=== PATIENT | male | born 1945 | race Caucasian/White ===

== ENCOUNTER 2016-03-05 09:27 | Inpatient (IN) | payer MEDICARE, OTHER ==
--- NOTE | 2016-03-05 10:09 | ED ---
General Adult HPI - General Source: patient, RN notes reviewed Mode of arrival: wheelchair Limitations: no limitations <Alex Odell - Last Filed: 03/05/16 13:02> <Ralf Huang - Last Filed: 03/05/16 13:39> - General Chief complaint: Chest Pain Stated complaint: chest pain Time Seen by Provider: 03/05/16 09:47 - History of Present Illness Initial comments: 70-year-old male presents emergency Department from cancer Center for evaluation. Patient was diaphoretic, fatigue and not feeling well. Patient states they're concerned that he may be having some heart issues. Patient denies any chest pain this time. Patient states he has no A. fib. Patient states that he is currently on Coumadin states that they are waiting until he is therapeutic for 4 weeks consistently to be converted. Patient states he has no increased shortness of breath. Patient denies any fever, chills. Patient states he did receive radiation today. Patient states she's had bouts of these episodes in the past and they resolved by himself. Patient denies any nausea vomiting. Patient denies any cold-like symptoms. Patient offers no complaints. (Alex Odell) - Related Data Home Medications Medication Instructions Recorded Confirmed Albuterol Inhaler [Ventolin Hfa 2 puff INHALATION RT-Q4H PRN 11/02/15 03/05/16 Inhaler] Aspirin [Adult Low Dose Aspirin EC] 81 mg PO DAILY 11/02/15 03/05/16 Budesonide/Formoterol Fumarate 2 puff INHALATION RT-BID 11/02/15 03/05/16 [Symbicort 80-4.5 Mcg Inhaler] Carboxymethylcellulose Sodium 1 drop BOTH EYES BID PRN 11/02/15 03/05/16 [Refresh Tears] Cholecalciferol [Vitamin D3] 1,000 unit PO DAILY 11/02/15 03/05/16 Fluticasone Nasal [place] [Flonase 1 spray EA NOSTRIL BID 11/02/15 03/05/16 Nasal [place]] Furosemide [Lasix] 40 mg PO DAILY 11/02/15 03/05/16 HYDROcodone/APAP 7.5-325MG [[place] 1 tab PO Q6HR PRN 11/02/15 03/05/16 7.5-325] Levothyroxine Sodium [Synthroid] 50 mcg PO DAILY 11/02/15 03/05/16 Losartan Potassium [Cozaar] 50 mg PO DAILY 11/02/15 03/05/16 Meloxicam [Mobic] 7.5 mg PO BID 11/02/15 03/05/16 Multivitamins, Thera [Multivitamin] 1 tab PO DAILY 11/02/15 03/05/16 Omeprazole 20 mg PO DAILY 11/02/15 03/05/16 Pravastatin Sodium [Pravachol] 80 mg PO HS 11/02/15 03/05/16 Tamsulosin HCl [Flomax] 0.4 mg PO HS 11/02/15 03/05/16 hydrALAZINE HCL [Apresoline] 25 mg PO BID 11/02/15 03/05/16 metFORMIN HCL 1,000 mg PO BID 11/02/15 03/05/16 Carvedilol [Coreg] 12.5 mg PO BID 01/28/16 03/05/16 Warfarin [Coumadin] 5 mg PO MOWETH 01/28/16 03/05/16 Warfarin [Coumadin] 7.5 mg PO SUTUFRSA 01/28/16 03/05/16 Previous Rx's Medication Instructions Recorded Albuterol Nebulized [Ventolin 2.5 mg INHALATION RT-TID #0 01/30/16 Nebulized] Ipratropium Nebulized [Atrovent 0.5 mg INHALATION RT-TID #0 01/30/16 Nebulized] Allergies Allergy/AdvReac Type Severity Reaction Status Date / Time simvastatin [From Zocor] AdvReac Myalgia Verified 03/05/16 10:31 Review of Systems ROS Other: All systems not noted in ROS Statement are negative. <Alex Odell - Last Filed: 03/05/16 13:02> ROS Other: All systems not noted in ROS Statement are negative. <Ralf Huang - Last Filed: 03/05/16 13:39> ROS Statement: Those systems with pertinent positive or pertinent negative responses have been documented in the HPI. Past Medical History Past Medical History: Coronary Artery Disease (CAD), Cancer, Heart Failure, COPD , Diabetes Mellitus, GERD/Reflux, Hyperlipidemia, Hypertension, Osteoarthritis ( OA), Sleep Apnea/CPAP/BIPAP, Thyroid Disorder Additional Past Medical History / Comment(s): prostate ca under treatment now - radiation therapy 8 weeks 5 days a week - as of 01/27 week 3. History of Any Multi-Drug Resistant Organisms: None Reported Past Surgical History: Orthopedic Surgery Additional Past Surgical History / Comment(s): carpel tunnel fatty tumor removal Past Anesthesia/Blood Transfusion Reactions: No Reported Reaction Past Psychological History: No Psychological Hx Reported Additional Psychological History / Comment(s): had some group therapy after he came back from [place] Smoking Status: Never smoker Past Alcohol Use History: None Reported Past Drug Use History: None Reported - Past Family History Father Family Medical History: Cancer, Dementia Additional Family Medical History / Comment(s): prostate ca, oral ca from smoking Mother Family Medical History: Cancer, Diabetes Mellitus, Hypertension Additional Family Medical History / Comment(s): stomach Brother(s) Family Medical History: GI Bleed Additional Family Medical History / Comment(s): knee problems. stomach resection for bleeding ulcer <Alex Odell - Last Filed: 03/05/16 13:02> General Exam Limitations: no limitations General appearance: alert, in no apparent distress Head exam: Present: atraumatic, normocephalic, normal inspection Respiratory exam: Present: normal lung sounds bilaterally. Absent: respiratory distress, wheezes, rales, rhonchi, stridor Cardiovascular Exam: Present: irregular rhythm, normal heart sounds. Absent: systolic murmur, diastolic murmur, rubs, gallop, clicks GI/Abdominal exam: Present: soft, normal bowel sounds. Absent: distended, tenderness, guarding, rebound, rigid Neurological exam: Present: alert, oriented X3, CN II-XII intact Skin exam: Present: warm, dry, intact, normal color. Absent: rash <Alex Odell - Last Filed: 03/05/16 13:02> Medical Decision Making - Lab Data Result diagrams: 03/05/16 10:14 03/05/16 10:14 <Alex Odell - Last Filed: 03/05/16 13:02> - Lab Data Result diagrams: 03/05/16 10:14 03/05/16 10:14 <Ralf Huang - Last Filed: 03/05/16 13:39> - Medical Decision Making 70-year-old male present emergency department for doesn't feel well diaphoretic shortness of breath. Patient will be admitted to hospitalist at this time. ( Alex Odell) Patient reevaluated by myself, Dr. Huang. Patient was diaphoretic earlier. Patient also now admits to being short of breath and had difficulty walking. Patient was unable to ambulate to the emergency department. Patient is resting comfortably in bed in symptoms. This time. Case was discussed in detail with Dr. Washburn, who will admit for Dr. Orr. Cardiac evaluation will be done and computed tomography scan will be rechecked. (Ralf Huang) - Lab Data Lab Results 03/05/16 03/05/16 03/05/16 Range/Units 10:14 10:14 10:14 WBC 5.4 (3.8-10.6) k/uL RBC 4.21 L (4.30-5.90) m/uL Hgb 12.8 L (13.0-17.5) gm/dL Hct 38.4 L (39.0-53.0) % MCV 91.0 (80.0-100.0) fL MCH 30.4 (25.0-35.0) pg MCHC 33.4 (31.0-37.0) g/dL RDW 14.6 (11.5-15.5) % Plt Count 202 (150-450) k/uL Neutrophils % 76 % Lymphocytes % 7 % Monocytes % 8 % Eosinophils % 4 % Basophils % 1 % Neutrophils # 4.1 (1.3-7.7) k/uL Lymphocytes # 0.4 L (1.0-4.8) k/uL Monocytes # 0.4 (0-1.0) k/uL Eosinophils # 0.2 (0-0.7) k/uL Basophils # 0.0 (0-0.2) k/uL PT (9.0-12.0) sec INR (<1.1) APTT (22.0-30.0) sec Sodium 143 (137-145) mmol/L Potassium 4.7 (3.5-5.1) mmol/L Chloride 103 (98-107) mmol/L Carbon Dioxide 28 (22-30) mmol/L Anion Gap 12 mmol/L BUN 20 (9-20) mg/dL Creatinine 0.88 (0.66-1.25) mg/dL Est GFR (MDRD) Af Amer >60 (>60 ml/min/1.73 sqM) Est GFR (MDRD) Non-Af >60 (>60 ml/min/1.73 sqM) Glucose 119 H (74-99) mg/dL Calcium 9.1 (8.4-10.2) mg/dL Magnesium 1.7 (1.6-2.3) mg/dL Total Bilirubin 1.0 (0.2-1.3) mg/dL AST 16 L (17-59) U/L ALT 29 (21-72) U/L Alkaline Phosphatase 62 (38-126) U/L Total Creatine Kinase 41 L (55-170) U/L CK-MB (CK-2) 0.8 (0.0-2.4) ng/mL CK-MB (CK-2) Rel Index 2.0 Troponin I <0.012 (0.000-0.034) ng/mL Total Protein 6.5 (6.3-8.2) g/dL Albumin 3.8 (3.5-5.0) g/dL Urine Color Urine Appearance (Clear) Urine pH (5.0-8.0) Ur Specific [place] (1.001-1.035) Urine Protein (Negative) Urine Glucose (UA) (Negative) Urine Ketones (Negative) Urine Blood (Negative) Urine Nitrate (Negative) Urine Bilirubin (Negative) Urine Urobilinogen (<2.0) mg/dL Ur Leukocyte Esterase (Negative) 03/05/16 03/05/16 Range/Units 10:14 11:21 WBC (3.8-10.6) k/uL RBC (4.30-5.90) m/uL Hgb (13.0-17.5) gm/dL Hct (39.0-53.0) % MCV (80.0-100.0) fL MCH (25.0-35.0) pg MCHC (31.0-37.0) g/dL RDW (11.5-15.5) % Plt Count (150-450) k/uL Neutrophils % % Lymphocytes % % Monocytes % % Eosinophils % % Basophils % % Neutrophils # (1.3-7.7) k/uL Lymphocytes # (1.0-4.8) k/uL Monocytes # (0-1.0) k/uL Eosinophils # (0-0.7) k/uL Basophils # (0-0.2) k/uL PT 22.7 H (9.0-12.0) sec INR 2.4 (<1.1) APTT 32.5 H (22.0-30.0) sec Sodium (137-145) mmol/L Potassium (3.5-5.1) mmol/L Chloride (98-107) mmol/L Carbon Dioxide (22-30) mmol/L Anion Gap mmol/L BUN (9-20) mg/dL Creatinine (0.66-1.25) mg/dL Est GFR (MDRD) Af Amer (>60 ml/min/1.73 sqM) Est GFR (MDRD) Non-Af (>60 ml/min/1.73 sqM) Glucose (74-99) mg/dL Calcium (8.4-10.2) mg/dL Magnesium (1.6-2.3) mg/dL Total Bilirubin (0.2-1.3) mg/dL AST (17-59) U/L ALT (21-72) U/L Alkaline Phosphatase (38-126) U/L Total Creatine Kinase (55-170) U/L CK-MB (CK-2) (0.0-2.4) ng/mL CK-MB (CK-2) Rel Index Troponin I (0.000-0.034) ng/mL Total Protein (6.3-8.2) g/dL Albumin (3.5-5.0) g/dL Urine Color Yellow Urine Appearance Clear (Clear) Urine pH 6.5 (5.0-8.0) Ur Specific [place] 1.018 (1.001-1.035) Urine Protein Negative (Negative) Urine Glucose (UA) Negative (Negative) Urine Ketones Negative (Negative) Urine Blood Negative (Negative) Urine Nitrate Negative (Negative) Urine Bilirubin Negative (Negative) Urine Urobilinogen <2.0 (<2.0) mg/dL Ur Leukocyte Esterase Negative (Negative) Disposition <Alex Odell - Last Filed: 03/05/16 13:02> <Ralf Huang - Last Filed: 03/05/16 13:39> Clinical Impression: Weakness, Pulmonary embolism, Shortness of breath Disposition: ADMITTED IP TO THIS HOSP Referrals: Alex Haley DO [Primary Care Provider] - 1-2 days Addendum entered and electronically signed by Alex Odell, PAC 03/05/16 13:07 : EKG A. fib with rate of 87, QRS duration 80, QTC is QTC 360/442
[2016-03-05 10:34] LABS: INR 2.4 (<1.1); Partial Thromboplastin Time 32.5 sec (22.0-30.0); Prothrombin Time 22.7 sec (9.0-12.0)
[2016-03-05 10:35] LABS: Anion Gap 12 mmol/L; Carbon Dioxide 28 mmol/L (22-30); Chloride 103 mmol/L (98-107); Glucose 119 mg/dL (74-99); Non-African American GFR(MDRD) >60 (>60 ml/min/1.73 sqM); Potassium 4.7 mmol/L (3.5-5.1); Sodium 143 mmol/L (137-145); Total Protein 6.5 g/dL (6.3-8.2)
[2016-03-05 10:36] LABS: ALT 29 U/L (21-72); AST 16 U/L (17-59); Alkaline Phosphatase 62 U/L (38-126); Blood Urea Nitrogen 20 mg/dL (9-20); Calcium 9.1 mg/dL (8.4-10.2); Magnesium 1.7 mg/dL (1.6-2.3)
[2016-03-05 10:42] LABS: Basophils % (A) 1 %; CH 31.2; CHCM 34.4; Eosinophils # (A) 0.2 k/uL (0-0.7); Eosinophils % (A) 4 %; HCT 38.4 % (39.0-53.0); HDW 2.81; HGB 12.8 gm/dL (13.0-17.5); Luc # (Auto) 0.18; Luc % (Auto) 3; Lymphocytes # (A) 0.4 k/uL (1.0-4.8); Lymphocytes % (A) 7 %; MCH 30.4 pg (25.0-35.0); MCHC 33.4 g/dL (31.0-37.0); Monocytes # (A) 0.4 k/uL (0-1.0); Monocytes % (A) 8 %; Neutrophils # (A) 4.1 k/uL (1.3-7.7); Neutrophils % (A) 76 %; RBC 4.21 m/uL (4.30-5.90); RDW 14.6 % (11.5-15.5); WBC 5.4 k/uL (3.8-10.6); WBC (Perox) 5.63
[2016-03-05 10:48] LABS: Creatine Kinase 41 U/L (55-170)
[2016-03-05 11:02] LABS: Creatine Kinase MB 0.8 ng/mL (0.0-2.4); Troponin I <0.012 ng/mL (0.000-0.034)
--- NOTE | 2016-03-05 11:37 | XR ---
EXAMINATION TYPE: XR chest 2V DATE OF EXAM: 03/05/2016 11:33 AM COMPARISON: 01/28/2016 HISTORY: Shortness of breath TECHNIQUE: Frontal and lateral views of the chest are obtained. FINDINGS: Scattered senescent parenchymal changes noted. Hyperinflation compatible with COPD. No evidence for infiltrate. No evidence for atelectasis. Heart size is stable. Mediastinal structures are stable and grossly unremarkable. No evidence for hilar prominence. Degenerative changes dorsal spine. IMPRESSION: 1. No evidence for acute pulmonary disease.
[2016-03-05 11:58] LABS: Appearance,Urine Clear (Clear); Bilirubin,Urine Negative (Negative); Glucose,Urine (UA) Negative (Negative); Ketones,Urine Negative (Negative); Leukocyte Esterase,Urine Negative (Negative); Nitrite,Urine Negative (Negative); PH, Urine 6.5 (5.0-8.0); Protein,Urine Negative (Negative); Specific Gravity,Urine 1.018 (1.001-1.035); UA Billing (MACRO vs. MICRO) CHEM; Urobilinogen,Urine <2.0 mg/dL (<2.0)
[2016-03-05] MEDS ORDERED: NALOXONE 0.4 MG/ML 1 ML VIAL IV PRN (13:04)
[2016-03-05] MEDS ORDERED: ACETAMINOPHEN TAB 325 MG TAB PO PRN (13:04)
[2016-03-05] MEDS ORDERED: ARTIFICIAL TEARS-HYPROMELLOSE DROPS 15 ML BTL BOTH EYES PRN (13:06)
[2016-03-05] MEDS ORDERED: HYDROcodone/APAP 7.5-325MG 1 EACH TAB PO PRN (13:06)
[2016-03-05] MEDS ORDERED: ALBUTEROL NEBULIZED 2.5 MG/3 ML INHALATION PRN (13:06)
[2016-03-05] MEDS ORDERED: RX INFO: IV CONTRAST WAS GIVEN 1 EACH MISC MISCELLANE PRN (13:39)
--- NOTE | 2016-03-05 14:35 | CT ---
EXAMINATION TYPE: CT angio chest DATE OF EXAM: 03/05/2016 2:19 PM COMPARISON: Radiograph same day HISTORY: 70-year-old male with shortness of breath and history of PE. TECHNIQUE: Contiguous axial scanning of the chest performed with IV Contrast, patient injected with 1 00 ml mL of Omnipaque 350. Coronal/sagittal MIP reconstructions performed. CT DLP: 563.9 mGycm Automated exposure control for dose reduction was used. FINDINGS: Heart is upper limits of normal in size without pericardial effusion. Coronary vessel calcifications are present and are a marker for coronary artery disease. Ascending aorta is ectatic at 3.9 cm with conventional arch vessel branching anatomy. Upper descendin g thoracic aorta is mildly aneurysmal at 3.2 cm. There is satisfactory opacification of the pulmonary arterial system but with some respiratory motion . There is a solitary segmental branch pulmonary embolus seen within the right lower lobe. There is n o flattening of the interventricular septum or reflux of contrast into the hepatic veins. Evaluation of the lungs shows mild diffuse bronchial wall thickening which could represent bronchitis or chronic asthma. - 4 mm right upper lobe pulmonary nodule axial image 31. - 5 mm subpleural pulmonary nodule right middle lobe axial image 82. - 4 mm pulmonary nodule peripheral left upper lobe axial image 67. No consolidation or pleural effusion. Visualized upper abdomen shows no gross abnormality. Bones: Endplate spondylosis mid to lower thoracic spine. No osseous destructive process. Incompletely united old fracture deformity of the right anterior sixth rib. IMPRESSION: 1. SOLITARY PULMONARY EMBOLUS WITHIN A SEGMENTAL BRANCH OF THE RIGHT LOWER LOBE. FINDINGS CALLED TO [facility]O ON - AT APPROXIMATELY 2:30 PM. 2. MILD DIFFUSE BRONCHIAL WALL THICKENING COULD REPRESENT BRONCHITIS OR CHRONIC ASTHMA. 3. A FEW PULMONARY NODULES MEASURING UP TO 5 MM. 6, 12, AND 24 MONTHS FOLLOW UP EXAMS ARE RECOMMENDED TO ENSURE STABILITY AND A BENIGN ETIOLOGY.
[2016-03-05 17:05] LABS: Glucose,Whole Blood 102 mg/dL (75-99)
[2016-03-05] MEDS ORDERED: CARVEDILOL 12.5 MG TAB PO SCH (17:30)
[2016-03-05 17:58] VITALS: BP 140/72; PULSE 91; RESP 18; TEMP 97.4
[2016-03-05] MEDS ORDERED: WARFARIN 5 MG TAB PO SCH (18:00)
[2016-03-05] MEDS ORDERED: IPRATROPIUM 0.5 MG/2.5 ML NEBU INHALATION SCH (20:00)
[2016-03-05] MEDS ORDERED: ALBUTEROL NEB (CONC) 2.5 MG/0.5 ML INHALATION SCH (20:00)
[2016-03-05] MEDS ORDERED: SYMBICORT 80-4.5 MCG INHALER INHALATION SCH (20:00)
[2016-03-05] MEDS ORDERED: TAMSULOSIN 0.4 MG CAP.ER.24H PO SCH (21:00)
[2016-03-05] MEDS ORDERED: metFORMIN 500 MG TAB PO SCH (21:00)
[2016-03-05] MEDS ORDERED: hydrALAZINE HCL 25 MG TAB PO SCH (21:00)
[2016-03-05] MEDS ORDERED: PRAVASTATIN SODIUM 80 MG TAB PO SCH (21:00)
[2016-03-06] MEDS ORDERED: LEVOTHYROXINE 50 MCG TAB PO SCH (06:30)
[2016-03-06] MEDS ORDERED: PANTOPRAZOLE 40 MG TABLET PO SCH (07:30)
--- NOTE | 2016-03-06 08:43 | HP ---
DATE OF ADMISSION: This dictation is both H&P and discharge summary. A 70-year-old who came in after he was sent from cancer center. Patient was receiving radiation therapy. Radiation physician was concerned because he was quite fatigued after radiation therapy and the patient has fatigue going on for about a few weeks. Patient was on ( ) therapy which is probably contributing to his fatigue. Patient denied any fever, chills. Patient was apparently complained of ( ), complained of shortness of breath. Apparently through the ER patient denied any history of shortness of breath. Patient denied any fever and chills. Patient had nausea and vomiting. Patient denied any orthopnea, PND. His only symptoms is significant fatigue. ( ) not anemic. His fatigue is probably related to ( ) therapy. Patient follows with oncologist in [facility]. Considering his previous history of pulmonary embolism, I am not sure why, but patient did get a CT scan of the chest, which did not show any pulmonary edema or pneumonic process. Although there is a ( ) pulmonary embolus, which was subsequently by the right lower lobe, which appears to be older pulmonary emboli and the patient is already on Coumadin therapy with therapeutic INR. Patient has diffuse ( ) thickening and some pulmonary nodules measuring up to 5 mm and will need follow up CT scan for that. Not sure whether these pulmonology nodules were present or not. I did call Dr. Mcclellan, who evaluated the patient and patient is going to switch his oncologist to a local oncologist, Dr. Mcclellan. Because of which I did discuss this case with him and also encouraged him further to follow-up with Dr. Mcclellan. I will try to reach Dr. Waldrop as well, who evaluated the patient regarding these pulmonary nodules, which may need to be followed down the line. I am not sure whether these pulmonary nodules were already present. Patient did tell me that he has nodule in the abdomen. I do not believe patient needs to stay in the hospital for fatigue evaluation as this is an outpatient evaluation. Patient was subsequently discharged. Patient was made aware about these nodules and I asked him to get with oncologist in [facility] whenever he goes and sees his oncologist. Home medications include: Albuterol, aspirin, Zosyn, ( ) pharmacy to dose, cholecalciferol, fluticasone, Lasix 40 mg orally daily, hydrocodone, acetaminophen, levothyroxine, losartan, meloxicam, multivitamin, omeprazole, pravastatin, tamsulosin, hydralazine, metformin, Coreg, Coumadin, albuterol, ipratropium. ROS : All other systems were reviewed and were negative. ALLERGIES: ALLERGIC TO SIMVASTATIN. Past medical history significant for coronary artery disease, heart failure. I am not sure what his ejection fraction is although patient is not in congestive heart failure exacerbation. Patient has prostate cancer for which patient is receiving hormone therapy and radiation therapy, COPD, diabetes mellitus, gastroesophageal reflux disease, hyperlipidemia, hypertension, osteoarthritis, sleep apnea. He uses CPAP machine at home. Hypothyroidism, carpal tunnel syndrome. SOCIAL HISTORY: Denied smoking, alcohol abuse or drug abuse. FAMILY HISTORY: Significant for dementia, cancer, there is oral cancer in father and prostate cancer in father. Mother had diabetes mellitus, stomach cancer and hypertension. Brother had GI bleed. PHYSICAL EXAMINATION: VITAL SIGNS: Temperature 97.4, pulse of 90, respiratory rate of 18, blood pressure 125/63, saturating at 96% on room air. GENERAL: Morbidly obese, alert and oriented x3. HEENT: Pupils are round and equally reacting to light. EOMI. No scleral icterus. No conjunctival pallor. Normocephalic, atraumatic. No pharyngeal erythema. No thyromegaly. CARDIOVASCULAR: S1 and S2 present. No murmurs, rubs, or gallops. PULMONARY: Chest is clear to auscultation, no wheezing or crackles. ABDOMEN: Soft, nontender, nondistended, normoactive bowel sounds. No palpable organomegaly. MUSCULOSKELETAL: No joint swelling or deformity. EXTREMITIES: No cyanosis, clubbing, or pedal edema. NEUROLOGICAL: Gross neurological examination did not reveal any focal deficits. SKIN: No rashes. LABORATORY DATA: CBC, CMP and TSH are essentially within normal limits. The patient's hemoglobin is 12.4. CT angiogram of the chest was reviewed and results as mentioned above. ASSESSMENT AND PLAN: 1. Fatigue probably related to his localized therapy. Further evaluation can be done as an outpatient. The patient will be asked to follow up with his primary care physician for that. 2. Questionable history of coronary artery disease, not in acute exacerbation at this point of time. 3. Questionable history of congestive heart failure, unknown ejection fraction, not in acute exacerbation. 4. Prostate cancer for which patient is on receiving hormonal therapy and radiation therapy which will be continued. 5. Hypothyroidism. 6. Pulmonary embolism, which appears to be chronic and patient does not have any other symptoms except for fatigue. Patient is on Coumadin which INR is therapeutic, he will continue. 7. Diabetes mellitus. 8. Severe sleep apnea for which he uses CPAP machine. 9. Morbid obesity. Counseling was provided regarding that. 10. Restrictive lung disease secondary to morbid obesity. 11. Hypertension. 12. Hypothyroidism. 13. History of coronary artery disease. 14. Type 2 diabetes mellitus. For above mentioned chronic medical problems the patient can continue his home medications. Patient will be discharged today. This dictation is both H&P and discharge summary. DISCHARGE DIET: Cardiac and ADA 1800 calorie diet. Follow up with Dr. Tony Mcclellan in one week; Dr. Alex Haley in about 3 to 7 days; Dr. Ainsley Waldrop in one week. Activity as tolerated. MTDD
[2016-03-06] MEDS ORDERED: FUROSEMIDE 40 MG TAB PO SCH (09:00)
[2016-03-06] MEDS ORDERED: ASPIRIN 81 MG CHEW PO SCH (09:00)
[2016-03-06] MEDS ORDERED: LOSARTAN 50 MG TAB PO SCH (09:00)
[2016-03-06] MEDS ORDERED: WARFARIN 7.5 MG TAB PO SCH (18:00)
== END 2016-03-05 19:36 | disposition home or self-care (01) | DRG 948 ==
LOC: EC 09:27 → OBSVTOIN 13:04 → INTOOBSV 13:04 → 6SEL 13:04
PROVIDERS: ADMIT Hospitalist; ATTEND Hospitalist
DX: R53.83 Other fatigue (principal); I27.82 Chronic pulmonary embolism; C61 Malignant neoplasm of prostate; Z68.41 Body mass index [BMI] 40.0-44.9, adult; E03.9 Hypothyroidism, unspecified; E11.9 Type 2 diabetes mellitus without complications; G47.30 Sleep apnea, unspecified; E66.01 Morbid (severe) obesity due to excess calories; J98.4 Other disorders of lung; I10 Essential (primary) hypertension; I25.10 Atherosclerotic heart disease of native coronary artery without angina pectoris; J44.9 Chronic obstructive pulmonary disease, unspecified; K21.9 Gastro-esophageal reflux disease without esophagitis; E78.5 Hyperlipidemia, unspecified; M19.90 Unspecified osteoarthritis, unspecified site; T78.8XXA Other adverse effects, not elsewhere classified, initial encounter; R91.8 Other nonspecific abnormal finding of lung field; Z99.89 Dependence on other enabling machines and devices; Z79.01 Long term (current) use of anticoagulants; Z79.82 Long term (current) use of aspirin; Z79.51 Long term (current) use of inhaled steroids; Z79.84 Long term (current) use of oral hypoglycemic drugs; Z79.899 Other long term (current) drug therapy; Z88.8 Allergy status to other drugs, medicaments and biological substances; Z82.49 Family history of ischemic heart disease and other diseases of the circulatory system
CPT/HCPCS: 36415; 71020; 71275; 80053; 81003; 82550; 82553; 83735; 84443; 84484; 85025; 85610; 85730; 93005; 99285

== ENCOUNTER → 2016-04-14 | Outpatient (CLI) | payer OTHER ==
[2016-04-14 09:28] LABS: Basophils % (A) 0 %; CH 31.2; CHCM 33.4; Eosinophils # (A) 0.3 k/uL (0-0.7); Eosinophils % (A) 4 %; HCT 38.1 % (39.0-53.0); HDW 2.89; HGB 12.6 gm/dL (13.0-17.5); Luc # (Auto) 0.12; Luc % (Auto) 2; Lymphocytes # (A) 0.4 k/uL (1.0-4.8); Lymphocytes % (A) 7 %; MCH 31.1 pg (25.0-35.0); MCHC 33.1 g/dL (31.0-37.0); Mean Platelet Volume 6.7; Monocytes # (A) 0.4 k/uL (0-1.0); Monocytes % (A) 6 %; Neutrophils % (A) 80 %; RBC 4.05 m/uL (4.30-5.90); RDW 13.6 % (11.5-15.5); WBC 6.2 k/uL (3.8-10.6); WBC (Perox) 7.05
[2016-04-14 12:23] LABS: ALT 36 U/L (21-72); AST 17 U/L (17-59); Alkaline Phosphatase 62 U/L (38-126); Anion Gap 11 mmol/L; Blood Urea Nitrogen 15 mg/dL (9-20); Calcium 9.6 mg/dL (8.4-10.2); Carbon Dioxide 27 mmol/L (22-30); Chloride 103 mmol/L (98-107); Glucose 115 mg/dL (74-99); Non-African American GFR(MDRD) >60 (>60 ml/min/1.73 sqM); Potassium 5.1 mmol/L (3.5-5.1); Sodium 141 mmol/L (137-145); Total Bilirubin 0.8 mg/dL (0.2-1.3); Total Protein 6.5 g/dL (6.3-8.2)
[2016-04-14 12:51] LABS: Prostate Specific Antigen <0.06 ng/mL (0.00-4.00)
[2016-04-14 12:55] LABS: Hemoglobin A1C 5.6 % (4.2-6.1)
== END | disposition home or self-care (01) ==
LOC: LABWHC1 08:36
PROVIDERS: ATTEND Radiology Radiation Oncology
DX: C61 Malignant neoplasm of prostate (principal); E11.65 Type 2 diabetes mellitus with hyperglycemia
CPT/HCPCS: 36415; 80053; 83036; 84153; 85025

== ENCOUNTER → 2016-06-15 | Outpatient (CLI) | payer OTHER ==
[2016-06-15 11:54] LABS: Blood Urea Nitrogen 16 mg/dL (9-20); Non-African American GFR(MDRD) >60 (>60 ml/min/1.73 sqM)
--- NOTE | 2016-06-15 14:36 | CT ---
EXAMINATION TYPE: CT abdomen pelvis w con DATE OF EXAM: 06/15/2016 1:22 PM COMPARISON: NONE INDICATION: Malignant neoplasm prostate DLP: 4462.90 mGycm, Automated exposure control for dose reduction was used. CONTRAST: 100 ml mL of Omnipaque 300. Study performed with Oral Contrast TECHNIQUE: Axial images were obtained from above the diaphragm to the pubic rami in the axial plane a t 5 mm thick sections. Reconstructed images are reviewed on the computer in the coronal plane. FINDINGS: Limited CT sections are obtained the lung bases. There is a 0.5 cm punctate densities in the periphe ry of the left midlung. Lung bases otherwise appear clear. Some subsegmental atelectasis may be withi n the lingula. Coronary artery calcification is present. CT ABDOMEN: Liver: Normal Spleen: Normal Pancreas: Some subtle infiltrate appears to surround the head of the pancreas. Clinical correlation r ecommended for mild acute pancreatitis. Body and tail of the pancreas appear normal. No sterling-Pancreat ic inflammatory changes are identified at those more distal pancreatic levels. Adrenal glands: The adrenal glands are normal. Gallbladder: Normal Kidneys: No masses are evident. No hydronephrosis is present. No cysts are present. Delayed images were obtained through the kidneys, which remain unremarkable. Aorta: Vascular calcification is within the aorta. Inferior vena cava: Normal. CT PELVIS: Loops of bowel within the abdomen and pelvis are normal. There are loops of bowel which are incom pletely distended or lack oral contrast limiting their evaluation. Appendix: Normal as visualized. Urinary bladder: Normal. Genitourinary structures: Prostate contains calcification. Osseous structures: No suspicious lytic or sclerotic lesions. IMPRESSIONS: 1. Correlate for acute pancreatitis at the head of the pancreas.
== END | disposition home or self-care (01) ==
LOC: RADCTMAIN 11:03
PROVIDERS: ATTEND Radiology Radiation Oncology
DX: C61 Malignant neoplasm of prostate (principal); K85.90 Acute pancreatitis without necrosis or infection, unspecified
CPT/HCPCS: 82565; 84520; 74177; 36415; Q9967

== ENCOUNTER → 2016-10-02 | Outpatient (CLI) | payer OTHER ==
--- NOTE | 2016-10-02 09:47 | US ---
LOWER EXTREMITY VENOUS INSUFFICIENCY SIDE PERFORMED: LEFT 1) Color flow is present and patency is documented in the following vessels. No DVT or SVT is noted . EIV, not visualized due to obesity Common Femoral Vein Deep Femoral Vein Femoral Vein Popliteal Vein Proximal Calf Veins, not visualized due to obesity Greater Saph Vein Upper Small Saph Vein 2) There is venous reflux noted at the following venous levels: Left small saphenous vein Anechoic structure left pop fossa with internal calcifications measuring 4.9 x 2.8 x 4.1cm IMPRESSION: 1. Visualized left lower extremity venous Doppler study is negative for deep venous thrombosis. There is limitation. 2. Popliteal fossa cyst, this appears complex.
== END | disposition home or self-care (01) ==
LOC: RADUSWWP 08:17
PROVIDERS: ATTEND Internal Medicine Infectious Disease
DX: M71.22 Synovial cyst of popliteal space [Baker], left knee (principal)
CPT/HCPCS: 93922; 93923

== ENCOUNTER → 2016-11-20 | Outpatient (CLI) | payer OTHER | END | disposition home or self-care (01) | LOC: LABWHC1 09:25 | PROVIDERS: ATTEND Radiology Radiation Oncology | DX: C61 Malignant neoplasm of prostate (principal) | CPT/HCPCS: 36415; 84153 ==

== ENCOUNTER 2016-11-23 12:50 | Observation (INO) | payer OTHER ==
[2016-11-23 14:04] LABS: Basophils % (A) 0 %; CH 30.3; CHCM 33.6; Eosinophils # (A) 0.4 k/uL (0-0.7); Eosinophils % (A) 5 %; HCT 36.3 % (39.0-53.0); HDW 2.66; HGB 11.8 gm/dL (13.0-17.5); Luc # (Auto) 0.07; Luc % (Auto) 1; Lymphocytes # (A) 0.6 k/uL (1.0-4.8); Lymphocytes % (A) 8 %; MCH 29.5 pg (25.0-35.0); MCHC 32.5 g/dL (31.0-37.0); MCV 90.6 fL (80.0-100.0); Mean Platelet Volume 7.8; Monocytes # (A) 0.4 k/uL (0-1.0); Monocytes % (A) 6 %; Neutrophils # (A) 5.5 k/uL (1.3-7.7); Neutrophils % (A) 80 %; RDW 14.6 % (11.5-15.5); WBC 6.9 k/uL (3.8-10.6); WBC (Perox) 7.33
--- NOTE | 2016-11-23 14:15 | ED ---
General Adult HPI - General Chief complaint: Recheck/Abnormal Lab/Rx Stated complaint: Low Pulse Time Seen by Provider: 11/23/16 13:14 Source: patient Mode of arrival: wheelchair Limitations: no limitations - History of Present Illness Initial comments: This 71-year-old white male presents with a complaint of bradycardia. He apparently was at the wound care center when they noted that he was bradycardic. His heart rate dropped down into the high 30s and low 40s. He apparently felt somewhat tired and was dozing off at times but denies any syncope or presyncope. He denies any chest pain or shortness of breath. He is essentially asymptomatic throughout the episode and currently. He states that he's been dealing with a left lower extremity wound for approximately 6 months and this is almost healed. This was dressed by the wound care clinic. He denies any fevers or chills. He states that he does have a history of an arrhythmia but he cannot remember exactly what type but it may be atrial fibrillation. The patient and states that he is currently on Coumadin for this arrhythmia. He denies any history of coronary artery disease or myocardial infarction. He has never been told that he needs a pacemaker. He gets his Cardiologic care done through the [facility]. No other complaints or modifying factors. - Related Data Home Medications Medication Instructions Recorded Confirmed Albuterol Inhaler [Ventolin Hfa 2 puff INHALATION RT-Q4H PRN 11/02/15 11/23/16 Inhaler] Carboxymethylcellulose Sodium 1 drop BOTH EYES BID PRN 11/02/15 11/23/16 [Refresh Tears] Cholecalciferol [Vitamin D3] 1,000 unit PO DAILY 11/02/15 11/23/16 Fluticasone Nasal [place] [Flonase 1 spray EA NOSTRIL BID 11/02/15 11/23/16 Nasal [place]] Furosemide [Lasix] 40 mg PO BID 11/02/15 11/23/16 HYDROcodone/APAP 7.5-325MG [[place] 1 tab PO Q6HR PRN 11/02/15 11/23/16 7.5-325] Levothyroxine Sodium [Synthroid] 50 mcg PO DAILY 11/02/15 11/23/16 Losartan Potassium [Cozaar] 50 mg PO DAILY 11/02/15 11/23/16 Meloxicam [Mobic] 7.5 mg PO BID 11/02/15 11/23/16 Multivitamins, Thera [Multivitamin 1 tab PO DAILY 11/02/15 11/23/16 (formulary)] Omeprazole 20 mg PO DAILY 11/02/15 11/23/16 Tamsulosin HCl [Flomax] 0.4 mg PO HS 11/02/15 11/23/16 hydrALAZINE HCL [Apresoline] 25 mg PO BID 11/02/15 11/23/16 metFORMIN HCL 1,000 mg PO BID 11/02/15 11/23/16 Carvedilol [Coreg] 12.5 mg PO BID 01/28/16 11/23/16 Warfarin [Coumadin] 7.5 mg PO W/SUPPER 01/28/16 11/23/16 Ascorbic Acid [Vitamin C] 500 mg PO DAILY 09/21/16 11/23/16 Dofetilide [Tikosyn] 500 mg PO BID 09/21/16 11/23/16 Ferrous Sulfate [Iron] 325 mg PO DAILY 09/21/16 11/23/16 Previous Rx's Medication Instructions Recorded Albuterol Nebulized [Ventolin 2.5 mg INHALATION RT-TID #0 01/30/16 Nebulized] Ipratropium Nebulized [Atrovent 0.5 mg INHALATION RT-TID #0 01/30/16 Nebulized] Allergies Allergy/AdvReac Type Severity Reaction Status Date / Time sulfamethoxazole Allergy Unknown Rash/Hives Verified 11/23/16 13:27 simvastatin [From Zocor] AdvReac Myalgia Verified 11/23/16 13:27 Review of Systems ROS Statement: Those systems with pertinent positive or pertinent negative responses have been documented in the HPI. ROS Other: All systems not noted in ROS Statement are negative. Past Medical History Past Medical History: Coronary Artery Disease (CAD), Cancer, Heart Failure, COPD , Diabetes Mellitus, GERD/Reflux, Hyperlipidemia, Hypertension, Osteoarthritis ( OA), Prostate Disorder, Skin Disorder, Sleep Apnea/CPAP/BIPAP, Thyroid Disorder Additional Past Medical History / Comment(s): HX OF PROSTATE CANCER WITH RADIATION [place] (LAST-APRIL 2016), C-PAP MACHINE, BACK PAIN , HX OF GOUT. STATES ANEMIC AND HAS COLONOSCOPY SCHEDULED WITH [facility] , NON-HEALING WOUND LEFT RALPH. , USES CANE AND WALKER. History of Any Multi-Drug Resistant Organisms: None Reported Past Surgical History: Orthopedic Surgery Additional Past Surgical History / Comment(s): carpel tunnel, fatty tumor removED FROM LEG AND NECK. Past Anesthesia/Blood Transfusion Reactions: No Reported Reaction Additional Past Anesthesia/Blood Transfusion Reaction / Comment(s): STATES DR TOLD HIM NO ANESTHESIA DUE TO LUNG FUNCTION. Past Psychological History: No Psychological Hx Reported Smoking Status: Former smoker Past Alcohol Use History: None Reported Past Drug Use History: None Reported - Past Family History Father Family Medical History: Cancer, Dementia Additional Family Medical History / Comment(s): prostate ca, oral ca from smoking Mother Family Medical History: Cancer, Diabetes Mellitus, Hypertension Additional Family Medical History / Comment(s): stomach Brother(s) Family Medical History: GI Bleed Additional Family Medical History / Comment(s): knee problems. stomach resection for bleeding ulcer General Exam - General Exam Comments Initial Comments: GENERAL: The patient is well nourished and well hydrated. VITAL SIGNS: Heart rate, blood pressure, respiratory rate reviewed as recorded in nurse's notes. EYES: Pupils are round and reactive. Extraocular movements are intact. No conjunctival / lid redness or swelling. ENT: No external evidence of injury, swelling, or ecchymosis. Airway is patent. Throat is clear. NECK: Nontender. No swelling or evidence of injury. No subcutaneous emphysema. Trachea is midline. No thyroid mass. HEART: Regular rate and rhythm. Good peripheral pulses. LUNGS/CHEST: Breath sounds clear and equal bilaterally. No rales, rhonchi, or wheezes. No ecchymosis, subcutaneous emphysema, or tenderness. ABDOMEN: Abdomen soft without tenderness. No palpable masses or organomegaly. No peritoneal signs. No abdominal wall swelling or ecchymosis. EXTREMITIES: No extremity tenderness. Normal muscle tone and function. No thoracolumbar tenderness. NEUROLOGIC: Sensation is grossly intact. Cranial nerve exam reveals face is symmetrical, tongue is midline, speech is clear. SKIN: He has a complex bandage over his left leg distal to the knee and this is not interrupted. No induration or masses noted. PSYCHIATRIC: Alert and oriented. Appropriate behavior and judgment. Limitations: no limitations Course Vital Signs 11/23/16 11/23/16 11/23/16 12:58 14:00 15:00 Temperature 98.2 F Pulse Rate 83 76 62 Respiratory 20 18 18 Rate Blood Pressure 163/72 147/65 135/63 O2 Sat by Pulse 94 L 93 L 90 L Oximetry Medical Decision Making - Medical Decision Making The patient was seen and examined. All diagnostics were reviewed. An EKG was done and shows a normal sinus rhythm at a rate of 84 with a first-degree AV block. There is a left bundle branch block noted with left axis deviation. The CO interval is 2:30, QRS duration is 150, and the QTc interval is 531. An IV is established she was watched on the heart monitor. His heart rate does not become bradycardic well in the emergency department. The laboratory is all essentially within normal limits with a therapeutic INR at 2.5. The patient's chest x-ray does not show any acute process. The exact cause of his bradycardia is not definitively determined. The case is discussed with internal medicine and they're agreeable to admit with cardiology to consult. - Lab Data Result diagrams: 11/23/16 13:51 11/23/16 13:51 Lab Results 11/23/16 11/23/16 11/23/16 Range/Units 13:51 13:51 13:51 WBC 6.9 (3.8-10.6) k/uL RBC 4.00 L (4.30-5.90) m/uL Hgb 11.8 L (13.0-17.5) gm/dL Hct 36.3 L (39.0-53.0) % MCV 90.6 (80.0-100.0) fL MCH 29.5 (25.0-35.0) pg MCHC 32.5 (31.0-37.0) g/dL RDW 14.6 (11.5-15.5) % Plt Count 206 (150-450) k/uL Neutrophils % 80 % Lymphocytes % 8 % Monocytes % 6 % Eosinophils % 5 % Basophils % 0 % Neutrophils # 5.5 (1.3-7.7) k/uL Lymphocytes # 0.6 L (1.0-4.8) k/uL Monocytes # 0.4 (0-1.0) k/uL Eosinophils # 0.4 (0-0.7) k/uL Basophils # 0.0 (0-0.2) k/uL PT (9.0-12.0) sec INR (<1.2) APTT (22.0-30.0) sec Sodium 138 (137-145) mmol/L Potassium 4.1 (3.5-5.1) mmol/L Chloride 102 (98-107) mmol/L Carbon Dioxide 26 (22-30) mmol/L Anion Gap 10 mmol/L BUN 25 H (9-20) mg/dL Creatinine 0.83 (0.66-1.25) mg/dL Est GFR (MDRD) Af Amer >60 (>60 ml/min/1.73 sqM) Est GFR (MDRD) Non-Af >60 (>60 ml/min/1.73 sqM) Glucose 158 H (74-99) mg/dL Calcium 8.6 (8.4-10.2) mg/dL Magnesium 1.8 (1.6-2.3) mg/dL Total Bilirubin 0.4 (0.2-1.3) mg/dL AST 25 (17-59) U/L ALT 39 (21-72) U/L Alkaline Phosphatase 76 (38-126) U/L Total Creatine Kinase 44 L (55-170) U/L CK-MB (CK-2) 1.2 (0.0-2.4) ng/mL CK-MB (CK-2) Rel Index 2.7 Troponin I <0.012 (0.000-0.034) ng/mL Total Protein 5.9 L (6.3-8.2) g/dL Albumin 3.4 L (3.5-5.0) g/dL 11/23/16 Range/Units 13:51 WBC (3.8-10.6) k/uL RBC (4.30-5.90) m/uL Hgb (13.0-17.5) gm/dL Hct (39.0-53.0) % MCV (80.0-100.0) fL MCH (25.0-35.0) pg MCHC (31.0-37.0) g/dL RDW (11.5-15.5) % Plt Count (150-450) k/uL Neutrophils % % Lymphocytes % % Monocytes % % Eosinophils % % Basophils % % Neutrophils # (1.3-7.7) k/uL Lymphocytes # (1.0-4.8) k/uL Monocytes # (0-1.0) k/uL Eosinophils # (0-0.7) k/uL Basophils # (0-0.2) k/uL PT 24.1 H (9.0-12.0) sec INR 2.5 H (<1.2) APTT 32.3 H (22.0-30.0) sec Sodium (137-145) mmol/L Potassium (3.5-5.1) mmol/L Chloride (98-107) mmol/L Carbon Dioxide (22-30) mmol/L Anion Gap mmol/L BUN (9-20) mg/dL Creatinine (0.66-1.25) mg/dL Est GFR (MDRD) Af Amer (>60 ml/min/1.73 sqM) Est GFR (MDRD) Non-Af (>60 ml/min/1.73 sqM) Glucose (74-99) mg/dL Calcium (8.4-10.2) mg/dL Magnesium (1.6-2.3) mg/dL Total Bilirubin (0.2-1.3) mg/dL AST (17-59) U/L ALT (21-72) U/L Alkaline Phosphatase (38-126) U/L Total Creatine Kinase (55-170) U/L CK-MB (CK-2) (0.0-2.4) ng/mL CK-MB (CK-2) Rel Index Troponin I (0.000-0.034) ng/mL Total Protein (6.3-8.2) g/dL Albumin (3.5-5.0) g/dL Disposition Clinical Impression: Bradycardia, Prolonged QT interval, Hypertension, Chronic wound of extremity, Anemia Disposition: ADMITTED IP TO THIS HOSP Condition: Fair Referrals: Alex Haley DO [Primary Care Provider] - 1-2 days Time of Disposition: 15:40 Decision Date: 11/23/16 Decision Time: 15:40
[2016-11-23 14:27] LABS: INR 2.5 (<1.2); Partial Thromboplastin Time 32.3 sec (22.0-30.0); Prothrombin Time 24.1 sec (9.0-12.0)
--- NOTE | 2016-11-23 14:34 | XR ---
EXAMINATION TYPE: XR chest 2V DATE OF EXAM: 11/23/2016 COMPARISON: 03/05/16 HISTORY: Shortness of breath TECHNIQUE: Frontal and lateral views of the chest are obtained. FINDINGS: Scattered senescent parenchymal changes noted. Hyperinflation compatible with COPD. No evidence for infiltrate. No evidence for atelectasis. Heart size is stable. Mediastinal structures are stable and grossly unremarkable. No evidence for hilar prominence. Degenerative changes dorsal spine. IMPRESSION: 1. No evidence for acute pulmonary disease.
[2016-11-23 14:36] LABS: Creatine Kinase 44 U/L (55-170)
[2016-11-23 14:43] LABS: ALT 39 U/L (21-72); AST 25 U/L (17-59); Alkaline Phosphatase 76 U/L (38-126); Anion Gap 10 mmol/L; Blood Urea Nitrogen 25 mg/dL (9-20); Calcium 8.6 mg/dL (8.4-10.2); Carbon Dioxide 26 mmol/L (22-30); Chloride 102 mmol/L (98-107); Glucose 158 mg/dL (74-99); Magnesium 1.8 mg/dL (1.6-2.3); Non-African American GFR(MDRD) >60 (>60 ml/min/1.73 sqM); Potassium 4.1 mmol/L (3.5-5.1); Sodium 138 mmol/L (137-145); Total Bilirubin 0.4 mg/dL (0.2-1.3); Total Protein 5.9 g/dL (6.3-8.2)
[2016-11-23 14:48] LABS: Creatine Kinase MB 1.2 ng/mL (0.0-2.4); Troponin I <0.012 ng/mL (0.000-0.034)
[2016-11-23] MEDS ORDERED: ARTIFICIAL TEARS-HYPROMELLOSE DROPS 15 ML BTL BOTH EYES PRN (15:46)
[2016-11-23] MEDS ORDERED: HYDROcodone/APAP 7.5-325MG 1 EACH TAB PO PRN (15:46)
[2016-11-23] MEDS ORDERED: ALBUTEROL NEBULIZED 2.5 MG/3 ML INHALATION PRN (15:46)
--- NOTE | 2016-11-23 19:07 | ECHOF ---
Referral Reason:bradycardia MEASUREMENTS -------- HEIGHT: 188.0 cm WEIGHT: 160.6 kg BP: 135/63 RVIDd: 3.6 cm (< 3.3) IVSd: 1.4 cm (0.6 - 1.1) LVIDd: 5.0 cm (3.9 - 5.3) LVPWd: 1.6 cm (0.6 - 1.1) IVSs: 1.8 cm LVIDs: 3.4 cm LVPWs: 1.8 cm LA Diam: 4.1 cm (2.7 - 3.8) LAESV Index (A-L): 27.83 ml/m Ao Diam: 3.2 cm (2.0 - 3.7) AV Cusp: 2.2 cm (1.5 - 2.6) MV EXCURSION: 17.310 mm (> 18.000) MV EF SLOPE: 29 mm/s (70 - 150) EPSS: 0.2 cm MV E Gerard: 0.90 m/s MV DecT: 311 ms MV A Gerard: 0.94 m/s MV E/A Ratio: 0.96 AV maxP.23 mmHg AV meanP.86 mmHg RAP: 5.00 mmHg RVSP: 32.66 mmHg FINDINGS -------- Sinus rhythm. This was a technically difficult study with suboptimal views. The left ventricular size is normal. There is moderate concentric left ventricular hypertrophy. Overall left ventricular systolic function is normal with, an EF between 60 - 65 %. The right ventricle is mildly enlarged. Normal LA size by volume 22+/-6 ml/m2. The right atrium is normal in size. 1.5mg of Definity was utilized for enhancement of images The aortic valve is trileaflet and appears structurally normal. The mitral valve is normal. Mild tricuspid regurgitation present. Right ventricular systolic pressure is normal at < 35 mmHg. There is no pulmonic regurgitation present. The aortic root size is normal. IVC Not well visulized. There is no pericardial effusion. CONCLUSIONS -------- 1. Sinus rhythm. 2. The aortic valve is trileaflet and appears structurally normal. 3. The mitral valve is normal. 4. Mild tricuspid regurgitation present. 5. Right ventricular systolic pressure is normal at < 35 mmHg. 6. There is no pulmonic regurgitation present. 7. The aortic root size is normal. 8. IVC Not well visulized. 9. There is no pericardial effusion. 10. This was a technically difficult study with suboptimal views. 11. The left ventricular size is normal. 12. There is moderate concentric left ventricular hypertrophy. 13. Overall left ventricular systolic function is normal with, an EF between 60 - 65 %. 14. The right ventricle is mildly enlarged. 15. Normal LA size by volume 22+/-6 ml/m2. 16. The right atrium is normal in size. 17. 1.5mg of Definity was utilized for enhancement of images HAND L[employer] POLISHER: Geneva King RDCS
[2016-11-23] MEDS ORDERED: IPRATROPIUM 0.5 MG/2.5 ML NEBU INHALATION SCH (20:00)
[2016-11-23] MEDS ORDERED: IPRATROPIUM-ALBUTEROL 3 ML NEB INHALATION SCH (20:00)
[2016-11-23 20:12] LABS: Creatine Kinase 42 U/L (55-170)
[2016-11-23 20:26] LABS: Creatine Kinase MB 1.1 ng/mL (0.0-2.4); Troponin I <0.012 ng/mL (0.000-0.034)
[2016-11-23] MEDS ORDERED: TAMSULOSIN 0.4 MG CAP.ER.24H PO SCH (21:00)
[2016-11-23 21:04] LABS: Glucose,Whole Blood 128 mg/dL (75-99)
[2016-11-23] MEDS: hydrALAZINE HCL 25 MG TAB PO SCH (23:48)
[2016-11-23] MEDS: metFORMIN 500 MG TAB PO SCH (23:48)
[2016-11-23] MEDS: DOFETILIDE 500 MCG CAP PO SCH (23:48)
[2016-11-23] MEDS: CARVEDILOL 12.5 MG TAB PO SCH (23:48)
[2016-11-23] MEDS: FLUTICASONE 50MCG/SPRAY NASAL 16GM EA NOSTRIL SCH (23:50)
[2016-11-23] MEDS: MELOXICAM 7.5 MG TAB PO SCH (23:50)
[2016-11-23] MEDS: FUROSEMIDE 40 MG TAB PO SCH (23:50)
[2016-11-24 00:15] LABS: Appearance,Urine Clear (Clear); Bacteria,Urine Rare /hpf; Bilirubin,Urine Negative (Negative); Glucose,Urine (UA) Negative (Negative); Ketones,Urine Negative (Negative); Leukocyte Esterase,Urine Moderate (Negative); Nitrite,Urine Negative (Negative); PH, Urine 5.5 (5.0-8.0); Particle Count 1065; Protein,Urine Negative (Negative); RBC,Urine 1 /hpf (0-5); Specific Gravity,Urine 1.008 (1.001-1.035); UA Billing (MACRO vs. MICRO) MICRO; Urobilinogen,Urine <2.0 mg/dL (<2.0); WBC,Urine 11 /hpf (0-5)
[2016-11-24 02:40] LABS: Creatine Kinase 43 U/L (55-170)
[2016-11-24 02:53] LABS: Creatine Kinase MB 0.8 ng/mL (0.0-2.4); Troponin I <0.012 ng/mL (0.000-0.034)
[2016-11-24 04:05] VITALS: RESP 18
[2016-11-24] MEDS ORDERED: LEVOTHYROXINE 50 MCG TAB PO SCH (06:30)
[2016-11-24 06:37] LABS: Glucose,Whole Blood 149 mg/dL (75-99)
[2016-11-24] MEDS ORDERED: PANTOPRAZOLE 40 MG TABLET PO SCH (07:30)
[2016-11-24] MEDS ORDERED: ASCORBIC ACID 500 MG TAB PO SCH (09:00)
[2016-11-24] MEDS ORDERED: LOSARTAN 50 MG TAB PO SCH (09:00)
[2016-11-24] MEDS ORDERED: ASPIRIN 325 MG TAB PO SCH (09:00)
[2016-11-24] MEDS ORDERED: CHOLECALCIFEROL 1,000 UNIT TAB PO SCH (09:00)
[2016-11-24] MEDS ORDERED: FERROUS SULFATE 325 MG TAB PO SCH (09:00)
--- NOTE | 2016-11-24 09:53 | P.CRDCN ---
History of Present Illness History of present illness: Patient sent from the wound clinic for bradycardia. We have not seen any bradycardia here. His first 12-lead ECG showed left bundle branch block pattern with underlying sinus mechanism and an absolute QT interval of about 480 ms Second ECG shows sinus rhythm with a narrow QRS, absolute QT interval of 480 ms No bradycardia and telemetry Patient follows up at [facility] His ALLERGIC clinic and is undergone chemical cardioversion and states he is on dofetilide. He is on dofetilide 500 g twice daily in addition he is on carvedilol 12.5 g twice daily. All his medications are reviewed. He denied any syncope shortness of breath dizziness or lightheadedness he is completely asymptomatic 2-D echo shows preserved LV systolic function Labs are reviewed did potassium is normal. BUN 25 creatinine 0.83 magnesium 1.8 Impression Patient sent to the hospital for evaluation for bradycardia. He is not bradycardic here. He's been monitored overnight. Intermittent left bundle branch block documented in one ECG He is a history of atrial fibrillation and is on dofetilide and warfarin. Maintains sinus rhythm. QT interval is normal. Potassium is normal magnesium is 1.8 renal function is normal Hypertension, on carvedilol and hydralazine and losartan TSH pending Patient may go home from a cardiac standpoint and follow up with the letter for surgical at [facility] Past Medical History Past Medical History: Atrial Fibrillation, Cancer, Heart Failure, COPD, Diabetes Mellitus, GERD/Reflux, Hyperlipidemia, Hypertension, Osteoarthritis (OA ), Prostate Disorder, Skin Disorder, Sleep Apnea/CPAP/BIPAP, Thyroid Disorder Additional Past Medical History / Comment(s): HX OF PROSTATE CANCER WITH RADIATION [place] (LAST-APRIL 2016), C-PAP MACHINE, BACK PAIN , HX OF GOUT. USES CAP AND 2 LITERS O2 AT HS. STATES ANEMIC AND HAS COLONOSCOPY SCHEDULED WITH Annmarie. GOES TO [facility] FOR WOUND LEFT RALPH. , USES CANE AND WALKER. History of Any Multi-Drug Resistant Organisms: None Reported Past Surgical History: Orthopedic Surgery, Tonsillectomy Additional Past Surgical History / Comment(s): carpel tunnel, fatty tumor removED FROM LEG AND NECK. A MONTH AGO HAD 5 TEETH PULLED Past Anesthesia/Blood Transfusion Reactions: No Reported Reaction Additional Past Anesthesia/Blood Transfusion Reaction / Comment(s): STATES TOLD HIM NO ANESTHESIA DUE TO LUNG FUNCTION. Smoking Status: Former smoker - Past Family History Father Family Medical History: Cancer, Dementia Additional Family Medical History / Comment(s): prostate ca, oral ca from smoking Mother Family Medical History: Cancer, Diabetes Mellitus, Hypertension Additional Family Medical History / Comment(s): stomach Brother(s) Family Medical History: GI Bleed Additional Family Medical History / Comment(s): knee problems. stomach resection for bleeding ulcer Medications and Allergies Home Medications Medication Instructions Recorded Confirmed Type Albuterol Inhaler [Ventolin Hfa 2 puff INHALATION RT-Q4H PRN 11/02/15 11/23/16 History Inhaler] Carboxymethylcellulose Sodium 1 drop BOTH EYES BID PRN 11/02/15 11/23/16 History [Refresh Tears] Cholecalciferol [Vitamin D3] 1,000 unit PO DAILY 11/02/15 11/23/16 History Fluticasone Nasal [place] [Flonase 1 spray EA NOSTRIL BID 11/02/15 11/23/16 History Nasal [place]] Furosemide [Lasix] 40 mg PO BID 11/02/15 11/23/16 History HYDROcodone/APAP 7.5-325MG [[place] 1 tab PO Q6HR PRN 11/02/15 11/23/16 History 7.5-325] Levothyroxine Sodium [Synthroid] 50 mcg PO DAILY 11/02/15 11/23/16 History Losartan Potassium [Cozaar] 50 mg PO DAILY 11/02/15 11/23/16 History Meloxicam [Mobic] 7.5 mg PO BID 11/02/15 11/23/16 History Multivitamins, Thera [Multivitamin 1 tab PO DAILY 11/02/15 11/23/16 History (formulary)] Omeprazole 20 mg PO DAILY 11/02/15 11/23/16 History Tamsulosin HCl [Flomax] 0.4 mg PO HS 11/02/15 11/23/16 History hydrALAZINE HCL [Apresoline] 25 mg PO BID 11/02/15 11/23/16 History metFORMIN HCL 1,000 mg PO BID 11/02/15 11/23/16 History Carvedilol [Coreg] 12.5 mg PO BID 01/28/16 11/23/16 History Warfarin [Coumadin] 7.5 mg PO W/SUPPER 01/28/16 11/23/16 History Albuterol Nebulized [Ventolin 2.5 mg INHALATION RT-TID #0 01/30/16 11/23/16 Rx Nebulized] Ipratropium Nebulized [Atrovent 0.5 mg INHALATION RT-TID #0 01/30/16 11/23/16 Rx Nebulized] Ascorbic Acid [Vitamin C] 500 mg PO DAILY 09/21/16 11/23/16 History Dofetilide [Tikosyn] 500 mg PO BID 09/21/16 11/23/16 History Ferrous Sulfate [Iron] 325 mg PO DAILY 09/21/16 11/23/16 History Allergies Allergy/AdvReac Type Severity Reaction Status Date / Time sulfamethoxazole Allergy Unknown Rash/Hives Verified 11/23/16 13:27 trimethoprim [From Bactrim] Allergy Rash/Hives Verified 11/23/16 21:53 simvastatin [From Zocor] AdvReac Myalgia Verified 11/23/16 13:27 Physical Exam Vitals: Vital Signs Temp Pulse Pulse Resp BP BP Pulse Ox 11/24/16 08:05 76 11/24/16 08:00 97.8 F 63 18 148/54 93 L 11/24/16 07:54 72 11/24/16 04:00 97.9 F 63 18 141/63 94 L 11/24/16 00:00 98.1 F 83 16 154/53 92 L 11/23/16 23:14 83 18 11/23/16 20:00 82 18 11/23/16 19:44 97.6 F 79 18 180/81 94 L 11/23/16 19:00 98 F 68 18 162/89 92 L 11/23/16 15:00 62 18 135/63 90 L 11/23/16 14:00 76 18 147/65 93 L 11/23/16 12:58 98.2 F 83 20 163/72 94 L Intake and Output 11/23/16 11/24/16 11/24/16 22:59 06:59 14:59 Other: Voiding Method Toilet Toilet Toilet # Voids 3 Results 11/23/16 13:51 11/23/16 13:51 Cardiac Enzymes 11/23/16 11/23/16 11/23/16 Range/Units 13:51 13:51 19:45 AST 25 (17-59) U/L CK-MB (CK-2) 1.2 1.1 (0.0-2.4) ng/mL Troponin I <0.012 <0.012 (0.000-0.034) ng/mL 11/24/16 Range/Units 01:58 AST (17-59) U/L CK-MB (CK-2) 0.8 (0.0-2.4) ng/mL Troponin I <0.012 (0.000-0.034) ng/mL Coagulation 11/23/16 Range/Units 13:51 PT 24.1 H (9.0-12.0) sec APTT 32.3 H (22.0-30.0) sec Lipids 11/24/16 Range/Units 08:15 Triglycerides 331 H (<150) mg/dL Cholesterol 195 (<200) mg/dL HDL Cholesterol 32 L (40-60) mg/dL CBC 11/23/16 Range/Units 13:51 WBC 6.9 (3.8-10.6) k/uL RBC 4.00 L (4.30-5.90) m/uL Hgb 11.8 L (13.0-17.5) gm/dL Hct 36.3 L (39.0-53.0) % Plt Count 206 (150-450) k/uL Comprehensive Metabolic Panel 11/23/16 Range/Units 13:51 Sodium 138 (137-145) mmol/L Potassium 4.1 (3.5-5.1) mmol/L Chloride 102 (98-107) mmol/L Carbon Dioxide 26 (22-30) mmol/L BUN 25 H (9-20) mg/dL Creatinine 0.83 (0.66-1.25) mg/dL Glucose 158 H (74-99) mg/dL Calcium 8.6 (8.4-10.2) mg/dL AST 25 (17-59) U/L ALT 39 (21-72) U/L Alkaline Phosphatase 76 (38-126) U/L Total Protein 5.9 L (6.3-8.2) g/dL Albumin 3.4 L (3.5-5.0) g/dL Current Medications Generic Name Dose Route Start Last Admin Trade Name Freq PRN Reason Stop Dose Admin Hydrocodone Bitart/Acetaminophen 1 each 11/23/16 15:46 [place] 7.5-325 PO Q6HR PRN Pain Albuterol Sulfate 2.5 mg 11/23/16 15:46 Ventolin Nebulized INHALATION RT-Q4H PRN Shortness Of Breath Albuterol/Ipratropium 3 ml 11/23/16 20:00 11/24/16 07:53 Duoneb 0.5 Mg-3 Mg/3 Ml Soln INHALATION 3 ml RT-TID [facility] Administration Artificial Tears 1 drops 11/23/16 15:46 Artificial Tear Drops BOTH EYES BID PRN Dry Eye(s) Ascorbic Acid 500 mg 11/24/16 09:00 Vitamin C PO DAILY [facility] Aspirin 325 mg 11/24/16 09:00 Aspirin PO DAILY [facility] Carvedilol 12.5 mg 11/23/16 20:00 11/23/16 23:48 Coreg PO 12.5 mg BID-W/MEALS [facility] Administration Cholecalciferol 1,000 unit 11/24/16 09:00 Vitamin D3 PO DAILY [facility] Dofetilide 500 mcg 11/23/16 21:00 11/23/16 23:48 Tikosyn PO 500 mcg BID [facility] Administration Ferrous Sulfate 325 mg 11/24/16 09:00 Feosol PO DAILY [facility] Fluticasone Propionate 1 spray 11/23/16 21:00 11/23/16 23:50 Flonase Nasal [place] EA NOSTRIL 1 spray BID [facility] Administration Furosemide 40 mg 11/23/16 21:00 11/23/16 23:50 Lasix PO Not Given BID [facility] Hydralazine HCl 25 mg 11/23/16 21:00 11/23/16 23:48 Apresoline PO 25 mg BID [facility] Administration Levothyroxine Sodium 50 mcg 11/24/16 06:30 11/24/16 06:01 Synthroid PO Not Given DAILY@0630 [facility] Losartan Potassium 50 mg 11/24/16 09:00 Cozaar PO DAILY [facility] Meloxicam 7.5 mg 11/23/16 21:00 11/23/16 23:50 Mobic PO Not Given BID [facility] Metformin HCl 1,000 mg 11/23/16 21:00 11/23/16 23:48 Glucophage PO 1,000 mg BID [facility] Administration Multivitamins 1 each 11/24/16 12:00 Theragran PO DAILY@1200 [facility] Pantoprazole Sodium 40 mg 11/24/16 07:30 Protonix PO AC-BRKFST ANSHU Tamsulosin HCl 0.4 mg 11/23/16 21:00 11/23/16 23:49 Flomax PO 0.4 mg HS ANSHU Administration Warfarin Sodium 7.5 mg 11/24/16 18:00 Coumadin PO 1800 [facility] Intake and Output 11/23/16 11/24/16 11/24/16 22:59 06:59 14:59 Other: Voiding Method Toilet Toilet Toilet # Voids 3 11/23/16 13:51 11/23/16 13:51
[2016-11-24] MEDS: hydrALAZINE HCL 25 MG TAB PO SCH (10:00)
[2016-11-24] MEDS: MELOXICAM 7.5 MG TAB PO SCH (10:00)
[2016-11-24] MEDS: FUROSEMIDE 40 MG TAB PO SCH (10:00)
[2016-11-24] MEDS: CARVEDILOL 12.5 MG TAB PO SCH (10:00)
[2016-11-24] MEDS: metFORMIN 500 MG TAB PO SCH (10:00)
[2016-11-24] MEDS: DOFETILIDE 500 MCG CAP PO SCH (10:00)
--- NOTE | 2016-11-24 10:29 | P.CRDCN ---
History of Present Illness Consult date: 11/24/16 History of present illness: This is a 71-year-old male. He was at his scheduled appt with wound care center yesterday and they suggested he come to the ED for evaluation of bradycardia. He states he felt no symptoms of dizziness, chest pain, shortness of breath, palpitations, nausea, diaphoresis or vomiting. There have been no instances of bradycardia since he has been here in the hospital. Telemetry tracings overnight reveal sinus rhythm in 70's. First EKG indicates left bundle branch pattern with underlying sinus mechanism and prolongs QT interval, repeat EKG shows sinus mechanism with narrow QRS. [facility] [place] He has history of atrial fibrillation and is maintained on coumadin and defotelide 500 mg BID and carvedilol 12.5 mg daily. 2D echo shows preserved LV function. Potassium 4.1, magnesium 1.8, troponin negative x3, Hgb 11.8, TSH 2.79. Blood pressure 148-54, heart rate 63. Review of Systems Extensive review of systems performed, negative except mentioned in HPI. Past Medical History Past Medical History: Atrial Fibrillation, Cancer, Heart Failure, COPD, Diabetes Mellitus, GERD/Reflux, Hyperlipidemia, Hypertension, Osteoarthritis (OA ), Prostate Disorder, Skin Disorder, Sleep Apnea/CPAP/BIPAP, Thyroid Disorder Additional Past Medical History / Comment(s): HX OF PROSTATE CANCER WITH RADIATION [place] (LAST-APRIL 2016), C-PAP MACHINE, BACK PAIN , HX OF GOUT. USES CAP AND 2 LITERS O2 AT HS. STATES ANEMIC AND HAS COLONOSCOPY SCHEDULED WITH [facility]. GOES TO [facility] FOR WOUND LEFT RALPH. , USES CANE AND WALKER. History of Any Multi-Drug Resistant Organisms: None Reported Past Surgical History: Orthopedic Surgery, Tonsillectomy Additional Past Surgical History / Comment(s): carpel tunnel, fatty tumor removED FROM LEG AND NECK. A MONTH AGO HAD 5 TEETH PULLED Past Anesthesia/Blood Transfusion Reactions: No Reported Reaction Additional Past Anesthesia/Blood Transfusion Reaction / Comment(s): STATES TOLD HIM NO ANESTHESIA DUE TO LUNG FUNCTION. Smoking Status: Former smoker - Past Family History Father Family Medical History: Cancer, Dementia Additional Family Medical History / Comment(s): prostate ca, oral ca from smoking Mother Family Medical History: Cancer, Diabetes Mellitus, Hypertension Additional Family Medical History / Comment(s): stomach Brother(s) Family Medical History: GI Bleed Additional Family Medical History / Comment(s): knee problems. stomach resection for bleeding ulcer Medications and Allergies Home Medications Medication Instructions Recorded Confirmed Type Albuterol Inhaler [Ventolin Hfa 2 puff INHALATION RT-Q4H PRN 11/02/15 11/23/16 History Inhaler] Carboxymethylcellulose Sodium 1 drop BOTH EYES BID PRN 11/02/15 11/23/16 History [Refresh Tears] Cholecalciferol [Vitamin D3] 1,000 unit PO DAILY 11/02/15 11/23/16 History Fluticasone Nasal [place] [Flonase 1 spray EA NOSTRIL BID 11/02/15 11/23/16 History Nasal [place]] Furosemide [Lasix] 40 mg PO BID 11/02/15 11/23/16 History HYDROcodone/APAP 7.5-325MG [[place] 1 tab PO Q6HR PRN 11/02/15 11/23/16 History 7.5-325] Levothyroxine Sodium [Synthroid] 50 mcg PO DAILY 11/02/15 11/23/16 History Losartan Potassium [Cozaar] 50 mg PO DAILY 11/02/15 11/23/16 History Meloxicam [Mobic] 7.5 mg PO BID 11/02/15 11/23/16 History Multivitamins, Thera [Multivitamin 1 tab PO DAILY 11/02/15 11/23/16 History (formulary)] Omeprazole 20 mg PO DAILY 11/02/15 11/23/16 History Tamsulosin HCl [Flomax] 0.4 mg PO HS 11/02/15 11/23/16 History hydrALAZINE HCL [Apresoline] 25 mg PO BID 11/02/15 11/23/16 History metFORMIN HCL 1,000 mg PO BID 11/02/15 11/23/16 History Carvedilol [Coreg] 12.5 mg PO BID 01/28/16 11/23/16 History Warfarin [Coumadin] 7.5 mg PO W/SUPPER 01/28/16 11/23/16 History Albuterol Nebulized [Ventolin 2.5 mg INHALATION RT-TID #0 01/30/16 11/23/16 Rx Nebulized] Ipratropium Nebulized [Atrovent 0.5 mg INHALATION RT-TID #0 01/30/16 11/23/16 Rx Nebulized] Ascorbic Acid [Vitamin C] 500 mg PO DAILY 09/21/16 11/23/16 History Dofetilide [Tikosyn] 500 mg PO BID 09/21/16 11/23/16 History Ferrous Sulfate [Iron] 325 mg PO DAILY 09/21/16 11/23/16 History Allergies Allergy/AdvReac Type Severity Reaction Status Date / Time sulfamethoxazole Allergy Unknown Rash/Hives Verified 11/23/16 13:27 trimethoprim [From Bactrim] Allergy Rash/Hives Verified 11/23/16 21:53 simvastatin [From Zocor] AdvReac Myalgia Verified 11/23/16 13:27 Physical Exam Vitals: Vital Signs Temp Pulse Pulse Resp BP BP Pulse Ox 11/24/16 08:05 76 11/24/16 08:00 97.8 F 63 18 148/54 93 L 11/24/16 07:54 72 11/24/16 04:00 97.9 F 63 18 141/63 94 L 11/24/16 00:00 98.1 F 83 16 154/53 92 L 11/23/16 23:14 83 18 11/23/16 20:00 82 18 11/23/16 19:44 97.6 F 79 18 180/81 94 L 11/23/16 19:00 98 F 68 18 162/89 92 L 11/23/16 15:00 62 18 135/63 90 L 11/23/16 14:00 76 18 147/65 93 L 11/23/16 12:58 98.2 F 83 20 163/72 94 L Intake and Output 11/23/16 11/24/16 11/24/16 22:59 06:59 14:59 Other: Voiding Method Toilet Toilet Toilet # Voids 3 GENERAL: This is a 71-year-old male in no apparent distress at the time of my examination. Morbidly obese. HEENT: Head is atraumatic, normocephalic. Pupils are equal, round. Sclerae anicteric. Conjunctivae are clear. Mucous membranes of the mouth are moist. Neck is supple. There is no jugular venous distention. No carotid bruit is heard. LUNGS: Clear to auscultation no wheezes, rales or rhonchi. No chest wall tenderness is noted on palpation or with deep breathing. Diminished air entry. HEART: Regular rate and rhythm without murmurs, rubs or gallops. S1 and S2 heard. ABDOMEN: Soft, nontender. Bowel sounds are heard. No organomegaly noted. EXTREMITIES: 2+ peripheral pulses with no evidence of peripheral edema and no calf tenderness noted. Left lower extremity wrapped. NEUROLOGIC: Patient is awake, alert and oriented x3. Results 11/23/16 13:51 11/23/16 13:51 Cardiac Enzymes 11/23/16 11/23/16 11/23/16 Range/Units 13:51 13:51 19:45 AST 25 (17-59) U/L CK-MB (CK-2) 1.2 1.1 (0.0-2.4) ng/mL Troponin I <0.012 <0.012 (0.000-0.034) ng/mL 11/24/16 Range/Units 01:58 AST (17-59) U/L CK-MB (CK-2) 0.8 (0.0-2.4) ng/mL Troponin I <0.012 (0.000-0.034) ng/mL Coagulation 11/23/16 Range/Units 13:51 PT 24.1 H (9.0-12.0) sec APTT 32.3 H (22.0-30.0) sec Lipids 11/24/16 Range/Units 08:15 Triglycerides 331 H (<150) mg/dL Cholesterol 195 (<200) mg/dL HDL Cholesterol 32 L (40-60) mg/dL CBC 11/23/16 Range/Units 13:51 WBC 6.9 (3.8-10.6) k/uL RBC 4.00 L (4.30-5.90) m/uL Hgb 11.8 L (13.0-17.5) gm/dL Hct 36.3 L (39.0-53.0) % Plt Count 206 (150-450) k/uL Comprehensive Metabolic Panel 11/23/16 Range/Units 13:51 Sodium 138 (137-145) mmol/L Potassium 4.1 (3.5-5.1) mmol/L Chloride 102 (98-107) mmol/L Carbon Dioxide 26 (22-30) mmol/L BUN 25 H (9-20) mg/dL Creatinine 0.83 (0.66-1.25) mg/dL Glucose 158 H (74-99) mg/dL Calcium 8.6 (8.4-10.2) mg/dL AST 25 (17-59) U/L ALT 39 (21-72) U/L Alkaline Phosphatase 76 (38-126) U/L Total Protein 5.9 L (6.3-8.2) g/dL Albumin 3.4 L (3.5-5.0) g/dL Current Medications Generic Name Dose Route Start Last Admin Trade Name Freq PRN Reason Stop Dose Admin Hydrocodone Bitart/Acetaminophen 1 each 11/23/16 15:46 [place] 7.5-325 PO Q6HR PRN Pain Albuterol Sulfate 2.5 mg 11/23/16 15:46 Ventolin Nebulized INHALATION RT-Q4H PRN Shortness Of Breath Albuterol/Ipratropium 3 ml 11/23/16 20:00 11/24/16 07:53 Duoneb 0.5 Mg-3 Mg/3 Ml Soln INHALATION 3 ml RT-TID ANSHU Administration Artificial Tears 1 drops 11/23/16 15:46 Artificial Tear Drops BOTH EYES BID PRN Dry Eye(s) Ascorbic Acid 500 mg 11/24/16 09:00 11/24/16 10:00 Vitamin C PO 500 mg DAILY ANSHU Administration Aspirin 325 mg 11/24/16 09:00 11/24/16 10:00 Aspirin PO 325 mg DAILY ANSHU Administration Carvedilol 12.5 mg 11/23/16 20:00 11/24/16 10:00 Coreg PO 12.5 mg BID-W/MEALS ANSHU Administration Cholecalciferol 1,000 unit 11/24/16 09:00 11/24/16 10:00 Vitamin D3 PO 1,000 unit DAILY ANSHU Administration Dofetilide 500 mcg 11/23/16 21:00 11/24/16 10:00 Tikosyn PO 500 mcg BID ANSHU Administration Ferrous Sulfate 325 mg 11/24/16 09:00 11/24/16 10:00 Feosol PO 325 mg DAILY ANSHU Administration Fluticasone Propionate 1 spray 11/23/16 21:00 11/23/16 23:50 Flonase Nasal [place] EA NOSTRIL 1 spray BID ANSHU Administration Furosemide 40 mg 11/23/16 21:00 11/24/16 10:00 Lasix PO 40 mg BID ANSHU Administration Hydralazine HCl 25 mg 11/23/16 21:00 11/24/16 10:00 Apresoline PO 25 mg BID ANSHU Administration Levothyroxine Sodium 50 mcg 11/24/16 06:30 11/24/16 06:01 Synthroid PO Not Given DAILY@0630 ANSHU Losartan Potassium 50 mg 11/24/16 09:00 11/24/16 10:01 Cozaar PO 50 mg DAILY NASHU Administration Meloxicam 7.5 mg 11/23/16 21:00 11/24/16 10:00 Mobic PO 7.5 mg BID ANSHU Administration Metformin HCl 1,000 mg 11/23/16 21:00 11/24/16 10:00 Glucophage PO 1,000 mg BID ANSHU Administration Multivitamins 1 each 11/24/16 12:00 Theragran PO DAILY@1200 ANSHU Pantoprazole Sodium 40 mg 11/24/16 07:30 11/24/16 10:00 Protonix PO 40 mg AC-[id number] ANSHU Administration Tamsulosin HCl 0.4 mg 11/23/16 21:00 11/23/16 23:49 Flomax PO 0.4 mg HS ANSHU Administration Warfarin Sodium 7.5 mg 11/24/16 18:00 Coumadin PO 1800 ANSHU Intake and Output 11/23/16 11/24/16 11/24/16 22:59 06:59 14:59 Other: Voiding Method Toilet Toilet Toilet # Voids 3 11/23/16 13:51 11/23/16 13:51 Assessment and Plan Plan: ASSESSMENT 1. History of paroxysmal atrial fibrillation on long-term anticoagulation INR 2.5 2. Essential hypertension 3. Chronic lower extremity wound 4. COPD 5. Dyslipidemia 6. Obstructive sleep apnea 7. Hypothyroidism PLAN From a cardiac perspective we recommend that this [facility] He has had no bradycardia while being monitored here in the hospital. Intermittent left bundle branch block documented on one EKG. He has a history of atrial fibrillation although he maintains a sinus mechanism at this time. Nurse Practitioner note has been reviewed, I agree with a documented findings and plan of care. Patient was seen and examined.
[2016-11-24] MEDS: FLUTICASONE 50MCG/SPRAY NASAL 16GM EA NOSTRIL SCH (10:59)
[2016-11-24] MEDS ORDERED: CEFUROXIME 250 MG TAB PO SCH (11:30)
[2016-11-24] MEDS ORDERED: MULTIVITAMINS, THERA 1 EACH TAB PO SCH (12:00)
[2016-11-24 12:11] LABS: Glucose,Whole Blood 143 mg/dL (75-99)
[2016-11-24 12:19] VITALS: BP 161/64; PULSE 60; TEMP 98
[2016-11-24 12:26] LABS: INR 2.3 (<1.2); Prothrombin Time 22.4 sec (9.0-12.0)
--- NOTE | 2016-11-24 15:49 | P.DS ---
Providers Date of admission: 11/23/16 15:41 Attending physician: Steve García Primary care physician: [facility] Hospital Course: This 71-year-old gentleman with a past medical history multiple medical possible COPD history approximately ablation being followed by [facility] cardiology and [facility] was admitted with the bradycardia which is noted during the wound care. The patient was monitored closely. There was no bradycardia while the hospital the patient had a left bundle block in the EKG. cardio saw the patient medications were evaluation. The patient improved and the patient was discharged with further plans to follow up with the heel stainer in [place] in [facility] and as well as [facility] . On exam vitals stable. Cardio S1 and S2 normal. Respiratory system clear to auscultation. Abdomen soft nontender. Final diagnosis 1. Bradycardia improved 2. Hypertension 3. COPD 4. Sleep apnea 5. hypothyroidism 6. hypertension 7. history cardioversion Patient Condition at Discharge: Fair Plan - Discharge Summary New Discharge Prescriptions: New Cefuroxime [Ceftin] 500 mg PO BID #10 tab Continue Albuterol Inhaler [Ventolin Hfa Inhaler] 2 puff INHALATION RT-Q4H PRN PRN Reason: Shortness Of Breath Cholecalciferol [Vitamin D3] 1,000 unit PO DAILY Meloxicam [Mobic] 7.5 mg PO BID HYDROcodone/APAP 7.5-325MG [[place] 7.5-325] 1 tab PO Q6HR PRN PRN Reason: Pain metFORMIN HCL 1,000 mg PO BID Tamsulosin HCl [Flomax] 0.4 mg PO HS Omeprazole 20 mg PO DAILY Furosemide [Lasix] 40 mg PO BID hydrALAZINE HCL [Apresoline] 25 mg PO BID Levothyroxine Sodium [Synthroid] 50 mcg PO DAILY Losartan Potassium [Cozaar] 50 mg PO DAILY Carboxymethylcellulose Sodium [Refresh Tears] 1 drop BOTH EYES BID PRN PRN Reason: Dry Eye(S) Fluticasone Nasal [place] [Flonase Nasal [place]] 1 spray EA NOSTRIL BID Multivitamins, Thera [Multivitamin (formulary)] 1 tab PO DAILY Warfarin [Coumadin] 7.5 mg PO W/SUPPER Carvedilol [Coreg] 12.5 mg PO BID Albuterol Nebulized [Ventolin Nebulized] 2.5 mg INHALATION RT-TID #0 Ipratropium Nebulized [Atrovent Nebulized] 0.5 mg INHALATION RT-TID #0 Ascorbic Acid [Vitamin C] 500 mg PO DAILY Ferrous Sulfate [Iron] 325 mg PO DAILY Dofetilide [Tikosyn] 500 mg PO BID Discharge Medication List Albuterol Inhaler [Ventolin Hfa Inhaler] 2 puff INHALATION RT-Q4H PRN 11/02/15 [ History] Carboxymethylcellulose Sodium [Refresh Tears] 1 drop BOTH EYES BID PRN 11/02/15 [History] Cholecalciferol [Vitamin D3] 1,000 unit PO DAILY 11/02/15 [History] Fluticasone Nasal [place] [Flonase Nasal [place]] 1 spray EA NOSTRIL BID 11/02/15 [ History] Furosemide [Lasix] 40 mg PO BID 11/02/15 [History] HYDROcodone/APAP 7.5-325MG [[place] 7.5-325] 1 tab PO Q6HR PRN 11/02/15 [History] Levothyroxine Sodium [Synthroid] 50 mcg PO DAILY 11/02/15 [History] Losartan Potassium [Cozaar] 50 mg PO DAILY 11/02/15 [History] Meloxicam [Mobic] 7.5 mg PO BID 11/02/15 [History] Multivitamins, Thera [Multivitamin (formulary)] 1 tab PO DAILY 11/02/15 [History ] Omeprazole 20 mg PO DAILY 11/02/15 [History] Tamsulosin HCl [Flomax] 0.4 mg PO HS 11/02/15 [History] hydrALAZINE HCL [Apresoline] 25 mg PO BID 11/02/15 [History] metFORMIN HCL 1,000 mg PO BID 11/02/15 [History] Carvedilol [Coreg] 12.5 mg PO BID 01/28/16 [History] Warfarin [Coumadin] 7.5 mg PO W/SUPPER 01/28/16 [History] Albuterol Nebulized [Ventolin Nebulized] 2.5 mg INHALATION RT-TID #0 01/30/16 [ Rx] Ipratropium Nebulized [Atrovent Nebulized] 0.5 mg INHALATION RT-TID #0 [Rx] Ascorbic Acid [Vitamin C] 500 mg PO DAILY 09/21/16 [History] Dofetilide [Tikosyn] 500 mg PO BID 09/21/16 [History] Ferrous Sulfate [Iron] 325 mg PO DAILY 09/21/16 [History] Cefuroxime [Ceftin] 500 mg PO BID #10 tab 11/24/16 [Rx] Follow up Appointment(s)/Referral(s): [facility]@ [place] [Other] - 1 Week Alex Haley DO [Primary Care Provider] - 3 Days Ambulatory/Diagnostic Orders: Prothrombin Time INR [LAB.AMB] Time Frame: 11/27/16, Location: Determined By Patient Discharge Disposition: HOME SELF-CARE
[2016-11-24] MEDS ORDERED: WARFARIN 7.5 MG TAB PO SCH (18:00)
--- NOTE | 2016-11-25 08:52 | HP ---
HISTORY AND PHYSICAL DATE OF SERVICE: 11/23/2016 CHIEF COMPLAINT: Low pulse. HISTORY OF PRESENT ILLNESS: This 71-year-old gentleman with a past medical history of CAD, history of CHF, COPD, hypertension, hyperlipidemia, being followed by [facility] and Dr. Haley in the outpatient setting, was apparently receiving wound care for a left foot ulcer which has been there for the last 6 months. The dressing was done in the wound care clinic. The patient was found to have bradycardia, and the patient was sent to the emergency room. He was admitted for further evaluation and treatment. His heart rate in the emergency room was found to be 83. The EKG showed left axis deviation as well as wide complex QRS complexes. There is no history of any fever, rigor or chills. No history of headache, loss of consciousness. No history of chest pain or palpitations at this time. The patient is on dofetilide. He had chemical cardioversion. PAST MEDICAL HISTORY: 1. History of CHF. 2. COPD. 3. GERD. 4. Hypertension. 5. Hyperlipidemia. 6. History of radiation treatment, prostate. 7. Pulmonary embolism. HOME MEDICATIONS: 1. Metformin 1000 mg p.o. b.i.d. 2. Apresoline 25 mg p.o. b.i.d. 3. Coumadin 7.5 mg with supper. 4. Flomax 0.4 at bedtime. 5. Omeprazole 20 mg daily. 6. Multivitamins 1 p.o. daily. 7. Mobic 7.5 daily. 8. Cozaar 50 mg daily. 9. Synthroid 50 mcg p.o. daily. 10.Atrovent 0.5 t.i.d. 11.[place] 7.5 mg q.6 p.r.n. 12.Lasix 40 mg p.o. b.i.d. 13.Fluticasone nasal spray 1 spray b.i.d. 14.Iron 320 mg daily. 15.Tikosyn 500 mg p.o. b.i.d. 16.Vitamin D3 1000 mg p.o. daily. 17.Coreg 12.5 mg p.o. b.i.d. 18.Refresh Tears. 19.Vitamin C 500 mg daily. 20.Ventolin 2.5 t.i.d. 21.Inhaler 2 puffs q.4 p.r.n. ALLERGIES: 1. SULFAMETHOXAZOLE. 2. ZOCOR. FAMILY HISTORY: History of cancer and dementia, prostate cancer. SOCIAL HISTORY: Previous history of smoking. No current smoking or alcohol intake. REVIEW OF SYSTEMS: ENT: No diminished hearing. No diminished vision. CARDIOVASCULAR SYSTEM: As mentioned earlier. RESPIRATORY SYSTEM: As mentioned earlier. GI: No nausea, vomiting. : No dysuria or retention. NERVOUS SYSTEM: No numbness, weakness. ALLERGY/IMMUNOLOGY: No asthma, hayfever. MUSCULOSKELETAL: As mentioned earlier. HEMATOLOGY/ONCOLOGY: No history of anemia. ENDOCRINE: No history of diabetes, hypothyroidism. CONSTITUTIONAL: As mentioned earlier. DERMATOLOGY: Negative. RHEUMATOLOGY: Negative. PSYCHIATRY: As mentioned earlier. PHYSICAL EXAM: Patient is alert, oriented x3. Pulse 76, blood pressure 147/65, respiration 18, temperature 98.2, pulse ox 93% room air. HEENT: Conjunctivae normal. NECK: No jugular venous distension. CARDIOVASCULAR: S1, S2 muffled. No S3. No S4. Ejection systolic murmur present. RESPIRATORY: Breath sounds diminished at the bases. A few scattered rhonchi. No crackles. ABDOMEN: Soft, obese, nontender. LEGS: Left leg ulcer. NERVOUS SYSTEM: Higher functions as mentioned earlier. Moves all 4 limbs. No focal motor or sensory deficits. LYMPHATICS: No lymph node palpable in neck, axillae or groin. SKIN: No ulcer, rash, bleeding. LABS: WBC 6.2, hemoglobin 11.8. INR is 2.5. Albumin is 3.4. ASSESSMENT: 1. Severe bradycardia for evaluation, possibly medication-induced. 2. Anemia. 3. History of atrial fibrillation. 4. History of chronic obstructive pulmonary disease. 5. History of congestive heart failure. 6. Gastroesophageal reflux disease. 7. Hypertension. 8. History of pulmonary embolism. 9. History of prostate cancer. 10.History of non-healing wound on the left egan. RECOMMENDATIONS AND DISCUSSION: In this 71-year-old gentleman who presented with multiple complex medical issues, we will monitor the patient closely, continue the current medications, continue with symptomatic treatment. Otherwise, adjust medication. Cardiology consultation. Telemetry. Continue with Coumadin. Guarded prognosis because of multiple complex medical issues. Further recommendations to follow. A copy of this dictation is being forwarded to Dr. Haley, who is the primary physician. We will check orthostatic vital signs, also. See orders for further details. We will check TSH for completion of workup. See orders for further details. MMODL / IJN: [id number] /
== END 2016-11-24 13:15 | disposition home or self-care (01) ==
LOC: EC 12:50 → 3OBS 15:41
PROVIDERS: ADMIT Hospitalist; ATTEND Hospitalist
DX: R00.1 Bradycardia, unspecified (principal); D64.9 Anemia, unspecified; J44.9 Chronic obstructive pulmonary disease, unspecified; K21.9 Gastro-esophageal reflux disease without esophagitis; I50.9 Heart failure, unspecified; E66.01 Morbid (severe) obesity due to excess calories; Z68.42 Body mass index [BMI] 45.0-49.9, adult; I45.81 Long QT syndrome; I11.0 Hypertensive heart disease with heart failure; E11.622 Type 2 diabetes mellitus with other skin ulcer; I48.0 Paroxysmal atrial fibrillation; E78.5 Hyperlipidemia, unspecified; L97.829 Non-pressure chronic ulcer of other part of left lower leg with unspecified severity; I44.7 Left bundle-branch block, unspecified; E03.9 Hypothyroidism, unspecified; M19.90 Unspecified osteoarthritis, unspecified site; G47.33 Obstructive sleep apnea (adult) (pediatric); Z99.89 Dependence on other enabling machines and devices; I25.10 Atherosclerotic heart disease of native coronary artery without angina pectoris; Z87.891 Personal history of nicotine dependence; Z79.01 Long term (current) use of anticoagulants; Z79.1 Long term (current) use of non-steroidal anti-inflammatories (NSAID); Z79.51 Long term (current) use of inhaled steroids; Z79.899 Other long term (current) drug therapy; Z85.46 Personal history of malignant neoplasm of prostate; Z86.711 Personal history of pulmonary embolism; Z92.3 Personal history of irradiation; Z79.84 Long term (current) use of oral hypoglycemic drugs; Z88.8 Allergy status to other drugs, medicaments and biological substances; Z88.2 Allergy status to sulfonamides
CPT/HCPCS: 36415; 71020; 80053; 80061; 81001; 82550; 82553; 83735; 84443; 84484; 85025; 85610; 85730; 93005; 93306; 94640; 99285

== ENCOUNTER 2017-08-30 16:35 | Inpatient (IN) | payer OTHER, MEDICARE ==
[2017-08-30] MEDS ORDERED: VANCOMYCIN IV PER PHARMACY 1 EACH MISC MISCELLANE PRN (17:12)
--- NOTE | 2017-08-30 17:24 | ED ---
General Adult HPI - General Chief complaint: Extremity Injury, Lower Stated complaint: LEFT SECOND TOE TURNING BLACK Time Seen by Provider: 08/30/17 16:56 Source: patient, family, RN notes reviewed Mode of arrival: wheelchair Limitations: no limitations - History of Present Illness Initial comments: This is a 72-year-old male with history of diabetic neuropathy who presents to the emergency department with chief complaint of changes to a chronic wound. Patient states that he is seen for chronic left lower extremity wounds by infectious disease doctor, Dr. Bean. Patient states that he has had a reoccurring wound to the second toe on his left foot for the past few years. He states that the wound reappeared approximately 6 weeks ago. He states he was evaluated by Dr. Bean last Wednesday and the wound was debrided. He states that on Wednesday the toe became extremely erythematous. He was started on Cipro 500 mg twice a day. Patient states that over the weekend, he noticed a black color to the toe. Today the home health aide redressed the wound and noticed the changes. She was in contact with the home health nurse who then contacted Dr. Bean. Dr. Bean recommended patient be evaluated at the emergency department. Patient denies any injuries or trauma to the foot. Denies fevers or chills, chest pain or shortness of breath, abdominal pain, nausea or vomiting. - Related Data Home Medications Medication Instructions Recorded Confirmed Fluticasone Nasal [place] [Flonase 1 spray EA NOSTRIL BID 11/02/15 08/30/17 Nasal [place]] Furosemide [Lasix] 40 mg PO BID 11/02/15 08/30/17 Losartan Potassium [Cozaar] 50 mg PO DAILY 11/02/15 08/30/17 Meloxicam [Mobic] 7.5 mg PO BID 11/02/15 08/30/17 hydrALAZINE HCL [Apresoline] 25 mg PO BID 11/02/15 08/30/17 metFORMIN HCL 1,000 mg PO BID 11/02/15 08/30/17 Carvedilol [Coreg] 12.5 mg PO BID 01/28/16 08/30/17 Warfarin [Coumadin] 10 mg PO TUFR 01/28/16 08/30/17 Albuterol Sulfate [Proair Hfa] 1 - 2 puff INHALATION RT-Q6H PRN 02/10/17 Loratadine 10 mg PO DAILY 02/10/17 08/30/17 [place]-3 Fatty Acids/Fish Oil [Fish 2 cap PO DAILY 02/10/17 08/30/17 Oil 1,000 mg Softgel] Tiotropium 18 Mcg/Puff [Spiriva] 1 cap INHALATION RT-DAILY 02/10/17 08/30/17 Ascorbic Acid [Vitamin C] 500 mg PO DAILY 08/30/17 08/30/17 Budesonide/Formoterol Fumarate 2 puff INHALATION RT-BID 08/30/17 08/30/17 [Symbicort 80-4.5 Mcg Inhaler] Calcium Carbonate/Vitamin D3 1 tab PO BID 08/30/17 08/30/17 [Calcium 500-Vit D3 200 Tablet] Ciprofloxacin HCl [Cipro] 500 mg PO Q12HR 08/30/17 08/30/17 Ferrous Sulfate [Feosol] 325 mg PO DAILY 08/30/17 08/30/17 Gemfibrozil [Lopid] 600 mg PO BID 08/30/17 08/30/17 Hydrophilic Cream [Kerodex 71 1 applic TOPICAL DAILY 08/30/17 08/30/17 Cream] Levothyroxine Sodium [Synthroid] 50 mcg PO DAILY 08/30/17 08/30/17 Omeprazole 20 mg PO DAILY 08/30/17 08/30/17 Oxybutynin Chloride 5 mg PO BID 08/30/17 08/30/17 Ranitidine HCl [Zantac] 300 mg PO HS 08/30/17 08/30/17 Tamsulosin HCl [Flomax] 0.4 mg PO HS 08/30/17 08/30/17 Warfarin [Coumadin] 5 mg PO SUMOWETHSA 08/30/17 08/30/17 Previous Rx's Medication Instructions Recorded Albuterol Nebulized [Ventolin 2.5 mg INHALATION RT-TID #0 01/30/16 Nebulized] Ipratropium Nebulized [Atrovent 0.5 mg INHALATION RT-TID #0 01/30/16 Nebulized] Allergies Allergy/AdvReac Type Severity Reaction Status Date / Time sulfamethoxazole Allergy Unknown Rash/Hives Verified 08/30/17 16:59 trimethoprim [From Bactrim] Allergy Rash/Hives Verified 08/30/17 16:59 simvastatin [From Zocor] AdvReac Myalgia Verified 08/30/17 16:59 Review of Systems ROS Statement: Those systems with pertinent positive or pertinent negative responses have been documented in the HPI. ROS Other: All systems not noted in ROS Statement are negative. Past Medical History Past Medical History: Atrial Fibrillation, Cancer, Heart Failure, COPD, Diabetes Mellitus, GERD/Reflux, Hyperlipidemia, Hypertension, Osteoarthritis (OA ), Prostate Disorder, Skin Disorder, Sleep Apnea/CPAP/BIPAP, Thyroid Disorder Additional Past Medical History / Comment(s): HX OF PROSTATE CANCER WITH RADIATION [place] (LAST-APRIL 2016), BACK PAIN , HX OF GOUT. USES CpAP AND 2 LITERS O2 AT HS, anemia History of Any Multi-Drug Resistant Organisms: None Reported Past Surgical History: Orthopedic Surgery, Tonsillectomy Additional Past Surgical History / Comment(s): carpel tunnel, fatty tumor removED FROM LEG AND NECK. A MONTH AGO HAD 5 TEETH PULLED Past Anesthesia/Blood Transfusion Reactions: No Reported Reaction Additional Past Anesthesia/Blood Transfusion Reaction / Comment(s): STATES DR TOLD HIM NO ANESTHESIA DUE TO LUNG FUNCTION. Past Psychological History: No Psychological Hx Reported Smoking Status: Former smoker Past Alcohol Use History: None Reported Past Drug Use History: None Reported - Past Family History Father Family Medical History: Cancer, Dementia Additional Family Medical History / Comment(s): prostate ca, oral ca from smoking Mother Family Medical History: Cancer, Diabetes Mellitus, Hypertension Additional Family Medical History / Comment(s): stomach Brother(s) Family Medical History: GI Bleed Additional Family Medical History / Comment(s): knee problems. stomach resection for bleeding ulcer General Exam - General Exam Comments Initial Comments: General: Awake and alert, well-developed; in no apparent distress. Obese male lying comfortably on ED stretcher with at bedside. HEENT: Head atraumatic, normocephalic. Pupils are equal, round and reactive to light. Extraocular movements intact. Oropharynx moist without erythema or exudate. Neck: Supple. Normal ROM. Cardiovascular: Regular rate and rhythm. No murmurs, rubs or gallops. Chest symmetrical. Pedal pulses are 2+ equal and palpable bilaterally. Respiratory: Lungs clear to auscultation bilaterally. No wheezes, rales or rhonchi. Normal respiratory effort with no use of accessory muscles. Musculoskeletal: Normal ROM bilateral upper and lower extremities. Decreased sensation to bilateral feet. Skin: [place], warm and dry with chronic venous insufficiency noted to bilateral lower extremities. Chronic left ankle wound is dressed. 2nd toe on left foot is swollen and erythematous. Surrounding the toenail is a macerated, non-intact blister with area of chronic eschar. Neurological: Alert and oriented x3. CN II-XII grossly intact. Speech is fluent and answers are appropriate. No focal neuro deficits. Psychiatric: Normal mood and affect. No overt signs of depression or anxiety noted. Limitations: no limitations Course Vital Signs 08/30/17 16:36 Temperature 97.5 F L Pulse Rate 73 Respiratory 18 Rate Blood Pressure 138/71 O2 Sat by Pulse 94 L Oximetry - Reevaluation(s) Reevaluation #1: At this time, will hold fluid boluses pending lactic acid as patient has a history of congestive heart failure. Patient's vital signs are stable and white blood cell count is within normal limits. 08/30/17 18:20 Reevaluation #2: Lactic acid is 2.4. Patient's blood pressure is stable and he is not hypotensive. Will not be started on IV fluids as he does have a history of congestive heart failure. 08/30/17 18:24 Medical Decision Making - Medical Decision Making This is a 72-year-old male with history of chronic venous insufficiency and diabetic neuropathy who presents to the emergency department with chief complaint of changes to a chronic wound. Patient is seen by Dr. Bean, infectious disease doctor for management of the chronic wounds. Patient was seen last Wednesday and had debridement of left second toe performed. Patient noted erythema and swelling to the toe on Wednesday and then blackening over the weekend. Patient was placed on Cipro 500 mg twice a day last Wednesday. Patient was sent in by Dr. Bean for further evaluation of the changes to his wound. Patient denies any fevers or chills. X-ray of the left second toe reveals soft tissue swelling of the tip of the second toe with small air bubbles that could relate to gangrene. No evidence of osteomyelitis. Patient started on broad- spectrum Zosyn and Vanco. CBC and CMP are essentially unremarkable. Hgb is stable. WBC within normal limits. INR is within therapeutic range for Coumadin. Lactic acid is 2.4. Vital signs are stable and patient is afebrile with normal blood pressure. Patient will be admitted to Dr. García with diagnosis of chronic wound infection and lactic acidosis. He will be kept on IV antibiotics and Dr. Bean will be consulted. Vital signs are stable and patient is in no acute distress. He is in agreement for admission. - Lab Data Result diagrams: 08/30/17 17:52 08/30/17 17:52 Lab Results 08/30/17 08/30/17 08/30/17 Range/Units 17:52 17:52 17:52 WBC 5.2 (3.8-10.6) k/uL RBC 4.19 L (4.30-5.90) m/uL Hgb 12.3 L (13.0-17.5) gm/dL Hct 37.9 L (39.0-53.0) % MCV 90.3 (80.0-100.0) fL MCH 29.3 (25.0-35.0) pg MCHC 32.5 (31.0-37.0) g/dL RDW 15.0 (11.5-15.5) % Plt Count 270 (150-450) k/uL Neutrophils % 70 % Lymphocytes % 15 % Monocytes % 7 % Eosinophils % 6 % Basophils % 1 % Neutrophils # 3.6 (1.3-7.7) k/uL Lymphocytes # 0.8 L (1.0-4.8) k/uL Monocytes # 0.3 (0-1.0) k/uL Eosinophils # 0.3 (0-0.7) k/uL Basophils # 0.0 (0-0.2) k/uL PT (9.0-12.0) sec INR (<1.2) APTT (22.0-30.0) sec Sodium 140 (137-145) mmol/L Potassium 3.8 (3.5-5.1) mmol/L Chloride 100 (98-107) mmol/L Carbon Dioxide 27 (22-30) mmol/L Anion Gap 13 mmol/L BUN 27 H (9-20) mg/dL Creatinine 0.90 (0.66-1.25) mg/dL Est GFR (CKD-EPI)AfAm >90 (>60 ml/min/1.73 sqM) Est GFR (CKD-EPI)NonAf 85 (>60 ml/min/1.73 sqM) Glucose 141 H (74-99) mg/dL Plasma Lactic Acid [place] 2.4 H* (0.7-2.0) mmol/L Calcium 9.6 (8.4-10.2) mg/dL Total Bilirubin 0.5 (0.2-1.3) mg/dL AST 78 H (17-59) U/L ALT 78 H (21-72) U/L Alkaline Phosphatase 78 (38-126) U/L Total Protein 6.7 (6.3-8.2) g/dL Albumin 4.0 (3.5-5.0) g/dL 08/30/17 Range/Units 17:52 WBC (3.8-10.6) k/uL RBC (4.30-5.90) m/uL Hgb (13.0-17.5) gm/dL Hct (39.0-53.0) % MCV (80.0-100.0) fL MCH (25.0-35.0) pg MCHC (31.0-37.0) g/dL RDW (11.5-15.5) % Plt Count (150-450) k/uL Neutrophils % % Lymphocytes % % Monocytes % % Eosinophils % % Basophils % % Neutrophils # (1.3-7.7) k/uL Lymphocytes # (1.0-4.8) k/uL Monocytes # (0-1.0) k/uL Eosinophils # (0-0.7) k/uL Basophils # (0-0.2) k/uL PT 21.8 H (9.0-12.0) sec INR 2.4 H (<1.2) APTT 31.4 H (22.0-30.0) sec Sodium (137-145) mmol/L Potassium (3.5-5.1) mmol/L Chloride (98-107) mmol/L Carbon Dioxide (22-30) mmol/L Anion Gap mmol/L BUN (9-20) mg/dL Creatinine (0.66-1.25) mg/dL Est GFR (CKD-EPI)AfAm (>60 ml/min/1.73 sqM) Est GFR (CKD-EPI)NonAf (>60 ml/min/1.73 sqM) Glucose (74-99) mg/dL Plasma Lactic Acid [place] (0.7-2.0) mmol/L Calcium (8.4-10.2) mg/dL Total Bilirubin (0.2-1.3) mg/dL AST (17-59) U/L ALT (21-72) U/L Alkaline Phosphatase (38-126) U/L Total Protein (6.3-8.2) g/dL Albumin (3.5-5.0) g/dL - Radiology Data Radiology results: report reviewed, image reviewed X-ray left toe impression: Soft tissue swelling and air likely related to gangrene. No evidence of osteomyelitis. Disposition Clinical Impression: Lactic acidosis, Wound infection, Chronic wound of extremity Disposition: ADMITTED IP TO THIS HOSP Condition: Stable Is patient prescribed a controlled substance at d/c from ED?: No Referrals: [facility],Clinic [Primary Care Provider] - 1-2 days Time of Disposition: 18:35
[2017-08-30] MEDS ORDERED: VANCOMYCIN 2,500 MG in SODIUM CHLORIDE 0.9% 500 ML IVPB ONE (18:00)
--- NOTE | 2017-08-30 18:04 | XR ---
EXAMINATION TYPE: XR toes LT DATE OF EXAM: 08/30/2017 COMPARISON: NONE HISTORY: Left second toe turning black TECHNIQUE: 3 views FINDINGS: There is soft tissue swelling at the tip of the second toe with small air bubbles. I see no fracture. I see no focal bone destruction. IMPRESSION: Soft tissue swelling and air that could relate to gangrene. No evidence of osteomyelitis.
[2017-08-30 18:09] LABS: Basophils % (A) 1 %; Eosinophils # (A) 0.3 k/uL (0-0.7); Eosinophils % (A) 6 %; HCT 37.9 % (39.0-53.0); HGB 12.3 gm/dL (13.0-17.5); Lymphocytes # (A) 0.8 k/uL (1.0-4.8); Lymphocytes % (A) 15 %; MCH 29.3 pg (25.0-35.0); MCHC 32.5 g/dL (31.0-37.0); MCV 90.3 fL (80.0-100.0); Mean Platelet Volume 7.7; Monocytes # (A) 0.3 k/uL (0-1.0); Monocytes % (A) 7 %; Neutrophils # (A) 3.6 k/uL (1.3-7.7); Neutrophils % (A) 70 %; Platelet Count 270 k/uL (150-450); RBC 4.19 m/uL (4.30-5.90); WBC 5.2 k/uL (3.8-10.6)
[2017-08-30] MEDS ORDERED: PIPERACILLIN-TAZOBACTAM 3.375 GM in DEXTROSE/WATER 1 50ML.BAG IVPB STA (18:16)
[2017-08-30 18:17] LABS: INR 2.4 (<1.2); Partial Thromboplastin Time 31.4 sec (22.0-30.0); Prothrombin Time 21.8 sec (9.0-12.0)
[2017-08-30 18:25] LABS: ALT 78 U/L (21-72); AST 78 U/L (17-59); Alkaline Phosphatase 78 U/L (38-126); Anion Gap 13 mmol/L; Blood Urea Nitrogen 27 mg/dL (9-20); Calcium 9.6 mg/dL (8.4-10.2); Carbon Dioxide 27 mmol/L (22-30); Chloride 100 mmol/L (98-107); Glucose 141 mg/dL (74-99); Potassium 3.8 mmol/L (3.5-5.1); Sodium 140 mmol/L (137-145); Total Bilirubin 0.5 mg/dL (0.2-1.3); Total Protein 6.7 g/dL (6.3-8.2)
[2017-08-30] MEDS ORDERED: MORPHINE SULFATE 2 MG/ML SYRINGE IV PRN (18:41)
[2017-08-30] MEDS ORDERED: IBUPROFEN 400 MG TAB PO PRN (18:41)
[2017-08-30] MEDS ORDERED: NALOXONE 0.4 MG/ML 1 ML VIAL IV PRN (18:41)
[2017-08-30 20:30] LABS: Glucose,Whole Blood 136 mg/dL (75-99)
[2017-08-30] MEDS ORDERED: WARFARIN 5 MG TAB PO SCH ×2 (22:15→22:34)
[2017-08-30] MEDS: MELOXICAM 7.5 MG TAB PO SCH (23:22)
[2017-08-30] MEDS: OXYBUTYNIN CHLORIDE 5 MG TAB PO SCH (23:22)
[2017-08-30] MEDS: GEMFIBROZIL 600 MG TAB PO SCH (23:22)
[2017-08-30] MEDS: TAMSULOSIN 0.4 MG CAP.ER.24H PO SCH (23:22)
[2017-08-30] MEDS: CALCIUM CARB-VIT D 500MG-200UN 1 EACH TAB PO SCH (23:22)
[2017-08-30] MEDS: FLUTICASONE 50MCG/SPRAY NASAL 16GM EA NOSTRIL SCH (23:24)
[2017-08-30] MEDS: hydrALAZINE HCL 25 MG TAB PO SCH (23:24)
[2017-08-30] MEDS: INSULIN ASPART 100 UNIT/ML 1 ML 10 ML VIAL SQ SCH (23:40)
[2017-08-30] MEDS ORDERED: DOFETILIDE 500 MCG CAP PO STA (23:43)
[2017-08-31] MEDS: PIPERACILLIN-TAZOBACTAM 3.375 GM in DEXTROSE/WATER 1 50ML.BAG IVPB SCH ×4 (00:43→23:16)
[2017-08-31 01:02] LABS: Hemoglobin A1C 6.7 % (4.0-6.0)
[2017-08-31] MEDS ORDERED: ALPRAZolam 0.25 MG TAB PO PRN (03:18)
[2017-08-31] MEDS ORDERED: HYDROcodone/APAP 5-325MG 1 EACH TAB PO PRN (03:18)
[2017-08-31] MEDS ORDERED: TEMAZEPAM 15 MG CAP PO PRN (03:19)
[2017-08-31] MEDS: LEVOTHYROXINE 50 MCG TAB PO SCH (05:56)
[2017-08-31 07:04] LABS: Glucose,Whole Blood 156 mg/dL (75-99)
[2017-08-31] MEDS: IPRATROPIUM-ALBUTEROL 3 ML NEB INHALATION SCH ×3 (07:18→19:20)
[2017-08-31] MEDS: SYMBICORT 80-4.5 MCG INHALER INHALATION SCH ×2 (07:18→19:20)
[2017-08-31] MEDS: INSULIN ASPART 100 UNIT/ML 1 ML 10 ML VIAL SQ SCH ×4 (07:51→21:44)
[2017-08-31] MEDS: ASCORBIC ACID 500 MG TAB PO SCH (07:51)
[2017-08-31] MEDS: CALCIUM CARB-VIT D 500MG-200UN 1 EACH TAB PO SCH ×2 (07:52→20:51)
[2017-08-31] MEDS: CARVEDILOL 12.5 MG TAB PO SCH ×2 (07:52→20:48)
[2017-08-31] MEDS: DOFETILIDE 500 MCG CAP PO SCH ×2 (07:52→20:52)
[2017-08-31] MEDS: FLUTICASONE 50MCG/SPRAY NASAL 16GM EA NOSTRIL SCH ×2 (07:53→20:52)
[2017-08-31] MEDS: GEMFIBROZIL 600 MG TAB PO SCH ×2 (07:53→20:50)
[2017-08-31] MEDS: hydrALAZINE HCL 25 MG TAB PO SCH ×2 (07:53→20:49)
[2017-08-31] MEDS: FERROUS SULFATE 325 MG TAB PO SCH (07:53)
[2017-08-31] MEDS: OXYBUTYNIN CHLORIDE 5 MG TAB PO SCH ×2 (07:54→20:49)
[2017-08-31] MEDS: LORATADINE 10 MG TAB PO SCH (07:54)
[2017-08-31] MEDS: metFORMIN 500 MG TAB PO SCH ×2 (07:54→20:41)
[2017-08-31] MEDS: LOSARTAN 50 MG TAB PO SCH (07:54)
[2017-08-31] MEDS: PANTOPRAZOLE 40 MG TABLET PO SCH (07:55)
[2017-08-31] MEDS: MELOXICAM 7.5 MG TAB PO SCH ×2 (07:55→20:41)
[2017-08-31] MEDS ORDERED: IPRATROPIUM 0.5 MG/2.5 ML NEBU INHALATION SCH (08:00)
[2017-08-31] MEDS ORDERED: ALBUTEROL NEBULIZED 2.5 MG/3 ML INHALATION SCH (08:00)
[2017-08-31] MEDS ORDERED: FUROSEMIDE 40 MG TAB PO SCH (09:00)
[2017-08-31 11:47] LABS: Glucose,Whole Blood 163 mg/dL (75-99)
[2017-08-31 11:50] VITALS: BMI 45.9
[2017-08-31] MEDS: VANCOMYCIN 2,250 MG in SODIUM CHLORIDE 0.9% 500 ML IVPB SCH ×2 (12:11→22:52)
[2017-08-31 13:12] LABS: INR 1.8 (<1.2); Prothrombin Time 16.8 sec (9.0-12.0)
[2017-08-31] MEDS ORDERED: WARFARIN 7.5 MG TAB PO SCH (13:35)
--- NOTE | 2017-08-31 14:30 | CONS ---
DATE OF CONSULTATION: 08/31/2017 This is a 72-year-old pleasant male who has been admitted to the hospital with cellulitis and redness of the left foot second toe. The patient is under care of Dr. Anselmo Bean in the wound center for a long time. He has been treated in the past with similar problem. He also had a superficial ulcer on the medial aspect of the left ankle. The patient has been on IV antibiotic and local wound care. MEDICAL HISTORY: 1. History of obesity. 2. Hypertension. 3. Diabetes. EXAMINATION: Patient was seen in his room, lying comfortably in bed. NECK: Supple. Trachea central. CHEST: Clear to auscultation. ABDOMEN: Soft. Vascular showed femorals are palpable, dorsal pedis palpable on the left foot. The patient has some brown induration of the left lower extremity. The left 2nd toe has a hammertoe and there is some redness noted. According to the , the redness is becoming less. Also, the patient has a scar of the skin of the distal phalanx. Wound on the medial aspect of the ankle has no discharge or redness noted. PLAN: Patient IV antibiotic. Culture was taken from the wound. Will continue with Aquacel silver. According the patient, patient has been seen by a supervisor scenic arts for left foot second hammertoe correction. At this point, patient needs IV antibiotic and local wound care. MMODL / IJN: [id number] / MTDD
[2017-08-31 17:20] LABS: Glucose,Whole Blood 177 mg/dL (75-99)
--- NOTE | 2017-08-31 17:51 | P.HPIM ---
History of Present Illness 72-year-old male with history of diabetic neuropathy who presents to the emergency department with chief complaint of changes to a chronic wound. Patient states that he is seen for chronic left lower extremity wounds by infectious disease doctor, Dr. Bean. Patient states that he has had a reoccurring wound to the second toe on his left foot for the past few years. He states that the wound reappeared approximately 6 weeks ago. He states he was evaluated by Dr. Bean last Wednesday and the wound was debrided. He states that on Wednesday the toe became extremely erythematous. He was started on Cipro 500 mg twice a day. Patient states that over the weekend, he noticed a black color to the toe. Today the home health aide redressed the wound and noticed the changes. She was in contact with the home health nurse who then contacted Dr. Bean. Dr. Bean recommended patient be evaluated at the emergency department. Patient denies any injuries or trauma to the foot. Denies fevers or chills, chest pain or shortness of breath, abdominal pain, nausea or vomiting. Wound cultures were obtained the patient had an x-ray which did not show any bone involvement. Patient does have increasing redness in the left any and patient second toe is gangrenous with an ulcer on the plantar aspect Review of Systems REVIEW OF SYSTEMS: CONSTITUTIONAL: No fever, no malaise, no fatigue. HEENT: No recent visual problems or hearing problems. Denied any sore throat. CARDIOVASCULAR: No chest pain, orthopnea, PND, no palpitations, no syncope. PULMONARY: No shortness of breath, no cough, no hemoptysis. GASTROINTESTINAL: No diarrhea, no nausea, no vomiting, no abdominal pain. Normoactive bowel sounds. NEUROLOGICAL: No headaches, no weakness, no numbness. HEMATOLOGICAL: Denies any bleeding or petechiae. GENITOURINARY: Denies any burning micturition, frequency, or urgency. MUSCULOSKELETAL/RHEUMATOLOGICAL: Denies any joint pain, swelling, or any muscle pain. ENDOCRINE: Denies any polyuria or polydipsia. The rest of the 14-point review of systems is negative. Past Medical History Past Medical History: Atrial Fibrillation, Cancer, Heart Failure, COPD, Diabetes Mellitus, GERD/Reflux, Hyperlipidemia, Hypertension, Osteoarthritis (OA ), Prostate Disorder, Skin Disorder, Sleep Apnea/CPAP/BIPAP, Thyroid Disorder Additional Past Medical History / Comment(s): HX OF PROSTATE CANCER WITH RADIATION [place] (LAST-APRIL 2016), BACK PAIN , HX OF GOUT. USES CpAP AND 2 LITERS O2 AT HS, anemia, wound lt ankle and 2nd toe lt foot and rt foot 4th toe wound History of Any Multi-Drug Resistant Organisms: None Reported Past Surgical History: Orthopedic Surgery, Tonsillectomy Additional Past Surgical History / Comment(s): carpel tunnel, fatty tumor removed from leg and neck. tooth extractions Past Anesthesia/Blood Transfusion Reactions: No Reported Reaction Additional Past Anesthesia/Blood Transfusion Reaction / Comment(s): STATES DR TOLD HIM NO ANESTHESIA DUE TO LUNG FUNCTION. Smoking Status: Former smoker - Past Family History Father Family Medical History: Cancer, Dementia Additional Family Medical History / Comment(s): prostate ca, oral ca from smoking Mother Family Medical History: Cancer, Diabetes Mellitus, Hypertension Additional Family Medical History / Comment(s): stomach Brother(s) Family Medical History: GI Bleed Additional Family Medical History / Comment(s): knee problems. stomach resection for bleeding ulcer Medications and Allergies Home Medications Medication Instructions Recorded Confirmed Type Fluticasone Nasal [place] [Flonase 1 spray EA NOSTRIL BID 11/02/15 08/30/17 History Nasal [place]] Furosemide [Lasix] 40 mg PO BID 11/02/15 08/30/17 History Losartan Potassium [Cozaar] 50 mg PO DAILY 11/02/15 08/30/17 History Meloxicam [Mobic] 7.5 mg PO BID 11/02/15 08/30/17 History hydrALAZINE HCL [Apresoline] 25 mg PO BID 11/02/15 08/30/17 History metFORMIN HCL 1,000 mg PO BID 11/02/15 08/30/17 History Carvedilol [Coreg] 12.5 mg PO BID 01/28/16 08/30/17 History Warfarin [Coumadin] 10 mg PO TUFR 01/28/16 08/30/17 History Albuterol Nebulized [Ventolin 2.5 mg INHALATION RT-TID #0 01/30/16 08/30/17 Rx Nebulized] Ipratropium Nebulized [Atrovent 0.5 mg INHALATION RT-TID #0 01/30/16 08/30/17 Rx Nebulized] Albuterol Sulfate [Proair Hfa] 1 - 2 puff INHALATION RT-Q6H PRN 02/10/17 History Loratadine 10 mg PO DAILY 02/10/17 08/30/17 History [place]-3 Fatty Acids/Fish Oil [Fish 2 cap PO DAILY 02/10/17 08/30/17 History Oil 1,000 mg Softgel] Tiotropium 18 Mcg/Puff [Spiriva] 1 cap INHALATION RT-DAILY 02/10/17 08/30/17 History Ascorbic Acid [Vitamin C] 500 mg PO DAILY 08/30/17 08/30/17 History Budesonide/Formoterol Fumarate 2 puff INHALATION RT-BID 08/30/17 08/30/17 History [Symbicort 80-4.5 Mcg Inhaler] Calcium Carbonate/Vitamin D3 1 tab PO BID 08/30/17 08/30/17 History [Calcium 500-Vit D3 200 Tablet] Ciprofloxacin HCl [Cipro] 500 mg PO Q12HR 08/30/17 08/30/17 History Dofetilide 500 mcg PO BID 08/30/17 08/30/17 History Ferrous Sulfate [Feosol] 325 mg PO DAILY 08/30/17 08/30/17 History Gemfibrozil [Lopid] 600 mg PO BID 08/30/17 08/30/17 History Hydrophilic Cream [Kerodex 71 1 applic TOPICAL DAILY 08/30/17 08/30/17 History Cream] Levothyroxine Sodium [Synthroid] 50 mcg PO DAILY 08/30/17 08/30/17 History Omeprazole 20 mg PO DAILY 08/30/17 08/30/17 History Oxybutynin Chloride 5 mg PO BID 08/30/17 08/30/17 History Ranitidine HCl [Zantac] 300 mg PO HS 08/30/17 08/30/17 History Tamsulosin HCl [Flomax] 0.4 mg PO HS 08/30/17 08/30/17 History Warfarin [Coumadin] 7.5 mg PO SUMOWETHSA 08/30/17 08/31/17 History Allergies Allergy/AdvReac Type Severity Reaction Status Date / Time sulfamethoxazole Allergy Unknown Rash/Hives Verified 08/30/17 16:59 trimethoprim [From Bactrim] Allergy Rash/Hives Verified 08/30/17 16:59 simvastatin [From Zocor] AdvReac Myalgia Verified 08/30/17 16:59 Physical Exam Vitals: Vital Signs Temp Pulse Pulse Resp BP BP BP 08/31/17 10:15 97.9 F 95 24 129/73 08/31/17 07:35 66 08/31/17 07:24 08/31/17 07:22 64 08/31/17 06:00 97.9 F 72 24 129/73 08/30/17 22:57 98.5 F 81 18 142/66 08/30/17 20:00 96.8 F L 68 79 18 136/67 152/78 08/30/17 18:38 72 16 132/63 Pulse Ox 08/31/17 10:15 08/31/17 07:35 08/31/17 07:24 94 L 08/31/17 07:22 08/31/17 06:00 95 08/30/17 22:57 94 L 08/30/17 20:00 94 L 08/30/17 18:38 94 L Intake and Output 08/31/17 08/31/17 08/31/17 06:59 14:59 22:59 Intake Total 600 Balance 600 Intake: Oral 600 Other: # Voids 2 6 # Bowel Movements 2 Weight 162.386 kg PHYSICAL EXAMINATION: GENERAL: The patient is alert and oriented x3, not in any acute distress. Morbidly obese HEENT: Pupils are round and equally reacting to light. EOMI. No scleral icterus. No conjunctival pallor. Normocephalic, atraumatic. No pharyngeal erythema. No thyromegaly. CARDIOVASCULAR: S1 and S2 present. No murmurs, rubs, or gallops. PULMONARY: Chest is clear to auscultation, no wheezing or crackles. ABDOMEN: Soft, nontender, nondistended, normoactive bowel sounds. No palpable organomegaly. MUSCULOSKELETAL: No joint swelling or deformity. EXTREMITIES: No cyanosis, clubbing, or pedal edema. Patient does have left leg cellulitis extending a few centimeters above the ankle, patient has a gangrene and ulcer in the second toe on the left side with mild purulent discharge NEUROLOGICAL: Gross neurological examination did not reveal any focal deficits. SKIN: No rashes. Results CBC & Chem 7: 08/30/17 17:52 08/30/17 17:52 Labs: Abnormal Lab Results - Last 24 Hours (Table) 08/30/17 08/30/17 08/30/17 Range/Units 17:52 17:52 17:52 RBC 4.19 L (4.30-5.90) m/uL Hgb 12.3 L (13.0-17.5) gm/dL Hct 37.9 L (39.0-53.0) % Lymphocytes # 0.8 L (1.0-4.8) k/uL PT (9.0-12.0) sec INR (<1.2) APTT (22.0-30.0) sec BUN 27 H (9-20) mg/dL Glucose 141 H (74-99) mg/dL POC Glucose (mg/dL) (75-99) mg/dL Hemoglobin A1c (4.0-6.0) % Plasma Lactic Acid [place] 2.4 H* (0.7-2.0) mmol/L AST 78 H (17-59) U/L ALT 78 H (21-72) U/L 08/30/17 08/30/17 08/30/17 Range/Units 17:52 17:52 20:29 RBC (4.30-5.90) m/uL Hgb (13.0-17.5) gm/dL Hct (39.0-53.0) % Lymphocytes # (1.0-4.8) k/uL PT 21.8 H (9.0-12.0) sec INR 2.4 H (<1.2) APTT 31.4 H (22.0-30.0) sec BUN (9-20) mg/dL Glucose (74-99) mg/dL POC Glucose (mg/dL) 136 H (75-99) mg/dL Hemoglobin A1c 6.7 H (4.0-6.0) % Plasma Lactic Acid [place] (0.7-2.0) mmol/L AST (17-59) U/L ALT (21-72) U/L 08/30/17 08/31/17 08/31/17 Range/Units 21:43 07:00 11:35 RBC (4.30-5.90) m/uL Hgb (13.0-17.5) gm/dL Hct (39.0-53.0) % Lymphocytes # (1.0-4.8) k/uL PT (9.0-12.0) sec INR (<1.2) APTT (22.0-30.0) sec BUN (9-20) mg/dL Glucose (74-99) mg/dL POC Glucose (mg/dL) 156 H 163 H (75-99) mg/dL Hemoglobin A1c (4.0-6.0) % Plasma Lactic Acid [place] 2.1 H* (0.7-2.0) mmol/L AST (17-59) U/L ALT (21-72) U/L 08/31/17 08/31/17 Range/Units 12:50 17:06 RBC (4.30-5.90) m/uL Hgb (13.0-17.5) gm/dL Hct (39.0-53.0) % Lymphocytes # (1.0-4.8) k/uL PT 16.8 H (9.0-12.0) sec INR 1.8 H (<1.2) APTT (22.0-30.0) sec BUN (9-20) mg/dL Glucose (74-99) mg/dL POC Glucose (mg/dL) 177 H (75-99) mg/dL Hemoglobin A1c (4.0-6.0) % Plasma Lactic Acid [place] (0.7-2.0) mmol/L AST (17-59) U/L ALT (21-72) U/L Microbiology - Last 24 Hours (Table) 08/31/17 09:50 Wound Culture - Preliminary Toe - Left Second Thrombosis Risk Factor Assmnt - Choose All That Apply Any of the Below Risk Factors Present?: Yes Each Factor Represents 1 point: Obesity (BMI >25) Other Risk Factors: Yes Each Risk Factor Represents 2 Points: Age 61-74 years Other congenital or acquired thrombophilia - If yes, enter type in comment: No Thrombosis Risk Factor Assessment Total Risk Factor Score: 3 Thrombosis Risk Factor Assessment Level: Moderate Risk Assessment and Plan Plan: -wet gangrene diabetic foot ulcer, infected without any osteomyelitis: Patient is presently on Zosyn and vancomycin wound cultures are pending. Patient was evaluated by vascular surgery as well as infectious disease. -Lactic acidosis secondary to sepsis from left lower extremity wound and infection patient doesn't have any fevers no significant leukocytosis. -Atrial fibrillation: Presently rate controlled patient is on anticoagulation with Coumadin which will be continued INR is 1. 8 repeat INR tomorrow. -Congestive heart failure chronic diastolic dysfunction without any acute exacerbation patient was resumed on home dose of Lasix area patient had normal ejection fraction the past next and have her gases originally reflux disease -Morbid obesity obstructive sleep apnea uses CPAP at home which will be continued -Hypothyroidism continue with levothyroxine - benign prostatic hypertrophic -Primary osteoarthritis -Hypertension -Hyperlipidemia
[2017-08-31] MEDS ORDERED: WARFARIN 5 MG TAB PO SCH (18:00)
[2017-08-31 20:53] LABS: Glucose,Whole Blood 167 mg/dL (75-99)
[2017-08-31] MEDS ORDERED: NON-FORMULARY DRUG (Ranitidine Hcl [Zantac] 300 MG) PO SCH (21:00)
[2017-08-31] MEDS: TAMSULOSIN 0.4 MG CAP.ER.24H PO SCH (21:43)
[2017-09-01] MEDS: LEVOTHYROXINE 50 MCG TAB PO SCH (05:42)
--- NOTE | 2017-09-01 06:10 | CONS ---
CONSULTATION DATE OF SERVICE: 08/31/2017. REASON FOR CONSULTATION: Left diabetic foot infection. HISTORY OF PRESENT ILLNESS: The patient is a 73-year-old male with a past medical history significant for diabetic foot infection. The patient states that he did have a blister on his left second toe on the dorsal aspect. This has been previously evaluated and treated by Dr[facility] The patient said that he did have debridement of the wound done and did have application of some local dressing on Wednesday. It is still becoming more erythematous. The patient has been started on oral Cipro 500 mg twice a day, however, over the weekend the toe was becoming more black in color. The home care nurse contacted Dr. Bean who advised the patient to go to the emergency room. The patient came to the ER last evening. The patient did have x-rays of the left foot, did show some soft tissue swelling and air that could be due to gangrene. No evidence of osteomyelitis. The patient was started on Zosyn along with vancomycin. Infectious Disease was consulted for further recommendation of antibiotic therapy. Since the patient has been admitted hospital no high-grade fever has been recorded. His white count has been normal, slightly elevated. The patient to have underlying neuropathy and has had significant pain to his left second toe area. REVIEW OF SYSTEMS: CONSTITUTIONAL: Positive for weakness but no high-grade fever. EYES: No complaint. ENT: No complaint. RESPIRATORY: No complaint. CARDIOVASCULAR: No complaint. GENITOURINARY: No complaint. GASTROINTESTINAL: No complaint. MUSCULOSKELETAL: As per HPI. INTEGUMENTARY: As per HPI. PSYCHOLOGICAL: No complaint. ENDOCRINE: No complaint. NEUROLOGIC: No complaint. PAST MEDICAL HISTORY: Significant for atrial fibrillation, heart failure, COPD, diabetes mellitus, hypertension, hyperlipidemia, osteoarthritis, prostate disorder, sleep apnea, and hypothyroidism. 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 SOCIAL HISTORY: Remote history of smoking. No drinking. No drug use. FAMILY HISTORY: Father with history of dementia and prostate cancer. Mother with history of diabetes, hypertension, stomach cancer. ALLERGIES: SULFAMETHOXAZOLE, SIMVASTATIN. MEDICATIONS: 1. Currently on vancomycin pharmacy dose. 2. Zosyn. 3. Coumadin. 4. Flomax. 5. Protonix. 6. Ditropan. 7. Narcan. 8. Morphine sulfate. 9. Glucophage. 10.Mobic. 11.Cozaar. 12.Claritin. 13.Synthroid. 14.NovoLog. 15.Motrin. 16.Hydralazine. 17. . 18.Iron sulfate. 19.Coreg. 20.Os-Christopher D. 21.Symbicort. 22.Xanax. 23.DuoNeb. 24.Lolita. EXAMINATION: Blood pressure 124/59 with a pulse of 56, temperature 96.8. He is 95% on room air. GENERAL DESCRIPTION: An elderly male, up in the bed in no distress. No tachypnea or accessory muscle of respiration use. HEENT: Shows no pallor or scleral icterus. Oral mucosa is dry. No pharyngeal erythema or thrush. NECK: Trachea central. No thyromegaly. LUNGS: Unlabored breathing clear to auscultation anteriorly. No wheeze or crackle. HEART: S1, S2. Irregular rate and rhythm. ABDOMEN: Soft, no tenderness. No guarding or rigidity. No organomegaly. EXTREMITIES: Some swelling. The left second toe is slightly swollen with superficial wound on the dorsal aspect from which cultures were obtained. No foul smelling drainage. NEUROLOGIC: The patient is awake, alert, oriented. LABS: Hemoglobin is 12.2, white count 5.2, BUN of 27, creatinine 0.90. Electrolytes have been normal with mildly elevated lactic acid at 2.4, normal is 2.1. Blood culture obtained currently pending. X-ray report showing possible gangrene. DIAGNOSTIC IMPRESSION AND PLAN: Left diabetic foot infection in a patient who has cellulitis of his left second toe, however, x-rays were suggestive of possible gangrene for which a vascular surgery consult was requested to see if the patient does not need surgical debridement in order to clear up this infection. The likely organism is E. coli both gram-positive as well as gram-negative and diabetes and failing outpatient therapy. PLAN: 1. Wound culture has been obtained to advise further antibiotic therapy. 2. A vascular surgery consult was requested. 3. Vancomycin pharmacy to dose, target of 15 along with Zosyn for diabetic coverage while watching his kidney function closely. 4. Depending on clinical response and culture, will adjust medications further if needed. Thank you for this consultation, will follow this patient along with. MMODL / IJN: [id number] /
[2017-09-01 07:02] LABS: Glucose,Whole Blood 162 mg/dL (75-99)
[2017-09-01] MEDS: PIPERACILLIN-TAZOBACTAM 3.375 GM in DEXTROSE/WATER 1 50ML.BAG IVPB SCH ×3 (07:41→23:00)
[2017-09-01] MEDS: LORATADINE 10 MG TAB PO SCH (07:41)
[2017-09-01] MEDS: LOSARTAN 50 MG TAB PO SCH (07:41)
[2017-09-01] MEDS: hydrALAZINE HCL 25 MG TAB PO SCH ×2 (07:41→21:12)
[2017-09-01] MEDS: CARVEDILOL 12.5 MG TAB PO SCH ×2 (07:41→21:13)
[2017-09-01] MEDS: GEMFIBROZIL 600 MG TAB PO SCH ×2 (07:41→21:13)
[2017-09-01] MEDS: OXYBUTYNIN CHLORIDE 5 MG TAB PO SCH ×2 (07:41→21:13)
[2017-09-01] MEDS: metFORMIN 500 MG TAB PO SCH ×2 (07:41→21:13)
[2017-09-01] MEDS: MELOXICAM 7.5 MG TAB PO SCH ×2 (07:41→21:13)
[2017-09-01] MEDS: DOFETILIDE 500 MCG CAP PO SCH ×2 (07:41→21:14)
[2017-09-01] MEDS: INSULIN ASPART 100 UNIT/ML 1 ML 10 ML VIAL SQ SCH ×4 (07:41→21:18)
[2017-09-01] MEDS: ASCORBIC ACID 500 MG TAB PO SCH (07:42)
[2017-09-01] MEDS: FLUTICASONE 50MCG/SPRAY NASAL 16GM EA NOSTRIL SCH ×2 (07:42→21:14)
[2017-09-01] MEDS: FERROUS SULFATE 325 MG TAB PO SCH (07:42)
[2017-09-01] MEDS: PANTOPRAZOLE 40 MG TABLET PO SCH (07:42)
[2017-09-01] MEDS: CALCIUM CARB-VIT D 500MG-200UN 1 EACH TAB PO SCH ×2 (07:42→21:12)
[2017-09-01] MEDS: SYMBICORT 80-4.5 MCG INHALER INHALATION SCH ×2 (08:18→19:18)
[2017-09-01] MEDS: IPRATROPIUM-ALBUTEROL 3 ML NEB INHALATION SCH ×3 (08:18→19:18)
[2017-09-01 08:22] LABS: INR 1.7 (<1.2); Prothrombin Time 15.6 sec (9.0-12.0)
[2017-09-01 08:32] LABS: Anion Gap 11 mmol/L; Blood Urea Nitrogen 22 mg/dL (9-20); Calcium 9.8 mg/dL (8.4-10.2); Carbon Dioxide 29 mmol/L (22-30); Chloride 101 mmol/L (98-107); Glucose 172 mg/dL (74-99); Potassium 4.3 mmol/L (3.5-5.1); Sodium 141 mmol/L (137-145)
[2017-09-01] MEDS: VANCOMYCIN 2,250 MG in SODIUM CHLORIDE 0.9% 500 ML IVPB SCH ×2 (11:09→22:03)
[2017-09-01 12:08] LABS: Glucose,Whole Blood 206 mg/dL (75-99)
--- NOTE | 2017-09-01 14:21 | P.PN ---
Subjective 72-year-old that with diuretic neuropathy admitted for infected left lower limb ulcers and possible gangrene without any osteomyelitis. Patient has enterococcus. Patient is presently on both Unasyn and vancomycin probably Vanco can be discontinued once we get the final cultures. Patient probably can be discharged tomorrow. No debridement or amputation is being planned by vascular surgery. Constitutional: Denied any fatigue denied any fever. Cardio vascular: denied any chest pain, palpitations Gastrointestinal denied any nausea vomiting Pulmonary: Denied any shortness of breath cough Neurologic denied any new focal deficits Objective - Vital Signs Vital signs: Vital Signs Temp 96.3 F L 09/01/17 06:08 Pulse 75 09/01/17 08:31 Resp 16 09/01/17 06:08 BP 168/78 09/01/17 06:08 Pulse Ox 95 09/01/17 08:18 Intake & Output 08/31/17 09/01/17 09/01/17 18:59 06:59 18:59 Intake Total 1200 Balance 1200 Weight 162.386 kg Intake: Oral 1200 Other: # Voids 2 2 # Bowel Movements 2 - Exam PHYSICAL EXAMINATION: GENERAL: The patient is alert and oriented x3, not in any acute distress. Morbidly obese HEENT: Pupils are round and equally reacting to light. EOMI. No scleral icterus. No conjunctival pallor. Normocephalic, atraumatic. No pharyngeal erythema. No thyromegaly. CARDIOVASCULAR: S1 and S2 present. No murmurs, rubs, or gallops. PULMONARY: Chest is clear to auscultation, no wheezing or crackles. ABDOMEN: Soft, nontender, nondistended, normoactive bowel sounds. No palpable organomegaly. MUSCULOSKELETAL: No joint swelling or deformity. EXTREMITIES: No cyanosis, clubbing, or pedal edema. Patient does have left leg cellulitis extending a few centimeters above the ankle, patient has a gangrene and ulcer in the second toe on the left side with mild purulent discharge NEUROLOGICAL: Gross neurological examination did not reveal any focal deficits. SKIN: No rashes. - Labs CBC & Chem 7: 08/30/17 17:52 09/01/17 08:00 Labs: Abnormal Lab Results - Last 24 Hours (Table) 08/31/17 08/31/17 09/01/17 Range/Units 17:06 20:51 06:56 PT (9.0-12.0) sec INR (<1.2) BUN (9-20) mg/dL Glucose (74-99) mg/dL POC Glucose (mg/dL) 177 H 167 H 162 H (75-99) mg/dL 09/01/17 09/01/17 09/01/17 Range/Units 08:00 08:00 12:05 PT 15.6 H (9.0-12.0) sec INR 1.7 H (<1.2) BUN 22 H (9-20) mg/dL Glucose 172 H (74-99) mg/dL POC Glucose (mg/dL) 206 H (75-99) mg/dL Microbiology - Last 24 Hours (Table) 08/31/17 09:50 Gram Stain - Preliminary Toe - Left Second Wound Culture - Preliminary Group D Enterococcus 08/31/17 13:29 Gram Stain - Preliminary Toe - Left Second Wound Culture - Preliminary 08/30/17 17:52 Blood Culture - Preliminary Blood No Growth after 24 hours 08/31/17 13:30 Anaerobic Culture - Preliminary Toe - Left Second Assessment and Plan Plan: -wet gangrene diabetic foot ulcer, infected without any osteomyelitis: Patient is presently on Zosyn and vancomycin wound cultures are pending. Patient was evaluated by vascular surgery as well as infectious disease. Cultures are showing enterococcus -Lactic acidosis secondary to sepsis from left lower extremity wound and infection patient doesn't have any fevers no significant leukocytosis. We will repeat lactic acid levels today -Atrial fibrillation: Presently rate controlled patient is on anticoagulation with Coumadin which will be continued INR is 1. 8 repeat INR tomorrow. -Congestive heart failure chronic diastolic dysfunction without any acute exacerbation patient was resumed on home dose of Lasix area patient had normal ejection fraction the past next and have her gases originally reflux disease -Morbid obesity obstructive sleep apnea uses CPAP at home which will be continued -Hypothyroidism continue with levothyroxine - benign prostatic hypertrophic -Primary osteoarthritis -Hypertension -Hyperlipidemia
[2017-09-01 14:49] VITALS: RESP 18
[2017-09-01 16:44] LABS: Glucose,Whole Blood 139 mg/dL (75-99)
[2017-09-01] MEDS ORDERED: WARFARIN 10 MG TAB PO SCH (18:00)
[2017-09-01 20:49] LABS: Glucose,Whole Blood 188 mg/dL (75-99)
[2017-09-01] MEDS: TAMSULOSIN 0.4 MG CAP.ER.24H PO SCH (21:13)
--- NOTE | 2017-09-02 05:19 | PN ---
PROGRESS NOTE DATE OF SERVICE: 09/01/2017 REASON FOR FOLLOWUP: Left second toe diabetic foot infection with cellulitis. INTERVAL HISTORY: The patient is afebrile. Has been breathing comfortably. Denies having any chest pain or shortness of breath or cough. No abdominal pain or any worsening of pain to the left foot area. PHYSICAL EXAMINATION: On examination, blood pressure is 128/80 with a pulse of 71, temperature 98.7. He is 91% on césar air. General description is an elderly male up in the bed in no distress. RESPIRATORY SYSTEM: Unlabored breathing, clear to auscultation anteriorly. HEART: S1, S2. Regular rate and rhythm. ABDOMEN: Soft, no tenderness. Left foot is currently dressed, no obvious drainage on the dressing. LABS: No new labs have been obtained today. Wound culture with enterococcus species. DIAGNOSTIC IMPRESSION AND PLAN: Patient with left diabetic foot infection with second toe wound and cellulitis. Culture showing Enterococcus, currently on Zosyn and vancomycin. Will continue while waiting for the final sensitivity of this pathogen. Continue supportive care. MMODL / IJN: [id number] /
[2017-09-02] MEDS: LEVOTHYROXINE 50 MCG TAB PO SCH (05:35)
[2017-09-02 07:01] LABS: Glucose,Whole Blood 143 mg/dL (75-99)
[2017-09-02] MEDS: SYMBICORT 80-4.5 MCG INHALER INHALATION SCH (07:12)
[2017-09-02] MEDS: IPRATROPIUM-ALBUTEROL 3 ML NEB INHALATION SCH ×2 (07:12→13:30)
[2017-09-02] MEDS: ASCORBIC ACID 500 MG TAB PO SCH (07:33)
[2017-09-02] MEDS: hydrALAZINE HCL 25 MG TAB PO SCH (07:33)
[2017-09-02] MEDS: DOFETILIDE 500 MCG CAP PO SCH (07:33)
[2017-09-02] MEDS: GEMFIBROZIL 600 MG TAB PO SCH (07:33)
[2017-09-02] MEDS: PANTOPRAZOLE 40 MG TABLET PO SCH (07:33)
[2017-09-02] MEDS: metFORMIN 500 MG TAB PO SCH (07:33)
[2017-09-02] MEDS: CARVEDILOL 12.5 MG TAB PO SCH (07:33)
[2017-09-02] MEDS: MELOXICAM 7.5 MG TAB PO SCH (07:33)
[2017-09-02] MEDS: FERROUS SULFATE 325 MG TAB PO SCH (07:33)
[2017-09-02] MEDS: OXYBUTYNIN CHLORIDE 5 MG TAB PO SCH (07:33)
[2017-09-02] MEDS: CALCIUM CARB-VIT D 500MG-200UN 1 EACH TAB PO SCH (07:33)
[2017-09-02 07:34] VITALS: BP 152/80; TEMP 96.7
[2017-09-02] MEDS: FLUTICASONE 50MCG/SPRAY NASAL 16GM EA NOSTRIL SCH (07:34)
[2017-09-02] MEDS: PIPERACILLIN-TAZOBACTAM 3.375 GM in DEXTROSE/WATER 1 50ML.BAG IVPB SCH ×2 (07:34→15:08)
[2017-09-02] MEDS: LORATADINE 10 MG TAB PO SCH (07:34)
[2017-09-02] MEDS: LOSARTAN 50 MG TAB PO SCH (07:34)
[2017-09-02] MEDS: INSULIN ASPART 100 UNIT/ML 1 ML 10 ML VIAL SQ SCH ×2 (07:34→12:13)
[2017-09-02 10:42] LABS: INR 2.1 (<1.2)
[2017-09-02 10:50] LABS: HCT 36.3 % (39.0-53.0); HGB 11.6 gm/dL (13.0-17.5); MCH 29.2 pg (25.0-35.0); MCHC 32.1 g/dL (31.0-37.0); MCV 90.9 fL (80.0-100.0); Mean Platelet Volume 7.9; Platelet Count 210 k/uL (150-450); RDW 14.9 % (11.5-15.5); WBC 4.9 k/uL (3.8-10.6)
[2017-09-02] MEDS ORDERED: VANCOMYCIN TROUGH DUE 1 EACH MISC MISCELLANE ONE (11:00)
[2017-09-02] MEDS: VANCOMYCIN 2,250 MG in SODIUM CHLORIDE 0.9% 500 ML IVPB SCH (11:03)
[2017-09-02 11:20] LABS: Glucose,Whole Blood 137 mg/dL (75-99)
[2017-09-02 11:27] LABS: Anion Gap 12 mmol/L; Blood Urea Nitrogen 17 mg/dL (9-20); Calcium 9.6 mg/dL (8.4-10.2); Carbon Dioxide 24 mmol/L (22-30); Chloride 104 mmol/L (98-107); Glucose 144 mg/dL (74-99); Potassium 4.9 mmol/L (3.5-5.1); Sodium 140 mmol/L (137-145)
[2017-09-02 13:40] VITALS: PULSE 70
--- NOTE | 2017-09-02 15:51 | P.DS ---
Providers Date of admission: 08/30/17 19:18 Expected date of discharge: 09/02/17 Attending physician: Steve Washburn Consults: 08/30/17 18:42 Consult Physician Urgent Consulting Provider: Bernie Corado Consult Reason/Comments: chronic wound infection Do you want consulting provider notified?: Yes 08/31/17 12:12 Consult Physician Routine Consulting Provider: Immanuel Estrada Consult Reason/Comments: chronic wounds Do you want consulting provider notified?: Yes Primary care physician: [facility] Course: Final Diagnoses: -wet gangrene diabetic foot ulcer, infected without any osteomyelitis: Patient is presently on Zosyn and vancomycin wound cultures are pending. Patient was evaluated by vascular surgery as well as infectious disease. Cultures are showing enterococcus faecalis -Lactic acidosis secondary to sepsis from left lower extremity wound and infection patient doesn't have any fevers no significant leukocytosis. -Atrial fibrillation: Presently rate controlled patient is on anticoagulation with Coumadin -Congestive heart failure chronic diastolic dysfunction without any acute exacerbation patient was resumed on home dose of Lasix area patient had normal ejection fraction -Morbid obesity obstructive sleep apnea uses CPAP at home which will be continued -Hypothyroidism continue with levothyroxine - benign prostatic hypertrophic -Primary osteoarthritis -Hypertension -Hyperlipidemia Hospital course: This is a 72-year-old that with diuretic neuropathy admitted for infected left lower limb ulcers and possible gangrene without any osteomyelitis. Patient has enterococcus faecialis. Evaluated by Vascular and infectious disease. Patient is presently on both Unasyn and vancomycin. No debridement or amputation is being planned by vascular surgery. Patient not requiring any pain medication. Significant clinical improvement. Patient cleared for discharge by all consults. Patient is being discharged home in a stable condition with guarded prognosis. Microbiology 08/31/17 13:30 Toe - Left Second Anaerobic Culture - Preliminary 08/31/17 13:29 Toe - Left Second Gram Stain - Final 08/31/17 13:29 Toe - Left Second Wound Culture - Final Enterococcus faecalis 08/31/17 09:50 Toe - Left Second Gram Stain - Final 08/31/17 09:50 Toe - Left Second Wound Culture - Final Enterococcus faecalis 08/30/17 17:52 Blood Blood Culture - Preliminary No Growth after 48 hours EXAMINATION: GENERAL:alert and oriented x3, not in any acute distress. CARDIOVASCULAR: S1 and S2 present. No murmurs, rubs, or gallops. PULMONARY: Chest is clear to auscultation, no wheezing or crackles. ABDOMEN: Soft, nontender, nondistended, normoactive bowel sounds. EXTREMITIES: No cyanosis, clubbing, or pedal edema. Patient does have left leg cellulitis extending a few centimeters above the ankle, patient has a gangrene and ulcer in the second toe on the left side with mild purulent discharge NEUROLOGICAL: Gross neurological examination did not reveal any focal deficits. The impression and plan of care has been dictated as directed. : I performed a history and examination of this patient, discussed the same with the dictator. I agree with the dictator's note ,documented as a scribe. Any additional findings or plans will be noted. Patient Condition at Discharge: Stable Plan - Discharge Summary Discharge Rx Participant: No New Discharge Prescriptions: New Amoxic-Pot Clav 875-125Mg [Augmentin 875-125] 1 tab PO Q12HR #20 tablet Continue Meloxicam [Mobic] 7.5 mg PO BID metFORMIN HCL 1,000 mg PO BID Furosemide [Lasix] 40 mg PO BID hydrALAZINE HCL [Apresoline] 25 mg PO BID Losartan Potassium [Cozaar] 50 mg PO DAILY Fluticasone Nasal [place] [Flonase Nasal [place]] 1 spray EA NOSTRIL BID Warfarin [Coumadin] 10 mg PO TUFR Carvedilol [Coreg] 12.5 mg PO BID Albuterol Nebulized [Ventolin Nebulized] 2.5 mg INHALATION RT-TID #0 Ipratropium Nebulized [Atrovent Nebulized] 0.5 mg INHALATION RT-TID #0 [place]-3 Fatty Acids/Fish Oil [Fish Oil 1,000 mg Softgel] 2 cap PO DAILY Tiotropium 18 Mcg/Puff [Spiriva] 1 cap INHALATION RT-DAILY Albuterol Sulfate [Proair Hfa] 1 - 2 puff INHALATION RT-Q6H PRN PRN Reason: Shortness Of Breath Loratadine 10 mg PO DAILY Warfarin [Coumadin] 7.5 mg PO SUMOWETHSA Omeprazole 20 mg PO DAILY Levothyroxine Sodium [Synthroid] 50 mcg PO DAILY Tamsulosin HCl [Flomax] 0.4 mg PO HS Oxybutynin Chloride 5 mg PO BID Gemfibrozil [Lopid] 600 mg PO BID Calcium Carbonate/Vitamin D3 [Calcium 500-Vit D3 200 Tablet] 1 tab PO BID Budesonide/Formoterol Fumarate [Symbicort 80-4.5 Mcg Inhaler] 2 puff INHALATION RT-BID Ascorbic Acid [Vitamin C] 500 mg PO DAILY Ferrous Sulfate [Iron (65 MG Elemental)] 325 mg PO DAILY Dofetilide 500 mcg PO BID Discontinued Hydrophilic Cream [Kerodex 71 Cream] 1 applic TOPICAL DAILY Ciprofloxacin HCl [Cipro] 500 mg PO Q12HR Ranitidine HCl [Zantac] 300 mg PO HS Discharge Medication List Fluticasone Nasal [place] [Flonase Nasal [place]] 1 spray EA NOSTRIL BID 11/02/15 [ History] Furosemide [Lasix] 40 mg PO BID 11/02/15 [History] Losartan Potassium [Cozaar] 50 mg PO DAILY 11/02/15 [History] Meloxicam [Mobic] 7.5 mg PO BID 11/02/15 [History] hydrALAZINE HCL [Apresoline] 25 mg PO BID 11/02/15 [History] metFORMIN HCL 1,000 mg PO BID 11/02/15 [History] Carvedilol [Coreg] 12.5 mg PO BID 01/28/16 [History] Warfarin [Coumadin] 10 mg PO TUFR 01/28/16 [History] Albuterol Nebulized [Ventolin Nebulized] 2.5 mg INHALATION RT-TID #0 01/30/16 [ Rx] Ipratropium Nebulized [Atrovent Nebulized] 0.5 mg INHALATION RT-TID #0 01/30/16 [Rx] Albuterol Sulfate [Proair Hfa] 1 - 2 puff INHALATION RT-Q6H PRN 02/10/17 [ History] Loratadine 10 mg PO DAILY 02/10/17 [History] [place]-3 Fatty Acids/Fish Oil [Fish Oil 1,000 mg Softgel] 2 cap PO DAILY [History] Tiotropium 18 Mcg/Puff [Spiriva] 1 cap INHALATION RT-DAILY 02/10/17 [History] Ascorbic Acid [Vitamin C] 500 mg PO DAILY 08/30/17 [History] Budesonide/Formoterol Fumarate [Symbicort 80-4.5 Mcg Inhaler] 2 puff INHALATION RT-BID 08/30/17 [History] Calcium Carbonate/Vitamin D3 [Calcium 500-Vit D3 200 Tablet] 1 tab PO BID [History] Dofetilide 500 mcg PO BID 08/30/17 [History] Ferrous Sulfate [Iron (65 MG Elemental)] 325 mg PO DAILY 08/30/17 [History] Gemfibrozil [Lopid] 600 mg PO BID 08/30/17 [History] Levothyroxine Sodium [Synthroid] 50 mcg PO DAILY 08/30/17 [History] Omeprazole 20 mg PO DAILY 08/30/17 [History] Oxybutynin Chloride 5 mg PO BID 08/30/17 [History] Tamsulosin HCl [Flomax] 0.4 mg PO HS 08/30/17 [History] Warfarin [Coumadin] 7.5 mg PO SUMOWETHSA 08/30/17 [History] Amoxic-Pot Clav 875-125Mg [Augmentin 875-125] 1 tab PO Q12HR #20 tablet [Rx] Follow up Appointment(s)/Referral(s): Alex Haley DO [Doctor of Osteopathic Medicine] - 3 Days ([facility] patient [phone] [facility] to call you with a appt.) Ambulatory/Diagnostic Orders: Prothrombin Time INR [LAB.AMB] Time Frame: 09/06/17, Location: None Selected Patient Instructions/Handouts: Diabetic Foot Ulcers (DC) Activity/Diet/Wound Care/Special Instructions: . [facility] set up by [facility] [phone] Cardiac, diabetic diet.
--- NOTE | 2017-09-02 16:02 | PN ---
PROGRESS NOTE DATE OF SERVICE: 09/02/2017 REASON FOR FOLLOWUP: Left diabetic foot infection of the second toe. INTERVAL HISTORY: The patient is afebrile. He is feeling better, breathing comfortably. Denies having any chest pain or shortness of breath or cough. No abdominal pain or any worsening pain to the left second toe area. PHYSICAL EXAMINATION: Blood pressure 152/80 with a pulse of 69, temperature 97.7. He is 92% on room air. General description is an elderly male up in the bed in no distress. RESPIRATORY SYSTEM: Unlabored breathing. Clear to auscultation anteriorly. HEART: S1, S2. Regular rate and rhythm. ABDOMEN: Soft. No tenderness. Left second toe swelling and redness has much improved. No drainage. LABS: Hemoglobin is 11.6, white count 4.9. BUN of 17, creatinine 0.80. DIAGNOSTIC IMPRESSION AND PLAN: Patient with left second toe diabetic foot infection. Wound culture with Enterococcus faecalis that is penicillin-sensitive. Antibiotic has been switched over to Augmentin 875 b.i.d. for 10 days. Local wound care to continue with Aquacel Silver. Close outpatient followup. MMODL / IJN: [id number] /
[2017-09-02] MEDS ORDERED: VANCOMYCIN 2,000 MG in SODIUM CHLORIDE 0.9% 500 ML IVPB SCH (23:00)
== END 2017-09-02 16:46 | disposition home health service (06) | DRG 872 ==
LOC: EC 16:35 → 4MS4W 19:18
PROVIDERS: ADMIT Hospitalist; ATTEND Hospitalist
DX: A41.81 Sepsis due to Enterococcus (principal); E11.52 Type 2 diabetes mellitus with diabetic peripheral angiopathy with gangrene; I96 Gangrene, not elsewhere classified; I50.32 Chronic diastolic (congestive) heart failure; E11.40 Type 2 diabetes mellitus with diabetic neuropathy, unspecified; E11.621 Type 2 diabetes mellitus with foot ulcer; I48.91 Unspecified atrial fibrillation; L03.032 Cellulitis of left toe; E11.622 Type 2 diabetes mellitus with other skin ulcer; E11.628 Type 2 diabetes mellitus with other skin complications; L97.529 Non-pressure chronic ulcer of other part of left foot with unspecified severity; M20.42 Other hammer toe(s) (acquired), left foot; I11.0 Hypertensive heart disease with heart failure; E66.01 Morbid (severe) obesity due to excess calories; E03.9 Hypothyroidism, unspecified; N40.0 Benign prostatic hyperplasia without lower urinary tract symptoms; M19.91 Primary osteoarthritis, unspecified site; E78.5 Hyperlipidemia, unspecified; G47.33 Obstructive sleep apnea (adult) (pediatric); E11.9 Type 2 diabetes mellitus without complications; I87.2 Venous insufficiency (chronic) (peripheral); J44.9 Chronic obstructive pulmonary disease, unspecified; M10.9 Gout, unspecified; M54.9 Dorsalgia, unspecified; K21.9 Gastro-esophageal reflux disease without esophagitis; Z79.01 Long term (current) use of anticoagulants; Z79.84 Long term (current) use of oral hypoglycemic drugs; Z79.1 Long term (current) use of non-steroidal anti-inflammatories (NSAID); Z79.890 Hormone replacement therapy; Z79.899 Other long term (current) drug therapy; Z92.3 Personal history of irradiation; Z99.89 Dependence on other enabling machines and devices; Z80.0 Family history of malignant neoplasm of digestive organs; Z80.42 Family history of malignant neoplasm of prostate; Z82.49 Family history of ischemic heart disease and other diseases of the circulatory system; Z83.3 Family history of diabetes mellitus; Z85.46 Personal history of malignant neoplasm of prostate
CPT/HCPCS: 36415; 80048; 80053; 80202; 83036; 83605; 85025; 85027; 85610; 85730; 87040; 87070; 87075; 87077; 87186; 87205; 94640; 94760; 96365; 99284

== ENCOUNTER 2017-12-13 10:48 | Inpatient (IN) | payer OTHER, MEDICARE ==
--- NOTE | 2017-12-13 12:04 | ED ---
General Adult HPI - General Chief complaint: Extremity Problem,Nontraumatic Stated complaint: left leg pain, poss infection Time Seen by Provider: 12/13/17 11:46 Source: patient, RN notes reviewed Mode of arrival: wheelchair Limitations: no limitations - History of Present Illness Initial comments: Patient 72-year-old male presented to the emergency room today with multiple complaints. Patient states that he noticed that there is increased redness to the left lower leg. His troponin. He states he does see Dr. Bean. Currently not on any antibiotic. Patient states that redness is normal last 2 days. He also admits that his had neck pain. The past week. He states it is worse with rotation to the left. Denies any injury or trauma. He does admit that he just feels a numbness and weakness throughout his body. Why states she is concerned as in the past when the infection in his leg has gotten worse these are similar symptoms that he's had with weakness before. Patient denies any other complaints at this time. He does admit to a history of CHF and uses oxygen at night. Denies any increased shortness of breath. Patient denies any recent fever, chills, chest pain, back pain, abdominal pain, nausea or vomiting , dysuria or hematuria, constipation or diarrhea, headaches or visual changes, or any other complaints. - Related Data Home Medications Medication Instructions Recorded Confirmed Fluticasone Nasal [place] [Flonase 1 spray EA NOSTRIL BID 11/02/15 12/13/17 Nasal [place]] Furosemide [Lasix] 40 mg PO BID 11/02/15 12/13/17 Losartan Potassium [Cozaar] 50 mg PO DAILY 11/02/15 12/13/17 Meloxicam [Mobic] 7.5 mg PO BID 11/02/15 12/13/17 hydrALAZINE HCL [Apresoline] 25 mg PO BID 11/02/15 12/13/17 metFORMIN HCL 1,000 mg PO BID 11/02/15 12/13/17 Carvedilol [Coreg] 12.5 mg PO BID 01/28/16 12/13/17 Warfarin [Coumadin] 10 mg PO TUFR 01/28/16 12/13/17 Albuterol Sulfate [Proair Hfa] 1 - 2 puff INHALATION RT-Q6H PRN 02/10/17 Loratadine 10 mg PO DAILY 02/10/17 12/13/17 [place]-3 Fatty Acids/Fish Oil [Fish 2 cap PO DAILY 02/10/17 12/13/17 Oil 1,000 mg Softgel] Tiotropium 18 Mcg/Puff [Spiriva] 1 cap INHALATION RT-DAILY 02/10/17 12/13/17 Ascorbic Acid [Vitamin C] 500 mg PO DAILY 08/30/17 12/13/17 Budesonide/Formoterol Fumarate 2 puff INHALATION RT-BID 08/30/17 12/13/17 [Symbicort 80-4.5 Mcg Inhaler] Calcium Carbonate/Vitamin D3 1 tab PO BID 08/30/17 12/13/17 [Calcium 500-Vit D3 200 Tablet] Dofetilide 500 mcg PO BID 08/30/17 12/13/17 Ferrous Sulfate [Iron (65 MG 325 mg PO DAILY 08/30/17 12/13/17 Elemental)] Gemfibrozil [Lopid] 600 mg PO BID 08/30/17 12/13/17 Levothyroxine Sodium [Synthroid] 50 mcg PO DAILY 08/30/17 12/13/17 Omeprazole 20 mg PO DAILY 08/30/17 12/13/17 Oxybutynin Chloride 5 mg PO BID 08/30/17 12/13/17 Tamsulosin HCl [Flomax] 0.4 mg PO HS 08/30/17 12/13/17 Warfarin [Coumadin] 7.5 mg PO SUMOWETHSA 08/30/17 12/13/17 Nystatin 100,000 Unit/ml Susp 10 ml PO TID 12/13/17 12/13/17 [Mycostatin Oral Susp] Previous Rx's Medication Instructions Recorded Albuterol Nebulized [Ventolin 2.5 mg INHALATION RT-TID #0 01/30/16 Nebulized] Ipratropium Nebulized [Atrovent 0.5 mg INHALATION RT-TID #0 01/30/16 Nebulized] Allergies Allergy/AdvReac Type Severity Reaction Status Date / Time sulfamethoxazole Allergy Unknown Rash/Hives Verified 12/13/17 12:04 trimethoprim [From Bactrim] Allergy Rash/Hives Verified 12/13/17 12:04 simvastatin [From Zocor] AdvReac Myalgia Verified 12/13/17 12:04 Review of Systems ROS Statement: Those systems with pertinent positive or pertinent negative responses have been documented in the HPI. ROS Other: All systems not noted in ROS Statement are negative. Past Medical History Past Medical History: Atrial Fibrillation, Cancer, Heart Failure, COPD, Diabetes Mellitus, GERD/Reflux, Hyperlipidemia, Hypertension, Osteoarthritis (OA ), Prostate Disorder, Skin Disorder, Sleep Apnea/CPAP/BIPAP, Thyroid Disorder Additional Past Medical History / Comment(s): HX OF PROSTATE CANCER WITH RADIATION [place] (LAST-APRIL 2016), BACK PAIN , HX OF GOUT. USES CpAP AND 2 LITERS O2 AT HS, anemia, wound lt ankle and 2nd toe lt foot and rt foot 4th toe wound History of Any Multi-Drug Resistant Organisms: None Reported Past Surgical History: Orthopedic Surgery, Tonsillectomy Additional Past Surgical History / Comment(s): carpel tunnel, fatty tumor removed from leg and neck. tooth extractions Past Anesthesia/Blood Transfusion Reactions: No Reported Reaction Additional Past Anesthesia/Blood Transfusion Reaction / Comment(s): STATES DR TOLD HIM NO ANESTHESIA DUE TO LUNG FUNCTION. Past Psychological History: No Psychological Hx Reported Smoking Status: Former smoker Past Alcohol Use History: None Reported Past Drug Use History: None Reported - Past Family History Father Family Medical History: Cancer, Dementia Additional Family Medical History / Comment(s): prostate ca, oral ca from smoking Mother Family Medical History: Cancer, Diabetes Mellitus, Hypertension Additional Family Medical History / Comment(s): stomach Brother(s) Family Medical History: GI Bleed Additional Family Medical History / Comment(s): knee problems. stomach resection for bleeding ulcer General Exam - General Exam Comments Initial Comments: General: The patient is awake and alert, in no distress, and does not appear acutely ill. Eye: Pupils are equal, round and reactive to light. Extra-ocular movements are intact. No nystagmus. There is normal conjunctiva bilaterally. No signs of icterus. Ears, nose, mouth and throat: There are moist mucous membranes and no oral lesions. Neck: The neck is supple, there is no tenderness or JVD. Cardiovascular: There is a regular rate and rhythm. No murmur, rub or gallop is appreciated. Respiratory: Lungs are clear to auscultation, respirations are non-labored, breath sounds are equal. No wheezes, stridor, rales, or rhonchi. Musculoskeletal: Patient has no tenderness in the cervical, thoracic or lumbar spine. There is no step-off or deformity. Patient has mild tenderness paravertebrally on the left and right side of cervical spine. Patient shows good range of motion. Pain reproduced with rotation to the left. Sensation intact. Strength 5/5. Pulses equal bilaterally 2+. Neurological: A&O x 3. CN II-XII intact, There are no obvious motor or sensory deficits. Coordination appears grossly intact. Speech is normal. Skin: Increased redness erythema to the left lower extremity. There is a chronic wound to the medial aspect of the left ankle area. Some clear drainage currently. Psychiatric: Cooperative, appropriate mood & affect, normal judgment. Limitations: no limitations Course Vital Signs 12/13/17 10:52 Temperature 98.2 F Pulse Rate 78 Respiratory 20 Rate Blood Pressure 137/77 O2 Sat by Pulse 98 Oximetry Medical Decision Making - Medical Decision Making Patient's labs been reviewed does show evidence for urinary tract infection. Patient does have a chronic wound to the left lower extremity. There is increased redness or erythema. X-ray of the area shows no evidence of any osteomyelitis. Patient's chest x-ray does show evidence consistent with history of CHF. Patient did have a lactic acid 4.1. Patient has no fever. Clinically patient appears well. We will hold IV fluids due to history of CHF. Patient will be admitted to the hospital started on antibiotics of vancomycin and cefepime for Sepsis. Will consult for Dr. Bean for chronic wound. Case was discussed and seen by attending physician Dr. Luna. - Lab Data Result diagrams: 12/13/17 12:46 12/13/17 12:46 Lab Results 12/13/17 12/13/17 12/13/17 Range/Units 12:46 12:46 12:46 WBC 5.3 (3.8-10.6) k/uL RBC 4.18 L (4.30-5.90) m/uL Hgb 12.2 L (13.0-17.5) gm/dL Hct 37.0 L (39.0-53.0) % MCV 88.4 (80.0-100.0) fL MCH 29.2 (25.0-35.0) pg MCHC 33.0 (31.0-37.0) g/dL RDW 14.8 (11.5-15.5) % Plt Count 263 (150-450) k/uL Neutrophils % 70 % Lymphocytes % 14 % Monocytes % 7 % Eosinophils % 6 % Basophils % 0 % Neutrophils # 3.7 (1.3-7.7) k/uL Lymphocytes # 0.7 L (1.0-4.8) k/uL Monocytes # 0.4 (0-1.0) k/uL Eosinophils # 0.3 (0-0.7) k/uL Basophils # 0.0 (0-0.2) k/uL PT (9.0-12.0) sec INR (<1.2) APTT (22.0-30.0) sec Sodium 139 (137-145) mmol/L Potassium 4.4 (3.5-5.1) mmol/L Chloride 101 (98-107) mmol/L Carbon Dioxide 27 (22-30) mmol/L Anion Gap 11 mmol/L BUN 18 (9-20) mg/dL Creatinine 0.78 (0.66-1.25) mg/dL Est GFR (CKD-EPI)AfAm >90 (>60 ml/min/1.73 sqM) Est GFR (CKD-EPI)NonAf >90 (>60 ml/min/1.73 sqM) Glucose 159 H (74-99) mg/dL Plasma Lactic Acid [place] (0.7-2.0) mmol/L Calcium 9.5 (8.4-10.2) mg/dL Total Bilirubin 0.5 (0.2-1.3) mg/dL AST 118 H (17-59) U/L ALT 93 H (21-72) U/L Alkaline Phosphatase 79 (38-126) U/L Total Creatine Kinase 27 L (55-170) U/L CK-MB (CK-2) 0.6 (0.0-2.4) ng/mL CK-MB (CK-2) Rel Index 2.2 Troponin I <0.012 (0.000-0.034) ng/mL Total Protein 6.8 (6.3-8.2) g/dL Albumin 3.8 (3.5-5.0) g/dL Urine Color Urine Appearance (Clear) Urine pH (5.0-8.0) Ur Specific [place] (1.001-1.035) Urine Protein (Negative) Urine Glucose (UA) (Negative) Urine Ketones (Negative) Urine Blood (Negative) Urine Nitrite (Negative) Urine Bilirubin (Negative) Urine Urobilinogen (<2.0) mg/dL Ur Leukocyte Esterase (Negative) Urine WBC (0-5) /hpf Urine WBC Clumps (None) /hpf Ur Squamous Epith Cells (0-4) /hpf Urine Bacteria (None) /hpf Urine Mucus (None) /hpf 12/13/17 12/13/17 12/13/17 Range/Units 12:46 12:46 13:05 WBC (3.8-10.6) k/uL RBC (4.30-5.90) m/uL Hgb (13.0-17.5) gm/dL Hct (39.0-53.0) % MCV (80.0-100.0) fL MCH (25.0-35.0) pg MCHC (31.0-37.0) g/dL RDW (11.5-15.5) % Plt Count (150-450) k/uL Neutrophils % % Lymphocytes % % Monocytes % % Eosinophils % % Basophils % % Neutrophils # (1.3-7.7) k/uL Lymphocytes # (1.0-4.8) k/uL Monocytes # (0-1.0) k/uL Eosinophils # (0-0.7) k/uL Basophils # (0-0.2) k/uL PT 14.3 H (9.0-12.0) sec INR 1.5 H (<1.2) APTT 27.6 (22.0-30.0) sec Sodium (137-145) mmol/L Potassium (3.5-5.1) mmol/L Chloride (98-107) mmol/L Carbon Dioxide (22-30) mmol/L Anion Gap mmol/L BUN (9-20) mg/dL Creatinine (0.66-1.25) mg/dL Est GFR (CKD-EPI)AfAm (>60 ml/min/1.73 sqM) Est GFR (CKD-EPI)NonAf (>60 ml/min/1.73 sqM) Glucose (74-99) mg/dL Plasma Lactic Acid [place] 4.1 H* (0.7-2.0) mmol/L Calcium (8.4-10.2) mg/dL Total Bilirubin (0.2-1.3) mg/dL AST (17-59) U/L ALT (21-72) U/L Alkaline Phosphatase (38-126) U/L Total Creatine Kinase (55-170) U/L CK-MB (CK-2) (0.0-2.4) ng/mL CK-MB (CK-2) Rel Index Troponin I (0.000-0.034) ng/mL Total Protein (6.3-8.2) g/dL Albumin (3.5-5.0) g/dL Urine Color Yellow Urine Appearance Cloudy (Clear) Urine pH 6.0 (5.0-8.0) Ur Specific [place] 1.016 (1.001-1.035) Urine Protein Trace H (Negative) Urine Glucose (UA) Negative (Negative) Urine Ketones Negative (Negative) Urine Blood Negative (Negative) Urine Nitrite Negative (Negative) Urine Bilirubin Negative (Negative) Urine Urobilinogen <2.0 (<2.0) mg/dL Ur Leukocyte Esterase Large H (Negative) Urine WBC >182 H (0-5) /hpf Urine WBC Clumps Many H (None) /hpf Ur Squamous Epith Cells 2 (0-4) /hpf Urine Bacteria Many H (None) /hpf Urine Mucus Rare H (None) /hpf Disposition Clinical Impression: UTI (urinary tract infection) Disposition: ADMITTED IP TO THIS [facility] Condition: Good Is patient prescribed a controlled substance at d/c from ED?: No Referrals: [facility],Clinic [Primary Care Provider] - 1-2 days Time of Disposition: 14:16
[2017-12-13 13:06] LABS: Basophils % (A) 0 %; Eosinophils # (A) 0.3 k/uL (0-0.7); Eosinophils % (A) 6 %; HGB 12.2 gm/dL (13.0-17.5); Lymphocytes # (A) 0.7 k/uL (1.0-4.8); Lymphocytes % (A) 14 %; MCH 29.2 pg (25.0-35.0); MCV 88.4 fL (80.0-100.0); Mean Platelet Volume 7.2; Monocytes # (A) 0.4 k/uL (0-1.0); Monocytes % (A) 7 %; Neutrophils # (A) 3.7 k/uL (1.3-7.7); Neutrophils % (A) 70 %; Platelet Count 263 k/uL (150-450); RBC 4.18 m/uL (4.30-5.90); RDW 14.8 % (11.5-15.5); WBC 5.3 k/uL (3.8-10.6)
[2017-12-13 13:14] LABS: INR 1.5 (<1.2); Partial Thromboplastin Time 27.6 sec (22.0-30.0); Prothrombin Time 14.3 sec (9.0-12.0)
[2017-12-13 13:19] LABS: ALT 93 U/L (21-72); AST 118 U/L (17-59); Albumin 3.8 g/dL (3.5-5.0); Alkaline Phosphatase 79 U/L (38-126); Anion Gap 11 mmol/L; Blood Urea Nitrogen 18 mg/dL (9-20); Calcium 9.5 mg/dL (8.4-10.2); Carbon Dioxide 27 mmol/L (22-30); Chloride 101 mmol/L (98-107); Glucose 159 mg/dL (74-99); Potassium 4.4 mmol/L (3.5-5.1); Sodium 139 mmol/L (137-145); Total Bilirubin 0.5 mg/dL (0.2-1.3); Total Protein 6.8 g/dL (6.3-8.2)
[2017-12-13 13:23] LABS: Creatine Kinase 27 U/L (55-170)
[2017-12-13 13:36] LABS: Creatine Kinase MB 0.6 ng/mL (0.0-2.4); Troponin I <0.012 ng/mL (0.000-0.034)
[2017-12-13 13:37] LABS: Appearance,Urine Cloudy (Clear); Bacteria,Urine Many /hpf; Bilirubin,Urine Negative (Negative); Blood,Urine Negative (Negative); Color,Urine Yellow; Glucose,Urine (UA) Negative (Negative); Ketones,Urine Negative (Negative); Leukocyte Esterase,Urine Large (Negative); Mucus,Urine Rare /hpf; Nitrite,Urine Negative (Negative); Protein,Urine Trace (Negative); Specific Gravity,Urine 1.016 (1.001-1.035); Squamous Epithelial Cell,Urine 2 /hpf (0-4); Urobilinogen,Urine <2.0 mg/dL (<2.0)
--- NOTE | 2017-12-13 13:46 | XR ---
EXAMINATION TYPE: XR chest 2V DATE OF EXAM: 12/13/2017 COMPARISON: CTA chest February 14, 2017. HISTORY: Lower leg infection and shortness of breath TECHNIQUE: Frontal and lateral views of the chest are obtained. FINDINGS: There are diminished lung volumes redemonstrated. The cardiac silhouette size remains enl arged. There is persistent bibasilar opacity consistent with atelectasis and/or scarring. No new foc al airspace opacity, pleural effusion, or pneumothorax is seen bilaterally. Degenerative change both shoulders is redemonstrated. IMPRESSION: Cardiomegaly and chronic basilar changes with low lung volumes without new acute pulmonar y process. No significant change from prior.
--- NOTE | 2017-12-13 13:48 | XR ---
EXAMINATION TYPE: XR ankle complete LT DATE OF EXAM: 12/13/2017 CLINICAL HISTORY: Pain, infection. TECHNIQUE: Frontal, lateral and oblique images of the left ankle are obtained. COMPARISON: None. FINDINGS: Demineralization is present. No acute fracture or dislocation is seen. Mild to moderate spu rring from the malleoli is identified. There is advanced spurring and narrowing at the posterior talo calcaneal articulation. Large inferior calcaneal spur is present. Mild to moderate diffuse subcutaneo us edema seen most prominent over medial malleolus where there is lucency or suspected soft tissue ul cer above malleolus. No suspicious cortical destruction or periosteal reaction is seen. IMPRESSION: As above, no convincing radiographic evidence for acute osteomyelitis.
[2017-12-13] MEDS ORDERED: CEFEPIME 1 GM in SODIUM CHLORIDE 0.9% 50 ML IVPB STA (14:12)
--- NOTE | 2017-12-13 14:17 | ED ---
Medical Decision Making - Lab Data Result diagrams: 12/13/17 12:46 12/13/17 12:46 Lab Results 12/13/17 12/13/17 12/13/17 Range/Units 12:46 12:46 12:46 WBC 5.3 (3.8-10.6) k/uL RBC 4.18 L (4.30-5.90) m/uL Hgb 12.2 L (13.0-17.5) gm/dL Hct 37.0 L (39.0-53.0) % MCV 88.4 (80.0-100.0) fL MCH 29.2 (25.0-35.0) pg MCHC 33.0 (31.0-37.0) g/dL RDW 14.8 (11.5-15.5) % Plt Count 263 (150-450) k/uL Neutrophils % 70 % Lymphocytes % 14 % Monocytes % 7 % Eosinophils % 6 % Basophils % 0 % Neutrophils # 3.7 (1.3-7.7) k/uL Lymphocytes # 0.7 L (1.0-4.8) k/uL Monocytes # 0.4 (0-1.0) k/uL Eosinophils # 0.3 (0-0.7) k/uL Basophils # 0.0 (0-0.2) k/uL PT (9.0-12.0) sec INR (<1.2) APTT (22.0-30.0) sec Sodium 139 (137-145) mmol/L Potassium 4.4 (3.5-5.1) mmol/L Chloride 101 (98-107) mmol/L Carbon Dioxide 27 (22-30) mmol/L Anion Gap 11 mmol/L BUN 18 (9-20) mg/dL Creatinine 0.78 (0.66-1.25) mg/dL Est GFR (CKD-EPI)AfAm >90 (>60 ml/min/1.73 sqM) Est GFR (CKD-EPI)NonAf >90 (>60 ml/min/1.73 sqM) Glucose 159 H (74-99) mg/dL Plasma Lactic Acid [place] (0.7-2.0) mmol/L Calcium 9.5 (8.4-10.2) mg/dL Total Bilirubin 0.5 (0.2-1.3) mg/dL AST 118 H (17-59) U/L ALT 93 H (21-72) U/L Alkaline Phosphatase 79 (38-126) U/L Total Creatine Kinase 27 L (55-170) U/L CK-MB (CK-2) 0.6 (0.0-2.4) ng/mL CK-MB (CK-2) Rel Index 2.2 Troponin I <0.012 (0.000-0.034) ng/mL Total Protein 6.8 (6.3-8.2) g/dL Albumin 3.8 (3.5-5.0) g/dL Urine Color Urine Appearance (Clear) Urine pH (5.0-8.0) Ur Specific [place] (1.001-1.035) Urine Protein (Negative) Urine Glucose (UA) (Negative) Urine Ketones (Negative) Urine Blood (Negative) Urine Nitrite (Negative) Urine Bilirubin (Negative) Urine Urobilinogen (<2.0) mg/dL Ur Leukocyte Esterase (Negative) Urine WBC (0-5) /hpf Urine WBC Clumps (None) /hpf Ur Squamous Epith Cells (0-4) /hpf Urine Bacteria (None) /hpf Urine Mucus (None) /hpf 12/13/17 12/13/17 12/13/17 Range/Units 12:46 12:46 13:05 WBC (3.8-10.6) k/uL RBC (4.30-5.90) m/uL Hgb (13.0-17.5) gm/dL Hct (39.0-53.0) % MCV (80.0-100.0) fL MCH (25.0-35.0) pg MCHC (31.0-37.0) g/dL RDW (11.5-15.5) % Plt Count (150-450) k/uL Neutrophils % % Lymphocytes % % Monocytes % % Eosinophils % % Basophils % % Neutrophils # (1.3-7.7) k/uL Lymphocytes # (1.0-4.8) k/uL Monocytes # (0-1.0) k/uL Eosinophils # (0-0.7) k/uL Basophils # (0-0.2) k/uL PT 14.3 H (9.0-12.0) sec INR 1.5 H (<1.2) APTT 27.6 (22.0-30.0) sec Sodium (137-145) mmol/L Potassium (3.5-5.1) mmol/L Chloride (98-107) mmol/L Carbon Dioxide (22-30) mmol/L Anion Gap mmol/L BUN (9-20) mg/dL Creatinine (0.66-1.25) mg/dL Est GFR (CKD-EPI)AfAm (>60 ml/min/1.73 sqM) Est GFR (CKD-EPI)NonAf (>60 ml/min/1.73 sqM) Glucose (74-99) mg/dL Plasma Lactic Acid [place] 4.1 H* (0.7-2.0) mmol/L Calcium (8.4-10.2) mg/dL Total Bilirubin (0.2-1.3) mg/dL AST (17-59) U/L ALT (21-72) U/L Alkaline Phosphatase (38-126) U/L Total Creatine Kinase (55-170) U/L CK-MB (CK-2) (0.0-2.4) ng/mL CK-MB (CK-2) Rel Index Troponin I (0.000-0.034) ng/mL Total Protein (6.3-8.2) g/dL Albumin (3.5-5.0) g/dL Urine Color Yellow Urine Appearance Cloudy (Clear) Urine pH 6.0 (5.0-8.0) Ur Specific [place] 1.016 (1.001-1.035) Urine Protein Trace H (Negative) Urine Glucose (UA) Negative (Negative) Urine Ketones Negative (Negative) Urine Blood Negative (Negative) Urine Nitrite Negative (Negative) Urine Bilirubin Negative (Negative) Urine Urobilinogen <2.0 (<2.0) mg/dL Ur Leukocyte Esterase Large H (Negative) Urine WBC >182 H (0-5) /hpf Urine WBC Clumps Many H (None) /hpf Ur Squamous Epith Cells 2 (0-4) /hpf Urine Bacteria Many H (None) /hpf Urine Mucus Rare H (None) /hpf Disposition Clinical Impression: UTI (urinary tract infection), Sepsis, Cellulitis of right leg Disposition: ADMITTED IP TO THIS HOSP Condition: Good Referrals: [facility],Clinic [Primary Care Provider] - 1-2 days
[2017-12-13] MEDS ORDERED: VANCOMYCIN IV PER PHARMACY 1 EACH MISC MISCELLANE PRN (14:22)
[2017-12-13] MEDS ORDERED: NALOXONE 0.4 MG/ML 1 ML VIAL IV PRN (14:22)
[2017-12-13] MEDS ORDERED: ACETAMINOPHEN TAB 325 MG TAB PO PRN (14:22)
[2017-12-13] MEDS ORDERED: SODIUM CHLORIDE 0.9% 1,000 ML IV ONE (14:22)
[2017-12-13] MEDS ORDERED: ONDANSETRON 4 MG/2 ML VIAL IVP PRN (14:22)
[2017-12-13] MEDS ORDERED: VANCOMYCIN 2,500 MG in SODIUM CHLORIDE 0.9% 500 ML 500 ML IVPB ONE (16:00)
[2017-12-13] MEDS ORDERED: SODIUM CHLORIDE 0.9% 1,000 ML IV SCH (17:30)
[2017-12-13] MEDS: WARFARIN 7.5 MG TAB PO SCH (18:14)
[2017-12-13] MEDS: CARVEDILOL 12.5 MG TAB PO SCH (18:14)
--- NOTE | 2017-12-13 18:15 | P.HPIM ---
History of Present Illness 70-year-old pleasant gentleman came in not emergency department with the increasing redness in the left leg patient does have lymphedema of that leg patient does have bilateral lower leg swelling which is chronic and patient is obese. Patient has this redness for couple days with some burning sensation denied any recent trauma denied any fever chills. Patient was also complained of dysuria with urine being significantly abnormal. Patient denied any cough chest x-ray did not show any pneumonic process. Patient has enterococcus in the wounds in the past because of which patient will be switched to Zosyn from cefepime which is actually started for possible urinary tract infection and the patient will be continued on vancomycin with that was started in ER. Patient was treated for left leg ulcers and cellulitis in the past. Patient does have lactic is doses hold off on diuretic therapy patient was started on IV fluids. Repeat lactic acid again. Review of Systems REVIEW OF SYSTEMS: CONSTITUTIONAL: No fever, no malaise, no fatigue. HEENT: No recent visual problems or hearing problems. Denied any sore throat. CARDIOVASCULAR: No chest pain, orthopnea, PND, no palpitations, no syncope. PULMONARY: No shortness of breath, no cough, no hemoptysis. GASTROINTESTINAL: No diarrhea, no nausea, no vomiting, no abdominal pain. Normoactive bowel sounds. NEUROLOGICAL: No headaches, no weakness, no numbness. HEMATOLOGICAL: Denies any bleeding or petechiae. GENITOURINARY: Denies any burning micturition, frequency, or urgency. MUSCULOSKELETAL/RHEUMATOLOGICAL: Denies any joint pain, swelling, or any muscle pain. ENDOCRINE: Denies any polyuria or polydipsia. The rest of the 14-point review of systems is negative. Past Medical History Past Medical History: Atrial Fibrillation, Cancer, Heart Failure, COPD, Diabetes Mellitus, GERD/Reflux, Hyperlipidemia, Hypertension, Osteoarthritis (OA ), Prostate Disorder, Skin Disorder, Sleep Apnea/CPAP/BIPAP, Thyroid Disorder Additional Past Medical History / Comment(s): HX OF PROSTATE CANCER WITH RADIATION [place] (LAST-APRIL 2016), BACK PAIN , HX OF GOUT. USES CpAP AND 2 LITERS O2 AT HS, anemia, wound lt ankle and 2nd toe lt foot and rt foot 4th toe wound History of Any Multi-Drug Resistant Organisms: None Reported Past Surgical History: Orthopedic Surgery, Tonsillectomy Additional Past Surgical History / Comment(s): carpel tunnel, fatty tumor removed from leg and neck. tooth extractions Past Anesthesia/Blood Transfusion Reactions: No Reported Reaction Additional Past Anesthesia/Blood Transfusion Reaction / Comment(s): STATES DR TOLD HIM NO ANESTHESIA DUE TO LUNG FUNCTION. Past Psychological History: No Psychological Hx Reported Smoking Status: Former smoker Past Alcohol Use History: None Reported Past Drug Use History: None Reported - Past Family History Father Family Medical History: Cancer, Dementia Additional Family Medical History / Comment(s): prostate ca, oral ca from smoking Mother Family Medical History: Cancer, Diabetes Mellitus, Hypertension Additional Family Medical History / Comment(s): stomach Brother(s) Family Medical History: GI Bleed Additional Family Medical History / Comment(s): knee problems. stomach resection for bleeding ulcer Medications and Allergies Home Medications Medication Instructions Recorded Confirmed Type Fluticasone Nasal [place] [Flonase 1 spray EA NOSTRIL BID 11/02/15 12/13/17 History Nasal [place]] Furosemide [Lasix] 40 mg PO BID 11/02/15 12/13/17 History Losartan Potassium [Cozaar] 50 mg PO DAILY 11/02/15 12/13/17 History Meloxicam [Mobic] 7.5 mg PO BID 11/02/15 12/13/17 History hydrALAZINE HCL [Apresoline] 25 mg PO BID 11/02/15 12/13/17 History metFORMIN HCL 1,000 mg PO BID 11/02/15 12/13/17 History Carvedilol [Coreg] 12.5 mg PO BID 01/28/16 12/13/17 History Warfarin [Coumadin] 10 mg PO TUFR 01/28/16 12/13/17 History Albuterol Nebulized [Ventolin 2.5 mg INHALATION RT-TID #0 01/30/16 12/13/17 Rx Nebulized] Ipratropium Nebulized [Atrovent 0.5 mg INHALATION RT-TID #0 01/30/16 12/13/17 Rx Nebulized] Albuterol Sulfate [Proair Hfa] 1 - 2 puff INHALATION RT-Q6H PRN 02/10/17 History Loratadine 10 mg PO DAILY 02/10/17 12/13/17 History [place]-3 Fatty Acids/Fish Oil [Fish 2 cap PO DAILY 02/10/17 12/13/17 History Oil 1,000 mg Softgel] Tiotropium 18 Mcg/Puff [Spiriva] 1 cap INHALATION RT-DAILY 02/10/17 12/13/17 History Ascorbic Acid [Vitamin C] 500 mg PO DAILY 08/30/17 12/13/17 History Budesonide/Formoterol Fumarate 2 puff INHALATION RT-BID 08/30/17 12/13/17 History [Symbicort 80-4.5 Mcg Inhaler] Calcium Carbonate/Vitamin D3 1 tab PO BID 08/30/17 12/13/17 History [Calcium 500-Vit D3 200 Tablet] Dofetilide 500 mcg PO BID 08/30/17 12/13/17 History Ferrous Sulfate [Iron (65 MG 325 mg PO DAILY 08/30/17 12/13/17 History Elemental)] Gemfibrozil [Lopid] 600 mg PO BID 08/30/17 12/13/17 History Levothyroxine Sodium [Synthroid] 50 mcg PO DAILY 08/30/17 12/13/17 History Omeprazole 20 mg PO DAILY 08/30/17 12/13/17 History Oxybutynin Chloride 5 mg PO BID 08/30/17 12/13/17 History Tamsulosin HCl [Flomax] 0.4 mg PO HS 08/30/17 12/13/17 History Warfarin [Coumadin] 7.5 mg PO SUMOWETHSA 08/30/17 12/13/17 History Nystatin 100,000 Unit/ml Susp 10 ml PO TID 12/13/17 12/13/17 History [Mycostatin Oral Susp] Allergies Allergy/AdvReac Type Severity Reaction Status Date / Time sulfamethoxazole Allergy Unknown Rash/Hives Verified 12/13/17 12:04 trimethoprim [From Bactrim] Allergy Rash/Hives Verified 12/13/17 12:04 simvastatin [From Zocor] AdvReac Myalgia Verified 12/13/17 12:04 Physical Exam Vitals: Vital Signs Temp Pulse Resp BP Pulse Ox 12/13/17 17:29 97.4 F L 61 18 166/87 95 12/13/17 15:00 63 18 152/67 96 12/13/17 10:52 98.2 F 78 20 137/77 98 Intake and Output 12/13/17 12/13/17 12/13/17 06:59 14:59 22:59 Other: Weight 163.747 kg PHYSICAL EXAMINATION: GENERAL: The patient is alert and oriented x3, not in any acute distress. Well developed, well nourished. HEENT: Pupils are round and equally reacting to light. EOMI. No scleral icterus. No conjunctival pallor. Normocephalic, atraumatic. No pharyngeal erythema. No thyromegaly. CARDIOVASCULAR: S1 and S2 present. No murmurs, rubs, or gallops. PULMONARY: Chest is clear to auscultation, no wheezing or crackles. ABDOMEN: Soft, nontender, nondistended, normoactive bowel sounds. No palpable organomegaly. MUSCULOSKELETAL: No joint swelling or deformity. EXTREMITIES: No cyanosis, clubbing, she does have pedal edema in bilateral lower limbs which appears to be chronic with venous stasis dermatosis and lymphedema of the left leg with some circumferential redness above the ankle area with a small healing ulcer on the anterior aspect which doesn't appear to be infected probably a nidus of infection. NEUROLOGICAL: Gross neurological examination did not reveal any focal deficits. SKIN: As mentioned above Results CBC & Chem 7: 12/13/17 12:46 12/13/17 12:46 Labs: Abnormal Lab Results - Last 24 Hours (Table) 12/13/17 12/13/17 12/13/17 Range/Units 12:46 12:46 12:46 RBC 4.18 L (4.30-5.90) m/uL Hgb 12.2 L (13.0-17.5) gm/dL Hct 37.0 L (39.0-53.0) % Lymphocytes # 0.7 L (1.0-4.8) k/uL PT (9.0-12.0) sec INR (<1.2) Glucose 159 H (74-99) mg/dL Plasma Lactic Acid Adair (0.7-2.0) mmol/L AST 118 H (17-59) U/L ALT 93 H (21-72) U/L Total Creatine Kinase 27 L (55-170) U/L Urine Protein (Negative) Ur Leukocyte Esterase (Negative) Urine WBC (0-5) /hpf Urine WBC Clumps (None) /hpf Urine Bacteria (None) /hpf Urine Mucus (None) /hpf 12/13/17 12/13/17 12/13/17 Range/Units 12:46 12:46 13:05 RBC (4.30-5.90) m/uL Hgb (13.0-17.5) gm/dL Hct (39.0-53.0) % Lymphocytes # (1.0-4.8) k/uL PT 14.3 H (9.0-12.0) sec INR 1.5 H (<1.2) Glucose (74-99) mg/dL Plasma Lactic Acid Adair 4.1 H* (0.7-2.0) mmol/L AST (17-59) U/L ALT (21-72) U/L Total Creatine Kinase (55-170) U/L Urine Protein Trace H (Negative) Ur Leukocyte Esterase Large H (Negative) Urine WBC >182 H (0-5) /hpf Urine WBC Clumps Many H (None) /hpf Urine Bacteria Many H (None) /hpf Urine Mucus Rare H (None) /hpf Microbiology - Last 24 Hours (Table) 12/13/17 13:57 Wound Culture - Preliminary Foot - Left Assessment and Plan Plan: -Sepsis: Most probably secondary to select his of the left leg but cultures are obtained patient appears to be tract infection as well patient to is presently on Unasyn and Zosyn. Patient had enterococcus in the wounds in the past apart from that patient has Enterobacter and staph aureus as well these antibiotics should cover all of these organisms. She will be can you done IV fluids patient has chronic diastolic dysfunction close monitoring. -Chronic diastolic dysfunction without any acute exacerbation patient will be continued on IV fluids hold off on diuretic therapy because of lactic is doses -COPD without any acute exacerbation Heparin obesity -Atrial fibrillation rate controlled patient is on anticoagulation subtherapeutic and INR patient will be resumed and anticoagulated because of antibiotics and expecting his INR to go for because of which I'm not changing the dose of his Coumadin at this time. Patient is on dofetilide and 48 which will be continued. -Hypothyroidism continue with levothyroxine -Hypertension -Type 2 diabetes mellitus patient will be on sliding scale insulin -Obstructive sleep apnea for which patient is on CPAP which will be continued
[2017-12-13] MEDS: ALBUTEROL NEBULIZED 2.5 MG/3 ML INHALATION SCH (19:36)
[2017-12-13] MEDS: SYMBICORT 80-4.5 MCG INHALER INHALATION SCH (19:37)
[2017-12-13 20:57] LABS: Glucose,Whole Blood 210 mg/dL (75-99)
[2017-12-13] MEDS: DOFETILIDE 500 MCG CAP PO SCH (21:23)
[2017-12-13] MEDS: OXYBUTYNIN CHLORIDE 5 MG TAB PO SCH (21:24)
[2017-12-13] MEDS: TAMSULOSIN 0.4 MG CAP.ER.24H PO SCH (21:24)
[2017-12-13] MEDS: hydrALAZINE HCL 25 MG TAB PO SCH (21:24)
[2017-12-13] MEDS: INSULIN ASPART 100 UNIT/ML 1 ML 10 ML VIAL SQ SCH (21:24)
[2017-12-13] MEDS: MELOXICAM 7.5 MG TAB PO SCH (21:24)
[2017-12-13] MEDS: NYSTATIN 100,000 UNIT/ML SUSP 500,000 UNIT/5 ML CUP PO SCH (21:25)
[2017-12-14] MEDS ORDERED: CEFEPIME 1 GM in SODIUM CHLORIDE 0.9% 50 ML IVPB SCH ×2
[2017-12-14] MEDS: PIPERACILLIN-TAZOBACTAM 3.375 GM in DEXTROSE/WATER 1 50ML.BAG IVPB SCH ×4 (00:15→23:19)
[2017-12-14] MEDS: VANCOMYCIN 2,250 MG in SODIUM CHLORIDE 0.9% 500 ML 500 ML IVPB SCH ×2 (05:18→16:12)
[2017-12-14] MEDS: LEVOTHYROXINE 50 MCG TAB PO SCH (05:18)
[2017-12-14 07:47] LABS: Glucose,Whole Blood 168 mg/dL (75-99)
[2017-12-14] MEDS: SYMBICORT 80-4.5 MCG INHALER INHALATION SCH ×2 (08:15→21:09)
[2017-12-14] MEDS: IPRATROPIUM 0.5 MG/2.5 ML NEBU INHALATION SCH ×4 (08:15→21:09)
[2017-12-14] MEDS: ALBUTEROL NEBULIZED 2.5 MG/3 ML INHALATION SCH ×3 (08:15→21:09)
[2017-12-14] MEDS: DOFETILIDE 500 MCG CAP PO SCH ×2 (08:19→20:40)
[2017-12-14] MEDS: PANTOPRAZOLE 40 MG TABLET PO SCH (08:19)
[2017-12-14] MEDS: CARVEDILOL 12.5 MG TAB PO SCH ×2 (08:19→16:12)
[2017-12-14] MEDS: OXYBUTYNIN CHLORIDE 5 MG TAB PO SCH ×2 (08:19→20:39)
[2017-12-14] MEDS: NYSTATIN 100,000 UNIT/ML SUSP 500,000 UNIT/5 ML CUP PO SCH ×3 (08:19→20:40)
[2017-12-14] MEDS: LOSARTAN 50 MG TAB PO SCH (08:20)
[2017-12-14] MEDS: FERROUS SULFATE 325 MG TAB PO SCH (08:20)
[2017-12-14] MEDS: MELOXICAM 7.5 MG TAB PO SCH ×2 (08:20→20:39)
[2017-12-14] MEDS: INSULIN ASPART 100 UNIT/ML 1 ML 10 ML VIAL SQ SCH ×4 (08:21→21:36)
[2017-12-14] MEDS: hydrALAZINE HCL 25 MG TAB PO SCH ×2 (08:22→20:40)
[2017-12-14 09:45] LABS: Basophils % (A) 1 %; Eosinophils # (A) 0.3 k/uL (0-0.7); Eosinophils % (A) 7 %; HCT 37.8 % (39.0-53.0); HGB 11.9 gm/dL (13.0-17.5); Hypochromasia Slight; Lymphocytes # (A) 0.6 k/uL (1.0-4.8); Lymphocytes % (A) 14 %; MCH 29.2 pg (25.0-35.0); MCHC 31.5 g/dL (31.0-37.0); MCV 92.8 fL (80.0-100.0); Mean Platelet Volume 7.7; Monocytes # (A) 0.3 k/uL (0-1.0); Monocytes % (A) 7 %; Neutrophils # (A) 3.3 k/uL (1.3-7.7); Neutrophils % (A) 70 %; Platelet Count 238 k/uL (150-450); RBC 4.08 m/uL (4.30-5.90); RDW 14.7 % (11.5-15.5); WBC 4.7 k/uL (3.8-10.6)
[2017-12-14 09:46] LABS: INR 1.4 (<1.2); Prothrombin Time 13.2 sec (9.0-12.0)
[2017-12-14 09:51] LABS: ALT 112 U/L (21-72); AST 149 U/L (17-59); Albumin 3.7 g/dL (3.5-5.0); Alkaline Phosphatase 78 U/L (38-126); Anion Gap 10 mmol/L; Blood Urea Nitrogen 14 mg/dL (9-20); Calcium 9.4 mg/dL (8.4-10.2); Carbon Dioxide 27 mmol/L (22-30); Chloride 103 mmol/L (98-107); Glucose 204 mg/dL (74-99); Potassium 4.6 mmol/L (3.5-5.1); Sodium 140 mmol/L (137-145); Total Bilirubin 0.6 mg/dL (0.2-1.3); Total Protein 6.7 g/dL (6.3-8.2)
[2017-12-14 11:31] LABS: Glucose,Whole Blood 165 mg/dL (75-99)
[2017-12-14 17:43] LABS: Glucose,Whole Blood 204 mg/dL (75-99)
[2017-12-14] MEDS ORDERED: WARFARIN 10 MG TAB PO SCH (18:00)
[2017-12-14 18:45] LABS: Hemoglobin A1C 7.1 % (4.0-6.0)
[2017-12-14] MEDS: TAMSULOSIN 0.4 MG CAP.ER.24H PO SCH (20:39)
[2017-12-14 21:10] LABS: Glucose,Whole Blood 159 mg/dL (75-99)
[2017-12-15] MEDS: VANCOMYCIN 2,250 MG in SODIUM CHLORIDE 0.9% 500 ML 500 ML IVPB SCH ×2 (06:06→16:21)
[2017-12-15] MEDS: LEVOTHYROXINE 50 MCG TAB PO SCH (06:07)
[2017-12-15 06:37] LABS: Glucose,Whole Blood 164 mg/dL (75-99)
--- NOTE | 2017-12-15 06:47 | CONS ---
CONSULTATION DATE OF SERVICE: 12/14/2017 REASON FOR CONSULTATION: Left leg wound cellulitis. HISTORY OF PRESENT ILLNESS: The patient is a 72-year-old male with a past medical history significant for venous stasis ulcer of the left lower extremity. The patient is presenting to the ER at [facility] with chief complaint of increasing swelling and redness to his left leg that apparently has been getting worse for the last 2 days. The patient did have a mild dull aching pain to the left leg area. Intensity is 1 to 2 out of 10, worse when he walks on it with some relief with rest. He has a small wound on the medial side of the left leg, however, no significant drainage from it. The patient denies having any chest pain, shortness of breath or cough. He also had been complaining of some dysuria but no difficulty urination. With these symptoms, the patient has been evaluated by the ER physician. The patient did have x-rays of the ankle area, which did not show any acute changes to be suspicious for osteomyelitis. The patient did not have high grade fever. His lactic acid was elevated 2.6. White count was normal. Urine was positive with large leukocyte esterase with many WBCs. The patient has been started on vancomycin and Zosyn. Infectious Disease was consulted for further recommendation regarding antibiotic therapy. REVIEW OF SYSTEMS: CONSTITUTIONAL: Positive for weakness and some chills. Denies having any fever. EYES: No complaint. ENT: No complaint. RESPIRATORY: No complaint. CARDIOVASCULAR: No complaint. GENITOURINARY: As per HPI. GASTROINTESTINAL : No complaint. MUSCULOSKELETAL: No complaint. INTEGUMENTARY: As per HPI. PSYCHOLOGICAL: No complaint. ENDOCRINE: No complaint. NEUROLOGIC: No complaint. PAST MEDICAL HISTORY: Atrial fibrillation, heart failure, COPD, diabetes mellitus, gastroesophageal reflux disease, hyperlipidemia, hypertension, osteoarthritis, prostate disorder, sleep apnea, history of prostate cancer. PAST SURGICAL HISTORY: Tonsillectomy, carpal tunnel release, fatty tumor removed from right leg and tooth extractions. SOCIAL HISTORY: Remote history of smoking. No drinking or any drug use. FAMILY HISTORY: Father had history of oral cancer from smoking, prostate cancer, and dementia. Mother history of stomach cancer, diabetes and hypertension. ALLERGIES: Allergies to SULFAMETHOXAZOLE and SIMVASTATIN. MEDICATIONS: Medications include the patient is currently on Coumadin, vancomycin, Zosyn Protonix, Zofran, Mycostatin oral suspension, Narcan, Mobic, Cozaar, Synthroid, NovoLog, hydralazine, iron sulfate, Coreg, Symbicort, Ventolin, and Tylenol. PHYSICAL EXAMINATION: On examination, blood pressure 118/43 with a pulse of 72, temperature 97.5. He is 92% on room air. General description is an elderly male up in the bed in no distress. No tachypnea or accessory muscle of respiration use. HEENT examination shows slight pallor no scleral icterus. Oral mucous membrane is dry. No pharyngeal erythema or thrush. NECK: Trachea central. No thyromegaly. LUNGS: Unlabored breathing, clear to auscultation anteriorly. No wheeze or crackle. HEART: S1, S2. Regular rate and rhythm. ABDOMEN: Soft, no tenderness. No guarding or rigidity. EXTREMITIES: With 1+ edema of feet bilaterall6. The patient's left leg is swollen and red, slightly warm to touch. Small wound on the medial aspect which was cultured: NEUROLOGICALLY: Patient is awake, alert, oriented x3. Mood and affect normal. LABS: Hemoglobin 11.9, white count 4.7. Lactic acid 3.2, down to 0.6. BUN of 14, creatinine 0.83. UA has been positive. X-rays of the ankle area with no bony . DIAGNOSTIC IMPRESSION AND PLAN: 1. Patient admitted to the hospital with acute left leg cellulitis and the patient did have a history of venous stasis ulcer currently with a small wound likely the source of and this cellulitis in a patient who has been in and out of the hospital. His cellulitis could be a gram positive infection or a gram-negative not entirely excluded. 2. The patient with urinary tract infection, likely gram-negative pathogen. PLAN: 1. Wound cultures will be repeated to guide further antibiotic therapy. 2. Aquacel Silver dressing to the open wound followed by Eucerin to the dry scaly skin and Daron wrap to keep the swelling down. 3. Antibiotic vancomycin pharmacy to dose trough of 15 while watching his kidney function closely and Zosyn will provide coverage for his cellulitis as well as UTI. Antibiotic will be noted further on the basis of the clinical response and culture. 4. We will follow up on clinical condition and culture to further adjust medication if needed. Thank you for this consultation. Will follow this patient along with you. MMODL / IJN: [id number] /
[2017-12-15] MEDS: IPRATROPIUM 0.5 MG/2.5 ML NEBU INHALATION SCH (07:20)
[2017-12-15] MEDS: ALBUTEROL NEBULIZED 2.5 MG/3 ML INHALATION SCH (07:20)
[2017-12-15] MEDS: SYMBICORT 80-4.5 MCG INHALER INHALATION SCH ×2 (07:21→21:53)
[2017-12-15] MEDS: PANTOPRAZOLE 40 MG TABLET PO SCH (07:50)
[2017-12-15] MEDS: hydrALAZINE HCL 25 MG TAB PO SCH ×2 (07:50→21:25)
[2017-12-15] MEDS: INSULIN ASPART 100 UNIT/ML 1 ML 10 ML VIAL SQ SCH ×4 (07:50→21:27)
[2017-12-15] MEDS: MELOXICAM 7.5 MG TAB PO SCH ×2 (07:50→21:25)
[2017-12-15] MEDS: LOSARTAN 50 MG TAB PO SCH (07:51)
[2017-12-15] MEDS: CARVEDILOL 12.5 MG TAB PO SCH ×2 (07:51→16:11)
[2017-12-15] MEDS: NYSTATIN 100,000 UNIT/ML SUSP 500,000 UNIT/5 ML CUP PO SCH ×3 (07:51→21:26)
[2017-12-15] MEDS: OXYBUTYNIN CHLORIDE 5 MG TAB PO SCH ×2 (07:51→21:26)
[2017-12-15] MEDS: FERROUS SULFATE 325 MG TAB PO SCH (07:51)
[2017-12-15] MEDS: DOFETILIDE 500 MCG CAP PO SCH ×2 (07:51→21:25)
[2017-12-15] MEDS: PIPERACILLIN-TAZOBACTAM 3.375 GM in DEXTROSE/WATER 1 50ML.BAG IVPB SCH ×3 (08:37→23:47)
[2017-12-15] MEDS ORDERED: MINERAL OIL-WHITE PETROLATUM 120 GM JAR TOPICAL PRN (08:49)
[2017-12-15 10:03] LABS: INR 1.4 (<1.2); Prothrombin Time 13.3 sec (9.0-12.0)
[2017-12-15] MEDS ORDERED: IPRATROPIUM-ALBUTEROL 3 ML NEB INHALATION PRN (11:07)
[2017-12-15] MEDS: IPRATROPIUM-ALBUTEROL 3 ML NEB INHALATION SCH ×3 (11:22→21:53)
[2017-12-15 11:28] LABS: Glucose,Whole Blood 204 mg/dL (75-99)
[2017-12-15] MEDS: WARFARIN 7.5 MG TAB PO SCH (16:12)
[2017-12-15 17:42] LABS: Glucose,Whole Blood 128 mg/dL (75-99)
[2017-12-15 20:45] LABS: Glucose,Whole Blood 193 mg/dL (75-99)
[2017-12-15] MEDS: TAMSULOSIN 0.4 MG CAP.ER.24H PO SCH (21:26)
--- NOTE | 2017-12-15 22:47 | PN ---
PROGRESS NOTE DATE OF SERVICE: 12/15/2017 REASON FOR FOLLOWUP: 1. Left leg with venostasis ulcer with secondary cellulitis. 2. UTI. INTERVAL HISTORY: The patient is currently afebrile. He is breathing comfortably. Denies having any chest pain or shortness of breath or cough. No abdominal pain or any worsening pain to the left leg area. PHYSICAL EXAMINATION: Blood pressure 139/70 with a pulse of 70, temperature 97.7. He is 93% on room air. General description is an elderly male up in the bed in no distress. RESPIRATORY SYSTEM: Unlabored breathing. Clear to auscultation anteriorly. HEART: S1, S2. Regular rate and rhythm. ABDOMEN: Soft. No tenderness. Left leg swelling and redness have slightly decreased. No drainage. LABS: No new labs have been obtained today. Left foot wound culture with enterobacter and Acinetobacter baumannii, sensitive to Cipro. Urine is growing Klebsiella oxytoca. DIAGNOSTIC IMPRESSION AND PLAN: Patient with a left leg venostasis ulcer with secondary cellulitis, culture positive predominantly with gram-negative and is currently covered with Zosyn. As no gram- positive has been grown, we will discontinue the vancomycin and hopefully finish therapy with oral Cipro to cover for both the UTI as well as the left leg cellulitis. Continue supportive care. was present at the bedside. She had multiple questions and those were answered. MMODL / IJN: [id number] /
[2017-12-16] MEDS ORDERED: VANCOMYCIN TROUGH DUE 1 EACH MISC MISCELLANE ONE (05:00)
[2017-12-16 05:58] LABS: INR 1.6 (<1.2)
[2017-12-16 06:14] LABS: Anion Gap 7 mmol/L; Blood Urea Nitrogen 16 mg/dL (9-20); Calcium 9.1 mg/dL (8.4-10.2); Carbon Dioxide 25 mmol/L (22-30); Chloride 107 mmol/L (98-107); Glucose 145 mg/dL (74-99); Potassium 4.6 mmol/L (3.5-5.1); Sodium 139 mmol/L (137-145)
[2017-12-16] MEDS: LEVOTHYROXINE 50 MCG TAB PO SCH (06:43)
[2017-12-16 07:00] LABS: Glucose,Whole Blood 171 mg/dL (75-99)
[2017-12-16] MEDS: hydrALAZINE HCL 25 MG TAB PO SCH (08:38)
[2017-12-16] MEDS: CARVEDILOL 12.5 MG TAB PO SCH ×2 (08:38→16:23)
[2017-12-16] MEDS: FERROUS SULFATE 325 MG TAB PO SCH (08:38)
[2017-12-16] MEDS: PANTOPRAZOLE 40 MG TABLET PO SCH (08:38)
[2017-12-16] MEDS: OXYBUTYNIN CHLORIDE 5 MG TAB PO SCH (08:38)
[2017-12-16] MEDS: DOFETILIDE 500 MCG CAP PO SCH (08:38)
[2017-12-16] MEDS: NYSTATIN 100,000 UNIT/ML SUSP 500,000 UNIT/5 ML CUP PO SCH (08:38)
[2017-12-16] MEDS: LOSARTAN 50 MG TAB PO SCH (08:38)
[2017-12-16] MEDS: INSULIN ASPART 100 UNIT/ML 1 ML 10 ML VIAL SQ SCH ×2 (08:38→12:54)
[2017-12-16] MEDS: MELOXICAM 7.5 MG TAB PO SCH (08:38)
[2017-12-16] MEDS: PIPERACILLIN-TAZOBACTAM 3.375 GM in DEXTROSE/WATER 1 50ML.BAG IVPB SCH (08:39)
[2017-12-16] MEDS: SYMBICORT 80-4.5 MCG INHALER INHALATION SCH (09:02)
[2017-12-16] MEDS: IPRATROPIUM-ALBUTEROL 3 ML NEB INHALATION SCH ×3 (09:02→15:42)
[2017-12-16 12:14] LABS: Glucose,Whole Blood 171 mg/dL (75-99)
[2017-12-16 14:54] VITALS: BP 151/73; RESP 20; TEMP 98.1
[2017-12-16] MEDS ORDERED: MINERAL OIL-WHITE PETROLATUM CREAM 454 GM JAR TOPICAL PRN (14:54)
[2017-12-16 15:50] VITALS: PULSE 68
[2017-12-16] MEDS: WARFARIN 7.5 MG TAB PO SCH (16:23)
--- NOTE | 2017-12-16 18:48 | PN ---
PROGRESS NOTE DATE OF SERVICE: 12/16/2017. REASON FOR FOLLOWUP: 1. Left leg venous stasis ulcer with skin cellulitis. 2. Urinary tract infection. INTERVAL HISTORY: The patient is currently afebrile. He is feeling better. Breathing comfortably. Denies having any chest pain, shortness of breath, cough, abdominal pain, to the left leg area. EXAMINATION: Blood pressure 141/73 with a pulse of 65, temperature 98.1. He is 92% on room air. General description is an elderly male up in the room in no distress. Respiratory system: Unlabored breathing, clear to auscultation anteriorly. Heart S1, S2. Regular rate and rhythm. Abdomen soft, no tenderness. LABS: BUN of 16, creatinine 0.9. Would culture Enterobacter cloacae. Urine is Klebsiella. DIAGNOSTIC IMPRESSION AND PLAN: Patient with left leg wound with secondary cellulitis. Culture showing Enterobacter and Klebsiella. The patient apparently the organism is resistant to cefuroxime. The patient is on oral Coumadin that needs to be monitored closely. Patient given a short course of oral Cipro. Continue supportive care. MMODL / IJN: [id number] /
--- NOTE | 2017-12-16 22:48 | P.PN ---
Subjective Progress Note Date: 12/14/17 Progress note being dictated for Dr. Washburn. Interval history:70-year-old pleasant gentleman came in not emergency department with the increasing redness in the left leg patient does have lymphedema of that leg patient does have bilateral lower leg swelling which is chronic and patient is obese. Patient has this redness for couple days with some burning sensation denied any recent trauma denied any fever chills. Patient was also complained of dysuria with urine being significantly abnormal. Patient denied any cough chest x-ray did not show any pneumonic process. Patient has enterococcus in the wounds in the past because of which patient will be switched to Zosyn from cefepime which is actually started for possible urinary tract infection and the patient will be continued on vancomycin with that was started in ER. Patient was treated for left leg ulcers and cellulitis in the past. Patient does have lactic is doses hold off on diuretic therapy patient was started on IV fluids. Repeat lactic acid again. 12/14/2017 lactic acid 2.6, WBC normal, urine positive for large leukocytes esterase .maintained on IV antibiotics of vancomycin and Zosyn. Evaluated by infectious disease with recommendations noted. Objective - Vital Signs Vital signs: Vital Signs Temp 97.5 F L 12/14/17 17:54 Pulse 61 12/14/17 21:21 Resp 16 12/14/17 21:21 BP 130/63 12/14/17 17:54 Pulse Ox 92 L 12/14/17 17:54 Intake & Output 12/14/17 12/14/17 12/15/17 06:59 18:59 06:59 Intake Total 880 Balance 880 Weight 157 kg Intake: Oral 880 Other: Voiding Method Toilet Toilet Toilet Bedside Commode # Voids 3 2 - Exam EXAMINATION: GENERAL: The patient is alert and oriented x3, sitting up at side of bed, not in any acute distress. Well developed, well nourished. HEENT: Pupils are round and equally reacting to light. EOMI. No scleral icterus. No conjunctival pallor. Normocephalic, atraumatic. CARDIOVASCULAR: S1 and S2 present. No murmurs, rubs, or gallops. PULMONARY: Chest is clear to auscultation, no wheezing or crackles. ABDOMEN: Soft, nontender, nondistended, normoactive bowel sounds. No palpable organomegaly. MUSCULOSKELETAL: No joint swelling or deformity. EXTREMITIES: No cyanosis, clubbing, positive chronic pedal edema in bilateral lower limbs with venous stasis dermatosis and lymphedema of the left leg with some circumferential redness above the ankle area with a small healing ulcer on the anterior aspect . NEUROLOGICAL: Gross neurological examination did not reveal any focal deficits. SKIN: As mentioned above - Labs CBC & Chem 7: 12/14/17 09:19 12/16/17 05:21 Labs: Abnormal Lab Results - Last 24 Hours (Table) 12/13/17 12/14/17 12/14/17 Range/Units 12:46 07:39 09:19 RBC 4.08 L (4.30-5.90) m/uL Hgb 11.9 L (13.0-17.5) gm/dL Hct 37.8 L (39.0-53.0) % Lymphocytes # 0.6 L (1.0-4.8) k/uL PT (9.0-12.0) sec INR (<1.2) Glucose (74-99) mg/dL POC Glucose (mg/dL) 168 H (75-99) mg/dL Hemoglobin A1c 7.1 H (4.0-6.0) % Plasma Lactic Acid Adair (0.7-2.0) mmol/L AST (17-59) U/L ALT (21-72) U/L 12/14/17 12/14/17 12/14/17 Range/Units 09:19 09:19 09:19 RBC (4.30-5.90) m/uL Hgb (13.0-17.5) gm/dL Hct (39.0-53.0) % Lymphocytes # (1.0-4.8) k/uL PT 13.2 H (9.0-12.0) sec INR 1.4 H (<1.2) Glucose 204 H (74-99) mg/dL POC Glucose (mg/dL) (75-99) mg/dL Hemoglobin A1c (4.0-6.0) % Plasma Lactic Acid Adair 3.2 H* (0.7-2.0) mmol/L AST 149 H (17-59) U/L ALT 112 H (21-72) U/L 12/14/17 12/14/17 12/14/17 Range/Units 11:29 13:25 17:29 RBC (4.30-5.90) m/uL Hgb (13.0-17.5) gm/dL Hct (39.0-53.0) % Lymphocytes # (1.0-4.8) k/uL PT (9.0-12.0) sec INR (<1.2) Glucose (74-99) mg/dL POC Glucose (mg/dL) 165 H 204 H (75-99) mg/dL Hemoglobin A1c (4.0-6.0) % Plasma Lactic Acid Adair 2.6 H* (0.7-2.0) mmol/L AST (17-59) U/L ALT (21-72) U/L 12/14/17 Range/Units 21:07 RBC (4.30-5.90) m/uL Hgb (13.0-17.5) gm/dL Hct (39.0-53.0) % Lymphocytes # (1.0-4.8) k/uL PT (9.0-12.0) sec INR (<1.2) Glucose (74-99) mg/dL POC Glucose (mg/dL) 159 H (75-99) mg/dL Hemoglobin A1c (4.0-6.0) % Plasma Lactic Acid Adair (0.7-2.0) mmol/L AST (17-59) U/L ALT (21-72) U/L Microbiology - Last 24 Hours (Table) 12/14/17 11:30 Gram Stain - Preliminary Leg - Left Wound Culture - Preliminary 12/13/17 13:05 Urine Culture - Preliminary Urine,Voided 12/14/17 11:30 Anaerobic Culture - Preliminary Leg - Left 12/13/17 12:46 Blood Culture - Preliminary Blood No Growth after 24 hours 12/13/17 13:57 Gram Stain - Preliminary Foot - Left Wound Culture - Preliminary Gram Neg Bacilli Assessment and Plan Assessment: -Sepsis secondary to acute left leg venous stasis ulcer with secondary cellulitis, acute UTI. Patient had enterococcus in the wounds in the past apart from that patient has Enterobacter and staph aureus -Chronic diastolic dysfunction without any acute exacerbation. -COPD without any acute exacerbation -Morbid obesity -Atrial fibrillation rate controlled -Hypothyroidism continue with levothyroxine -Hypertension -Type 2 diabetes mellitus -Obstructive sleep apnea , on CPAP Plan: Continue on current medication regime ,monitoring. Final cultures pending.wound care/IV antibiotics of vancomycin and Zosyn as per infectious disease. The impression and plan of care has been dictated as directed. : I performed a history and examination of this patient, discussed the same with the dictator. I agree with the dictator's note ,documented as a scribe. Any additional findings or plans will be noted.
--- NOTE | 2017-12-16 22:57 | P.PN ---
Subjective Progress Note Date: 12/15/17 Progress note being dictated for Dr. Washburn. Interval history:70-year-old pleasant gentleman came in not emergency department with the increasing redness in the left leg patient does have lymphedema of that leg patient does have bilateral lower leg swelling which is chronic and patient is obese. Patient has this redness for couple days with some burning sensation denied any recent trauma denied any fever chills. Patient was also complained of dysuria with urine being significantly abnormal. Patient denied any cough chest x-ray did not show any pneumonic process. Patient has enterococcus in the wounds in the past because of which patient will be switched to Zosyn from cefepime which is actually started for possible urinary tract infection and the patient will be continued on vancomycin with that was started in ER. Patient was treated for left leg ulcers and cellulitis in the past. Patient does have lactic is doses hold off on diuretic therapy patient was started on IV fluids. Repeat lactic acid again. 12/14/2017 lactic acid 2.6, WBC normal, urine positive for large leukocytes esterase .maintained on IV antibiotics of vancomycin and Zosyn. Evaluated by infectious disease with recommendations noted. 12/15/2017 complains of mild discomfort. Evaluated by PT/OT with subacute rehab recommended at discharge. Preliminary wound cultures growing Gram negative bacilli; enterobacter and acinetobacter baumannii. Urine culture reporting Klebsiella oxytoca. Maintained on IV antibiotics of Zosyn with vancomycin discontinued .Afebrile. Chest pain, no palpitations, no increased shortness of breath. Objective - Vital Signs Vital signs: Vital Signs Temp 97.7 F 12/15/17 19:00 Pulse 69 12/15/17 21:57 Resp 28 H 12/15/17 19:00 BP 139/70 12/15/17 19:00 Pulse Ox 93 L 12/15/17 15:00 Intake & Output 12/15/17 12/15/17 12/16/17 06:59 18:59 06:59 Intake Total 580 Balance 580 Weight 162.8 kg Intake: Oral 580 Other: Voiding Method Toilet Toilet Bedside Commode # Voids 3 3 - Exam EXAMINATION: GENERAL: The patient is alert and oriented x3, sitting up at side of bed, not in any acute distress. Well developed, well nourished. HEENT: Pupils are round and equally reacting to light. EOMI. No scleral icterus. No conjunctival pallor. Normocephalic, atraumatic. CARDIOVASCULAR: S1 and S2 present. No murmurs, rubs, or gallops. PULMONARY: Chest is clear to auscultation, no wheezing or crackles. ABDOMEN: Soft, nontender, nondistended, normoactive bowel sounds. No palpable organomegaly. MUSCULOSKELETAL: No joint swelling or deformity. EXTREMITIES: Left leg redness, edema,improving, no drainage reported NEUROLOGICAL: Gross neurological examination did not reveal any focal deficits. SKIN: As mentioned above - Labs CBC & Chem 7: 12/14/17 09:19 12/16/17 05:21 Labs: Abnormal Lab Results - Last 24 Hours (Table) 12/15/17 12/15/17 12/15/17 Range/Units 06:35 09:00 10:25 PT 13.3 H (9.0-12.0) sec INR 1.4 H (<1.2) POC Glucose (mg/dL) 164 H (75-99) mg/dL Plasma Lactic Acid [place] 2.4 H* (0.7-2.0) mmol/L 12/15/17 12/15/17 12/15/17 Range/Units 11:24 15:57 17:40 PT (9.0-12.0) sec INR (<1.2) POC Glucose (mg/dL) 204 H 128 H (75-99) mg/dL Plasma Lactic Acid [place]air 2.1 H* (0.7-2.0) mmol/L 12/15/17 Range/Units 20:44 PT (9.0-12.0) sec INR (<1.2) POC Glucose (mg/dL) 193 H (75-99) mg/dL Plasma Lactic Acid [place]air (0.7-2.0) mmol/L Microbiology - Last 24 Hours (Table) 12/13/17 13:05 Urine Culture - Final Urine,Voided Klebsiella oxytoca 12/13/17 12:46 Blood Culture - Preliminary Blood No Growth after 48 hours 12/13/17 13:57 Gram Stain - Final Foot - Left Wound Culture - Final Enterobacter cloacae Acinetobacter yohana/haemol 12/14/17 11:30 Gram Stain - Preliminary Leg - Left Wound Culture - Preliminary Gram Neg Bacilli Assessment and Plan Assessment: -Sepsis secondary to acute left leg venous stasis ulcer with secondary cellulitis, acute UTI with Klebsiella oxytoca. Patient has hx of enterococcus in the wounds. Wound culture with Enterobacter and acinetobacter baumannii. -Chronic diastolic dysfunction without any acute exacerbation. -COPD without any acute exacerbation -Morbid obesity -Atrial fibrillation rate controlled -Hypothyroidism continue with levothyroxine -Hypertension -Type 2 diabetes mellitus -Obstructive sleep apnea , on CPAP Plan: Continue on current medication regime ,monitoring. Final cultures pending.wound care/IV antibiotics of Zosyn as per infectious disease. The impression and plan of care has been dictated as directed. : I performed a history and examination of this patient, discussed the same with the dictator. I agree with the dictator's note ,documented as a scribe. Any additional findings or plans will be noted.
--- NOTE | 2017-12-16 23:07 | P.DS ---
Providers Date of admission: 12/13/17 14:27 Expected date of discharge: 12/16/17 Attending physician: Tom García Consults: 12/13/17 17:32 Consult Physician Urgent Consulting Provider: Bernie Corado Consult Reason/Comments: acute on ch. wound Do you want consulting provider notified?: Yes Primary care physician: [facility] Hospital Course: Final Diagnoses: -Sepsis secondary to acute left leg venous stasis ulcer with secondary cellulitis, acute UTI with Klebsiella oxytoca. Patient has hx of enterococcus in the wounds. Wound culture with Enterobacter and acinetobacter baumannii. -Chronic diastolic dysfunction without any acute exacerbation. -COPD without any acute exacerbation -Morbid obesity -Atrial fibrillation rate controlled -Hypothyroidism continue with levothyroxine -Hypertension -Type 2 diabetes mellitus -Obstructive sleep apnea , on CPAP Hospital course: This is a 72-year-old gentleman admitted with sepsis secondary to acute left leg venous stasis ulcer with secondary cellulitis. Wound cultures reported Enterobacter cloacae, Acinetobacter yohana/haemol, urine culture grew Klebsiella oxytoca. Evaluated by infectious disease. Maintained on IV antibiotics. Significant clinical improvement. Patient cleared for discharge by infectious disease. Patient is being discharged home in a stable condition with guarded prognosis. Close monitoring of PT/INR as patient on Cipro. EXAMINATION: GENERAL: alert and oriented x3, not in any acute distress. CARDIOVASCULAR: S1 and S2 present. No murmurs, rubs, or gallops. PULMONARY: Chest is clear to auscultation, no wheezing or crackles. ABDOMEN: Soft, nontender, nondistended, normoactive bowel sounds. No palpable organomegaly. EXTREMITIES: Left leg redness, edema,improving, no drainage reported NEUROLOGICAL: Gross neurological examination did not reveal any focal deficits. Microbiology 12/13/17 12:46 Blood Blood Culture - Preliminary No Growth after 72 hours 12/14/17 11:30 Leg - Left Anaerobic Culture - Preliminary 12/14/17 11:30 Leg - Left Gram Stain - Preliminary 12/14/17 11:30 Leg - Left Wound Culture - Preliminary Enterobacter cloacae Gram Neg Bacilli 12/13/17 13:05 Urine,Voided Urine Culture - Final Klebsiella oxytoca 12/13/17 13:57 Foot - Left Gram Stain - Final 12/13/17 13:57 Foot - Left Wound Culture - Final Enterobacter cloacae Acinetobacter yohana/haemol The impression and plan of care has been dictated as directed. : I performed a history and examination of this patient, discussed the same with the dictator. I agree with the dictator's note ,documented as a scribe. Any additional findings or plans will be noted. Time taken: 35 minutes Patient Condition at Discharge: Stable Plan - Discharge Summary Discharge Rx Participant: No New Discharge Prescriptions: New Ciprofloxacin HCl [Cipro] 500 mg PO Q12HR #14 tablet Continue Meloxicam [Mobic] 7.5 mg PO BID metFORMIN HCL 1,000 mg PO BID Furosemide [Lasix] 40 mg PO BID hydrALAZINE HCL [Apresoline] 25 mg PO BID Losartan Potassium [Cozaar] 50 mg PO DAILY Fluticasone Nasal [place] [Flonase Nasal [place]] 1 spray EA NOSTRIL BID Warfarin [Coumadin] 10 mg PO TUFR Carvedilol [Coreg] 12.5 mg PO BID Albuterol Nebulized [Ventolin Nebulized] 2.5 mg INHALATION RT-TID #0 Ipratropium Nebulized [Atrovent Nebulized] 0.5 mg INHALATION RT-TID #0 Wendel-3 Fatty Acids/Fish Oil [Fish Oil 1,000 mg Softgel] 2 cap PO DAILY Tiotropium 18 Mcg/Puff [Spiriva] 1 cap INHALATION RT-DAILY Albuterol Sulfate [Proair Hfa] 1 - 2 puff INHALATION RT-Q6H PRN PRN Reason: Shortness Of Breath Loratadine 10 mg PO DAILY Warfarin [Coumadin] 7.5 mg PO SUMOWETHSA Omeprazole 20 mg PO DAILY Levothyroxine Sodium [Synthroid] 50 mcg PO DAILY Tamsulosin HCl [Flomax] 0.4 mg PO HS Oxybutynin Chloride 5 mg PO BID Gemfibrozil [Lopid] 600 mg PO BID Calcium Carbonate/Vitamin D3 [Calcium 500-Vit D3 200 Tablet] 1 tab PO BID Budesonide/Formoterol Fumarate [Symbicort 80-4.5 Mcg Inhaler] 2 puff INHALATION RT-BID Ascorbic Acid [Vitamin C] 500 mg PO DAILY Ferrous Sulfate [Iron (65 MG Elemental)] 325 mg PO DAILY Dofetilide 500 mcg PO BID Nystatin 100,000 Unit/ml Susp [Mycostatin Oral Susp] 10 ml PO TID Discharge Medication List Fluticasone Nasal [place] [Flonase Nasal [place]] 1 spray EA NOSTRIL BID 11/02/15 [ History] Furosemide [Lasix] 40 mg PO BID 11/02/15 [History] Losartan Potassium [Cozaar] 50 mg PO DAILY 11/02/15 [History] Meloxicam [Mobic] 7.5 mg PO BID 11/02/15 [History] hydrALAZINE HCL [Apresoline] 25 mg PO BID 11/02/15 [History] metFORMIN HCL 1,000 mg PO BID 11/02/15 [History] Carvedilol [Coreg] 12.5 mg PO BID 01/28/16 [History] Warfarin [Coumadin] 10 mg PO TUFR 01/28/16 [History] Albuterol Nebulized [Ventolin Nebulized] 2.5 mg INHALATION RT-TID #0 01/30/16 [ Rx] Ipratropium Nebulized [Atrovent Nebulized] 0.5 mg INHALATION RT-TID #0 01/30/16 [Rx] Albuterol Sulfate [Proair Hfa] 1 - 2 puff INHALATION RT-Q6H PRN 02/10/17 [ History] Loratadine 10 mg PO DAILY 02/10/17 [History] Wendel-3 Fatty Acids/Fish Oil [Fish Oil 1,000 mg Softgel] 2 cap PO DAILY [History] Tiotropium 18 Mcg/Puff [Spiriva] 1 cap INHALATION RT-DAILY 02/10/17 [History] Ascorbic Acid [Vitamin C] 500 mg PO DAILY 08/30/17 [History] Budesonide/Formoterol Fumarate [Symbicort 80-4.5 Mcg Inhaler] 2 puff INHALATION RT-BID 08/30/17 [History] Calcium Carbonate/Vitamin D3 [Calcium 500-Vit D3 200 Tablet] 1 tab PO BID [History] Dofetilide 500 mcg PO BID 08/30/17 [History] Ferrous Sulfate [Iron (65 MG Elemental)] 325 mg PO DAILY 08/30/17 [History] Gemfibrozil [Lopid] 600 mg PO BID 08/30/17 [History] Levothyroxine Sodium [Synthroid] 50 mcg PO DAILY 08/30/17 [History] Omeprazole 20 mg PO DAILY 08/30/17 [History] Oxybutynin Chloride 5 mg PO BID 08/30/17 [History] Tamsulosin HCl [Flomax] 0.4 mg PO HS 08/30/17 [History] Warfarin [Coumadin] 7.5 mg PO SUMOWETHSA 08/30/17 [History] Nystatin 100,000 Unit/ml Susp [Mycostatin Oral Susp] 10 ml PO TID 12/13/17 [ History] Ciprofloxacin HCl [Cipro] 500 mg PO Q12HR #14 tablet 12/16/17 [Rx] Follow up Appointment(s)/Referral(s): Anselmo Bean MD [STAFF PHYSICIAN] - 12/29/17 11:30 am [facility] [Primary Care Provider] - 12/30/17 3:00 pm Ambulatory/Diagnostic Orders: Prothrombin Time INR [LAB.AMB] Time Frame: 3 Days, Location: None Selected Patient Instructions/Handouts: Urinary Tract Infection in Men (DC), Cellulitis (DC) Activity/Diet/Wound Care/Special Instructions: [facility]: #[phone] Left Leg- aquacel AG to open areas. Eucerin lotion to dry areas. ROSLYN wrap DAILY activity as tolerated consistent card diet Discharge Disposition: HOME WITH HOME HEALTH SERVICES
== END 2017-12-16 16:36 | disposition home health service (06) | DRG 872 ==
LOC: EC 10:48 → 4MS4W 14:27
PROVIDERS: ADMIT Internal Medicine; ATTEND Internal Medicine
DX: A41.9 Sepsis, unspecified organism (principal); L97.829 Non-pressure chronic ulcer of other part of left lower leg with unspecified severity; L03.116 Cellulitis of left lower limb; N39.0 Urinary tract infection, site not specified; I50.32 Chronic diastolic (congestive) heart failure; Z68.42 Body mass index [BMI] 45.0-49.9, adult; B96.1 Klebsiella pneumoniae [K. pneumoniae] as the cause of diseases classified elsewhere; E03.9 Hypothyroidism, unspecified; E11.622 Type 2 diabetes mellitus with other skin ulcer; E66.01 Morbid (severe) obesity due to excess calories; E78.5 Hyperlipidemia, unspecified; G47.33 Obstructive sleep apnea (adult) (pediatric); I11.0 Hypertensive heart disease with heart failure; I48.91 Unspecified atrial fibrillation; I50.9 Heart failure, unspecified; I87.2 Venous insufficiency (chronic) (peripheral); J44.9 Chronic obstructive pulmonary disease, unspecified; K21.9 Gastro-esophageal reflux disease without esophagitis; Z79.01 Long term (current) use of anticoagulants; Z80.42 Family history of malignant neoplasm of prostate; Z82.49 Family history of ischemic heart disease and other diseases of the circulatory system; Z83.3 Family history of diabetes mellitus; Z85.46 Personal history of malignant neoplasm of prostate; Z87.891 Personal history of nicotine dependence; Z99.81 Dependence on supplemental oxygen; Z99.89 Dependence on other enabling machines and devices; Z79.890 Hormone replacement therapy; Z79.4 Long term (current) use of insulin; Z79.891 Long term (current) use of opiate analgesic; Z79.51 Long term (current) use of inhaled steroids; Z79.899 Other long term (current) drug therapy; B96.89 Other specified bacterial agents as the cause of diseases classified elsewhere; Z88.2 Allergy status to sulfonamides; Z88.8 Allergy status to other drugs, medicaments and biological substances
CPT/HCPCS: 36415; 71046; 80048; 80053; 80202; 81001; 82550; 82553; 83036; 83605; 84484; 85025; 85610; 85730; 87040; 87070; 87075; 87077; 87086; 87186; 87205; 94640; 96365; 96367; 99284

== ENCOUNTER 2018-09-19 12:26 | Observation (INO) | payer OTHER, MEDICARE ==
[2018-09-19] MEDS ORDERED: SODIUM CHLORIDE 0.9% 1,000 ML IV STA ×2 (12:53)
[2018-09-19 13:29] LABS: Appearance,Urine Clear (Clear); Bilirubin,Urine Negative (Negative); Blood,Urine Negative (Negative); Color,Urine Light Yellow; Glucose,Urine (UA) Negative (Negative); Ketones,Urine Negative (Negative); Leukocyte Esterase,Urine Negative (Negative); Nitrite,Urine Negative (Negative); Protein,Urine Negative (Negative); Specific Gravity,Urine 1.007 (1.001-1.035); Urobilinogen,Urine <2.0 mg/dL (<2.0)
[2018-09-19 13:35] LABS: ALT 14 U/L (21-72); AST 21 U/L (17-59); African American GFR (CKD) >90 (>60 ml/min/1.73 sqM); Albumin 3.7 g/dL (3.5-5.0); Alkaline Phosphatase 63 U/L (38-126); Anion Gap 8 mmol/L; Blood Urea Nitrogen 12 mg/dL (9-20); Calcium 9.4 mg/dL (8.4-10.2); Carbon Dioxide 26 mmol/L (22-30); Chloride 105 mmol/L (98-107); Glucose 102 mg/dL (74-99); Magnesium 1.9 mg/dL (1.6-2.3); Potassium 4.8 mmol/L (3.5-5.1); Sodium 139 mmol/L (137-145); Total Bilirubin 0.9 mg/dL (0.2-1.3); Total Protein 6.3 g/dL (6.3-8.2)
[2018-09-19 13:39] LABS: D-Dimer 0.42 mg/L FEU (<0.60); INR 1.7 (<1.2); Partial Thromboplastin Time 32.3 sec (22.0-30.0); Prothrombin Time 16.6 sec (9.0-12.0)
[2018-09-19 13:49] LABS: Basophils % (A) 0 %; Eosinophils # (A) 0.3 k/uL (0-0.7); Eosinophils % (A) 5 %; HCT 36.2 % (39.0-53.0); HGB 11.6 gm/dL (13.0-17.5); Lymphocytes % (A) 17 %; MCH 28.6 pg (25.0-35.0); MCHC 32.2 g/dL (31.0-37.0); MCV 88.8 fL (80.0-100.0); Mean Platelet Volume 6.9; Monocytes # (A) 0.3 k/uL (0-1.0); Monocytes % (A) 6 %; Neutrophils # (A) 4.1 k/uL (1.3-7.7); Neutrophils % (A) 70 %; Platelet Count 215 k/uL (150-450); RBC 4.07 m/uL (4.30-5.90); RDW 14.1 % (11.5-15.5); WBC 5.9 k/uL (3.8-10.6)
--- NOTE | 2018-09-19 14:16 | ED ---
General Adult HPI - General Chief complaint: Recheck/Abnormal Lab/Rx Stated complaint: Syncope, poss seizure Time Seen by Provider: 09/19/18 12:40 Source: patient, family, EMS, RN notes reviewed, old records reviewed Mode of arrival: EMS Limitations: no limitations - History of Present Illness Initial comments: Patient is a 73-year-old male history of prostate cancer currently on oral chemo. He presents today with complaints of headache, and had an episode of blank staring for approximately 10 seconds later was getting therapy. Apparently Patient was unresponsive for 7 seconds while receiving the leg exercises with physical therapy today. He denies any other new complaints. States yesterday he wasn't feeling well complaint is generalized pain. reports that yesterday he is having some confused conversations with her but she didn't think much of it at the time. - Related Data Home Medications Medication Instructions Recorded Confirmed Fluticasone Nasal [place] [Flonase 1 spray EA NOSTRIL BID 11/02/15 09/19/18 Nasal [place]] Furosemide [Lasix] 80 mg PO BID 11/02/15 09/19/18 Losartan Potassium [Cozaar] 50 mg PO DAILY 11/02/15 09/19/18 hydrALAZINE HCL [Apresoline] 25 mg PO BID 11/02/15 09/19/18 metFORMIN HCL 1,000 mg PO BID 11/02/15 09/19/18 Carvedilol [Coreg] 12.5 mg PO BID 01/28/16 09/19/18 Loratadine 10 mg PO DAILY 02/10/17 09/19/18 Tiotropium 18 Mcg/Puff [Spiriva] 1 cap INHALATION RT-DAILY 02/10/17 09/19/18 Ascorbic Acid [Vitamin C] 500 mg PO DAILY 08/30/17 09/19/18 Budesonide/Formoterol Fumarate 2 puff INHALATION RT-BID 08/30/17 09/19/18 [Symbicort 80-4.5 Mcg Inhaler] Calcium Carbonate/Vitamin D3 1 tab PO BID 08/30/17 09/19/18 [Calcium 500-Vit D3 200 Tablet] Dofetilide 500 mcg PO BID 08/30/17 09/19/18 Ferrous Sulfate [Iron (65 MG 325 mg PO DAILY 08/30/17 09/19/18 Elemental)] Levothyroxine Sodium [Synthroid] 50 mcg PO DAILY 08/30/17 09/19/18 Omeprazole 20 mg PO DAILY 08/30/17 09/19/18 Oxybutynin Chloride 5 mg PO BID 08/30/17 09/19/18 Tamsulosin HCl [Flomax] 0.4 mg PO HS 08/30/17 09/19/18 Warfarin [Coumadin] 7.5 mg PO DAILY 08/30/17 09/19/18 Albuterol Nebulized [Ventolin 2.5 mg INHALATION RT-QID 09/19/18 09/19/18 Nebulized] Amitriptyline HCl 10 mg PO HS 09/19/18 09/19/18 Cyanocobalamin (Vitamin B-12) 1,000 mcg PO Q28D 09/19/18 09/19/18 [Vitamin B-12] Enzalutamide [Xtandi] 160 mg PO HS 09/19/18 09/19/18 Ipratropium Nebulized [Atrovent 0.5 mg INHALATION RT-QID 09/19/18 09/19/18 Nebulized 0.2 MG/ML] Leuprolide Acetate [Eligard] 22.5 mg SQ Q84D 09/19/18 09/19/18 Lidocaine 5% Patch [Lidoderm] 1 patch TOPICAL DAILY 09/19/18 09/19/18 Meloxicam [Mobic] 15 mg PO DAILY 09/19/18 09/19/18 Multivitamins, Thera [Multivitamin 1 tab PO DAILY 09/19/18 09/19/18 (formulary)] Pregabalin [Lyrica] 75 mg PO BID 09/19/18 09/19/18 Ranitidine HCl [Zantac] 300 mg PO HS 09/19/18 09/19/18 Allergies Allergy/AdvReac Type Severity Reaction Status Date / Time sulfamethoxazole Allergy Unknown Rash/Hives Verified 09/19/18 13:44 trimethoprim [From Bactrim] Allergy Rash/Hives Verified 09/19/18 13:44 simvastatin [From Zocor] AdvReac Myalgia Verified 09/19/18 13:44 Review of Systems ROS Statement: Those systems with pertinent positive or pertinent negative responses have been documented in the HPI. ROS Other: All systems not noted in ROS Statement are negative. Past Medical History Past Medical History: Atrial Fibrillation, Cancer, Heart Failure, COPD, Diabetes Mellitus, GERD/Reflux, Hyperlipidemia, Hypertension, Osteoarthritis (OA), Prostate Disorder, Skin Disorder, Sleep Apnea/CPAP/BIPAP, Thyroid Disorder Additional Past Medical History / Comment(s): HX OF PROSTATE CANCER WITH RADIATION [place] (LAST-APRIL 2016), BACK PAIN , HX OF GOUT. USES CpAP AND 2 LITERS O2 AT HS, anemia, wound lt ankle and 2nd toe lt foot djd knees History of Any Multi-Drug Resistant Organisms: None Reported Past Surgical History: Orthopedic Surgery, Tonsillectomy Additional Past Surgical History / Comment(s): carpel tunnel, fatty tumor removed from leg and neck. tooth extractions Past Anesthesia/Blood Transfusion Reactions: No Reported Reaction Additional Past Anesthesia/Blood Transfusion Reaction / Comment(s): STATES DR TOLD HIM NO ANESTHESIA DUE TO LUNG FUNCTION and his heart. Past Psychological History: No Psychological Hx Reported Smoking Status: Former smoker Past Alcohol Use History: None Reported Past Drug Use History: None Reported - Past Family History Father Family Medical History: Cancer, Dementia Additional Family Medical History / Comment(s): prostate ca, oral ca from smoking Mother Family Medical History: Cancer, Diabetes Mellitus, Hypertension Additional Family Medical History / Comment(s): stomach Brother(s) Family Medical History: GI Bleed Additional Family Medical History / Comment(s): knee problems. stomach resection for bleeding ulcer General Exam - General Exam Comments Initial Comments: Alert and oriented 73-year-old male. No significant distress. Limitations: no limitations General appearance: alert, in no apparent distress Head exam: Present: atraumatic, normocephalic, normal inspection Eye exam: Present: normal appearance, PERRL, EOMI. Absent: scleral icterus, conjunctival injection, periorbital swelling ENT exam: Present: normal exam, mucous membranes moist Neck exam: Present: normal inspection. Absent: tenderness, meningismus, lymphadenopathy Respiratory exam: Present: normal lung sounds bilaterally. Absent: respiratory distress, wheezes, rales, rhonchi, stridor Cardiovascular Exam: Present: regular rate, normal rhythm, normal heart sounds. Absent: systolic murmur, diastolic murmur, rubs, gallop, clicks GI/Abdominal exam: Present: soft, normal bowel sounds. Absent: distended, tenderness, guarding, rebound, rigid Extremities exam: Present: normal inspection, full ROM, normal capillary refill. Absent: tenderness, pedal edema, joint swelling, calf tenderness Back exam: Present: normal inspection Neurological exam: Present: alert, oriented X3, CN II-XII intact Psychiatric exam: Present: normal affect, normal mood Skin exam: Present: warm, dry, intact, normal color. Absent: rash Course Vital Signs 09/19/18 12:39 Temperature 98.5 F Pulse Rate 62 Respiratory 18 Rate Blood Pressure 147/78 O2 Sat by Pulse 95 Oximetry EKG Findings - EKG Comments: EKG Findings:: EKG performed at 1251 shows sinus rhythm first-degree AV block. Left bundle-branch blurred. Vital 2250 ms. Ventricular 63 bpm. QRS duration 1 46 most seconds. QT QTc is 453/464 ms. Medical Decision Making - Medical Decision Making Patient is a 73-year-old male presents emergency department today for evaluation for complaint of unresponsive episode for 7-10 seconds was getting physical therapy today. Patient reports that he is having some diffuse conversations yesterday. Her he arrived here alert and oriented. Patient otherwise. No neurological deficits. This time he denies any significant pain besides a mild headache. CT of the brain was obtained for any acute cranial process. EKG and blood work was otherwise unremarkable. Discussed possibility of TIA versus possible seizure activity. He states that could've been described more as an absence seizure. Patient will be admitted this time with consults to neurology. - Lab Data Result diagrams: 09/19/18 13:00 09/19/18 13:00 Lab Results 09/19/18 09/19/18 09/19/18 Range/Units 13:00 13:00 13:00 WBC 5.9 (3.8-10.6) k/uL RBC 4.07 L (4.30-5.90) m/uL Hgb 11.6 L (13.0-17.5) gm/dL Hct 36.2 L (39.0-53.0) % MCV 88.8 (80.0-100.0) fL MCH 28.6 (25.0-35.0) pg MCHC 32.2 (31.0-37.0) g/dL RDW 14.1 (11.5-15.5) % Plt Count 215 (150-450) k/uL Neutrophils % 70 % Lymphocytes % 17 % Monocytes % 6 % Eosinophils % 5 % Basophils % 0 % Neutrophils # 4.1 (1.3-7.7) k/uL Lymphocytes # 1.0 (1.0-4.8) k/uL Monocytes # 0.3 (0-1.0) k/uL Eosinophils # 0.3 (0-0.7) k/uL Basophils # 0.0 (0-0.2) k/uL PT 16.6 H (9.0-12.0) sec INR 1.7 H (<1.2) APTT 32.3 H (22.0-30.0) sec D-Dimer 0.42 (<0.60) mg/L FEU Sodium 139 (137-145) mmol/L Potassium 4.8 (3.5-5.1) mmol/L Chloride 105 (98-107) mmol/L Carbon Dioxide 26 (22-30) mmol/L Anion Gap 8 mmol/L BUN 12 (9-20) mg/dL Creatinine 0.68 (0.66-1.25) mg/dL Est GFR (CKD-EPI)AfAm >90 (>60 ml/min/1.73 sqM) Est GFR (CKD-EPI)NonAf >90 (>60 ml/min/1.73 sqM) Glucose 102 H (74-99) mg/dL Calcium 9.4 (8.4-10.2) mg/dL Magnesium 1.9 (1.6-2.3) mg/dL Total Bilirubin 0.9 (0.2-1.3) mg/dL AST 21 (17-59) U/L ALT 14 L (21-72) U/L Alkaline Phosphatase 63 (38-126) U/L Troponin I (0.000-0.034) ng/mL Total Protein 6.3 (6.3-8.2) g/dL Albumin 3.7 (3.5-5.0) g/dL Urine Color Urine Appearance (Clear) Urine pH (5.0-8.0) Ur Specific [place] (1.001-1.035) Urine Protein (Negative) Urine Glucose (UA) (Negative) Urine Ketones (Negative) Urine Blood (Negative) Urine Nitrite (Negative) Urine Bilirubin (Negative) Urine Urobilinogen (<2.0) mg/dL Ur Leukocyte Esterase (Negative) 09/19/18 09/19/18 Range/Units 13:00 13:16 WBC (3.8-10.6) k/uL RBC (4.30-5.90) m/uL Hgb (13.0-17.5) gm/dL Hct (39.0-53.0) % MCV (80.0-100.0) fL MCH (25.0-35.0) pg MCHC (31.0-37.0) g/dL RDW (11.5-15.5) % Plt Count (150-450) k/uL Neutrophils % % Lymphocytes % % Monocytes % % Eosinophils % % Basophils % % Neutrophils # (1.3-7.7) k/uL Lymphocytes # (1.0-4.8) k/uL Monocytes # (0-1.0) k/uL Eosinophils # (0-0.7) k/uL Basophils # (0-0.2) k/uL PT (9.0-12.0) sec INR (<1.2) APTT (22.0-30.0) sec D-Dimer (<0.60) mg/L FEU Sodium (137-145) mmol/L Potassium (3.5-5.1) mmol/L Chloride (98-107) mmol/L Carbon Dioxide (22-30) mmol/L Anion Gap mmol/L BUN (9-20) mg/dL Creatinine (0.66-1.25) mg/dL Est GFR (CKD-EPI)AfAm (>60 ml/min/1.73 sqM) Est GFR (CKD-EPI)NonAf (>60 ml/min/1.73 sqM) Glucose (74-99) mg/dL Calcium (8.4-10.2) mg/dL Magnesium (1.6-2.3) mg/dL Total Bilirubin (0.2-1.3) mg/dL AST (17-59) U/L ALT (21-72) U/L Alkaline Phosphatase (38-126) U/L Troponin I <0.012 (0.000-0.034) ng/mL Total Protein (6.3-8.2) g/dL Albumin (3.5-5.0) g/dL Urine Color Light Yellow Urine Appearance Clear (Clear) Urine pH 6.0 (5.0-8.0) Ur Specific [place] 1.007 (1.001-1.035) Urine Protein Negative (Negative) Urine Glucose (UA) Negative (Negative) Urine Ketones Negative (Negative) Urine Blood Negative (Negative) Urine Nitrite Negative (Negative) Urine Bilirubin Negative (Negative) Urine Urobilinogen <2.0 (<2.0) mg/dL Ur Leukocyte Esterase Negative (Negative) 09/19/18 14:50 Moderate atrophy. No acute intracranial normality seen. Chest x-rays negative for acute pulmonary disease. Disposition Clinical Impression: Episode of unresponsiveness, History of prostate cancer, Subtherapeutic anticoagulation Disposition: ADMITTED IP TO THIS HOSP Condition: Stable Is patient prescribed a controlled substance at d/c from ED?: No Referrals: [facility],Clinic [Primary Care Provider] - 1-2 days Time of Disposition: 16:05
--- NOTE | 2018-09-19 14:23 | XR ---
EXAMINATION TYPE: XR chest 2V DATE OF EXAM: 09/19/2018 COMPARISON: 12/13/2017 HISTORY: Shortness of breath TECHNIQUE: Frontal and lateral views of the chest are obtained. FINDINGS: Scattered senescent parenchymal changes noted. Hyperinflation compatible with COPD. No evidence for infiltrate. No evidence for atelectasis. Heart size is stable. Mediastinal structures are stable and grossly unremarkable. No evidence for hilar prominence. Degenerative changes dorsal spine. IMPRESSION: 1. No evidence for acute pulmonary disease.
--- NOTE | 2018-09-19 14:25 | CT ---
EXAMINATION TYPE: CT brain wo con DATE OF EXAM: 09/19/2018 COMPARISON: 02/10/2017 HISTORY: 73-year-old male Syncope, possible seizure TECHNIQUE: Examination was done in axial plane without intravenous contrast. Coronal and sagittal r econstructions performed. CT DLP: 1091.4 mGycm Automated exposure control for dose reduction was used. FINDINGS: There is no evidence of acute intracranial hemorrhage, acute ischemic changes, mass, mass-effect, or extra-axial fluid collection. There is no effacement of cerebral sulci or basal subarachnoid cister ns. There is no hydrocephalus. There is no midline shift. Rizzo-white matter distinction is preserv ed. Moderate generalized supratentorial volume loss. Continuing nasal septum. Paranasal sinuses and mastoid air cells are pneumatized. Orbits and globes a ppear intact. IMPRESSION: Moderate atrophy. No acute intracranial abnormality seen.
[2018-09-19] MEDS ORDERED: NALOXONE 0.4 MG/ML 1 ML VIAL IV PRN (16:05)
[2018-09-19] MEDS ORDERED: Acetaminophen-Codeine 300-30mg TAB PO PRN (16:05)
[2018-09-19] MEDS ORDERED: ONDANSETRON 4 MG/2 ML VIAL IVP PRN (16:05)
[2018-09-19] MEDS ORDERED: IBUPROFEN 400 MG TAB PO PRN (16:05)
[2018-09-19] MEDS ORDERED: ACETAMINOPHEN TAB 325 MG TAB PO PRN (16:05)
[2018-09-19] MEDS ORDERED: ALBUTEROL NEBULIZED 2.5 MG/3 ML INHALATION SCH (20:00)
[2018-09-19] MEDS: SYMBICORT 80-4.5 MCG INHALER INHALATION SCH (20:08)
[2018-09-19] MEDS: Enzalutamide [Xtandi] 160 MG PO SCH (20:32)
[2018-09-19] MEDS: SODIUM CHLORIDE 0.9% 1,000 ML IV SCH (20:32)
[2018-09-19] MEDS: OXYBUTYNIN CHLORIDE 5 MG TAB PO SCH (20:50)
--- NOTE | 2018-09-19 20:50 | P.CNNES ---
History of Present Illness Consult date: 09/19/18 Requesting physician: Daljit Luna Reason for Consult: Seizure vs syncope Chief complaint: "Blanked out" History of Present Illness: This is a 73 RH male h/o prostate cancer and afib on warfarin here today because he had an observed episode while at PT of blanking out for 10 seconds or so. Th ere was no associated tonic-clonic or myoclonic activity, specific head/eye deviation, tongue biting, bowel/bladder incontinence or post-ictal confusion. No repetitive behavior suspicious off automatism. No antecedent aura or prodrome. Patient was not even aware that he had blanked out until he was told afterwards by witnesses. He was also reported to have some confused conversations with the the day prior to admission but she at least at that time did not think much of it. Denies recent head/neck trauma. 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 He feels back to his baseline now with no new neuro c/o. Review of Systems 14-point ROS performed and as per HPI. Neurologically, patient denies other episodes of decreased level or loss of consciousness, seizure, changes in vision, diplopia, amaurosis, changes in hearing, facial droop, ptosis, vertigo, hearing loss, tinnitus, dysarthria, dysphagia, aphasia, other focal numbness/weakness not mentioned above, tremors, bowel/bladder incontinence or ataxia. Past Medical History Past Medical History: Atrial Fibrillation, Cancer, Heart Failure, COPD, Diabetes Mellitus, GERD/Reflux, Hyperlipidemia, Hypertension, Osteoarthritis (OA), Prostate Disorder, Skin Disorder, Sleep Apnea/CPAP/BIPAP, Thyroid Disorder Additional Past Medical History / Comment(s): HX OF PROSTATE CANCER WITH RADIATION [place] (LAST-APRIL 2016), BACK PAIN , HX OF GOUT. USES CpAP AND 2 LITERS O2 AT HS, anemia, wound lt ankle and 2nd toe lt foot djd knees History of Any Multi-Drug Resistant Organisms: None Reported Past Surgical History: Orthopedic Surgery, Tonsillectomy Additional Past Surgical History / Comment(s): carpel tunnel, fatty tumor removed from leg and neck. tooth extractions Past Anesthesia/Blood Transfusion Reactions: No Reported Reaction Additional Past Anesthesia/Blood Transfusion Reaction / Comment(s): STATES DR TOLD HIM NO ANESTHESIA DUE TO LUNG FUNCTION and his heart. Past Psychological History: No Psychological Hx Reported Additional Psychological History / Comment(s): had some group therapy after he came back from [place], gets nurse m-w-f and na and wed[facility] , [facility], [facility]. , lives in single level home that has 5 steps. No travel since his days. History of tobacco use. No current alcohol use. 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 HAS 1 PET dOG Smoking Status: Former smoker Past Alcohol Use History: None Reported Additional Past Alcohol Use History / Comment(s): Patient was a smoker from for one year while in [place]. No current alcohol use. 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 No animal exposures. He is and lives with his . No recent travel since his days. Patient did require cryotherapy when he came back from [place]. Past Drug Use History: None Reported Additional Drug Use History / Comment(s): MARIJUANA WHEN IN [place] [id number] - Past Family History Father Family Medical History: Cancer, Dementia Additional Family Medical History / Comment(s): prostate ca, oral ca from smoking Mother Family Medical History: Cancer, Diabetes Mellitus, Hypertension Additional Family Medical History / Comment(s): stomach Brother(s) Family Medical History: GI Bleed Additional Family Medical History / Comment(s): knee problems. stomach resection for bleeding ulcer Medications and Allergies Home Medications Medication Instructions Recorded Confirmed Type Fluticasone Nasal [place] [Flonase 1 spray EA NOSTRIL BID 11/02/15 09/19/18 Hist ory Nasal [place]] Furosemide [Lasix] 80 mg PO BID 11/02/15 09/19/18 History Losartan Potassium [Cozaar] 50 mg PO DAILY 11/02/15 09/19/18 History hydrALAZINE HCL [Apresoline] 25 mg PO BID 11/02/15 09/19/18 History metFORMIN HCL 1,000 mg PO BID 11/02/15 09/19/18 History Carvedilol [Coreg] 12.5 mg PO BID 01/28/16 09/19/18 History Loratadine 10 mg PO DAILY 02/10/17 09/19/18 History Tiotropium 18 Mcg/Puff [Spiriva] 1 cap INHALATION RT-DAILY 02/10/17 09/19/18 History Ascorbic Acid [Vitamin C] 500 mg PO DAILY 08/30/17 09/19/18 History Budesonide/Formoterol Fumarate 2 puff INHALATION RT-BID 08/30/17 09/19/18 History [Symbicort 80-4.5 Mcg Inhaler] Calcium Carbonate/Vitamin D3 1 tab PO BID 08/30/17 09/19/18 History [Calcium 500-Vit D3 200 Tablet] Dofetilide 500 mcg PO BID 08/30/17 09/19/18 History Ferrous Sulfate [Iron (65 MG 325 mg PO DAILY 08/30/17 09/19/18 History Elemental)] Levothyroxine Sodium [Synthroid] 50 mcg PO DAILY 08/30/17 09/19/18 History Omeprazole 20 mg PO DAILY 08/30/17 09/19/18 History Oxybutynin Chloride 5 mg PO BID 08/30/17 09/19/18 History Tamsulosin HCl [Flomax] 0.4 mg PO HS 08/30/17 09/19/18 History Warfarin [Coumadin] 7.5 mg PO DAILY 08/30/17 09/19/18 History Albuterol Nebulized [Ventolin 2.5 mg INHALATION RT-QID 09/19/18 09/19/18 History Nebulized] Amitriptyline HCl 10 mg PO HS 09/19/18 09/19/18 History Cyanocobalamin (Vitamin B-12) 1,000 mcg PO Q28D 09/19/18 09/19/18 History [Vitamin B-12] Enzalutamide [Xtandi] 160 mg PO HS 09/19/18 09/19/18 History Ipratropium Nebulized [Atrovent 0.5 mg INHALATION RT-QID 09/19/18 09/19/18 History Nebulized 0.2 MG/ML] Leuprolide Acetate [Eligard] 22.5 mg SQ Q84D 09/19/18 09/19/18 History Lidocaine 5% Patch [Lidoderm] 1 patch TOPICAL DAILY 09/19/18 09/19/18 History Meloxicam [Mobic] 15 mg PO DAILY 09/19/18 09/19/18 History Multivitamins, Thera [Multivitamin 1 tab PO DAILY 09/19/18 09/19/18 History (formulary)] Pregabalin [Lyrica] 75 mg PO BID 09/19/18 09/19/18 History Ranitidine HCl [Zantac] 300 mg PO HS 09/19/18 09/19/18 History Allergies Allergy/AdvReac Type Severity Reaction Status Date / Time sulfamethoxazole Allergy Unknown Rash/Hives Verified 09/19/18 13:44 trimethoprim [From Bactrim] Allergy Rash/Hives Verified 09/19/18 13:44 simvastatin [From Zocor] AdvReac Myalgia Verified 09/19/18 13:44 Physical Examination - Vital Signs Vital Signs: Vital Signs Temp Pulse Pulse Resp BP BP Pulse Ox 09/19/18 20:17 80 09/19/18 20:10 82 09/19/18 20:00 97.9 F 64 18 156/71 94 L 09/19/18 18:36 98.3 F 75 16 160/72 97 09/19/18 18:20 98.3 F 75 16 160/72 97 09/19/18 17:00 74 16 132/64 94 L 09/19/18 16:02 79 18 127/85 99 09/19/18 12:39 98.5 F 62 18 147/78 95 Intake and Output 09/19/18 09/19/18 09/19/18 06:59 14:59 22:59 Other: Voiding Method Diaper Incontinent Weight 145.15 kg Gen NAD Pleasant and cooperative HEENT NCAT Sclera without icterus O/P clear Neck Supple No carotid bruit Cor RRR no m/r/g Lungs CTAB Abd Soft NTND +BS Ext Warm to touch No edema Neuro MS A+Ox4 Normal fluency Able to follow all commands CN PERRL VFF no APD EOMI no nystagmus or TD No facial asymmetry Masseter's symmetric Hearing intact to normal voice bilaterally Speech not dysarthric Equal elevation of palate Tongue midline Sym shrug and SCM bilaterally Motor Normal bulk/tone No pronator drift or tremors Strength 5/5 sym throughout Sens Intact to LT x4 No neglect or extinction Coord No dysmetria on FTN bilaterally DTRs 2+/4 sym throughout Toes downgoing bilaterally No clonus at achilles Gait Deferred NIHSS 0 Results - Laboratory Findings CBC and BMP: 09/19/18 13:00 09/19/18 13:00 Abnormal Lab Findings: Abnormal Labs 09/19/18 09/19/18 09/19/18 13:00 13:00 13:00 RBC 4.07 L Hgb 11.6 L Hct 36.2 L PT 16.6 H INR 1.7 H APTT 32.3 H Glucose 102 H ALT 14 L - Diagnostic Findings Additional findings: CT Head wo cont 09/19/18. Moderate cerebral atrophy. No ICH. Nil acute. I have reviewed all neuroimages myself. Assessment and Plan Assessment: Episode of transient alteration of awareness, possible cardioembolic phenomenon in the setting of subtherapeutic INR. Patient's current neuro exam is non-focal with NIHSS 0. Other main DDx is complex partial seizure, though there is no other significant ancillary symptoms in the history to suggest epileptic seiz ure. Plan: -CTA Head/Neck -Already on warfarin. May continue -Would add aspirin 81mg/day only if he has evidence of significant large vessel stenosis -TTE -EEG -May treat BP to normotensive range -PT/OT/SP per protocol -Stroke education given to patient -DVT prophylaxis: Warfarin -d/w patient in detail. All questions answered. Thank you for this consultation. Please call with ?. Time with Patient: Greater than 30 (Time spent in direct patient care, greater than 50% of which was spent in [id number] counseling and coordination of care: 70 minutes.)
[2018-09-19] MEDS: FUROSEMIDE 80 MG TAB PO SCH (20:51)
[2018-09-19] MEDS: hydrALAZINE HCL 25 MG TAB PO SCH (20:51)
[2018-09-19] MEDS: DOFETILIDE 500 MCG CAP PO SCH (20:51)
[2018-09-19] MEDS: FLUTICASONE 50MCG/SPRAY NASAL 16GM EA NOSTRIL SCH (20:51)
[2018-09-19] MEDS: CARVEDILOL 12.5 MG TAB PO SCH (20:51)
[2018-09-19] MEDS: TAMSULOSIN 0.4 MG CAP.ER.24H PO SCH (20:51)
[2018-09-19] MEDS: CALCIUM CARB-VIT D 500MG-200UN 1 EACH TAB PO SCH (20:51)
[2018-09-19] MEDS: AMITRIPTYLINE HCL 10 MG TAB PO SCH (20:51)
[2018-09-19] MEDS: PREGABALIN 75 MG CAP PO SCH (20:51)
[2018-09-19] MEDS: metFORMIN 500 MG TAB PO SCH (20:55)
[2018-09-19 20:58] LABS: Glucose,Whole Blood 102 mg/dL (75-99)
[2018-09-19] MEDS ORDERED: IPRATROPIUM-ALBUTEROL 3 ML NEB INHALATION SCH (21:00)
[2018-09-19] MEDS ORDERED: FAMOTIDINE 20 MG TAB PO SCH (21:00)
--- NOTE | 2018-09-19 21:11 | HP ---
HISTORY AND PHYSICAL DATE OF SERVICE: 09/19/2018 CHIEF COMPLAINT: Change in mental status, possible transient ischemic attack. HISTORY OF PRESENT ILLNESS: This 73-year-old gentleman with a past medical history of multiple medical problems including atrial fibrillation, history of COPD, CHF, history of GERD, history of hypertension, hyperlipidemia, history of prostate disorder, history of hypothyroidism, being followed by the [facility] in the outpatient setting apparently had a couple of staring episodes today while she was receiving physical therapy. Initially, the patient was staring in the space about 10 seconds without any jerking movements or complete loss of consciousness, seizures. The patient is unable to remember what exactly happened. Subsequently, similar episode happened about is lasting about 7 seconds and the patient was taken to [facility] and was admitted for further evaluation and treatment. Initial CAT scan and other evaluation did not show acute abnormality. There is no history of fever, rigors or chills. No headache, loss of consciousness or seizures. PAST MEDICAL HISTORY: History of atrial fibrillation, history of CHF, COPD, diabetes, GERD, hypertension, hyperlipidemia, history of skin ulcer. MEDICATIONS: Home medications are: 1. DuoNeb q.i.d. 2. Vitamin B12 1000 mcg Q 28 days. 3. Synthroid 50 mcg p.o. daily. 4. Xtandi 160 mg q.h.s. 5. Multivitamins 1 p.o. daily. 6. Iron sulfate 320 mg p.o. daily. 7. Vitamin D3 1 tablet p.o. b.i.d. 8. Vitamin C 500 mg. 9. Zantac 300 mg q.h.s. 10.Spiriva 1 puff daily. 11.Flomax 0.4 q.h.s. 12.Lyrica 75 mg p.o. b.i.d. 13.Omeprazole 20 mg p.o. daily. 14.Amitriptyline 10 mg p.o. q.h.s. 15.Oxybutynin 5 mg p.o. b.i.d. 16.Mobic 15 mg p.o. daily. 17.Lidoderm patch 1 patch daily. 18.Dofetilide 500 mcg p.o. b.i.d. 19.Metformin 1000 mg p.o. b.i.d. 20.Eligard 22.5 mg subcu q48 hours. 21.Symbicort 80/4.5 two puffs b.i.d. 22.Apresoline 25 mg p.o. b.i.d. 23.Coumadin 7.5 mg p.o. daily. 24.Cozaar 50 mg p.o. daily. 25.Lasix 80 mg p.o. b.i.d. 26.Coreg 12.5 mg p.o. b.i.d. 27.Loratadine 10 mg p.o. daily. 28.Fluticasone 1 spray b.i.d. ALLERGIES: SULFAMETHOXAZOLE. BACTRIM. ZOCOR. FAMILY HISTORY: History of cancer, dementia, prostate cancer. SOCIAL HISTORY: Previous history of smoking. No history of current smoking or alcohol intake. REVIEW OF SYSTEMS: ENT: Diminished vision. Diminished hearing. CARDIOVASCULAR: No angina or palpitations. RESPIRATORY: As mentioned earlier. GI: No nausea or vomiting. no dysuria or hematuria. NERVOUS SYSTEM: As mentioned earlier. ALLERGY/IMMUNOLOGY: No asthma or hayfever. MUSCULOSKELETAL as mentioned earlier. HEMATOLOGY/ONCOLOGY: As mentioned earlier. ENDOCRINE as mentioned earlier. CONSTITUTIONAL: As mentioned earlier. DERMATOLOGY negative. RHEUMATOLOGY: Negative. PSYCHIATRIC: As mentioned earlier. PHYSICAL EXAMINATION: Alert and oriented x3. Pulse 75. Blood pressure 160/72, respirations 16, temperature 98.2, pulse ox 97% on room air. HEENT are conjunctivae normal. Oral mucosa moist. NECK is no jugular venous distention. No carotid bruit. No lymph node enlargement. CARDIOVASCULAR: S1, S2 muffled. No S3, no S4. RESPIRATORY: Breath sounds diminished in the bases. A few scattered rhonchi and crackles. ABDOMEN: Soft, nontender. No mass palpable. LEGS: No edema. No swelling. NERVOUS SYSTEM as mentioned earlier. Moves all 4 limbs. No focal motor or sensory deficits. Lymphatics: No lymph nodes palpable in the neck, axillae or groin. SKIN: No ulcer, rash or bleeding. JOINTS: No active deforming arthropathy. LABS: WBC 5.9, hemoglobin 11.6. INR is 1.7. Sodium 139, potassium 4.8. ASSESSMENT: 1. Episodes of unresponsiveness, rule out seizure, possible transient ischemic attack, rule out cardiac arrhythmia. 2. Atrial fibrillation. 3. History of congestive heart failure with chronic diastolic dysfunction. 4. Chronic obstructive pulmonary disease. 5. Diabetes type 2. 6. Gastroesophageal reflux disease. 7. Hyperlipidemia. 8. Hypertension. 9. Degenerative joint disease. 10.History of prostate cancer. 11.History of sleep apnea. 12.History of hypothyroidism. 13.History of gout. 14.History of chronic hypoxic respiratory failure on home oxygen at 2 L nasal cannula. 15.History of tonsillectomy. 16.Remote history of nicotine dependence. 17.FULL CODE. 18.Obesity with body mass index 41.1. RECOMMENDATIONS AND DISCUSSION: In this 73-year-old gentleman who presented with multiple complex medical issues, we will monitor the patient closely, continue the current medications, I would recommend cardiology and neurology consultation. Telemetry. Resume the home medication. I would also check orthostatic vitals. Resume the home medications. Prognosis guarded. Neuro checks. Rule out acute stroke. Guarded prognosis because of multiple complex medical issues. Further recommendations to follow. A copy of dictation being forwarded to Dr. Haley who is following the patient in the [facility]. MULU / RAFAEL: [id number] /
[2018-09-20 06:17] LABS: Glucose,Whole Blood 122 mg/dL (75-99)
[2018-09-20] MEDS: CARVEDILOL 12.5 MG TAB PO SCH ×2 (06:28→17:23)
[2018-09-20] MEDS: LEVOTHYROXINE 50 MCG TAB PO SCH (06:28)
[2018-09-20] MEDS: metFORMIN 500 MG TAB PO SCH ×2 (06:28→17:23)
[2018-09-20 07:35] LABS: Basophils % (A) 0 %; Eosinophils # (A) 0.3 k/uL (0-0.7); Eosinophils % (A) 4 %; HCT 38.9 % (39.0-53.0); HGB 12.4 gm/dL (13.0-17.5); Lymphocytes % (A) 15 %; MCH 28.9 pg (25.0-35.0); MCHC 31.8 g/dL (31.0-37.0); MCV 90.7 fL (80.0-100.0); Mean Platelet Volume 7.1; Monocytes # (A) 0.4 k/uL (0-1.0); Monocytes % (A) 6 %; Neutrophils # (A) 5.1 k/uL (1.3-7.7); Neutrophils % (A) 73 %; Platelet Count 252 k/uL (150-450); RBC 4.29 m/uL (4.30-5.90); RDW 14.4 % (11.5-15.5); WBC 6.9 k/uL (3.8-10.6)
[2018-09-20 07:41] LABS: INR 1.7 (<1.2)
[2018-09-20 07:42] LABS: Prothrombin Time 16.6 sec (9.0-12.0)
[2018-09-20 07:49] LABS: African American GFR (CKD) >90 (>60 ml/min/1.73 sqM); Anion Gap 9 mmol/L; Blood Urea Nitrogen 13 mg/dL (9-20); Carbon Dioxide 30 mmol/L (22-30); Chloride 100 mmol/L (98-107); Glucose 113 mg/dL (74-99); Magnesium 1.6 mg/dL (1.6-2.3); Potassium 4.4 mmol/L (3.5-5.1); Sodium 139 mmol/L (137-145)
[2018-09-20] MEDS ORDERED: IPRATROPIUM 0.5 MG/2.5 ML NEBU INHALATION SCH (08:00)
[2018-09-20] MEDS: IPRATROPIUM-ALBUTEROL 3 ML NEB INHALATION SCH ×2 (08:09→20:27)
[2018-09-20] MEDS: SYMBICORT 80-4.5 MCG INHALER INHALATION SCH ×2 (08:09→20:27)
[2018-09-20] MEDS ORDERED: PANTOPRAZOLE 40 MG/10 ML VIAL IV SCH (09:00)
[2018-09-20] MEDS ORDERED: NON-FORMULARY DRUG (Omeprazole [Omeprazole] 20 MG) PO SCH (09:00)
[2018-09-20] MEDS: LOSARTAN 50 MG TAB PO SCH (09:58)
[2018-09-20] MEDS: CALCIUM CARB-VIT D 500MG-200UN 1 EACH TAB PO SCH ×2 (09:58→19:40)
[2018-09-20] MEDS: LORATADINE 10 MG TAB PO SCH (09:58)
[2018-09-20] MEDS: PREGABALIN 75 MG CAP PO SCH ×2 (09:58→19:41)
[2018-09-20] MEDS: MULTIVITAMINS, THERA 1 EACH TAB PO SCH (09:58)
[2018-09-20] MEDS: DOFETILIDE 500 MCG CAP PO SCH ×2 (09:58→19:40)
[2018-09-20] MEDS: FUROSEMIDE 80 MG TAB PO SCH ×2 (09:59→19:41)
[2018-09-20] MEDS: ASCORBIC ACID 500 MG TAB PO SCH (09:59)
[2018-09-20] MEDS: FERROUS SULFATE 325 MG TAB PO SCH (09:59)
[2018-09-20] MEDS: OXYBUTYNIN CHLORIDE 5 MG TAB PO SCH ×2 (09:59→19:41)
[2018-09-20] MEDS: hydrALAZINE HCL 25 MG TAB PO SCH ×2 (09:59→19:41)
[2018-09-20] MEDS: MELOXICAM 7.5 MG TAB PO SCH (09:59)
[2018-09-20] MEDS: FLUTICASONE 50MCG/SPRAY NASAL 16GM EA NOSTRIL SCH ×2 (09:59→19:41)
[2018-09-20] MEDS: LIDOCAINE 5% PATCH TOPICAL SCH ×2 (10:00→10:02)
[2018-09-20 11:48] LABS: Glucose,Whole Blood 114 mg/dL (75-99)
--- NOTE | 2018-09-20 13:17 | EEG ---
ELECTROENCEPHALOGRAM REPORT DATE OF TESTING: September 20, 2018. CLINICAL PROBLEM: Episode of staring for 10 seconds at physical therapy. EEG was requested to rule out epileptiform activity. TYPE OF RECORDING: Bedside tracing using the 10-20 international electrode placement system. No sedation was given prior to the beginning of this recording. FINDINGS: The background of this tracing is seen with primarily a theta and occasionally delta slowing. There is appearance of sleep spindles and K complexes, indicating the patient is in stage II sleep. In fact, the patient spends majority of this recording in stage II sleep. There is a period of a brief spontaneous self arousal during which there is appearance of a posterior symmetric alpha rhythm that attenuates on eye opening and returns upon eye closure. Photic stimulation elicits a symmetric driving response posteriorly. Hyperventilation is not performed in this recording. There is no background asymmetry, ictal or interictal patterns appreciated. IMPRESSION: This is a normal awake/sleep electroencephalogram with evidence of stage II sleep. There is no background asymmetry or epileptiform discharges seen. Clinical correlation is advised. MULU / CONORN: [id number] / EKTA
--- NOTE | 2018-09-20 14:46 | CT ---
EXAMINATION TYPE: CT angio head neck DATE OF EXAM: 09/20/2018 HISTORY: TIA. Altered mental status. COMPARISON: CT brain dated 09/19/2018 CT DLP: 654.6 mGycm. Automated Exposure Control for Dose Reduction was Utilized. TECHNIQUE: CTA scan of the neck is performed with IV Contrast, patient injected with 65 mL of Isovue 370, axial images are obtained, coronal and sagittal reformatted images are reviewed. Three-D recons tructed images are created on an independent workstation and reviewed. FINDINGS: Carotid/Vascular Structures: There is a conventional branch pattern of the ureter can't. There is sli ght medialization of the left common carotid artery coursing towards the oropharynx. There is no hemo dynamically significant stenosis within the cervical portions of the internal carotid arteries. Minim al atherosclerotic plaquing is seen of the left internal carotid artery. The vertebral arteries appea r patent and codominant. Basilar artery is also patent. Mild atherosclerosis is seen of the supraclin oid and cavernous portions of the internal carotid arteries. No hemodynamically significant stenosis. The posterior communicating arteries are either diminutive or congenitally absent and [place] is is not definitively complete. Very small intercommunicating artery is seen. No sizable intracrania l aneurysm or large vessel occlusion is noted. Other: As discussed on the CT brain of 09/19/2018 there is symmetric prominence of the peripheral sulc i and ventricular system compatible with age-related volume loss. There is better evaluation of the w maritza matter on the prior exam. Moderate degenerative disc disease of the cervical spine is seen with reversal of the usual cervical lordosis that may be on the basis of muscular sprain/spasm or patient positioning. There is a 3 mm pulmonary nodule in the right upper lobe on image 13. This is stable fro m 02/14/2017 and therefore likely benign. Symmetric atrophy of the parotid glands is likely age-relat ed. IMPRESSION: No hemodynamically significant stenosis of the major intracranial vasculature or major a rterial vasculature of the neck. No sizable aneurysm or vascular occlusion.
--- NOTE | 2018-09-20 14:55 | P.CRDCN ---
History of Present Illness Consult date: 09/20/18 Requesting physician: Steve García Reason for Consult (text): Loss of consciousness Chief complaint: Brief loss of consciousness History of present illness: Is a pleasant 73-year-old gentleman with history of hypertension, diabetes, hyperlipidemia, chronic congestive heart failure, COPD, paroxysmal atrial fibrillation for which the patient takes dofetilide which was [place] at the [place], he also has history of prostate cancer with possible metastases to the bone, currently on chemotherapy, history of hypothyroidism. Apparently patient was receiving physical therapy, while the physical therapist was there, patient had a 10 second episode of staring off into space, no associated jerking movements, patient was breathing and had a heart rate. According to the patient, he is not recall this happening at all, he subsequently, did have one other episode following that which lasted about 7 seconds in duration. The patient does take Coumadin for anticoagulation, his INR at admission subtherapeutic at 1.7. I did have a lengthy discussion with the patient and his regarding anticoagulation with one of the newer agents, patient does state that they have a hard time regulating his INR, we will check into coverage for Eliquis. Cardiology consultation was requested for possible arrhythmia. His EKG on presentation here showed a normal sinus rhythm with bund le branch block pattern, first-degree AV block, occasional PACs. His rhythm strips were also reviewed which did not reveal any evidence of atrial fibrillation. CAT scan of the brain showed moderate atrophy with no acute intracranial abnormality. Chest x-ray did not reveal evidence for acute pulmo nary disease. EKG was performed which revealed normal awake/sleep electroencephalogram with evidence of stage II sleep. No background asymmetry. Let pressure on arrival here 147/78 with a heart rate in the 60s, 95% on room air. Pressure today 155/90 with a heart rate in the 60s, 95% on room air. White blood cell count is normal, hemoglobin 12.4, platelet count 252. INR 1.7, d-dimer 0.4, sodium 139, potassium 4.4, BUN 13 and creatinine 0.8. Magnesium 1.6 this morning, troponin normal. According to the patient, he has been noticing himself to be more dizzy than usual, especially when he goes from a sitting to standing position or when he is walking with his walker. His breathing overall has been stable but the patient states he's noticed an increase in his bilateral lower extremity edema. He denies any palpitations. Past Medical History Past Medical History: Atrial Fibrillation, Cancer, Heart Failure, COPD, Diabetes Mellitus, GERD/Reflux, Hyperlipidemia, Hypertension, Osteoarthritis (OA), Prostate Disorder, Skin Disorder, Sleep Apnea/CPAP/BIPAP, Thyroid Disorder Additional Past Medical History / Comment(s): HX OF PROSTATE CANCER WITH RADIATION [place] (LAST-APRIL 2016), BACK PAIN , HX OF GOUT. USES CpAP AND 2 LITERS O2 AT HS, anemia, wound lt ankle and 2nd toe lt foot djd knees History of Any Multi-Drug Resistant Organisms: None Reported Past Surgical History: Orthopedic Surgery, Tonsillectomy Additional Past Surgical History / Comment(s): carpel tunnel, fatty tumor removed from leg and neck. tooth extractions Past Anesthesia/Blood Transfusion Reactions: No Reported Reaction Additional Past Anesthesia/Blood Transfusion Reaction / Comment(s): STATES DR TOLD HIM NO ANESTHESIA DUE TO LUNG FUNCTION and his heart. Past Psychological History: No Psychological Hx Reported Additional Psychological History / Comment(s): had some group therapy after he came back from [place], gets nurse m-w-f and [facility] and [facility] thru [facility], neb, cpap. , lives in single level home that has 5 steps. No travel since his days. History of tobacco use. No current alcohol use. 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 HAS 1 PET dOG Smoking Status: Former smoker Past Alcohol Use History: None Reported Additional Past Alcohol Use History / Comment(s): Patient was a smoker from 1965- for one year while in [place]. No current alcohol use. 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 No animal exposures. He is and lives with his . No recent travel since his days. Patient did require cryotherapy when he came back from [place]. Past Drug Use History: None Reported Additional Drug Use History / Comment(s): MARIJUANA WHEN IN [place] [id number] - Past Family History Father Family Medical History: Cancer, Dementia Additional Family Medical History / Comment(s): prostate ca, oral ca from smoking Mother Family Medical History: Cancer, Diabetes Mellitus, Hypertension Additional Family Medical History / Comment(s): stomach Brother(s) Family Medical History: GI Bleed Additional Family Medical History / Comment(s): knee problems. stomach resection for bleeding ulcer Medications and Allergies Home Medications Medication Instructions Recorded Confirmed Type Fluticasone Nasal [place] [Flonase 1 spray EA NOSTRIL BID 11/02/15 09/19/18 History Nasal [place]] Furosemide [Lasix] 80 mg PO BID 11/02/15 09/19/18 History Losartan Potassium [Cozaar] 50 mg PO DAILY 11/02/15 09/19/18 History hydrALAZINE HCL [Apresoline] 25 mg PO BID 11/02/15 09/19/18 History metFORMIN HCL 1,000 mg PO BID 11/02/15 09/19/18 History Carvedilol [Coreg] 12.5 mg PO BID 01/28/16 09/19/18 History Loratadine 10 mg PO DAILY 02/10/17 09/19/18 History Tiotropium 18 Mcg/Puff [Spiriva] 1 cap INHALATION RT-DAILY 02/10/17 09/19/18 History Ascorbic Acid [Vitamin C] 500 mg PO DAILY 08/30/17 09/19/18 History Budesonide/Formoterol Fumarate 2 puff INHALATION RT-BID 08/30/17 09/19/18 History [Symbicort 80-4.5 Mcg Inhaler] Calcium Carbonate/Vitamin D3 1 tab PO BID 08/30/17 09/19/18 History [Calcium 500-Vit D3 200 Tablet] Dofetilide 500 mcg PO BID 08/30/17 09/19/18 History Ferrous Sulfate [Iron (65 MG 325 mg PO DAILY 08/30/17 09/19/18 History Elemental)] Levothyroxine Sodium [Synthroid] 50 mcg PO DAILY 08/30/17 09/19/18 History Omeprazole 20 mg PO DAILY 08/30/17 09/19/18 History Oxybutynin Chloride 5 mg PO BID 08/30/17 09/19/18 History Tamsulosin HCl [Flomax] 0.4 mg PO HS 08/30/17 09/19/18 History Warfarin [Coumadin] 7.5 mg PO DAILY 08/30/17 09/19/18 History Albuterol Nebulized [Ventolin 2.5 mg INHALATION RT-QID 09/19/18 09/19/18 History Nebulized] Amitriptyline HCl 10 mg PO HS 09/19/18 09/19/18 History Cyanocobalamin (Vitamin B-12) 1,000 mcg PO Q28D 09/19/18 09/19/18 History [Vitamin B-12] Enzalutamide [Xtandi] 160 mg PO HS 09/19/18 09/19/18 History Ipratropium Nebulized [Atrovent 0.5 mg INHALATION RT-QID 09/19/18 09/19/18 History Nebulized 0.2 MG/ML] Leuprolide Acetate [Eligard] 22.5 mg SQ Q84D 09/19/18 09/19/18 History Lidocaine 5% Patch [Lidoderm] 1 patch TOPICAL DAILY 09/19/18 09/19/18 History Meloxicam [Mobic] 15 mg PO DAILY 09/19/18 09/19/18 History Multivitamins, Thera [Multivitamin 1 tab PO DAILY 09/19/18 09/19/18 History (formulary)] Pregabalin [Lyrica] 75 mg PO BID 09/19/18 09/19/18 History Ranitidine HCl [Zantac] 300 mg PO HS 09/19/18 09/19/18 History Allergies Allergy/AdvReac Type Severity Reaction Status Date / Time sulfamethoxazole Allergy Unknown Rash/Hives Verified 09/19/18 13:44 trimethoprim [From Bactrim] Allergy Rash/Hives Verified 09/19/18 13:44 simvastatin [From Zocor] AdvReac Myalgia Verified 09/19/18 13:44 Physical Exam Vitals: Vital Signs Temp Pulse Pulse Resp BP BP Pulse Ox 09/20/18 12:00 96.5 F L 66 18 155/90 95 09/20/18 08:24 66 09/20/18 08:11 62 09/20/18 08:00 97.3 F L 67 18 139/65 93 L 09/20/18 03:46 82 19 09/20/18 03:45 97.9 F 82 19 139/87 93 L 09/19/18 23:57 61 18 09/19/18 23:55 98.1 F 61 18 169/77 95 09/19/18 20:17 80 09/19/18 20:10 82 09/19/18 20:00 97.9 F 64 18 156/71 94 L 09/19/18 18:36 98.3 F 75 16 160/72 97 09/19/18 18:20 98.3 F 75 16 160/72 97 09/19/18 17:00 74 16 132/64 94 L 09/19/18 16:02 79 18 127/85 99 Intake and Output 09/19/18 09/20/18 09/20/18 22:59 06:59 14:59 Intake Total 480 Output Total 800 Balance -800 480 Intake: Oral 480 Output: Urine 800 Other: Voiding Method Toilet Toilet Toilet # Voids 2 3 # Bowel Movements 1 Weight 145.6 kg PHYSICAL EXAMINATION: GENERAL: Pleasant 73-year-old gentleman in no acute distress at the time of my examination HEENT: Head is atraumatic, normocephalic. Pupils equal, round. Sclera anicteric. Conjunctiva are clear. Mucous membranes of the mouth are moist. Neck is supple. There is no elevated jugular venous pressure. No carotid bruit is heard. HEART EXAMINATION: Heart S1, S2 normal. No murmur or gallop heard. CHEST EXAMINATION: Lungs are clear to auscultation and precussion. No chest wall tenderness is noted on palpation or with deep breathing. ABDOMEN: Soft, obese, nontender. Bowel sounds are heard. No organomegaly noted. EXTREMITIES: 2+ peripheral pulses with evidence of peripheral edema , bilateral erythema to the lower extremities noted . NEUROLOGIC patient is awake, alert and oriented 3 . . Results 09/20/18 06:36 09/20/18 06:36 Coagulation 09/20/18 Range/Units 06:36 PT 16.6 H (9.0-12.0) sec CBC 09/20/18 Range/Units 06:36 WBC 6.9 (3.8-10.6) k/uL RBC 4.29 L (4.30-5.90) m/uL Hgb 12.4 L (13.0-17.5) gm/dL Hct 38.9 L (39.0-53.0) % Plt Count 252 (150-450) k/uL Comprehensive Metabolic Panel 09/20/18 Range/Units 06:36 Sodium 139 (137-145) mmol/L Potassium 4.4 (3.5-5.1) mmol/L Chloride 100 (98-107) mmol/L Carbon Dioxide 30 (22-30) mmol/L BUN 13 (9-20) mg/dL Creatinine 0.81 (0.66-1.25) mg/dL Glucose 113 H (74-99) mg/dL Calcium 10.0 (8.4-10.2) mg/dL Current Medications Generic Name Dose Route Start Last Admin Trade Name Freq PRN Reason Stop Dose Admin Acetaminophen 650 mg 09/19/18 16:05 Tylenol Tab PO Q6HR PRN Mild Pain or Fever > 100.5 Acetaminophen/Codeine Phosphate 1 each 09/19/18 16:05 Tylenol #3 PO Q4HR PRN Moderate Pain Albuterol/Ipratropium 3 ml 09/19/18 21:00 09/20/18 08:09 Duoneb 0.5 Mg-3 Mg/3 Ml Soln INHALATION 3 ml RT-BID ANSHU Administration Amitriptyline HCl 10 mg 09/19/18 21:00 09/19/18 20:51 Elavil PO 10 mg HS ANSHU Administration Ascorbic Acid 500 mg 09/20/18 09:00 09/20/18 09:59 Vitamin C PO 500 mg DAILY ANSHU Administration Budesonide/Formoterol Fumarate 2 puff 09/19/18 20:00 09/20/18 08:09 Symbicort 80-4.5 Mcg Inhaler INHALATION 2 puff RT-BID ANSHU Administration Calcium Carbonate 1 each 09/19/18 21:00 09/20/18 09:58 Oscal 500+D PO 1 each BID ANSHU Administration Carvedilol 12.5 mg 09/19/18 21:00 09/20/18 06:28 Coreg PO 12.5 mg BID-W/MEALS ANSHU Administration Cyanocobalamin 1,000 mcg 09/29/18 09:00 Vitamin B-12 PO Q28D ANSHU Dofetilide 500 mcg 09/19/18 21:00 09/20/18 09:58 Tikosyn PO 500 mcg BID ANSHU Administration Ferrous Sulfate 325 mg 09/20/18 09:00 09/20/18 09:59 Feosol PO 325 mg DAILY ANSHU Administration Fluticasone Propionate 1 spray 09/19/18 21:00 09/20/18 09:59 Flonase Nasal [place] EA NOSTRIL 1 spray BID ANSHU Administration Furosemide 80 mg 09/19/18 21:00 09/20/18 09:59 Lasix PO 80 mg BID ANSHU Administration Hydralazine HCl 25 mg 09/19/18 21:00 09/20/18 09:59 Apresoline PO 25 mg BID ANSHU Administration Sodium Chloride 1,000 mls @ 20 mls/hr 09/19/18 16:15 09/19/18 20:32 Saline 0.9% IV Not Given .Q24H ANSHU Ibuprofen 400 mg 09/19/18 16:05 Motrin PO Q6HR PRN Mild Pain or Fever > 100.5 Levothyroxine Sodium 50 mcg 09/20/18 06:30 09/20/18 06:28 Synthroid PO 50 mcg DAILY@0630 ANSHU Administration Lidocaine 1 patch 09/20/18 09:00 09/20/18 10:02 Lidoderm TOPICAL Not Given DAILY ANSHU Loratadine 10 mg 09/20/18 09:00 09/20/18 09:58 Claritin PO 10 mg DAILY ANSHU Administration Losartan Potassium 50 mg 09/20/18 09:00 09/20/18 09:58 Cozaar PO 50 mg DAILY ANSHU Administration Meloxicam 15 mg 09/20/18 09:00 09/20/18 09:59 Mobic PO 15 mg DAILY ANSHU Administration Metformin HCl 1,000 mg 09/19/18 21:00 09/20/18 06:28 Glucophage PO 1,000 mg BID-W/MEALS ANSHU Administration Multivitamins 1 each 09/20/18 09:00 09/20/18 09:58 Theragran PO 1 each DAILY [facility] Administration Naloxone HCl 0.2 mg 09/19/18 16:05 Narcan IV Q2M PRN Opioid Reversal Non-Formulary Medication 160 mg 09/19/18 21:00 09/19/18 20:32 Enzalutamide [Xtandi] PO Not Given HS ANSHU Ondansetron HCl 4 mg 09/19/18 16:05 Zofran IVP Q8HR PRN Nausea And Vomiting Oxybutynin Chloride 5 mg 09/19/18 21:00 09/20/18 09:59 Ditropan PO 5 mg BID ANSHU Administration Pantoprazole Sodium 40 mg 09/21/18 09:00 Protonix PO DAILY ANSHU Pregabalin 75 mg 09/19/18 21:00 09/20/18 09:58 Lyrica PO 75 mg BID ANSHU Administration Tamsulosin HCl 0.4 mg 09/19/18 21:00 09/19/18 20:51 Flomax PO 0.4 mg HS ANSHU Administration Warfarin Sodium 7.5 mg 09/20/18 18:00 Coumadin PO DAILY@1800 ANSHU Intake and Output 09/19/18 09/20/18 09/20/18 22:59 06:59 14:59 Intake Total 480 Output Total 800 Balance -800 480 Intake: Oral 480 Output: Urine 800 Other: Voiding Method Toilet Toilet Toilet # Voids 2 3 # Bowel Movements 1 Weight 145.6 kg 09/20/18 06:36 09/20/18 06:36 EKG Interpretations (text) EKG shows normal sinus rhythm with left bundle branch block pattern and first- degree AV block and occasional PAC Assessment and Plan Plan: Assessment and plan #1 episode of unresponsiveness, rule out seizure, rule out tia, rule out cardiac arrhythmia #2 paroxysmal atrial fibrillation, on dofetilide, on Coumadin for anticoagulation, INR subtherapeutic. Remaining here in normal sinus rhythm no evidence of atrial fibrillation this admission and thus far. #3 hypertension #4 diabetes #5 hyperlipidemia #6 nonsmoker #7 chronic diastolic congestive heart failure #8 COPD #9 prostate cancer with possible metastases to the bone, patient is on chemotherapy #10 sleep apnea #11 hypothyroidism #12 obesity with body mass index of 41 Plan We will obtain an echocardiogram with Doppler study. We will also discontinue the Coumadin and start the patient on Eliquis 5 mg one tablet by mouth twice a day. Continue to monitor for any tachycardia or bradycardia arrhythmias. Check orthostatic heart rate and blood pressure every shift. Discontinue ibuprofen. Further recommendations to follow. DNP note has been reviewed, I agree with a documented findings and plan of care. Patient was seen and examined.
--- NOTE | 2018-09-20 15:13 | P.PN ---
Subjective Progress Note Date: 09/20/18 Principal diagnosis: Transient alteration of awareness No acute events O/N. CTA Head/Neck. EEG. Cardiology consult. No new neuro c/o. Objective - Vital Signs Vital signs: Vital Signs Temp 96.5 F L 09/20/18 12:00 Pulse 66 09/20/18 12:00 Resp 18 09/20/18 12:00 BP 155/90 09/20/18 12:00 Pulse Ox 95 09/20/18 12:00 Intake & Output 09/19/18 09/20/18 09/20/18 18:59 06:59 18:59 Intake Total 480 Output Total 800 Balance -800 480 Weight 145.15 kg 145.6 kg Intake: Oral 480 Output: Urine 800 Other: Voiding Method Diaper Toilet Toilet Incontinent # Voids 2 3 # Bowel Movements 1 - Exam Gen NAD Pleasant and cooperative MS A+Ox4 Normal fluency Able to follow all commands CN PERRL VFF no APD EOMI no nystagmus or TD No facial asymmetry Masseter's symmetric Hearing intact to normal voice bilaterally Speech not dysarthric Equal elevation of palate Tongue midline Sym shrug and SCM bilaterally Motor Normal bulk/tone No pronator drift or tremors Strength 5/5 sym throughout Sens Intact to LT x4 No neglect or extinction Coord No dysmetria on FTN bilaterally DTRs 2+/4 sym throughout Toes downgoing bilaterally No clonus at achilles Gait Deferred NIHSS 0 - Labs CBC & Chem 7: 09/20/18 06:36 09/20/18 06:36 Labs: Abnormal Lab Results - Last 24 Hours (Table) 09/19/18 09/20/18 09/20/18 Range/Units 20:57 06:15 06:36 RBC 4.29 L (4.30-5.90) m/uL Hgb 12.4 L (13.0-17.5) gm/dL Hct 38.9 L (39.0-53.0) % PT (9.0-12.0) sec INR (<1.2) Glucose (74-99) mg/dL POC Glucose (mg/dL) 102 H 122 H (75-99) mg/dL 09/20/18 09/20/18 09/20/18 Range/Units 06:36 06:36 11:44 RBC (4.30-5.90) m/uL Hgb (13.0-17.5) gm/dL Hct (39.0-53.0) % PT 16.6 H (9.0-12.0) sec INR 1.7 H (<1.2) Glucose 113 H (74-99) mg/dL POC Glucose (mg/dL) 114 H (75-99) mg/dL - Imaging and Cardiology CTA Head/Neck 09/20/18. No LVO or stenosis. EEG 09/20/18. Normal awake/sleep EEG. Assessment and Plan Assessment: Episode of transient alteration of awareness Plan: -CTA Head/Neck completely clean -Already on warfarin. May continue -No need to add antiplatelet from a cerebrovascular standpoint -EEG unrevealing -May treat BP to normotensive range -Cardiology input appreciated -PT/OT/SP per protocol -DVT prophylaxis: Warfarin -d/w patient/ in detail. All questions answered. -No further inpatient neuro recs at this time. Will revisit prn. Thank you again for this consultation. Please call with ?. Time with Patient: Less than 30 (Time spent in direct patient care, greater than 50% of which was spent in [id number] counseling and coordination of care: 25 minutes)
[2018-09-20 16:36] LABS: Glucose,Whole Blood 129 mg/dL (75-99)
[2018-09-20] MEDS: SODIUM CHLORIDE 0.9% 1,000 ML IV SCH (17:22)
[2018-09-20] MEDS ORDERED: WARFARIN 7.5 MG TAB PO SCH (18:00)
--- NOTE | 2018-09-20 18:37 | ECHOF ---
Referral Reason:TIA MEASUREMENTS -------- HEIGHT: 188.0 cm WEIGHT: 145.1 kg BP: 139/87 RVIDd: 4.9 cm (< 3.3) IVSd: 1.2 cm (0.6 - 1.1) LVIDd: 3.8 cm (3.9 - 5.3) LVPWd: 1.2 cm (0.6 - 1.1) IVSs: 1.5 cm LVIDs: 2.6 cm LVPWs: 1.7 cm LAESV Index (A-L): 23.77 ml/m Ao Diam: 3.9 cm (2.0 - 3.7) MV EXCURSION: 20.694 mm (> 18.000) MV EF SLOPE: 40 mm/s (70 - 150) EPSS: 0.3 cm MV E Gerard: 0.77 m/s MV DecT: 430 ms MV A Gerard: 0.97 m/s MV E/A Ratio: 0.79 RAP: 5.00 mmHg RVSP: 29.78 mmHg FINDINGS -------- Sinus rhythm. This was a technically adequate study. There is mild concentric left ventricular hypertrophy. Overall left ventricular systolic function i s mildly impaired with, an EF between 45 - 50 %. Anterseptal Hypokinesis The right ventricle is normal in size and function. LA is midly dilated 29-33ml/m2. The right atrium is normal in size. Interatrial and interventricular septum intact. There is mild aortic valve sclerosis. There is no evidence of aortic regurgitation. The mitral valve is normal. Mild mitral annular calcification present. The tricuspid valve appears structurally normal. There is no evidence of pulmonary hypertension. The right ventricular systolic pressure, as measured by Doppler, is 29.78mmHg. The pulmonic valve was not well visualized. The aortic root, ascending aorta and aortic arch are normal. The pericardium is normal. CONCLUSIONS -------- 1. Sinus rhythm. 2. This was a technically adequate study. 3. There is mild concentric left ventricular hypertrophy. 4. Overall left ventricular systolic function is mildly impaired with, an EF between 45 - 50 %. 5. Anterseptal Hypokinesis 6. LA is midly dilated 29-33ml/m2. 7. The right atrium is normal in size. 8. Interatrial and interventricular septum intact. 9. There is mild aortic valve sclerosis. 10. There is no evidence of aortic regurgitation. 11. The mitral valve is normal. 12. Mild mitral annular calcification present. 13. The tricuspid valve appears structurally normal. 14. There is no evidence of pulmonary hypertension. 15. The right ventricular systolic pressure, as measured by Doppler, is 29.78mmHg. 16. The pulmonic valve was not well visualized. 17. The aortic root, ascending aorta and aortic arch are normal. 18. The pericardium is normal. [employer] FORMER: Leonel Finley RDCS
--- NOTE | 2018-09-20 19:03 | PN ---
PROGRESS NOTE DATE OF SERVICE: 09/20/2018. This 73-year-old gentleman who was admitted with episodes of unresponsiveness is being evaluated for seizure and cardiac abnormalities. A CT angio was done per neurology recommendations, which showed no hemodynamically significant stenosis and no aneurysm was also noted. There is no history of fever, rigors, chills. PHYSICAL EXAM: Alert and oriented times three. Pulse 66, blood pressure 159/98, respiration 18, temperature 98.4, pulse ox 94% on room air. HEENT: Conjunctivae normal. NECK: No JVD. CARDIOVASCULAR: S1, S2 muffled. RESPIRATIONS: Breath sounds diminished in the bases. A few scattered rhonchi and crackles. ABDOMEN: Soft, nontender. No mass palpable. LEGS: No edema. No swelling. NERVOUS SYSTEM: Higher functions as mentioned earlier. Moves all 4 limbs. No focal motor or sensory deficits. LYMPHATICS: No lymph nodes palpable in the neck, axillae or groin. SKIN: No ulcer, rash or bleeding. JOINTS: No active deforming arthropathy. LABS: At this time shows: WBC 6.2, hemoglobin 12.4, INR 1.7. ASSESSMENT: 1. Episodes of unresponsive, rule out seizure, rule out transient ischemic attack and cardiac arrhythmia. 2. Atrial fibrillation history. 3. History of congestive heart failure with chronic diastolic dysfunction. 4. Chronic obstructive pulmonary disease. 5. Diabetes mellitus type 2. 6. Gastroesophageal reflux disease. 7. Hyperlipidemia. 8. Hypertension. 9. History of degenerative joint disease. 10.History of prostate cancer. 11.History of sleep apnea. 12.History of hypothyroidism. 13.History of gout. 14.History of chronic hypoxic respiratory failure on home oxygen at 2 L nasal cannula. 15.History of tonsillectomy. 16.Remote history of nicotine dependence. 17.Obesity with body mass index of 41.1. 18.FULL CODE. RECOMMENDATIONS AND DISCUSSION: I recommend to continue current medications, continue symptomatic treatment. Otherwise at this time I recommend to follow closely with cardiology, Neurology and continue the anticoagulants. Guarded prognosis. Further recommendations to follow. MMODL / IJN: [id number] /
[2018-09-20] MEDS: AMITRIPTYLINE HCL 10 MG TAB PO SCH (19:40)
[2018-09-20] MEDS: APIXABAN 5 MG TAB PO SCH (19:40)
[2018-09-20] MEDS: Enzalutamide [Xtandi] 160 MG PO SCH (19:41)
[2018-09-20] MEDS: TAMSULOSIN 0.4 MG CAP.ER.24H PO SCH (19:41)
[2018-09-20 20:34] LABS: Glucose,Whole Blood 104 mg/dL (75-99)
[2018-09-21 03:50] VITALS: RESP 18
[2018-09-21 06:37] LABS: Glucose,Whole Blood 132 mg/dL (75-99)
[2018-09-21] MEDS: LEVOTHYROXINE 50 MCG TAB PO SCH (06:39)
[2018-09-21] MEDS: CARVEDILOL 12.5 MG TAB PO SCH (06:39)
[2018-09-21] MEDS: metFORMIN 500 MG TAB PO SCH (06:39)
[2018-09-21 07:42] LABS: Basophils % (A) 1 %; Eosinophils # (A) 0.3 k/uL (0-0.7); Eosinophils % (A) 5 %; HCT 36.9 % (39.0-53.0); HGB 11.7 gm/dL (13.0-17.5); Lymphocytes % (A) 16 %; MCH 28.6 pg (25.0-35.0); MCHC 31.8 g/dL (31.0-37.0); MCV 89.9 fL (80.0-100.0); Mean Platelet Volume 7.2; Monocytes # (A) 0.3 k/uL (0-1.0); Monocytes % (A) 5 %; Neutrophils # (A) 4.4 k/uL (1.3-7.7); Neutrophils % (A) 72 %; Platelet Count 236 k/uL (150-450); RDW 14.3 % (11.5-15.5); WBC 6.1 k/uL (3.8-10.6)
[2018-09-21 07:47] LABS: INR 1.4 (<1.2); Prothrombin Time 14.4 sec (9.0-12.0)
[2018-09-21 08:08] LABS: African American GFR (CKD) >90 (>60 ml/min/1.73 sqM); Anion Gap 10 mmol/L; Blood Urea Nitrogen 15 mg/dL (9-20); Calcium 9.4 mg/dL (8.4-10.2); Carbon Dioxide 29 mmol/L (22-30); Chloride 99 mmol/L (98-107); Glucose 120 mg/dL (74-99); Potassium 3.7 mmol/L (3.5-5.1); Sodium 138 mmol/L (137-145)
[2018-09-21] MEDS: FLUTICASONE 50MCG/SPRAY NASAL 16GM EA NOSTRIL SCH (08:50)
[2018-09-21] MEDS: ASCORBIC ACID 500 MG TAB PO SCH (08:51)
[2018-09-21] MEDS: DOFETILIDE 500 MCG CAP PO SCH (08:51)
[2018-09-21] MEDS: OXYBUTYNIN CHLORIDE 5 MG TAB PO SCH (08:51)
[2018-09-21] MEDS: FERROUS SULFATE 325 MG TAB PO SCH (08:51)
[2018-09-21] MEDS: LOSARTAN 50 MG TAB PO SCH (08:51)
[2018-09-21] MEDS: PREGABALIN 75 MG CAP PO SCH (08:51)
[2018-09-21] MEDS: FUROSEMIDE 80 MG TAB PO SCH (08:51)
[2018-09-21] MEDS: CALCIUM CARB-VIT D 500MG-200UN 1 EACH TAB PO SCH (08:51)
[2018-09-21] MEDS: hydrALAZINE HCL 25 MG TAB PO SCH (08:52)
[2018-09-21] MEDS: MELOXICAM 7.5 MG TAB PO SCH (08:52)
[2018-09-21] MEDS: MULTIVITAMINS, THERA 1 EACH TAB PO SCH (08:52)
[2018-09-21] MEDS: LORATADINE 10 MG TAB PO SCH (08:52)
[2018-09-21] MEDS: APIXABAN 5 MG TAB PO SCH (08:52)
[2018-09-21] MEDS: LIDOCAINE 5% PATCH TOPICAL SCH (08:53)
[2018-09-21] MEDS ORDERED: PANTOPRAZOLE 40 MG TABLET PO SCH (09:00)
[2018-09-21] MEDS: IPRATROPIUM-ALBUTEROL 3 ML NEB INHALATION SCH (09:11)
[2018-09-21] MEDS: SYMBICORT 80-4.5 MCG INHALER INHALATION SCH (09:11)
[2018-09-21 09:29] VITALS: BP 111/65; PULSE 73; TEMP 97.7
[2018-09-21 11:58] LABS: Glucose,Whole Blood 174 mg/dL (75-99)
--- NOTE | 2018-09-21 12:03 | P.PN ---
Subjective Progress Note Date: 09/21/18 Is a pleasant 73-year-old gentleman with history of hypertension, diabetes, hyperlipidemia, chronic congestive heart failure, COPD, paroxysmal atrial fibrillation for which the patient takes dofetilide which was initiated at the [facility] in [place], he also has history of prostate cancer with possible metastases to the bone, currently on chemotherapy, history of hypothyroidism. Apparently patient was receiving physical therapy, while the physical therapist was there, patient had a 10 second episode of staring off into space, no associated jerking movements, patient was breathing and had a heart rate. According to the patient, he is not recall this happening at all, he subsequently, did have one other episode following that which lasted about 7 seconds in duration. The patient does take Coumadin for anticoagulation, his INR at admission subtherapeutic at 1.7. I did have a lengthy discussion with the patient and his regarding anticoagulation with one of the newer agents, patient does state that they have a hard time regulating his INR, we will check into coverage for Eliquis. Cardiology consultation was requested for possible arrhythmia. His EKG on presentation here showed a normal sinus rhythm with bundle branch block pattern, first-degree AV block, occasional PACs. His rhythm strips were also reviewed which did not reveal any evidence of atrial fibrillation. CAT scan of the brain showed moderate atrophy with no acute intracranial abnormality. Chest x-ray did not reveal evidence for acute pulmonary disease. EKG was performed which revealed normal awake/sleep e lectroencephalogram with evidence of stage II sleep. No background asymmetry. Let pressure on arrival here 147/78 with a heart rate in the 60s, 95% on room air. Pressure today 155/90 with a heart rate in the 60s, 95% on room air. White blood cell count is normal, hemoglobin 12.4, platelet count 252. INR 1.7, d-dimer 0.4, sodium 139, potassium 4.4, BUN 13 and creatinine 0.8. Magnesium 1.6 this morning, troponin normal. According to the patient, he has been noticing himself to be more dizzy than usual, especially when he goes from a sitting to standing position or when he is walking with his walker. His breathing overall has been stable but the patient states he's noticed an increase in his bilateral lower extremity edema. He denies any palpitations. 09/21/2018 Patient seen and examined this morning, overall he feels well, he denies any further episodes of brief loss of consciousness.no significant orthostatics have been documented. No arrhythmias have been noted in the monitor, he continues to be in a normal sinus rhythm.White blood cell count 6.1, hemoglobin 11.7, platel et count 236. INR 1.4, sodium 138, potassium 3.7, BUN 15 and creatinine 0.8. Echocardiogram with Doppler study was performed which revealed an ejection fraction of 45-50%, evidence of anterior septal hypokinesia noted. Objective - Vital Signs Vital signs: Vital Signs Temp 97.7 F 09/21/18 08:00 Pulse 73 09/21/18 08:00 Resp 18 09/21/18 08:00 BP 111/65 09/21/18 08:00 Pulse Ox 93 L 09/21/18 08:00 Intake & Output 09/20/18 09/21/18 09/21/18 18:59 06:59 18:59 Intake Total 720 240 Balance 720 240 Weight 141.8 kg Intake: Oral 720 240 Other: Voiding Method Toilet Toilet Toilet # Voids 2 4 # Bowel Movements 1 - Exam PHYSICAL EXAMINATION: GENERAL: Pleasant 73-year-old gentleman in no acute distress at the time of my examination HEENT: Head is atraumatic, normocephalic. Pupils equal, round. Sclera anicteric. Conjunctiva are clear. Mucous membranes of the mouth are moist. Neck is supple. There is no elevated jugular venous pressure. No carotid bruit is heard. HEART EXAMINATION: Heart S1, S2 normal. No murmur or gallop heard. CHEST EXAMINATION: Lungs are clear to auscultation and precussion. No chest wall tenderness is noted on palpation or with deep breathing. ABDOMEN: Soft, obese, nontender. Bowel sounds are heard. No organomegaly noted. EXTREMITIES: 2+ peripheral pulses with evidence of peripheral edema , bilateral erythema to the lower extremities noted . NEUROLOGIC patient is awake, alert and oriented 3 . - Labs CBC & Chem 7: 09/21/18 06:38 09/21/18 06:38 Labs: Abnormal Lab Results - Last 24 Hours (Table) 09/20/18 09/20/18 09/20/18 Range/Units 06:36 16:34 20:32 RBC (4.30-5.90) m/uL Hgb (13.0-17.5) gm/dL Hct (39.0-53.0) % PT (9.0-12.0) sec INR (<1.2) Glucose (74-99) mg/dL POC Glucose (mg/dL) 129 H 104 H (75-99) mg/dL TSH 5.550 H (0.465-4.680) mIU/L 09/21/18 09/21/18 09/21/18 Range/Units 06:36 06:38 06:38 RBC 4.10 L (4.30-5.90) m/uL Hgb 11.7 L (13.0-17.5) gm/dL Hct 36.9 L (39.0-53.0) % PT (9.0-12.0) sec INR (<1.2) Glucose 120 H (74-99) mg/dL POC Glucose (mg/dL) 132 H (75-99) mg/dL TSH (0.465-4.680) mIU/L 09/21/18 Range/Units 06:38 RBC (4.30-5.90) m/uL Hgb (13.0-17.5) gm/dL Hct (39.0-53.0) % PT 14.4 H (9.0-12.0) sec INR 1.4 H (<1.2) Glucose (74-99) mg/dL POC Glucose (mg/dL) (75-99) mg/dL TSH (0.465-4.680) mIU/L Assessment and Plan Plan: Assessment and plan #1 episode of unresponsiveness, rule out seizure, rule out tia, rule out cardiac arrhythmia #2 paroxysmal atrial fibrillation, on dofetilide, on Coumadin for anticoagulation, INR subtherapeutic. Remaining here in normal sinus rhythm no evidence of atrial fibrillation this admission and thus far. #3 hypertension #4 diabetes #5 hyperlipidemia #6 nonsmoker #7 chronic diastolic congestive heart failure #8 COPD #9 prostate cancer with possible metastases to the bone, patient is on chemotherapy #10 sleep apnea #11 hypothyroidism #12 obesity with body mass index of 41 Plan From cardiology's perspective, no arrhythmias have been noted on the monitor and there has not been any significant orthostatics. Patient may be able to be discharged home from our standpoint, we will recommend a 30 day event monitor on discharge, follow-up appointment with the patient's religious education director. DNP note has been reviewed, I agree with a documented findings and plan of care. Patient was seen and examined.
--- NOTE | 2018-09-21 12:42 | P.DS ---
Providers Date of admission: 09/19/18 16:18 Expected date of discharge: 09/21/18 Attending physician: Steve García Consults: 09/19/18 15:33 Consult Physician Routine Consulting Provider: Marylu Ovalles Consult Reason/Comments: seizure vs. syncope Do you want consulting provider notified?: Yes 09/20/18 10:47 Consult Physician Routine Consulting Provider: Azam Blount Consult Reason/Comments: arrhythmia? Do you want consulting provider notified?: Yes Primary care physician: [facility] Course: Final diagnosis Episodes of unresponsiveness, rule out seizure, rule out transient ischemic attack, and any cardiac arrhythmia History of atrial fibrillation History of congestive heart failure with chronic diastolic dysfunction Chronic obstructive pulmonary disease Diabetes mellitus type 2 Gastroesophageal reflux disease Hyperlipidemia Hypertension History of degenerative joint disease History of prostate cancer History of sleep apnea History of hypothyroidism History of gout History of chronic hypoxic respiratory failure on home oxygen at 2 L via nasal cannula History of tonsillectomy Removal history of nicotine dependence Obesity with body mass index of 41.1 Full code Discharge disposition Patient is being discharged in a stable condition with guarded prognosis to home. Patient was on Coumadin and is currently being switched to Eliquis 5 mg B ID. Patient is to follow-up with his spareribs trimmer within the next 3 weeks for a possible 30 day event monitor per cardiology recommendations. History of present illness This is a 73-year-old male who was admitted with having episodes of unresponsiveness and was being evaluated for seizure and cardiac abnormalities. Patient was cleared from neurology standpoint. Cardiology was following the pat ient as well and showed no orthostatic changes or arrhythmias during the hospital course. Patient does have a history of atrial fibrillation and was on Coumadin. The Coumadin was being discontinued and patient will be started on Eliquis 5 mg twice daily. Cardiology recommendations are to have an event monitor placed for 30 days with his spareribs trimmer. Patient denies any chest pain, shortness of breath, or palpitations at this time. Patient denies any dizziness, lightheadedness, and gait is steady with the use a walker. On exam vital signs are stable. Blood pressure is 111/65, pulse is 73, respirations are 18, temp is 97.7F, oxygen saturation is 93-94% on room air. Patient is normally on 2 L via nasal cannula at home. Cardio S1 and S2 are normal. Respiratory system is diminished in the bases with a few scattered crackles noted. Abdomen is soft, obese, non-tender. Nervous system shows no focal deficits and gait is steady with walker. Please refer to the medication reconciliation sheet for list of medications. Patient Condition at Discharge: Stable Plan - Discharge Summary Discharge Rx Participant: No New Discharge Prescriptions: New Apixaban [Eliquis] 5 mg PO BID #60 tab Continue metFORMIN HCL 1,000 mg PO BID Furosemide [Lasix] 80 mg PO BID hydrALAZINE HCL [Apresoline] 25 mg PO BID Losartan Potassium [Cozaar] 50 mg PO DAILY Fluticasone Nasal Kirvin [Flonase Nasal Kirvin] 1 spray EA NOSTRIL BID Carvedilol [Coreg] 12.5 mg PO BID Tiotropium 18 Mcg/Puff [Spiriva] 1 cap INHALATION RT-DAILY Loratadine 10 mg PO DAILY Omeprazole 20 mg PO DAILY Levothyroxine Sodium [Synthroid] 50 mcg PO DAILY Tamsulosin HCl [Flomax] 0.4 mg PO HS Oxybutynin Chloride 5 mg PO BID Calcium Carbonate/Vitamin D3 [Calcium 500-Vit D3 200 Tablet] 1 tab PO BID Budesonide/Formoterol Fumarate [Symbicort 80-4.5 Mcg Inhaler] 2 puff INHALA TION RT-BID Ascorbic Acid [Vitamin C] 500 mg PO DAILY Ferrous Sulfate [Iron (65 MG Elemental)] 325 mg PO DAILY Dofetilide 500 mcg PO BID Cyanocobalamin (Vitamin B-12) [Vitamin B-12] 1,000 mcg PO Q28D Multivitamins, Thera [Multivitamin (formulary)] 1 tab PO DAILY Ranitidine HCl [Zantac] 300 mg PO HS Pregabalin [Lyrica] 75 mg PO BID Amitriptyline HCl 10 mg PO HS Meloxicam [Mobic] 15 mg PO DAILY Lidocaine 5% Patch [Lidoderm 5% Patch] 1 patch TOPICAL DAILY Leuprolide Acetate [Eligard] 22.5 mg SQ Q84D Ipratropium Nebulized [Atrovent Nebulized 0.2 MG/ML] 0.5 mg INHALATION RT-QID Albuterol Nebulized [Ventolin Nebulized] 2.5 mg INHALATION RT-QID Enzalutamide [Xtandi] 160 mg PO HS Discontinued Warfarin [Coumadin] 7.5 mg PO DAILY Discharge Medication List Fluticasone Nasal Kirvin [Flonase Nasal Kirvin] 1 spray EA NOSTRIL BID 11/02/15 [History] Furosemide [Lasix] 80 mg PO BID 11/02/15 [History] Losartan Potassium [Cozaar] 50 mg PO DAILY 11/02/15 [History] hydrALAZINE HCL [Apresoline] 25 mg PO BID 11/02/15 [History] metFORMIN HCL 1,000 mg PO BID 11/02/15 [History] Carvedilol [Coreg] 12.5 mg PO BID 01/28/16 [History] Loratadine 10 mg PO DAILY 02/10/17 [History] Tiotropium 18 Mcg/Puff [Spiriva] 1 cap INHALATION RT-DAILY 02/10/17 [History] Ascorbic Acid [Vitamin C] 500 mg PO DAILY 08/30/17 [History] Budesonide/Formoterol Fumarate [Symbicort 80-4.5 Mcg Inhaler] 2 puff INHALATION RT-BID 08/30/17 [History] Calcium Carbonate/Vitamin D3 [Calcium 500-Vit D3 200 Tablet] 1 tab PO BID 08/30/17 [History] Dofetilide 500 mcg PO BID 08/30/17 [History] Ferrous Sulfate [Iron (65 MG Elemental)] 325 mg PO DAILY 08/30/17 [History] Levothyroxine Sodium [Synthroid] 50 mcg PO DAILY 08/30/17 [History] Omeprazole 20 mg PO DAILY 08/30/17 [History] Oxybutynin Chloride 5 mg PO BID 08/30/17 [History] Tamsulosin HCl [Flomax] 0.4 mg PO HS 08/30/17 [History] Albuterol Nebulized [Ventolin Nebulized] 2.5 mg INHALATION RT-QID 09/19/18 [History] Amitriptyline HCl 10 mg PO HS 09/19/18 [History] Cyanocobalamin (Vitamin B-12) [Vitamin B-12] 1,000 mcg PO Q28D 09/19/18 [History] Enzalutamide [Xtandi] 160 mg PO HS 09/19/18 [History] Ipratropium Nebulized [Atrovent Nebulized 0.2 MG/ML] 0.5 mg INHALATION RT-QID 09/19/18 [History] Leuprolide Acetate [Eligard] 22.5 mg SQ Q84D 09/19/18 [History] Lidocaine 5% Patch [Lidoderm 5% Patch] 1 patch TOPICAL DAILY 09/19/18 [History] Meloxicam [Mobic] 15 mg PO DAILY 09/19/18 [History] Multivitamins, Thera [Multivitamin (formulary)] 1 tab PO DAILY 09/19/18 [History] Pregabalin [Lyrica] 75 mg PO BID 09/19/18 [History] Ranitidine HCl [Zantac] 300 mg PO HS 09/19/18 [History] Apixaban [Eliquis] 5 mg PO BID #60 tab 09/21/18 [Rx] Follow up Appointment(s)/Referral(s): [facility] [Provider Group] - 3 Weeks (Consulted with Dr. Nugent. ) [facility] [Primary Care Provider] - 10/06/18 3:00 pm (With Maria De Jesus HAMMER) Patient Instructions/Handouts: Syncope (DC), Safe Use of Anticoagulants (DC) Activity/Diet/Wound Care/Special Instructions: [facility] to set up home care - follow up with any questions - [phone] Activity Limited until follow-up Continue current diet Follow-up with primary care provider [facility]up with [facility] in 3 weeks Discharge Disposition: HOME SELF-CARE
--- NOTE | 2018-09-21 18:56 | DS ---
DISCHARGE SUMMARY DATE OF SERVICE: 09/21/2018. FINAL DIAGNOSES: 1. Episodes of unresponsiveness; possible transient ischemic attack. Rule out cardiac arrhythmia. 2. History of atrial fibrillation. 3. History of congestive heart failure with chronic diastolic dysfunction. 4. Chronic obstructive pulmonary disease. 5. Diabetes mellitus, type 2. 6. Gastroesophageal reflux disease. 7. Hyperlipidemia. 8. Hypertension. 9. History of degenerative joint disease. 10.History of prostate cancer. 11.History of sleep apnea. 12.History of hypothyroidism. 13.History of gout. 14.History of chronic hypoxic respiratory failure, on home oxygen at 2 L nasal cannula. 15.History of tonsillectomy. 16.Remote history of nicotine dependence. 17.Obesity with body mass index of 41.1. 18.FULL CODE. DISCHARGE DISPOSITION: The patient will be discharged in stable condition with guarded prognosis. HISTORY OF PRESENT ILLNESS: This 73-year-old gentleman with a past medical history of multiple medical problems was admitted with episodes of unresponsiveness. Seizure was thought to be unlikely. Neurology and Cardiology saw the patient. The patient was subtherapeutic on Coumadin. The patient was initiated on Eliquis. Otherwise, the patient was treated symptomatically. Patient improved significantly. The patient is being discharged in stable condition with guarded prognosis. DISCHARGE ADVICE AND MEDICATIONS: 1. Diet is cardiac. 2. Activity limited until followup. 3. Follow up with [facility], Dr. Haley, in 2-3 days. 4. Follow with Cardiology and Neurology as recommended. 5. Amitriptyline 10 mg at bedtime. 6. Apresoline 25 mg p.o. b.i.d. 7. Atrovent 0.5 q.i.d. 8. Calcium carbonate 1 p.o. b.i.d. 9. Coreg 12.5 mg p.o. b.i.d. 10.Cozaar 50 mg p.o. daily. 11.Dofetilide 500 p.o. b.i.d. 12.Eligard 22.5 mg q.84 days. 13.Flomax 0.4 daily. 14.Flonase 1 spray b.i.d. 15.Iron sulfate 325 mg p.o. daily. 16.Lasix 80 mg p.o. b.i.d. 17.Lidoderm patch 1 daily. 18.Loratadine 10 mg p.o. daily. 19.Lyrica 75 mg p.o. b.i.d. 20.Metformin 1000 mg p.o. b.i.d. 21.Mobic 15 mg p.o. daily. 22.Multivitamins 1 p.o. daily. 23.Omeprazole 20 mg p.o. daily. 24.Oxybutynin 5 mg p.o. b.i.d. 25.Spiriva 1 puff daily. 26.Symbicort 80/4.5 two puffs b.i.d. 27.Synthroid 50 mcg p.o. daily. 28.Ventolin 2.5 q.i.d. 29.Vitamin B12 1000 mcg q.28 days. 30.Vitamin C 500 mg p.o. daily. 31.Xtandi 160 mg at bedtime. 32.Zantac 300 mg at bedtime. 33.Eliquis 5 mg p.o. b.i.d. Once again, the patient will be discharged in stable condition with guarded prognosis. MMODL / IJN: [id number] /
[2018-09-29] MEDS ORDERED: CYANOCOBALAMIN 500 MCG TAB PO SCH (09:00)
== END 2018-09-21 13:55 | disposition home or self-care (01) ==
LOC: EC 12:26 → 3SCARD 16:18
PROVIDERS: ADMIT Hospitalist; ATTEND Hospitalist
DX: R40.4 Transient alteration of awareness (principal); R79.1 Abnormal coagulation profile; R51 Headache; I48.0 Paroxysmal atrial fibrillation; J44.9 Chronic obstructive pulmonary disease, unspecified; I11.0 Hypertensive heart disease with heart failure; I50.32 Chronic diastolic (congestive) heart failure; E11.9 Type 2 diabetes mellitus without complications; K21.9 Gastro-esophageal reflux disease without esophagitis; E78.5 Hyperlipidemia, unspecified; G47.30 Sleep apnea, unspecified; E03.9 Hypothyroidism, unspecified; J96.11 Chronic respiratory failure with hypoxia; Z99.81 Dependence on supplemental oxygen; E66.9 Obesity, unspecified; Z68.41 Body mass index [BMI] 40.0-44.9, adult; M10.9 Gout, unspecified; R29.700 NIHSS score 0; D64.9 Anemia, unspecified; M17.0 Bilateral primary osteoarthritis of knee; M19.90 Unspecified osteoarthritis, unspecified site; Z79.890 Hormone replacement therapy; Z79.84 Long term (current) use of oral hypoglycemic drugs; Z79.01 Long term (current) use of anticoagulants; Z79.899 Other long term (current) drug therapy; Z79.1 Long term (current) use of non-steroidal anti-inflammatories (NSAID); Z79.51 Long term (current) use of inhaled steroids; Z87.891 Personal history of nicotine dependence; Z85.46 Personal history of malignant neoplasm of prostate; Z92.21 Personal history of antineoplastic chemotherapy; Z92.3 Personal history of irradiation; Z88.8 Allergy status to other drugs, medicaments and biological substances; Z88.2 Allergy status to sulfonamides; Z99.89 Dependence on other enabling machines and devices; Z80.42 Family history of malignant neoplasm of prostate; Z81.8 Family history of other mental and behavioral disorders; Z80.8 Family history of malignant neoplasm of other organs or systems; Z82.49 Family history of ischemic heart disease and other diseases of the circulatory system; Z83.3 Family history of diabetes mellitus; Z83.79 Family history of other diseases of the digestive system
CPT/HCPCS: 96374; 96361; 99285; 36415; 94640 ×3; 95819; 93005; 93306; 85379; 83880; 80053; 80048 ×2; 83735 ×2; 84443; 84484; 85025 ×3; 85610 ×3; 85730; 81003; 71046; 70496; 70450; 70498; G0378 ×3; C9113; Q9967

== ENCOUNTER 2018-11-14 14:27 | Inpatient (IN) | payer OTHER, MEDICARE ==
[2018-11-14 15:43] LABS: Basophils # (A) 0.1 k/uL (0-0.2); Basophils % (A) 1 %; Eosinophils # (A) 0.4 k/uL (0-0.7); Eosinophils % (A) 8 %; HCT 36.3 % (39.0-53.0); HGB 12.1 gm/dL (13.0-17.5); Lymphocytes # (A) 0.4 k/uL (1.0-4.8); Lymphocytes % (A) 8 %; MCHC 33.4 g/dL (31.0-37.0); MCV 89.7 fL (80.0-100.0); Mean Platelet Volume 7.8; Monocytes # (A) 0.3 k/uL (0-1.0); Monocytes % (A) 6 %; Neutrophils # (A) 4.2 k/uL (1.3-7.7); Neutrophils % (A) 76 %; Platelet Count 234 k/uL (150-450); RBC 4.05 m/uL (4.30-5.90); RDW 14.1 % (11.5-15.5); WBC 5.5 k/uL (3.8-10.6)
--- NOTE | 2018-11-14 15:43 | ED ---
SOB HPI - General Chief Complaint: Shortness of Breath Stated Complaint: WEAKNESS, PEGGY Time Seen by Provider: 11/14/18 14:49 Source: patient Mode of arrival: EMS Limitations: no limitations - History of Present Illness Initial Comments: 73-year-old male presented for chief complaint of shortness of breath and generalized weakness. Patient states that he was recently hospitalized at the outside facility for neurological workup. Patient states that they had no positive results the patient does not have an acute stroke. Patient states that at that time he did have cough congestion. Productive sputum. Patient states he has been short of breath and has been increasing for the past week. Patient denies any unilateral leg swelling. Patient does have history of prostate cancer. Patient denies any hemoptysis, fevers chest pain or pain with deep inspiration. Patient did have a recent road trip from another state greater than [address]. Patient denies any abdominal pain nausea vomiting jaw pain or arm pain. Patient denies any thoracic back pain. Patient states that this morning he was so weak he was connected up from bed and almost fell. Patient denies dysuria urgency frequency remaining review of systems negative. Due to patient's generalized weakness which she denies is being focalized, more of all over sensation and the increasing SOB. Patient was brought to the ER today. - Related Data Home Medications Medication Instructions Recorded Confirmed Fluticasone Nasal [place] [Flonase 1 spray EA NOSTRIL BID 11/02/15 11/14/18 Nasal [place]] Furosemide [Lasix] 80 mg PO BID 11/02/15 11/14/18 Losartan Potassium [Cozaar] 50 mg PO DAILY 11/02/15 11/14/18 hydrALAZINE HCL [Apresoline] 25 mg PO BID 11/02/15 11/14/18 metFORMIN HCL 1,000 mg PO BID 11/02/15 11/14/18 Carvedilol [Coreg] 12.5 mg PO BID 01/28/16 11/14/18 Loratadine 10 mg PO DAILY 02/10/17 11/14/18 Ascorbic Acid [Vitamin C] 500 mg PO DAILY 08/30/17 11/14/18 Calcium Carbonate/Vitamin D3 1 tab PO BID 08/30/17 11/14/18 [Calcium 500-Vit D3 200 Tablet] Dofetilide 500 mcg PO BID 08/30/17 11/14/18 Ferrous Sulfate [Iron (65 MG 325 mg PO DAILY 08/30/17 11/14/18 Elemental)] Levothyroxine Sodium [Synthroid] 50 mcg PO DAILY 08/30/17 11/14/18 Omeprazole 20 mg PO BID 08/30/17 11/14/18 Oxybutynin Chloride 5 mg PO BID 08/30/17 11/14/18 Tamsulosin HCl [Flomax] 0.4 mg PO HS 08/30/17 11/14/18 Amitriptyline HCl 10 mg PO HS 09/19/18 11/14/18 Cyanocobalamin (Vitamin B-12) 1,000 mcg PO DAILY 09/19/18 11/14/18 [Vitamin B-12] Enzalutamide [Xtandi] 160 mg PO HS 09/19/18 11/14/18 Leuprolide Acetate [Eligard] 22.5 mg SQ Q84D 09/19/18 11/14/18 Meloxicam [Mobic] 15 mg PO DAILY 09/19/18 11/14/18 Multivitamins, Thera [Multivitamin 1 tab PO DAILY 09/19/18 11/14/18 (formulary)] Ranitidine HCl [Zantac] 300 mg PO HS 09/19/18 11/14/18 Ezetimibe 10 mg PO DAILY 11/14/18 11/14/18 Furosemide [Lasix] 40 mg PO HS 11/14/18 11/14/18 Previous Rx's Medication Instructions Recorded Apixaban [Eliquis] 5 mg PO BID #60 tab 09/21/18 Allergies Allergy/AdvReac Type Severity Reaction Status Date / Time sulfamethoxazole Allergy Unknown Rash/Hives Verified 11/14/18 16:33 trimethoprim [From Bactrim] Allergy Rash/Hives Verified 11/14/18 16:33 simvastatin [From Zocor] AdvReac Myalgia Verified 11/14/18 16:33 Review of Systems ROS Statement: Those systems with pertinent positive or pertinent negative responses have been documented in the HPI. ROS Other: All systems not noted in ROS Statement are negative. Past Medical History Past Medical History: Atrial Fibrillation, Cancer, Heart Failure, COPD, Diabetes Mellitus, GERD/Reflux, Hyperlipidemia, Hypertension, Osteoarthritis (OA), Prostate Disorder, Skin Disorder, Sleep Apnea/CPAP/BIPAP, Thyroid Disorder Additional Past Medical History / Comment(s): HX OF PROSTATE CANCER WITH RADIATION [place] (LAST-APRIL 2016), BACK PAIN , HX OF GOUT. USES CpAP AND 2 LITERS O2 AT HS, anemia, wound lt ankle and 2nd toe lt foot djd knees History of Any Multi-Drug Resistant Organisms: None Reported Past Surgical History: Orthopedic Surgery, Tonsillectomy Additional Past Surgical History / Comment(s): carpel tunnel, fatty tumor removed from leg and neck. tooth extractions Past Anesthesia/Blood Transfusion Reactions: No Reported Reaction Additional Past Anesthesia/Blood Transfusion Reaction / Comment(s): STATES DR TOLD HIM NO ANESTHESIA DUE TO LUNG FUNCTION and his heart. Past Psychological History: No Psychological Hx Reported Smoking Status: Never smoker Past Alcohol Use History: Occasional Past Drug Use History: None Reported - Past Family History Father Family Medical History: Cancer, Dementia Additional Family Medical History / Comment(s): prostate ca, oral ca from smoking Mother Family Medical History: Cancer, Diabetes Mellitus, Hypertension Additional Family Medical History / Comment(s): stomach Brother(s) Family Medical History: GI Bleed Additional Family Medical History / Comment(s): knee problems. stomach resection for bleeding ulcer General Exam - General Exam Comments Initial Comments: General: The patient is awake and alert, general unwell appearance, morbidly obese Eye: +3 mm pupils are equal, round and reactive to light, extra-ocular movements are intact. No nystagmus. There is normal conjunctiva bilaterally. No signs of icterus. Ears, nose, mouth and throat: There are moist mucous membranes and no oral lesions. Neck: The neck is supple, there is no tenderness or JVD. Cardiovascular: There is a regular rate and rhythm. No murmur, rub or gallop is appreciated. Respiratory: Expiratory wheeze on lung exam. respirations are non-labored, breath sounds are equal. No stridor, rales, or rhonchi. Gastrointestinal: Soft, non-distended, non-tender abdomen without masses or organomegaly noted. There is no rebound or guarding present. Musculoskeletal: Normal ROM, no tenderness. Strength 5/5. Sensation intact. Radial and DP pulses equal bilaterally 2+. Neurological: A&O x 3. CN II-XII intact, There are no obvious motor or sensory deficits. Coordination appears grossly intact. Speech is normal. No pronator drift. Movements are smooth and coordinated. Skin: Skin is warm and dry and no rashes or lesions are noted. B/l pitting edema of the LE. Psychiatric: Cooperative, appropriate mood & affect, normal judgment. Limitations: no limitations Course Vital Signs 11/14/18 11/14/18 11/14/18 14:32 16:15 16:31 Temperature 97.0 F L Pulse Rate 71 71 76 Respiratory 20 Rate Blood Pressure 146/64 O2 Sat by Pulse 98 Oximetry 11/14/18 16:33 Temperature Pulse Rate 71 Respiratory 16 Rate Blood Pressure 133/53 O2 Sat by Pulse 97 Oximetry Medical Decision Making - Medical Decision Making 73yo male history of prostate cancer presents emergency department for shortness of breath. Patient states increasing for the past week. Given recent travel and history of cancer d-dimer was obtained revealing elevation. CTA revealed no evidence of acute pulmonary embolism however there was evidence of metastatic disease possible cause is prostate cancer. Denies chest pain, no pressure or abdominal pain troponin (-).EKG no acute findings. Patient was given a DuoNeb treatment he states this seemed to help. Patient has no obvious focal consolidation on lung examination however on review of chest x-ray there was an area concerning for possible focal consolidation was reviewed by my attending provider. Patient was given ceftriaxone blood cultures are pending. Patient was given Solu-Medrol. At this time will admit patient for further evaluation of metastatic disease, shortness of breath. Patient is agreeable to admission Dr. Flores spoke with the admitting provider Dr. García who evaluated patient in emergency department. Patient was transferred to the floor in stable condition. - Lab Data Result diagrams: 11/14/18 15:22 11/14/18 15:22 Lab Results 11/14/18 11/14/18 11/14/18 Range/Units 15:22 15:22 15:22 WBC 5.5 (3.8-10.6) k/uL RBC 4.05 L (4.30-5.90) m/uL Hgb 12.1 L (13.0-17.5) gm/dL Hct 36.3 L (39.0-53.0) % MCV 89.7 (80.0-100.0) fL MCH 30.0 (25.0-35.0) pg MCHC 33.4 (31.0-37.0) g/dL RDW 14.1 (11.5-15.5) % Plt Count 234 (150-450) k/uL Neutrophils % 76 % Lymphocytes % 8 % Monocytes % 6 % Eosinophils % 8 % Basophils % 1 % Neutrophils # 4.2 (1.3-7.7) k/uL Lymphocytes # 0.4 L (1.0-4.8) k/uL Monocytes # 0.3 (0-1.0) k/uL Eosinophils # 0.4 (0-0.7) k/uL Basophils # 0.1 (0-0.2) k/uL PT (9.0-12.0) sec INR (<1.2) APTT (22.0-30.0) sec D-Dimer (<0.60) mg/L FEU Sodium 138 (137-145) mmol/L Potassium 4.0 (3.5-5.1) mmol/L Chloride 99 (98-107) mmol/L Carbon Dioxide 28 (22-30) mmol/L Anion Gap 11 mmol/L BUN 11 (9-20) mg/dL Creatinine 0.73 (0.66-1.25) mg/dL Est GFR (CKD-EPI)AfAm >90 (>60 ml/min/1.73 sqM) Est GFR (CKD-EPI)NonAf >90 (>60 ml/min/1.73 sqM) Glucose 104 H (74-99) mg/dL Plasma Lactic Acid Adair (0.7-2.0) mmol/L Calcium 9.2 (8.4-10.2) mg/dL Total Bilirubin 0.6 (0.2-1.3) mg/dL AST 14 L (17-59) U/L ALT 10 L (21-72) U/L Alkaline Phosphatase 69 (38-126) U/L Troponin I (0.000-0.034) ng/mL NT-Pro-B Natriuret Pep 567 pg/mL Total Protein 6.2 L (6.3-8.2) g/dL Albumin 3.6 (3.5-5.0) g/dL Urine Color Urine Appearance (Clear) Urine pH (5.0-8.0) Ur Specific [place] (1.001-1.035) Urine Protein (Negative) Urine Glucose (UA) (Negative) Urine Ketones (Negative) Urine Blood (Negative) Urine Nitrite (Negative) Urine Bilirubin (Negative) Urine Urobilinogen (<2.0) mg/dL Ur Leukocyte Esterase (Negative) Urine RBC (0-5) /hpf Urine WBC (0-5) /hpf Ur Squamous Epith Cells (0-4) /hpf Urine Bacteria (None) /hpf Hyaline Casts (0-2) /lpf Urine Mucus (None) /hpf 11/14/18 11/14/18 11/14/18 Range/Units 15:22 15:22 15:22 WBC (3.8-10.6) k/uL RBC (4.30-5.90) m/uL Hgb (13.0-17.5) gm/dL Hct (39.0-53.0) % MCV (80.0-100.0) fL MCH (25.0-35.0) pg MCHC (31.0-37.0) g/dL RDW (11.5-15.5) % Plt Count (150-450) k/uL Neutrophils % % Lymphocytes % % Monocytes % % Eosinophils % % Basophils % % Neutrophils # (1.3-7.7) k/uL Lymphocytes # (1.0-4.8) k/uL Monocytes # (0-1.0) k/uL Eosinophils # (0-0.7) k/uL Basophils # (0-0.2) k/uL PT 9.7 (9.0-12.0) sec INR 0.9 (<1.2) APTT 25.6 (22.0-30.0) sec D-Dimer (<0.60) mg/L FEU Sodium (137-145) mmol/L Potassium (3.5-5.1) mmol/L Chloride (98-107) mmol/L Carbon Dioxide (22-30) mmol/L Anion Gap mmol/L BUN (9-20) mg/dL Creatinine (0.66-1.25) mg/dL Est GFR (CKD-EPI)AfAm (>60 ml/min/1.73 sqM) Est GFR (CKD-EPI)NonAf (>60 ml/min/1.73 sqM) Glucose (74-99) mg/dL Plasma Lactic Acid [place]air 1.8 (0.7-2.0) mmol/L Calcium (8.4-10.2) mg/dL Total Bilirubin (0.2-1.3) mg/dL AST (17-59) U/L ALT (21-72) U/L Alkaline Phosphatase (38-126) U/L Troponin I <0.012 (0.000-0.034) ng/mL NT-Pro-B Natriuret Pep pg/mL Total Protein (6.3-8.2) g/dL Albumin (3.5-5.0) g/dL Urine Color Urine Appearance (Clear) Urine pH (5.0-8.0) Ur Specific [place] (1.001-1.035) Urine Protein (Negative) Urine Glucose (UA) (Negative) Urine Ketones (Negative) Urine Blood (Negative) Urine Nitrite (Negative) Urine Bilirubin (Negative) Urine Urobilinogen (<2.0) mg/dL Ur Leukocyte Esterase (Negative) Urine RBC (0-5) /hpf Urine WBC (0-5) /hpf Ur Squamous Epith Cells (0-4) /hpf Urine Bacteria (None) /hpf Hyaline Casts (0-2) /lpf Urine Mucus (None) /hpf 11/14/18 11/14/18 Range/Units 16:30 18:36 WBC (3.8-10.6) k/uL RBC (4.30-5.90) m/uL Hgb (13.0-17.5) gm/dL Hct (39.0-53.0) % MCV (80.0-100.0) fL MCH (25.0-35.0) pg MCHC (31.0-37.0) g/dL RDW (11.5-15.5) % Plt Count (150-450) k/uL Neutrophils % % Lymphocytes % % Monocytes % % Eosinophils % % Basophils % % Neutrophils # (1.3-7.7) k/uL Lymphocytes # (1.0-4.8) k/uL Monocytes # (0-1.0) k/uL Eosinophils # (0-0.7) k/uL Basophils # (0-0.2) k/uL PT (9.0-12.0) sec INR (<1.2) APTT (22.0-30.0) sec D-Dimer 0.71 H (<0.60) mg/L FEU Sodium (137-145) mmol/L Potassium (3.5-5.1) mmol/L Chloride (98-107) mmol/L Carbon Dioxide (22-30) mmol/L Anion Gap mmol/L BUN (9-20) mg/dL Creatinine (0.66-1.25) mg/dL Est GFR (CKD-EPI)AfAm (>60 ml/min/1.73 sqM) Est GFR (CKD-EPI)NonAf (>60 ml/min/1.73 sqM) Glucose (74-99) mg/dL Plasma Lactic Acid [place] (0.7-2.0) mmol/L Calcium (8.4-10.2) mg/dL Total Bilirubin (0.2-1.3) mg/dL AST (17-59) U/L ALT (21-72) U/L Alkaline Phosphatase (38-126) U/L Troponin I (0.000-0.034) ng/mL NT-Pro-B Natriuret Pep pg/mL Total Protein (6.3-8.2) g/dL Albumin (3.5-5.0) g/dL Urine Color Yellow Urine Appearance Clear (Clear) Urine pH 5.5 (5.0-8.0) Ur Specific [place] 1.022 (1.001-1.035) Urine Protein Negative (Negative) Urine Glucose (UA) Negative (Negative) Urine Ketones Negative (Negative) Urine Blood Negative (Negative) Urine Nitrite Negative (Negative) Urine Bilirubin Negative (Negative) Urine Urobilinogen <2.0 (<2.0) mg/dL Ur Leukocyte Esterase Small H (Negative) Urine RBC 1 (0-5) /hpf Urine WBC 2 (0-5) /hpf Ur Squamous Epith Cells 1 (0-4) /hpf Urine Bacteria Rare H (None) /hpf Hyaline Casts 1 (0-2) /lpf Urine Mucus Occasional H (None) /hpf - EKG Data EKG Comments: Ventricular rate is 60 bpm, GA interval 224 ms correct menstruation 154 ms, QT/QTC 468/497 ms this a sinus rhythm with a first-degree AV block there is noted premature PACs. There is left axis noted. As well as a left bundle- branch block, Which appears present on EKG recorded at visit 08/2018. Disposition Clinical Impression: SOB (shortness of breath), Metastasis, Generalized weakness, Pneumonia Disposition: ADMITTED IP TO THIS HOSP Condition: Stable Is patient prescribed a controlled substance at d/c from ED?: No Referrals: [facility],Clinic [Primary Care Provider] - 1-2 days Time of Disposition: 19:37 Decision to Admit Reason: Admit from EC Decision Date: 11/14/18 Decision Time: 17:00
[2018-11-14] MEDS ORDERED: methylPREDNISolone SOD SUCCI 125 MG/2 ML VIAL IV STA (15:49)
[2018-11-14] MEDS ORDERED: IPRATROPIUM-ALBUTEROL 3 ML NEB INHALATION STA (15:49)
[2018-11-14 15:51] LABS: ALT 10 U/L (21-72); AST 14 U/L (17-59); African American GFR (CKD) >90 (>60 ml/min/1.73 sqM); Albumin 3.6 g/dL (3.5-5.0); Alkaline Phosphatase 69 U/L (38-126); Anion Gap 11 mmol/L; Blood Urea Nitrogen 11 mg/dL (9-20); Calcium 9.2 mg/dL (8.4-10.2); Carbon Dioxide 28 mmol/L (22-30); Chloride 99 mmol/L (98-107); Glucose 104 mg/dL (74-99); Sodium 138 mmol/L (137-145); Total Bilirubin 0.6 mg/dL (0.2-1.3); Total Protein 6.2 g/dL (6.3-8.2)
[2018-11-14 15:53] LABS: INR 0.9 (<1.2); Partial Thromboplastin Time 25.6 sec (22.0-30.0); Prothrombin Time 9.7 sec (9.0-12.0)
--- NOTE | 2018-11-14 16:00 | XR ---
EXAMINATION TYPE: XR chest 2V DATE OF EXAM: 11/14/2018 COMPARISON: 09/19/2018 HISTORY: 73-year-old male with shortness of breath, difficulty breathing TECHNIQUE: AP and lateral views FINDINGS: Heart is borderline unenlarged. Central peribronchial cuffing and mild perihilar densities. No nathaly pleural effusion or consolidation. Hazy lung densities related to overlying soft tissue. Chronic full -thickness rotator cuff tears on both sides. IMPRESSION: Borderline heart size with some central peribronchial cuffing. This could reflect mild pulmonary vasc ular congestion, bronchitis, or asthma.
[2018-11-14 18:53] LABS: Appearance,Urine Clear (Clear); Bacteria,Urine Rare /hpf; Bilirubin,Urine Negative (Negative); Blood,Urine Negative (Negative); Color,Urine Yellow; Glucose,Urine (UA) Negative (Negative); Hyaline Casts,Urine 1 /lpf (0-2); Ketones,Urine Negative (Negative); Leukocyte Esterase,Urine Small (Negative); Mucus,Urine Occasional /hpf; Nitrite,Urine Negative (Negative); PH, Urine 5.5 (5.0-8.0); Protein,Urine Negative (Negative); RBC,Urine 1 /hpf (0-5); Specific Gravity,Urine 1.022 (1.001-1.035); Squamous Epithelial Cell,Urine 1 /hpf (0-4); Urobilinogen,Urine <2.0 mg/dL (<2.0)
--- NOTE | 2018-11-14 18:54 | CT ---
EXAMINATION TYPE: CT angio chest DATE OF EXAM: 11/14/2018 6:24 PM COMPARISON: 02/14/2017 HISTORY: Elevated d-dimer. Shortness of breath and weakness x [address] DLP: 978.7 mGycm Automated exposure control for dose reduction was used. CONTRAST: CTA scan of the thorax is performed with IV Contrast, patient injected with 100 mL of Isovue 370, pul monary embolism protocol. . There are 3-D post processed images. FINDINGS: There is some patchy infiltrate and atelectasis in the left lower lobe. There is small area of atelec tasis at the inferior right pulmonary hilum. There is small area of infiltrate in the posterior segme nt left upper lobe. There is no pleural effusion. There is no pericardial effusion. Thoracic aorta shows no aneurysm or dissection. There is normal contrast opacification of the pulmona ry arteries. I see no filling defects. There is some spurring in the thoracic spine. There are multip le variable-sized osteosclerotic foci in the thoracic spine. There is no evidence of pneumothorax. IMPRESSION: NO EVIDENCE OF PULMONARY EMBOLISM. THERE ARE NEW BILATERAL MULTIPLE AREAS OF PULMONARY INFILTRATE AND ATELECTASIS COMPARED TO OLD EXAM. THERE IS NUMEROUS FOCI OF OSTEOBLASTIC CHANGE IN THE BONY THORAX CONSISTENT WITH METASTATIC DISEASE T HAT APPEARS NEW COMPARED TO OLD EXAM.
[2018-11-14] MEDS ORDERED: NALOXONE 0.4 MG/ML 1 ML VIAL IV PRN (19:37)
[2018-11-14] MEDS ORDERED: ALPRAZolam 0.25 MG TAB PO PRN (19:45)
[2018-11-14] MEDS ORDERED: LEUPROLIDE ACETATE 22.5 MG SQ SCH (19:45)
[2018-11-14] MEDS ORDERED: VANCOMYCIN IV PER PHARMACY 1 EACH MISC MISCELLANE PRN (19:46)
[2018-11-14] MEDS: IPRATROPIUM-ALBUTEROL 3 ML NEB INHALATION SCH ×2 (19:52→23:38)
[2018-11-14] MEDS ORDERED: VANCOMYCIN 2,250 MG in SODIUM CHLORIDE 0.9% 500 ML 500 ML IVPB ONE (20:00)
[2018-11-14] MEDS: SODIUM CHLORIDE 0.9% 1,000 ML IV SCH (20:56)
[2018-11-14] MEDS ORDERED: ENZALUTAMIDE 160 MG PO SCH (21:00)
[2018-11-14] MEDS: SYMBICORT 160-4.5 MCG INHALER INHALATION SCH (21:05)
[2018-11-14] MEDS: CALCIUM CARB-VIT D 500MG-200UN 1 EACH TAB PO SCH (21:56)
[2018-11-14] MEDS: OXYBUTYNIN CHLORIDE 5 MG TAB PO SCH (21:56)
[2018-11-14] MEDS: hydrALAZINE HCL 25 MG TAB PO SCH (21:56)
[2018-11-14] MEDS: TAMSULOSIN 0.4 MG CAP.ER.24H PO SCH (21:56)
[2018-11-14] MEDS: APIXABAN 5 MG TAB PO SCH (21:56)
[2018-11-14] MEDS: DOFETILIDE 500 MCG CAP PO SCH (22:04)
[2018-11-14] MEDS: metFORMIN 500 MG TAB PO SCH (22:04)
[2018-11-14] MEDS: PANTOPRAZOLE 40 MG TABLET PO SCH (22:05)
[2018-11-14] MEDS: AMITRIPTYLINE HCL 10 MG TAB PO SCH (22:05)
[2018-11-14] MEDS: CARVEDILOL 12.5 MG TAB PO SCH (22:05)
--- NOTE | 2018-11-14 22:20 | HP ---
HISTORY AND PHYSICAL DATE OF SERVICE: 11/14/2018 CHIEF COMPLAINTS: Weakness and shortness of breath. HISTORY OF PRESENT ILLNESS: This 73-year-old gentleman with a past medical history of multiple medical problems, including atrial fibrillation, CHF, COPD, diabetes mellitus, type 2, hypertension, hyperlipidemia, history of sleep apnea, history of hypothyroidism, was [facility] [place]. The patient apparently has recently been to [place] and was admitted to an [facility] with complaints of weakness and tiredness, some disorientation and confusion. No exact diagnosis was established, per family. They drove back to [place], but the patient has not been feeling well since he came here a week ago. The patient was also suspected to have seizure disorder. The patient was previously admitted with change in mental status to [facility]. The patient also developed increasing cough and sputum and weakness. The patient came to [facility] and was admitted for further evaluation and treatment. PAST MEDICAL HISTORY: 1. Atrial fibrillation. 2. CHF. 3. COPD. 4. Diabetes mellitus. 5. GERD. 6. Hypertension. 7. Hyperlipidemia. 8. History of DJD. 9. Sleep apnea. HOME MEDICATIONS: 1. Leuprolide 22.5 mg q.48 days. 2. Multivitamins 1 p.o. daily. 3. Synthroid 50 mcg p.o. daily. 4. Flomax 0.4 at bedtime. 5. Zantac 300 mg at bedtime. 6. Omeprazole 20 mg p.o. b.i.d. 7. Iron 325 mg p.o. daily. 8. Vitamin B12 1000 mcg p.o. daily. 9. Vitamin D3 one tablet p.o. b.i.d. 10.Vitamin C 500 mg p.o. daily. 11.Oxybutynin 5 mg p.o. b.i.d. 12.Mobic 15 mg p.o. daily. 13.Amitriptyline 10 mg p.o. at bedtime. 14.Metformin 1000 mg p.o. b.i.d. 15.Ezetimibe 10 mg p.o. daily. 16.Dofetilide 500 p.o. b.i.d. 17.Xtandi 160 mg p.o. at bedtime. 18.Cozaar 50 mg p.o. daily. 19.Lasix 40 mg at bedtime and 80 mg p.o. b.i.d. 20.Coreg 12.5 mg p.o. b.i.d. 21.Eliquis 5 mg p.o. b.i.d. 22.Apresoline 25 mg p.o. b.i.d. 23.Loratadine 10 mg p.o. daily. 24.Flonase 1 spray b.i.d. ALLERGIES: 1. SULFAMETHOXAZOLE. 2. TRIMETHOPRIM. 3. ZOCOR. FAMILY HISTORY: History of cancer and dementia, prostate cancer. SOCIAL HISTORY: No history of smoking. No history of alcohol intake. REVIEW OF SYSTEMS: ENT: Diminished hearing. Diminished vision. CARDIOVASCULAR SYSTEM: As mentioned earlier. RESPIRATORY SYSTEM: As mentioned earlier. GI: As mentioned earlier. : No dysuria or retention. NERVOUS SYSTEM: As mentioned earlier. ALLERGY/IMMUNOLOGY: No asthma, hayfever. MUSCULOSKELETAL: As mentioned earlier. HEMATOLOGY/ONCOLOGY: As mentioned earlier. ENDOCRINE: As mentioned earlier. CONSTITUTIONAL: As mentioned earlier. DERMATOLOGY: Negative. RHEUMATOLOGY: Negative. PSYCHIATRY: As mentioned earlier. PHYSICAL EXAMINATION: Patient alert and oriented x3. Pulse 71, blood pressure 133/53, respirations 16, temperature 97 degrees, pulse ox 97% on 2 L. HEENT: Conjunctivae normal. Oral mucosa moist. NECK: Obese. CARDIOVASCULAR SYSTEM: S1, S2 muffled. RESPIRATORY SYSTEM: Breath sounds diminished at the bases. A few scattered rhonchi and crackles. ABDOMEN: Soft, obese, non-tender. No mass palpable. LEGS: No edema. No swelling. NERVOUS SYSTEM: Higher functions as mentioned earlier. Moves all 4 limbs. No focal motor or sensory deficit. LYMPHATICS: No lymph node palpable in neck, axillae or groin. SKIN: No ulcer, rash, bleeding. JOINTS: No active deforming arthropathy. LABS: WBC 5.5, hemoglobin 12.1. AST is 14, ALT is 10. UA noted. ASSESSMENT: 1. Possible acute bilateral pneumonia; possibly gram-negative, possibly hospital- acquired. 2. Anemia, normocytic; anemia of chronic disease. 3. Metabolic encephalopathy, acute, multifactorial. 4. Atrial fibrillation history, paroxysmal. 5. History of congestive heart failure; ejection fraction unknown. 6. Chronic obstructive pulmonary disease history. 7. Chronic obstructive pulmonary disease. 8. Diabetes mellitus, type 2. 9. Gastroesophageal reflux disease. 10.Hypertension. 11.Hyperlipidemia. 12.History of degenerative joint disease. 13.History of prostate cancer with radiation treatment. 14.History of gout. 15.Chronic hypoxic respiratory failure, on 2 L nasal cannula oxygen. 16.Obesity with body mass index 39.9. 17.Congestive heart failure with chronic diastolic dysfunction. 18.FULL CODE. RECOMMENDATIONS AND DISCUSSION: In this 73-year-old gentleman who presented with multiple complex medical issues, I would recommend continuing the current management, continue symptomatic treatment. Will initiate broad-spectrum IV antibiotics, bronchodilators. Will also obtain a PT/OT evaluation. Dr. Mcclellan will be consulted for possible . Otherwise, incentive spirometry. Resume the home medications. Guarded prognosis because of multiple complex medical issues. Discussed with the patient's at the bedside, who understands and agrees. Further recommendations to follow. A copy of this dictation is being forwarded to Dr. Haley at [facility]. MULU / CONORN: [id number] / MTDMichael
[2018-11-14] MEDS: ENZALUTAMIDE 40 MG PO SCH (22:29)
[2018-11-15] MEDS: FLUTICASONE 50MCG/SPRAY NASAL 16GM EA NOSTRIL SCH ×3 (00:14→20:29)
[2018-11-15] MEDS: PIPERACILLIN-TAZOBACTAM 3.375 GM in SODIUM CHLORIDE 0.9% 100 ML IVPB SCH ×4 (00:14→20:45)
[2018-11-15] MEDS: IPRATROPIUM-ALBUTEROL 3 ML NEB INHALATION SCH ×5 (03:51→21:15)
[2018-11-15] MEDS: LEVOTHYROXINE 50 MCG TAB PO SCH (05:49)
[2018-11-15 08:31] LABS: African American GFR (CKD) >90 (>60 ml/min/1.73 sqM); Anion Gap 9 mmol/L; Blood Urea Nitrogen 11 mg/dL (9-20); Calcium 9.3 mg/dL (8.4-10.2); Carbon Dioxide 29 mmol/L (22-30); Chloride 102 mmol/L (98-107); Glucose 100 mg/dL (74-99); Potassium 4.4 mmol/L (3.5-5.1); Sodium 140 mmol/L (137-145)
[2018-11-15] MEDS: LOSARTAN 50 MG TAB PO SCH (08:41)
[2018-11-15] MEDS: hydrALAZINE HCL 25 MG TAB PO SCH ×2 (08:41→20:28)
[2018-11-15] MEDS: ASCORBIC ACID 500 MG TAB PO SCH (08:41)
[2018-11-15] MEDS: CYANOCOBALAMIN 500 MCG TAB PO SCH (08:41)
[2018-11-15] MEDS: MELOXICAM 7.5 MG TAB PO SCH (08:41)
[2018-11-15] MEDS: OXYBUTYNIN CHLORIDE 5 MG TAB PO SCH ×2 (08:41→20:28)
[2018-11-15] MEDS: APIXABAN 5 MG TAB PO SCH ×2 (08:41→20:28)
[2018-11-15] MEDS: CARVEDILOL 12.5 MG TAB PO SCH ×2 (08:41→17:19)
[2018-11-15] MEDS: metFORMIN 500 MG TAB PO SCH ×2 (08:41→17:19)
[2018-11-15] MEDS: CALCIUM CARB-VIT D 500MG-200UN 1 EACH TAB PO SCH ×2 (08:42→20:28)
[2018-11-15] MEDS: PANTOPRAZOLE 40 MG TABLET PO SCH (08:42)
[2018-11-15] MEDS: EZETIMIBE 10 MG TAB PO SCH (08:42)
[2018-11-15] MEDS: VANCOMYCIN 2,000 MG in SODIUM CHLORIDE 0.9% 500 ML 500 ML IVPB SCH ×2 (08:42→20:35)
[2018-11-15] MEDS: MULTIVITAMINS, THERA 1 EACH TAB PO SCH (08:42)
[2018-11-15] MEDS: DOFETILIDE 500 MCG CAP PO SCH ×2 (08:43→20:28)
[2018-11-15 08:47] LABS: Basophils % (A) 1 %; Eosinophils # (A) 0.1 k/uL (0-0.7); Eosinophils % (A) 3 %; HCT 33.8 % (39.0-53.0); HGB 11.2 gm/dL (13.0-17.5); Lymphocytes # (A) 0.5 k/uL (1.0-4.8); Lymphocytes % (A) 10 %; MCH 30.1 pg (25.0-35.0); MCHC 33.1 g/dL (31.0-37.0); MCV 90.9 fL (80.0-100.0); Mean Platelet Volume 7.5; Monocytes # (A) 0.3 k/uL (0-1.0); Monocytes % (A) 6 %; Neutrophils # (A) 3.6 k/uL (1.3-7.7); Neutrophils % (A) 78 %; Platelet Count 234 k/uL (150-450); RBC 3.72 m/uL (4.30-5.90); RDW 14.3 % (11.5-15.5); WBC 4.6 k/uL (3.8-10.6)
[2018-11-15] MEDS: SYMBICORT 160-4.5 MCG INHALER INHALATION SCH ×2 (09:14→21:16)
[2018-11-15] MEDS: traMADol 50 MG TAB PO SCH ×2 (09:54→20:33)
[2018-11-15] MEDS: DEXAMETHASONE SOD PHOSPHATE 4 MG/ML 1 ML VIAL IV SCH ×3 (10:36→23:27)
[2018-11-15] MEDS: FUROSEMIDE 10 MG/ML 4 ML VIAL IV SCH ×3 (11:28→23:05)
[2018-11-15 11:39] LABS: Glucose,Whole Blood 115 mg/dL (75-99)
[2018-11-15] MEDS: INSULIN ASPART (NovoLOG) 100 UNIT/ML VIAL SQ SCH ×3 (11:59→20:45)
--- NOTE | 2018-11-15 15:00 | PN ---
PROGRESS NOTE DATE OF SERVICE: 11/15/2018 This is a 73-year-old gentleman admitted with weakness and cough and sputum and possible acute bilateral pneumonia. Patient started on broad spectrum IV antibiotics. The patient also had a prostate cancer with diffuse mets, Oncology following the patient closely and recommending possible MRI also. [facility] PAST MEDICAL HISTORY: Reviewed. REVIEW OF SYSTEMS: CARDIOVASCULAR: No angina. RESPIRATION: As mentioned earlier. GI: As mentioned earlier. : As mentioned earlier. CURRENT MEDICATIONS: Reviewed and include: 1. DuoNeb q.i.d. and p.r.n. 2. Xanax 0.5 t.i.d. 3. Elavil 10 mg q.h.s. 4. Eliquis 5 mg p.o. b.i.d. 5. Vitamin C 500 mg daily. 6. Symbicort 160/4.5 two puffs b.i.d. 7. Os-Christopher with vitamin D p.o. b.i.d. 8. Coreg 12.5 mg b.i.d. 9. Vitamin B12. 10.Decadron 4 mg IV q.h.s. 11.Zetia 10 mg p.o. daily. 12.Lasix 40 mg IV q.i.d. 13.NovoLog. 14.Synthroid. 15.Cozaar. 16.Mobic. 17.Glucophage. 18.Multivitamins. 19.Narcan. 20.Ditropan. 21.Protonix. 22.Zosyn. 23.Ultram. 24.Flomax. The doses are not reviewed. PHYSICAL EXAM: Patient is alert, oriented x3, the pulse 60, blood pressure 130/60, respiration 18, temperature 97.2, pulse ox 94% on 2 L. HEENT: Conjunctivae small expression bases. A few scattered rhonchi. No crackles. ABDOMEN: Soft, nontender. No mass palpable. LEGS: No edema. NERVOUS SYSTEM: Diffusely weak, wasting also present. LABS: WBC 4.2, hemoglobin 11.2, glucose 100. ASSESSMENT: 1. Acute bilateral pneumonia possibly gram-negative possibly hospital acute. 2. Anemia, normocytic anemia of chronic disease. 3. Metabolic encephalopathy, acute, multifactorial. 4. Atrial fibrillation, history of paroxysmal next history of CHF ejection fraction unknown next history of chronic obstructive pulmonary disease. 5. Diabetes mellitus type 2. 6. Gastroesophageal reflux disease. 7. Hypertension. 8. Hyperlipidemia. 9. History of degenerative joint disease. 10.History of prostate cancer with METS on radiation treatment next history of gout. 11.Chronic hypoxic respiratory failure on 2 L nasal cannula next obesity with body mass index of 39.9. 12.Congestive heart failure with chronic diastolic dysfunction. 13.FULL CODE. RECOMMENDATION: This is a 70-year-old gentleman who presented with multiple complex medical issues, we will monitor the patient closely, continue the current medications, symptomatic treatment. Continue with broad-spectrum IV antibiotics. Otherwise, hematology/oncology input appreciated. I will follow the pillowcase folder and [facility]. Otherwise, prognosis guarded because of multiple complex. I would also recommend evaluation, possible ECF rehab also because patient seems to be extremely weak and 1 ensure safety at home. Will work with discharge planning team. Further recommendations to follow. MULU / CONORN: [id number] /
--- NOTE | 2018-11-15 15:36 | P.CONS ---
History of Present Illness - Reason for Consult Consult date: 11/15/18 metastatic prostate cancer Requesting physician: Irish Hawk - Chief Complaint BLE weakness - History of Present Illness Mr. Jay is a pleasant male pt of Dr. Mcclellan, initially seen in consult 01/14. He was diagnosed with prostate cancer at the [facility] 05/[facility], PSA in the 26-27 range, staging PET 10/14 negative for metastatic disease. He was treated with "pill" and "shots" (casodex and lupron). Restaging scans 01/14 revealed small PE in the RLL. The pt was admitted to [facility] and seen in consult. Lamont PE was an incidental finding and related to cancer. He had been started on coumadin 3 wks prior, for a fib, and continuation was recommended. He started XRT 01/14 at [facility]. He was admitted again for weakness on 03/05/16, CTA again showing the PE. This was felt to represent his old clot. The case was d/w IM, and coumadin was continued. The CTA also showed sub cm lung nodules. He was seen for his 1st OV on 03/10/16, as he is considering transferring his care here but, decided to continue treatment at the [facility] at that time. He was seen back on 04/07/18 again, wi th an objective of transferring care. He stated that his PSA had started to rise in 05/16, increased significantly by late 2017 and he was placed on Xtandi in early 03/19, which he continues on now. He reports having CT and bone scans with bone mets but, no other visceral disease-I do have to verify this). Last seen in office 08/12/18. He continues on oral Xtandi. Completed palliative XRT to T and L spine areas about 3 weeks ago. Patient is currently admitted for one week of progressive bilateral lower extremity weakness, he cannot stand for very long on his own, requires assistan ce to stand up , feet are feeling somewhat numb at this time, pain is in the low back as well as the back of the head and the base of the skull. Patient denies fevers, chills, nausea, vomiting, no unusual shortness of breath or difficulty in breathing, palpitations or sensations of atrial fibrillation, abdominal pain, distention, stools are loose but not diarrhea, this is stable for him, no black or bloody stools, bleeding, bilateral lower extremity swelling. Patient has no other pain to report. Review of Systems 14 point ROS is negative except as stated in HPI Past Medical History Past Medical History: Atrial Fibrillation, Cancer, Heart Failure, COPD, Diabetes Mellitus, GERD/Reflux, Hyperlipidemia, Hypertension, Osteoarthritis (OA), Prostate Disorder, Skin Disorder, Sleep Apnea/CPAP/BIPAP, Thyroid Disorder Additional Past Medical History / Comment(s): HX OF PROSTATE CANCER WITH RADIATION [place] (LAST-APRIL 2016), BACK PAIN , HX OF GOUT. USES CpAP AND 2 LITERS O2 AT HS, anemia, wound lt ankle and 2nd toe lt foot djd knees History of Any Multi-Drug Resistant Organisms: None Reported Past Surgical History: Orthopedic Surgery, Tonsillectomy Additional Past Surgical History / Comment(s): carpel tunnel, fatty tumor removed from leg and neck. tooth extractions Past Anesthesia/Blood Transfusion Reactions: No Reported Reaction Additional Past Anesthesia/Blood Transfusion Reaction / Comm: STATES DR TOLD HIM NO ANESTHESIA DUE TO LUNG FUNCTION and his heart. Past Psychological History: No Psychological Hx Reported Additional Psychological History / Comment(s): had some group therapy after he came back from [place], [facility], neb, cpap. , lives in single level home that has 5 steps. No travel since his days. History of tobacco use. No current alcohol use. 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 HAS 1 PET DOG Smoking Status: Former smoker Past Alcohol Use History: Occasional Additional Past Alcohol Use History / Comment(s): Patient was a smoker from for one year while in [place]. No current alcohol use. 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 No animal exposures. He is and lives with his . No recent travel since his days. Patient did require cryotherapy when he came back from [place]. Past Drug Use History: None Reported Additional Drug Use History / Comment(s): MARIJUANA WHEN IN [place] [id number] - Past Family History Father Family Medical History: Cancer, Dementia Additional Family Medical History / Comment(s): prostate ca, oral ca from smoking Mother Family Medical History: Cancer, Diabetes Mellitus, Hypertension Additional Family Medical History / Comment(s): stomach Brother(s) Family Medical History: GI Bleed Additional Family Medical History / Comment(s): knee problems. stomach resection for bleeding ulcer Medications and Allergies Home Medications Medication Instructions Recorded Confirmed Type Fluticasone Nasal [place] [Flonase 1 spray EA NOSTRIL BID 11/02/15 11/14/18 History Nasal [place]] Furosemide [Lasix] 80 mg PO BID 11/02/15 11/14/18 History Losartan Potassium [Cozaar] 50 mg PO DAILY 11/02/15 11/14/18 History hydrALAZINE HCL [Apresoline] 25 mg PO BID 11/02/15 11/14/18 History metFORMIN HCL 1,000 mg PO BID 11/02/15 11/14/18 History Carvedilol [Coreg] 12.5 mg PO BID 01/28/16 11/14/18 History Loratadine 10 mg PO DAILY 02/10/17 11/14/18 History Ascorbic Acid [Vitamin C] 500 mg PO DAILY 08/30/17 11/14/18 History Calcium Carbonate/Vitamin D3 1 tab PO BID 08/30/17 11/14/18 History [Calcium 500-Vit D3 200 Tablet] Dofetilide 500 mcg PO BID 08/30/17 11/14/18 History Ferrous Sulfate [Iron (65 MG 325 mg PO DAILY 08/30/17 11/14/18 History Elemental)] Levothyroxine Sodium [Synthroid] 50 mcg PO DAILY 08/30/17 11/14/18 History Omeprazole 20 mg PO BID 08/30/17 11/14/18 History Oxybutynin Chloride 5 mg PO BID 08/30/17 11/14/18 History Tamsulosin HCl [Flomax] 0.4 mg PO HS 08/30/17 11/14/18 History Amitriptyline HCl 10 mg PO HS 09/19/18 11/14/18 History Cyanocobalamin (Vitamin B-12) 1,000 mcg PO DAILY 09/19/18 11/14/18 History [Vitamin B-12] Enzalutamide [Xtandi] 160 mg PO HS 09/19/18 11/14/18 History Leuprolide Acetate [Eligard] 22.5 mg SQ Q84D 09/19/18 11/14/18 History Meloxicam [Mobic] 15 mg PO DAILY 09/19/18 11/14/18 History Multivitamins, Thera [Multivitamin 1 tab PO DAILY 09/19/18 11/14/18 History (formulary)] Ranitidine HCl [Zantac] 300 mg PO HS 09/19/18 11/14/18 History Apixaban [Eliquis] 5 mg PO BID #60 tab 09/21/18 11/14/18 Rx Ezetimibe 10 mg PO DAILY 11/14/18 11/14/18 History Furosemide [Lasix] 40 mg PO HS 11/14/18 11/14/18 History Allergies Allergy/AdvReac Type Severity Reaction Status Date / Time sulfamethoxazole Allergy Unknown Rash/Hives Verified 11/14/18 16:33 trimethoprim [From Bactrim] Allergy Rash/Hives Verified 11/14/18 16:33 simvastatin [From Zocor] AdvReac Myalgia Verified 11/14/18 16:33 Physical Exam Vitals: Vital Signs Temp Pulse Pulse Resp BP BP Pulse Ox 11/15/18 09:28 89 11/15/18 09:15 95 20 95 11/15/18 07:00 97.6 F 60 18 135/67 95 11/15/18 04:02 70 11/15/18 03:53 70 11/14/18 23:50 74 11/14/18 23:38 74 93 L 11/14/18 22:00 97.2 F L 80 18 152/69 93 L 11/14/18 20:53 63 20 137/55 95 11/14/18 20:05 75 11/14/18 19:53 74 11/14/18 16:33 71 16 133/53 97 11/14/18 16:31 76 11/14/18 16:15 71 11/14/18 14:32 97.0 F L 71 20 146/64 98 Intake and Output 11/14/18 11/15/18 11/15/18 22:59 06:59 14:59 Intake Total 300 Balance 300 Intake: Oral 300 Other: Voiding Method Urinal # Voids 1 0 # Bowel Movements 0 - Constitutional General appearance: cooperative, no acute distress, obese - EENT Eyes: anicteric sclerae, EOMI, poor dentition ENT: hearing grossly normal, normal oropharynx - Neck Neck: no lymphadenopathy - Respiratory Respiratory: bilateral: CTA, diminished - Cardiovascular Heart sounds: normal: S1, S2 leg Peripheral Edema: bilateral: None - Gastrointestinal General gastrointestinal: no absent bowel sounds, no decreased bowel sounds, no distended, no hepatomegaly, no hyperactive bowel sounds, normal bowel sounds, no organomegaly, no rigid, no scaphoid, soft, no splenomegaly, no tenderness, no umbilical hernia, no ventral hernia - Integumentary LLE bronzing of skin - Neurologic BLE weakness, mild Neurologic: CNII-XII intact - Musculoskeletal Pain with palpation of L2 Musculoskeletal: generalized weakness, strength equal bilaterally - Psychiatric Psychiatric: A&O x's 3, appropriate affect, intact judgment & insight Results CBC & Chem 7: 11/15/18 07:50 11/15/18 07:50 Labs: Abnormal Lab Results - Last 24 Hours (Table) 11/14/18 11/14/18 11/14/18 Range/Units 15:22 15:22 16:30 RBC 4.05 L (4.30-5.90) m/uL Hgb 12.1 L (13.0-17.5) gm/dL Hct 36.3 L (39.0-53.0) % Lymphocytes # 0.4 L (1.0-4.8) k/uL D-Dimer 0.71 H (<0.60) mg/L FEU Glucose 104 H (74-99) mg/dL AST 14 L (17-59) U/L ALT 10 L (21-72) U/L Total Protein 6.2 L (6.3-8.2) g/dL Ur Leukocyte Esterase (Negative) Urine Bacteria (None) /hpf Urine Mucus (None) /hpf 11/14/18 11/15/18 11/15/18 Range/Units 18:36 07:50 07:50 RBC 3.72 L (4.30-5.90) m/uL Hgb 11.2 L (13.0-17.5) gm/dL Hct 33.8 L (39.0-53.0) % Lymphocytes # 0.5 L (1.0-4.8) k/uL D-Dimer (<0.60) mg/L FEU Glucose 100 H (74-99) mg/dL AST (17-59) U/L ALT (21-72) U/L Total Protein (6.3-8.2) g/dL Ur Leukocyte Esterase Small H (Negative) Urine Bacteria Rare H (None) /hpf Urine Mucus Occasional H (None) /hpf Microbiology - Last 24 Hours (Table) 11/14/18 20:08 Gram Stain - Preliminary Sputum Chest x-ray: report reviewed CT scan - chest: report reviewed Assessment and Plan (1) Weakness Narrative/Plan: Patient's symptoms are concerning. It was confirmed with Radiation Oncology that he did finish radiation to most of the mid thoracic spine and lumbar spine, L2-L5, in the last few weeks. The bilateral lower extremity weakness is new and of concern. Patient has been placed on steroids. He does require open MRI due to size as well as terrible claustrophobia but, unable to be performed. CT scan has been ordered to assess for compression fracture or impending cord compression. Follow up on symptoms. Current Visit: Yes Status: Acute Priority: High Code(s): R53.1 - WEAKNESS SNOMED Code(s): 36607306 (2) Prostate cancer metastatic to bone Narrative/Plan: PSA ordered. [facility]. Cont xtandi for now. Lupron will continue. PSA ordered Current Visit: Yes Status: Chronic Priority: Medium Code(s): C61 - MALIGNANT NEOPLASM OF PROSTATE; C79.51 - SECONDARY MALIGNANT NEOPLASM OF BONE SNOMED Code(s): 249342240 (3) Pulmonary embolism Narrative/Plan: Cont anticoagulation for now Current Visit: No Status: Chronic Priority: Medium Code(s): I26.99 - OTHER PULMONARY EMBOLISM WITHOUT ACUTE COR PULMONALE SNOMED Code(s): 38029115 Plan: Doctor attests: I performed a history and physical examination of this patient, developed impression and plan of care, discussed with dictator. I agree with dictators note, documented as a scribe.
--- NOTE | 2018-11-15 17:01 | CT ---
EXAMINATION TYPE: CT thor lumbar spine w con DATE OF EXAM: 11/15/2018 COMPARISON: CT chest 02/14/2017 HISTORY: Back pain and bilateral leg weakness. CT DLP: 3290.2 mGycm Automated exposure control for dose reduction was used. CONTRAST: Performed with IV Contrast, patient injected with 100ml mL of Isovue 300. FINDINGS: Multiple axial sections were obtained from the level of T1-S3 vertebra with intravenous contrast. The contrast was Omnipaque 100 mL. There is a minimal thoracic dextroscoliosis. There is mild thoracolumbar levoscoliosis. There is hype rtrophic degenerative spurring in the lower thoracic spine and the lower lumbar spine with anterior m oderate osteophyte formation. There is some osteopenia. I see no significant compression deformity. T here is 5-10% loss of height of T11-T7 vertebra. There is no thoracic paraspinal mass. There is some patchy infiltrate and atelectasis left lower lobe. I see no pathologic enhancement. There are multipl e areas of osteoblastic change in the thoracic and lumbar spine involving posterior elements as well as the vertebral bodies. There are sclerotic foci that measure up to 12 mm. I see no focal bone destruction. There are also blastic small foci in the left ilium laterally and me dially. There are small blastic foci in a few of the visualized ribs.. IMPRESSION: MULTIPLE OSTEOPOROTIC TYPE THORACIC COMPRESSION FRACTURES ARE VERY MINIMAL. MILD SCOLIOSIS. NUMEROUS AREAS OF OSTEOBLASTIC CHANGE IN THE BONY THORAX AND LUMBAR SPINE AND VISUALIZED PELVIS CONSISTENT WIT H METASTATIC DISEASE. OSTEOBLASTIC CHANGES ARE NEW COMPARED TO OLD CT SCAN OF 02/14/2017. NO PATHOLOG IC FRACTURE. PATCHY INFILTRATE AND ATELECTASIS LEFT LOWER LOBE UNCHANGED COMPARED TO YESTERDAY.
[2018-11-15 17:13] LABS: Glucose,Whole Blood 126 mg/dL (75-99)
[2018-11-15] MEDS: SODIUM CHLORIDE 0.9% 1,000 ML IV SCH (18:55)
[2018-11-15] MEDS: TAMSULOSIN 0.4 MG CAP.ER.24H PO SCH (20:28)
[2018-11-15] MEDS: AMITRIPTYLINE HCL 10 MG TAB PO SCH (20:28)
[2018-11-15] MEDS: ENZALUTAMIDE 40 MG PO SCH (20:29)
[2018-11-15 20:49] LABS: Glucose,Whole Blood 149 mg/dL (75-99)
[2018-11-15] MEDS ORDERED: ENZALUTAMIDE 160 MG PO SCH (21:00)
[2018-11-16] MEDS: IPRATROPIUM-ALBUTEROL 3 ML NEB INHALATION SCH ×7 (00:51→23:41)
[2018-11-16] MEDS: LEVOTHYROXINE 50 MCG TAB PO SCH (05:20)
[2018-11-16] MEDS: PIPERACILLIN-TAZOBACTAM 3.375 GM in SODIUM CHLORIDE 0.9% 100 ML IVPB SCH ×3 (05:20→21:18)
[2018-11-16 07:38] LABS: Glucose,Whole Blood 123 mg/dL (75-99)
[2018-11-16] MEDS: INSULIN ASPART (NovoLOG) 100 UNIT/ML VIAL SQ SCH ×4 (07:46→21:18)
[2018-11-16] MEDS: LOSARTAN 50 MG TAB PO SCH (07:51)
[2018-11-16] MEDS: CYANOCOBALAMIN 500 MCG TAB PO SCH (07:51)
[2018-11-16] MEDS: PANTOPRAZOLE 40 MG TABLET PO SCH (07:51)
[2018-11-16] MEDS: MULTIVITAMINS, THERA 1 EACH TAB PO SCH (07:51)
[2018-11-16] MEDS: CALCIUM CARB-VIT D 500MG-200UN 1 EACH TAB PO SCH ×2 (07:51→20:28)
[2018-11-16] MEDS: metFORMIN 500 MG TAB PO SCH (07:51)
[2018-11-16] MEDS: DEXAMETHASONE SOD PHOSPHATE 4 MG/ML 1 ML VIAL IV SCH ×2 (07:51→16:57)
[2018-11-16] MEDS: ASCORBIC ACID 500 MG TAB PO SCH (07:51)
[2018-11-16] MEDS: MELOXICAM 7.5 MG TAB PO SCH (07:52)
[2018-11-16] MEDS: OXYBUTYNIN CHLORIDE 5 MG TAB PO SCH ×2 (07:52→20:28)
[2018-11-16] MEDS: CARVEDILOL 12.5 MG TAB PO SCH ×2 (07:52→17:58)
[2018-11-16] MEDS: APIXABAN 5 MG TAB PO SCH ×2 (07:52→20:31)
[2018-11-16] MEDS: hydrALAZINE HCL 25 MG TAB PO SCH ×2 (07:52→20:27)
[2018-11-16] MEDS: FUROSEMIDE 10 MG/ML 4 ML VIAL IV SCH ×2 (07:53→17:03)
[2018-11-16] MEDS: VANCOMYCIN 2,000 MG in SODIUM CHLORIDE 0.9% 500 ML 500 ML IVPB SCH ×2 (07:53→20:31)
[2018-11-16] MEDS: EZETIMIBE 10 MG TAB PO SCH (07:55)
[2018-11-16] MEDS: DOFETILIDE 500 MCG CAP PO SCH ×2 (07:55→20:29)
[2018-11-16] MEDS: traMADol 50 MG TAB PO SCH ×2 (07:56→20:29)
[2018-11-16] MEDS: SYMBICORT 160-4.5 MCG INHALER INHALATION SCH ×2 (08:20→20:37)
[2018-11-16 08:38] LABS: Basophils % (A) 0 %; Eosinophils # (A) 0.1 k/uL (0-0.7); Eosinophils % (A) 1 %; HCT 36.8 % (39.0-53.0); Lymphocytes # (A) 0.5 k/uL (1.0-4.8); Lymphocytes % (A) 9 %; MCH 29.8 pg (25.0-35.0); MCHC 32.7 g/dL (31.0-37.0); MCV 91.2 fL (80.0-100.0); Mean Platelet Volume 7.5; Monocytes # (A) 0.3 k/uL (0-1.0); Monocytes % (A) 5 %; Neutrophils # (A) 5.3 k/uL (1.3-7.7); Neutrophils % (A) 84 %; Platelet Count 284 k/uL (150-450); RBC 4.03 m/uL (4.30-5.90); RDW 15.4 % (11.5-15.5); WBC 6.3 k/uL (3.8-10.6)
[2018-11-16 08:57] LABS: African American GFR (CKD) >90 (>60 ml/min/1.73 sqM); Anion Gap 10 mmol/L; Blood Urea Nitrogen 15 mg/dL (9-20); Calcium 9.4 mg/dL (8.4-10.2); Carbon Dioxide 30 mmol/L (22-30); Chloride 97 mmol/L (98-107); Glucose 105 mg/dL (74-99); Potassium 4.2 mmol/L (3.5-5.1); Sodium 137 mmol/L (137-145)
[2018-11-16] MEDS: FLUTICASONE 50MCG/SPRAY NASAL 16GM EA NOSTRIL SCH ×2 (09:20→21:03)
[2018-11-16 12:21] LABS: Glucose,Whole Blood 135 mg/dL (75-99)
--- NOTE | 2018-11-16 16:28 | P.PN ---
Subjective Progress Note Date: 11/16/18 Principal diagnosis: Bilateral lower extremity weakness, metastases to the thoracic spine, history of prostate cancer In follow-up today patient is sitting up in the chair eating his lunch. He certainly looks better than he did yesterday. He is more interactive, states feeling pretty well, the weakness in his legs is a little bit less, numbness in the feet is improved, he was able to stand easier with physical therapy today. Objective - Vital Signs Vital signs: Vital Signs Temp 97.9 F 11/16/18 13:38 Pulse 63 11/16/18 13:38 Resp 16 11/16/18 13:38 BP 128/53 11/16/18 13:38 Pulse Ox 94 L 11/16/18 13:38 Intake & Output 11/15/18 11/16/18 11/16/18 18:59 06:59 18:59 Intake Total 540 850 Output Total 900 2175 Balance -360 -2175 850 Intake: Oral 540 850 Output: Urine 900 2175 Other: Voiding Method Urinal Urinal Urinal # Voids 7 2 4 - Constitutional General appearance: Present: cooperative, no acute distress, obese - EENT Eyes: Present: anicteric sclerae, EOMI ENT: Present: hearing grossly normal - Respiratory Details: Respirations even and unlabored - Cardiovascular Details: Skin is warm and dry, patient color is pink - Gastrointestinal General gastrointestinal: Present: normal bowel sounds, soft - Neurologic Neurologic: Present: CNII-XII intact - Musculoskeletal Musculoskeletal: Present: generalized weakness, strength equal bilaterally - Psychiatric Psychiatric: Present: A&O x's 3, appropriate affect, intact judgment & insight - Labs CBC & Chem 7: 11/16/18 08:10 11/16/18 08:10 Labs: Abnormal Lab Results - Last 24 Hours (Table) 11/15/18 11/15/18 11/15/18 Range/Units 07:50 17:11 20:40 RBC (4.30-5.90) m/uL Hgb (13.0-17.5) gm/dL Hct (39.0-53.0) % Lymphocytes # (1.0-4.8) k/uL Chloride (98-107) mmol/L Glucose (74-99) mg/dL POC Glucose (mg/dL) 126 H 149 H (75-99) mg/dL Total PSA 7.4 H (<=4.0) ng/mL 11/16/18 11/16/18 11/16/18 Range/Units 07:32 08:10 08:10 RBC 4.03 L (4.30-5.90) m/uL Hgb 12.0 L (13.0-17.5) gm/dL Hct 36.8 L (39.0-53.0) % Lymphocytes # 0.5 L (1.0-4.8) k/uL Chloride 97 L (98-107) mmol/L Glucose 105 H (74-99) mg/dL POC Glucose (mg/dL) 123 H (75-99) mg/dL Total PSA (<=4.0) ng/mL 11/16/18 Range/Units 12:19 RBC (4.30-5.90) m/uL Hgb (13.0-17.5) gm/dL Hct (39.0-53.0) % Lymphocytes # (1.0-4.8) k/uL Chloride (98-107) mmol/L Glucose (74-99) mg/dL POC Glucose (mg/dL) 135 H (75-99) mg/dL Total PSA (<=4.0) ng/mL Microbiology - Last 24 Hours (Table) 11/14/18 18:36 Urine Culture - Final Urine,Voided 11/14/18 15:22 Blood Culture - Preliminary Blood No Growth after 24 hours - Imaging and Cardiology CT of the thoracic and lumbar spine report reviewed Assessment and Plan (1) Weakness Narrative/Plan: Patient's symptoms are concerning. It was confirmed with Radiation Oncology that he did finish radiation to most of the mid thoracic spine and lumbar spine, L2-L5, in the last few weeks. Patient has been placed on steroids and there has been improvement in symptoms. He will continue on steroids at this time, with plan for taper. Have left a message for Rad Onc to review the CT scan and collaborate if any acute concerns. No discussion on CT of paraspinal mass, impending cord compression, there was some mild compression fractures noted. Open [facility] is scheduled [facility] the [facility]. Encouraged patient to continue working with physical therapy Current Visit: Yes Status: Acute Priority: High Code(s): R53.1 - WEAKNESS SNOMED Code(s): 98967331 (2) Prostate cancer metastatic to bone Narrative/Plan: PSA level reported is not convincing for progression of prostate disease-it is currently 7.9, back in July it was 6.5. There is concern if what is being seen in the bone is from a different primary. Cont xtandi for now. Lupron will continue. CT of the chest abdomen and pelvis ordered to evaluate pt for a possible 2nd malignancy Current Visit: Yes Status: Chronic Priority: Medium Code(s): C61 - MALIGNANT NEOPLASM OF PROSTATE; C79.51 - SECONDARY MALIGNANT NEOPLASM OF BONE SNOMED Code(s): 297295501 (3) Pulmonary embolism Narrative/Plan: Cont anticoagulation for now Current Visit: No Status: Chronic Priority: Medium Code(s): I26.99 - OTHER PULMONARY EMBOLISM WITHOUT ACUTE COR PULMONALE SNOMED Code(s): 92158623 Plan: When I saw patient and his PSA was not resulted. But I did describe to them the situation as documented above. If there was not an increase in the PSA that would be most consistent with metastatic prostate cancer in the bones, then it is reasonable that we would further workup to see if there was a second malignancy. They stated understanding and would anticipate imaging. Review PSA results with him in the morning.
[2018-11-16] MEDS: IOPAMIDOL CONTRAST (ORAL USE) VIAL PO PRN ×2 (16:55→17:44)
[2018-11-16 17:09] LABS: Glucose,Whole Blood 109 mg/dL (75-99)
--- NOTE | 2018-11-16 17:16 | PN ---
PROGRESS NOTE DATE OF SERVICE: 11/16/2018. This 73-year-old gentleman was admitted with multiple medical problems, including cough and sputum, possibly acute bilateral pneumonia. Patient is on IV antibiotics. The patient is feeling much better. The patient apparently had a new osteoblastic in multiple bones. MRI has been recommended by Hematology/Oncology. They are working with the case management team to get it done after [facility]. Otherwise, a CT scan of the spine was done that showed multiple osteoporotic-type thoracic compression fractures and also areas of osteoblastic changes in the bony thorax and the lumbar spine; possibly new metastatic disease. Patchy infiltrate was also noted. The patient is being closely monitored at this time. Past medical history reviewed. REVIEW OF SYSTEMS: CARDIOVASCULAR SYSTEM: No angina, palpitations. RESPIRATORY SYSTEM: As mentioned earlier. GI: As mentioned earlier. : No dysuria or retention. NERVOUS SYSTEM: As mentioned earlier. CURRENT MEDICATIONS: 1. DuoNeb q.i.d. and p.r.n. 2. Xanax 0.25 t.i.d. 3. Elavil 10 mg p.o. at bedtime. 4. Eliquis 5 mg p.o. b.i.d. 5. Vitamin C 500 mg p.o. daily. 6. Symbicort 160/4.5 two puffs b.i.d. 7. Os-Christopher with vitamin D one p.o. b.i.d. 8. Coreg 12.5 mg p.o. b.i.d. 9. Vitamin B12 1000 mcg p.o. daily. 10.Decadron 4 mg IV q.8. 11.Tikosyn 500 mg p.o. b.i.d. 12.Zetia 10 mg p.o. daily. 13.Flonase 1 spray daily. 14.Lasix 40 mg IV at bedtime. 15.Apresoline 25 mg p.o. b.i.d. 16.NovoLog scale. 17.Synthroid 50 mcg p.o. daily. 18.Cozaar 50 mg p.o. daily. 19.Mobic 15 mg p.o. daily. 20.Glucophage 1000 mg p.o. b.i.d. 21.Vancomycin. 22.Multivitamins 1 p.o. daily. 23.Narcan. 24.Ditropan 5 mg p.o. b.i.d. 25.Protonix 40 mg b.i.d. 26.Zosyn 3.375 IV q.8. 27.Flomax 0.4 at bedtime. 28.Ultram 50 mg p.o. b.i.d. 29.Vancomycin 2 grams IV b.i.d. PHYSICAL EXAMINATION: Patient is alert, oriented x3. Pulse is 67, blood pressure 147/69, respiration 18, temperature 97.7, pulse ox 94% on 3 L. HEENT: Conjunctivae normal. NECK: No jugular venous distention. CARDIOVASCULAR SYSTEM: S1, S2 muffled. RESPIRATORY SYSTEM: Breath sounds diminished at the bases. Scattered rhonchi and crackles. ABDOMEN: Soft, obese, non-tender. No mass palpable. LEGS: No edema. No swelling. NERVOUS SYSTEM: Diffusely weak. LABS: WBC 6.3, hemoglobin 12. Sodium 137, potassium 4.2. ASSESSMENT: 1. Acute bilateral pneumonia, possibly gram-negative, possibly hospital- acquired, with possible sepsis, present on admission. 2. Change in mental status, metabolic encephalopathy, acute, multifactorial. 3. Anemia, normocytic; anemia of chronic disease. 4. Atrial fibrillation history, paroxysmal. 5. History of congestive heart failure; ejection fraction unknown. 6. History of chronic obstructive pulmonary disease. 7. Diabetes mellitus, type 2. 8. Gastroesophageal reflux disease. 9. Hypertension. 10.Hyperlipidemia. 11.History of degenerative joint disease. 12.History of prostate cancer with metastases, on radiation treatment. 13.History of gout. 14.Chronic hypoxic respiratory failure, on 2 L nasal cannula. 15.Obesity with body mass index of 39.9. 16.History of congestive heart failure with chronic diastolic dysfunction. 17.FULL CODE. RECOMMENDATIONS AND DISCUSSION: I recommend to continue current medications, continue with close monitoring, symptomatic treatment. Otherwise, I would recommend continuing the IV antibiotics, follow the cultures. As mentioned earlier, the patient is recommended MRI, which could not be done because the patient needs open MRI. Closely monitor with Hematology/Oncology as well as case management team. Overall prognosis is guarded because of above-mentioned multiple complex medical issues. Further recommendations to follow. MMODL / IJN: [id number] / MTDD
--- NOTE | 2018-11-16 18:49 | CT ---
EXAMINATION TYPE: CT ChestAbdPelvis w con DATE OF EXAM: 11/16/2018 COMPARISON: 06/15/2016 HISTORY: mets CT DLP: 3258.7 mGycm Automated exposure control for dose reduction was used. CONTRAST: CT scan of the chest, abdomen and pelvis is performed with Oral Contrast and with IV Contrast, patien t injected with 100 mL of Isovue 300. FINDINGS: There is some mild atelectasis at the lung bases. There is no evidence of a pulmonary mass. There is no pericardial effusion. There is no mediastinal adenopathy. Thoracic aorta is intact. There are no h ilar masses. There is no suspicious pulmonary density. Liver spleen gallbladder appear normal. Bile ducts are not dilated. There is very minimal fat strandi ng around the pancreatic head. This is also present on old exam and not significantly different. Pancreatic duct is not dilated. There is no adrenal mass. Kidneys show satisfactory contrast opacific ation. There is no hydronephrosis. There is no retroperitoneal adenopathy. Abdominal aorta is atherom atous. There is no ascites. There is no free fluid in the abdomen and pelvis. Bladder distends smooth ly. There is no inguinal hernia. There is a few prostatic calcifications. I see no intestinal wall th ickening. There is no mesenteric edema. There is no evidence of a bowel obstruction. Appendix is not seen. There is no sign of thickened appendix. There are numerous variable sized sclerotic foci in the thoracic and lumbar spine and bony pelvis and right involving ribs. This is consistent with metastatic disease. This was evaluated on CT scan yest stevo. IMPRESSION: Mild fat stranding around the pancreatic head could relate to mild pancreatitis similar t o old exam. No increasing pancreatic abnormality compared to old exam. There is new mild atelectasis at the lung bases compared to old exam. Multiple skeletal osteoblastic foci consistent with metastatic disease.
[2018-11-16] MEDS: AMITRIPTYLINE HCL 10 MG TAB PO SCH (20:31)
[2018-11-16] MEDS: TAMSULOSIN 0.4 MG CAP.ER.24H PO SCH (20:31)
[2018-11-16] MEDS: ENZALUTAMIDE 40 MG PO SCH (20:32)
[2018-11-16 21:08] LABS: Glucose,Whole Blood 206 mg/dL (75-99)
[2018-11-16] MEDS: SODIUM CHLORIDE 0.9% 1,000 ML IV SCH (21:19)
[2018-11-16] MEDS: FUROSEMIDE 40 MG TAB PO SCH ×2 (22:21→22:23)
[2018-11-16 23:25] LABS: Protein, Total 5.7 g/dL (6.2-8.2)
[2018-11-17] MEDS: DEXAMETHASONE SOD PHOSPHATE 4 MG/ML 1 ML VIAL IV SCH ×3 (00:22→15:29)
[2018-11-17] MEDS: IPRATROPIUM-ALBUTEROL 3 ML NEB INHALATION SCH ×6 (04:17→23:32)
[2018-11-17] MEDS: LEVOTHYROXINE 50 MCG TAB PO SCH (05:36)
[2018-11-17] MEDS: PIPERACILLIN-TAZOBACTAM 3.375 GM in SODIUM CHLORIDE 0.9% 100 ML IVPB SCH ×3 (05:36→22:23)
[2018-11-17] MEDS ORDERED: VANCOMYCIN TROUGH DUE 1 EACH MISC MISCELLANE ONE (07:00)
[2018-11-17 07:03] LABS: Glucose,Whole Blood 131 mg/dL (75-99)
[2018-11-17] MEDS: SYMBICORT 160-4.5 MCG INHALER INHALATION SCH ×2 (07:21→19:09)
[2018-11-17 09:03] LABS: Basophils % (A) 0 %; Eosinophils % (A) 1 %; HGB 12.7 gm/dL (13.0-17.5); Lymphocytes # (A) 0.5 k/uL (1.0-4.8); Lymphocytes % (A) 7 %; MCH 29.5 pg (25.0-35.0); MCHC 32.5 g/dL (31.0-37.0); MCV 90.9 fL (80.0-100.0); Mean Platelet Volume 7.3; Monocytes # (A) 0.3 k/uL (0-1.0); Monocytes % (A) 5 %; Neutrophils # (A) 6.3 k/uL (1.3-7.7); Neutrophils % (A) 86 %; Platelet Count 312 k/uL (150-450); RDW 14.2 % (11.5-15.5); WBC 7.3 k/uL (3.8-10.6)
[2018-11-17] MEDS: CYANOCOBALAMIN 500 MCG TAB PO SCH (09:05)
[2018-11-17] MEDS: OXYBUTYNIN CHLORIDE 5 MG TAB PO SCH ×2 (09:07→22:28)
[2018-11-17] MEDS: LOSARTAN 50 MG TAB PO SCH (09:07)
[2018-11-17] MEDS: FUROSEMIDE 40 MG TAB PO SCH ×4 (09:07→22:12)
[2018-11-17] MEDS: PANTOPRAZOLE 40 MG TABLET PO SCH (09:07)
[2018-11-17] MEDS: hydrALAZINE HCL 25 MG TAB PO SCH ×2 (09:08→22:12)
[2018-11-17] MEDS: CARVEDILOL 12.5 MG TAB PO SCH ×2 (09:08→17:35)
[2018-11-17] MEDS: ASCORBIC ACID 500 MG TAB PO SCH (09:08)
[2018-11-17] MEDS: CALCIUM CARB-VIT D 500MG-200UN 1 EACH TAB PO SCH ×2 (09:09→22:27)
[2018-11-17] MEDS: APIXABAN 5 MG TAB PO SCH ×2 (09:09→22:12)
[2018-11-17] MEDS: MULTIVITAMINS, THERA 1 EACH TAB PO SCH (09:09)
[2018-11-17] MEDS: EZETIMIBE 10 MG TAB PO SCH (09:09)
[2018-11-17] MEDS: DOFETILIDE 500 MCG CAP PO SCH ×2 (09:10→22:11)
[2018-11-17] MEDS: MELOXICAM 7.5 MG TAB PO SCH (09:10)
[2018-11-17] MEDS: traMADol 50 MG TAB PO SCH ×2 (09:12→22:11)
[2018-11-17] MEDS: FLUTICASONE 50MCG/SPRAY NASAL 16GM EA NOSTRIL SCH ×2 (09:12→22:16)
[2018-11-17 09:16] LABS: African American GFR (CKD) >90 (>60 ml/min/1.73 sqM); Anion Gap 9 mmol/L; Blood Urea Nitrogen 18 mg/dL (9-20); Calcium 9.6 mg/dL (8.4-10.2); Carbon Dioxide 35 mmol/L (22-30); Chloride 94 mmol/L (98-107); Glucose 118 mg/dL (74-99); Potassium 4.4 mmol/L (3.5-5.1); Sodium 138 mmol/L (137-145)
[2018-11-17] MEDS: VANCOMYCIN 2,000 MG in SODIUM CHLORIDE 0.9% 500 ML 500 ML IVPB SCH (09:21)
[2018-11-17] MEDS: INSULIN ASPART (NovoLOG) 100 UNIT/ML VIAL SQ SCH ×4 (09:22→22:16)
--- NOTE | 2018-11-17 09:30 | P.PN ---
Subjective Progress Note Date: 11/17/18 Principal diagnosis: Bilateral lower extremity weakness, metastases to the thoracic spine, history of prostate cancer In follow-up today patient states feeling well, weakness in legs is better, pain is controlled Objective - Vital Signs Vital signs: Vital Signs Temp 98.3 F 11/17/18 05:40 Pulse 96 11/17/18 07:36 Resp 14 11/17/18 05:40 BP 132/75 11/17/18 05:40 Pulse Ox 94 L 11/17/18 05:40 Intake & Output 11/16/18 11/17/18 11/17/18 18:59 06:59 18:59 Intake Total 850 480 Output Total 800 Balance 850 -800 480 Intake: Oral 850 480 Output: Urine 800 Other: Voiding Method Urinal # Voids 4 5 - Constitutional General appearance: Present: cooperative, no acute distress, obese - EENT Eyes: Present: anicteric sclerae, EOMI - Respiratory Details: respirations even and unlabored - Cardiovascular Details: skin warm and dry, LLE bronzing of the skin - Neurologic Neurologic: Present: CNII-XII intact - Musculoskeletal Musculoskeletal: Present: generalized weakness - Psychiatric Psychiatric: Present: A&O x's 3, appropriate affect, intact judgment & insight - Labs CBC & Chem 7: 11/17/18 08:16 11/17/18 08:16 Labs: Abnormal Lab Results - Last 24 Hours (Table) 11/14/18 11/15/18 11/16/18 Range/Units 15:22 07:50 12:19 Hgb (13.0-17.5) gm/dL Lymphocytes # (1.0-4.8) k/uL Chloride (98-107) mmol/L Carbon Dioxide (22-30) mmol/L Glucose (74-99) mg/dL POC Glucose (mg/dL) 135 H (75-99) mg/dL Total Protein (PEP) 5.7 L (6.2-8.2) g/dL Total PSA 7.4 H (<=4.0) ng/mL 11/16/18 11/16/18 11/17/18 Range/Units 17:06 21:06 07:01 Hgb (13.0-17.5) gm/dL Lymphocytes # (1.0-4.8) k/uL Chloride (98-107) mmol/L Carbon Dioxide (22-30) mmol/L Glucose (74-99) mg/dL POC Glucose (mg/dL) 109 H 206 H 131 H (75-99) mg/dL Total Protein (PEP) (6.2-8.2) g/dL Total PSA (<=4.0) ng/mL 11/17/18 11/17/18 Range/Units 08:16 08:16 Hgb 12.7 L (13.0-17.5) gm/dL Lymphocytes # 0.5 L (1.0-4.8) k/uL Chloride 94 L (98-107) mmol/L Carbon Dioxide 35 H (22-30) mmol/L Glucose 118 H (74-99) mg/dL POC Glucose (mg/dL) (75-99) mg/dL Total Protein (PEP) (6.2-8.2) g/dL Total PSA (<=4.0) ng/mL Microbiology - Last 24 Hours (Table) 11/14/18 15:22 Blood Culture - Preliminary Blood No Growth after 48 hours 11/14/18 18:36 Urine Culture - Final Urine,Voided - Imaging and Cardiology CT scan - abdomen: report reviewed CT scan - chest: report reviewed CT scan - pelvis: report reviewed Assessment and Plan (1) Weakness Narrative/Plan: On steroids improvement in symptoms. He will continue on steroids at this time, with plan for taper. [facility] the [facility]. Encouraged patient to continue working with physical therapy Current Visit: Yes Status: Acute Priority: High Code(s): R53.1 - WEAKNESS SNOMED Code(s): 43673077 (2) Prostate cancer metastatic to bone Narrative/Plan: Dr. Mcclellan reviewed results of CT of the chest abdomen and pelvis reviewed with pt and . There is no gross evidence of mass/lesion that could represent a second primary so, ericka disease is most consistent with prostate primary. With disease progression current regimen is no longer effective against malignancy so, treatment needs to be changed. Next treatment would be taxotere chemotherapy. Side effects, prognosis with and without treatment were discussed. Option of palliative/hospice care was also discussed. All questions answered. Pt and family would like a little time to think over the options and they will report their decision. Current Visit: Yes Status: Chronic Priority: Medium Code(s): C61 - MALIGNANT NEOPLASM OF PROSTATE; C79.51 - SECONDARY MALIGNANT NEOPLASM OF BONE SNOMED Code(s): 580809669 (3) Pulmonary embolism Narrative/Plan: Cont anticoagulation for now Current Visit: No Status: Chronic Priority: Medium Code(s): I26.99 - OTHER PULMONARY EMBOLISM WITHOUT ACUTE COR PULMONALE SNOMED Code(s): 95059227 Plan: Doctor attests: I performed a history and physical examination of this patient, developed impression and plan of care. Discussed with dictator. I agree with dictators note, documented as a scribe.
[2018-11-17 09:32] LABS: Free Kappa Lt Chain Qnt, Serum 2.64 mg/dL (0.33-1.94)
[2018-11-17 10:34] LABS: Albumin 2.99 g/dL (3.80-4.90); Gamma Globulin 0.59 g/dL (0.70-1.50)
[2018-11-17 12:38] LABS: Glucose,Whole Blood 171 mg/dL (75-99)
[2018-11-17 13:48] VITALS: BMI 39.9
--- NOTE | 2018-11-17 15:29 | PN ---
PROGRESS NOTE DATE OF SERVICE: 11/17/2018 This is a 73-year-old gentleman who was admitted with acute bilateral pneumonia, is on IV antibiotics. Patient has significant gait dysfunction also. A chest CT and abdomen is noted. Patient is recommended an MRI by the Hematology Oncology. The [place] approved apparently open MRI locally on 11/28 of this month. Currently, the patient's family would like to return home rather than a halfway. No chest pain. No palpitations. No fever. PHYSICAL EXAM: Alert and oriented x3. The pulse is 64, blood pressure 130/75, respiration 14, temperature 98.2, pulse ox 94% on 3 L. HEENT: Conjunctivae normal. NECK: No jugular venous distension. CARDIOVASCULAR: S1, S2, muffled. RESPIRATION: Breath sounds diminished at the bases, a few rhonchi, no crackles. ABDOMEN: Soft, nontender. LEGS: No edema, no swelling. NERVOUS SYSTEM: Diffusely weak, especially in the lower legs. SKIN: No ulcers, rash, bleeding. LABS: WBC 11.9, hemoglobin is 12.7, sodium 130, potassium 4.4. ASSESSMENT: 1. Acute bilateral pneumonia, possibly gram-negative, possibly hospital acquired with possible sepsis, present on admission. 2. Change in mental status, acute metabolic encephalopathy, multifactorial. 3. Anemia, normocytic anemia of chronic disease. 4. Atrial fibrillation, history of paroxysmal. 5. History of congestive heart failure with ejection fraction unknown. 6. History of chronic obstructive pulmonary disease. 7. Diabetes mellitus type 2. 8. Gastroesophageal reflux disease. 9. Hypertension. 10.Hyperlipidemia. 11.History of degenerative joint disease. 12.History of prostate cancer with mental status radiation treatment. 13.History of gout. 14.Chronic hypoxic respiratory failure on 2 L nasal cannula. 15.Obesity with body mass index of 39.9. 16.History of congestive heart failure with chronic diastolic dysfunction. 17.FULL CODE. RECOMMENDATION: Recommend to continue current medications, continue with the monitoring and symptomatic treatment. Otherwise, at this time I would recommend continue with current medications, continue with symptomatic treatment. Otherwise, as mentioned earlier, MRI is to be evaluated on 11/28 of this month. Will continue to monitor. Prognosis guarded. Further recommendations to follow. MMODL / IJN: [id number] /
[2018-11-17 17:08] LABS: Glucose,Whole Blood 179 mg/dL (75-99)
[2018-11-17 21:36] LABS: Glucose,Whole Blood 133 mg/dL (75-99)
[2018-11-17] MEDS: SODIUM CHLORIDE 0.9% 1,000 ML IV SCH (22:10)
[2018-11-17] MEDS: TAMSULOSIN 0.4 MG CAP.ER.24H PO SCH (22:12)
[2018-11-17] MEDS: AMITRIPTYLINE HCL 10 MG TAB PO SCH (22:13)
[2018-11-17] MEDS: VANCOMYCIN 1,750 MG in SODIUM CHLORIDE 0.9% 500 ML 500 ML IVPB SCH (22:14)
[2018-11-17] MEDS: ENZALUTAMIDE 40 MG PO SCH (22:26)
[2018-11-18] MEDS: DEXAMETHASONE SOD PHOSPHATE 4 MG/ML 1 ML VIAL IV SCH ×3 (00:21→15:40)
[2018-11-18] MEDS: IPRATROPIUM-ALBUTEROL 3 ML NEB INHALATION SCH ×6 (03:39→23:15)
[2018-11-18] MEDS: PIPERACILLIN-TAZOBACTAM 3.375 GM in SODIUM CHLORIDE 0.9% 100 ML IVPB SCH ×3 (06:14→21:41)
[2018-11-18] MEDS: LEVOTHYROXINE 50 MCG TAB PO SCH (06:14)
[2018-11-18] MEDS: SYMBICORT 160-4.5 MCG INHALER INHALATION SCH ×2 (07:04→20:25)
[2018-11-18 07:07] LABS: Glucose,Whole Blood 130 mg/dL (75-99)
[2018-11-18] MEDS: EZETIMIBE 10 MG TAB PO SCH (09:14)
[2018-11-18] MEDS: MELOXICAM 7.5 MG TAB PO SCH (09:14)
[2018-11-18] MEDS: CYANOCOBALAMIN 500 MCG TAB PO SCH (09:15)
[2018-11-18] MEDS: APIXABAN 5 MG TAB PO SCH ×2 (09:16→20:37)
[2018-11-18] MEDS: CARVEDILOL 12.5 MG TAB PO SCH ×2 (09:16→17:59)
[2018-11-18] MEDS: ASCORBIC ACID 500 MG TAB PO SCH (09:16)
[2018-11-18] MEDS: OXYBUTYNIN CHLORIDE 5 MG TAB PO SCH ×2 (09:16→20:37)
[2018-11-18] MEDS: FUROSEMIDE 40 MG TAB PO SCH ×3 (09:16→20:36)
[2018-11-18] MEDS: DOFETILIDE 500 MCG CAP PO SCH ×2 (09:16→20:36)
[2018-11-18] MEDS: hydrALAZINE HCL 25 MG TAB PO SCH ×2 (09:17→20:37)
[2018-11-18] MEDS: PANTOPRAZOLE 40 MG TABLET PO SCH (09:17)
[2018-11-18] MEDS: LOSARTAN 50 MG TAB PO SCH (09:17)
[2018-11-18] MEDS: MULTIVITAMINS, THERA 1 EACH TAB PO SCH (09:17)
[2018-11-18] MEDS: CALCIUM CARB-VIT D 500MG-200UN 1 EACH TAB PO SCH ×2 (09:17→20:36)
[2018-11-18] MEDS: FLUTICASONE 50MCG/SPRAY NASAL 16GM EA NOSTRIL SCH ×2 (09:18→20:40)
[2018-11-18] MEDS: VANCOMYCIN 1,750 MG in SODIUM CHLORIDE 0.9% 500 ML 500 ML IVPB SCH ×2 (09:18→20:38)
[2018-11-18] MEDS: traMADol 50 MG TAB PO SCH ×2 (09:24→20:38)
[2018-11-18] MEDS: INSULIN ASPART (NovoLOG) 100 UNIT/ML VIAL SQ SCH ×4 (09:35→20:42)
[2018-11-18 11:30] LABS: Glucose,Whole Blood 127 mg/dL (75-99)
[2018-11-18 11:52] LABS: African American GFR (CKD) >90 (>60 ml/min/1.73 sqM); Anion Gap 7 mmol/L; Blood Urea Nitrogen 24 mg/dL (9-20); Calcium 9.5 mg/dL (8.4-10.2); Carbon Dioxide 37 mmol/L (22-30); Chloride 94 mmol/L (98-107); Glucose 117 mg/dL (74-99); Sodium 138 mmol/L (137-145)
[2018-11-18 17:10] LABS: Glucose,Whole Blood 173 mg/dL (75-99)
--- NOTE | 2018-11-18 17:42 | P.PN ---
Subjective Progress Note Date: 11/18/18 Principal diagnosis: Bilateral pneumonia Weakness lower extremities Paroxysmal atrial fibrillation Objective - Vital Signs Vital signs: Vital Signs Temp 97.9 F 11/18/18 06:30 Pulse 72 11/18/18 11:03 Resp 20 11/18/18 06:30 BP 119/67 11/18/18 06:30 Pulse Ox 91 L 11/18/18 06:30 Intake & Output 11/17/18 11/18/18 11/18/18 18:59 06:59 18:59 Intake Total 480 760 Output Total 300 Balance 180 760 Weight 141.067 kg 136 kg Intake: Intake, IV Titration 760 Amount Piperacillin-Tazobactam 3 100 .375 gm In Sodium Chloride 0.9% 100 ml @ 25 mls/hr IVPB Q8H ANSHU Rx#: [id number] Sodium Chloride 0.9% 1, 160 000 ml @ 20 mls/hr IV . Q24H ANSHU Rx#:[id number] Vancomycin 1,750 mg In 500 Sodium Chloride 0.9% 500 ml 500 ml @ 167 mls/hr IVPB Q12H ANSHU Rx#: [id number] Oral 480 Output: Urine 300 Other: # Voids 1 4 # Bowel Movements 2 - Exam PHYSICAL EXAMINATION: GENERAL: The patient is alert and oriented x3, not in any acute distress. Well developed, well nourished. HEENT: Pupils are round and equally reacting to light. EOMI. No scleral icterus. No conjunctival pallor. Normocephalic, atraumatic. No pharyngeal erythema. No thyromegaly. CARDIOVASCULAR: S1 and S2 present. No murmurs, rubs, or gallops. PULMONARY: Chest is clear to auscultation, no wheezing or crackles. ABDOMEN: Soft, nontender, nondistended, normoactive bowel sounds. No palpable organomegaly. MUSCULOSKELETAL: No joint swelling or deformity. EXTREMITIES: No cyanosis, clubbing, or pedal edema. NEUROLOGICAL: Gross neurological examination did not reveal any focal deficits. SKIN: No rashes. - Labs CBC & Chem 7: 11/17/18 08:16 11/18/18 11:03 Labs: Abnormal Lab Results - Last 24 Hours (Table) 11/17/18 11/17/18 11/17/18 Range/Units 12:35 16:51 21:35 POC Glucose (mg/dL) 171 H 179 H 133 H (75-99) mg/dL 11/18/18 Range/Units 07:01 POC Glucose (mg/dL) 130 H (75-99) mg/dL Microbiology - Last 24 Hours (Table) 11/14/18 15:22 Blood Culture - Preliminary Blood No Growth after 72 hours 11/14/18 20:08 Gram Stain - Final Sputum Sputum Culture - Final Assessment and Plan Assessment: 1. Acute bilateral pneumonia; possibly hospital-acquired with sepsis; present on admission - Clinically improving on IV antibiotics in form of vancomycin and Zosyn - Plan to continue another 24 hours of IV antibiotic therapy followed by oral antibiotics treatment in form of Levaquin - DuoNeb nebulizer treatment every 4 hours and when necessary 2. Weakness bilateral lower extremities; possibly metastatic disease lumbar spine - Continue with Decadron 4 mg IV every 8 hours 3. Paroxysmal atrial fibrillation; monitor EKG; continue home dose of Tikosyn; continue anticoagulation with Eliquis 5 mg twice a day 4. Diabetes mellitus type 2; monitor Accu-Cheks every before meals and at bedtime with insulin sliding scale and Glucophage 1000 mg twice a day 5. Hypertension; Coreg 12.5 mg twice a day; hydralazine 25 mg twice a day and losartan 50 mg daily 6. Hyperlipidemia; seborrhea 10 mg by mouth daily at bedtime 7. Hypothyroidism; Synthroid 50 MCG daily 8. DVT prophylaxis; SCDs CODE STATUS; full code Time with Patient: Greater than 30
[2018-11-18 20:28] LABS: Glucose,Whole Blood 211 mg/dL (75-99)
[2018-11-18] MEDS: AMITRIPTYLINE HCL 10 MG TAB PO SCH (20:36)
[2018-11-18] MEDS: TAMSULOSIN 0.4 MG CAP.ER.24H PO SCH (20:36)
[2018-11-18] MEDS: ENZALUTAMIDE 40 MG PO SCH (20:39)
[2018-11-18] MEDS: SODIUM CHLORIDE 0.9% 1,000 ML IV SCH (20:43)
[2018-11-19] MEDS: DEXAMETHASONE SOD PHOSPHATE 4 MG/ML 1 ML VIAL IV SCH ×2 (00:43→08:05)
[2018-11-19] MEDS: IPRATROPIUM-ALBUTEROL 3 ML NEB INHALATION SCH ×2 (03:54→07:49)
[2018-11-19] MEDS: LEVOTHYROXINE 50 MCG TAB PO SCH (05:49)
[2018-11-19] MEDS: PIPERACILLIN-TAZOBACTAM 3.375 GM in SODIUM CHLORIDE 0.9% 100 ML IVPB SCH (05:50)
[2018-11-19 06:21] VITALS: BP 134/53; RESP 16; TEMP 97.2
[2018-11-19 07:11] LABS: Glucose,Whole Blood 140 mg/dL (75-99)
[2018-11-19] MEDS ORDERED: metFORMIN 500 MG TAB PO SCH (07:30)
[2018-11-19] MEDS: SYMBICORT 160-4.5 MCG INHALER INHALATION SCH (07:49)
[2018-11-19] MEDS ORDERED: IPRATROPIUM-ALBUTEROL 3 ML NEB INHALATION PRN (07:54)
[2018-11-19] MEDS ORDERED: IPRATROPIUM-ALBUTEROL 3 ML NEB INHALATION SCH ×2 (08:00→12:00)
[2018-11-19] MEDS ORDERED: VANCOMYCIN TROUGH DUE 1 EACH MISC MISCELLANE ONE (08:00)
[2018-11-19] MEDS: ASCORBIC ACID 500 MG TAB PO SCH (08:04)
[2018-11-19] MEDS: PANTOPRAZOLE 40 MG TABLET PO SCH (08:04)
[2018-11-19] MEDS: INSULIN ASPART (NovoLOG) 100 UNIT/ML VIAL SQ SCH ×2 (08:04→12:17)
[2018-11-19] MEDS: LOSARTAN 50 MG TAB PO SCH (08:05)
[2018-11-19] MEDS: MELOXICAM 7.5 MG TAB PO SCH (08:05)
[2018-11-19] MEDS: FUROSEMIDE 40 MG TAB PO SCH (08:05)
[2018-11-19] MEDS: CYANOCOBALAMIN 500 MCG TAB PO SCH (08:05)
[2018-11-19] MEDS: hydrALAZINE HCL 25 MG TAB PO SCH (08:05)
[2018-11-19] MEDS: CALCIUM CARB-VIT D 500MG-200UN 1 EACH TAB PO SCH (08:05)
[2018-11-19] MEDS: OXYBUTYNIN CHLORIDE 5 MG TAB PO SCH (08:05)
[2018-11-19] MEDS: MULTIVITAMINS, THERA 1 EACH TAB PO SCH (08:05)
[2018-11-19] MEDS: APIXABAN 5 MG TAB PO SCH (08:05)
[2018-11-19] MEDS: DOFETILIDE 500 MCG CAP PO SCH (08:06)
[2018-11-19] MEDS: CARVEDILOL 12.5 MG TAB PO SCH (08:06)
[2018-11-19] MEDS: EZETIMIBE 10 MG TAB PO SCH (08:06)
[2018-11-19] MEDS: FLUTICASONE 50MCG/SPRAY NASAL 16GM EA NOSTRIL SCH (08:06)
[2018-11-19] MEDS: VANCOMYCIN 1,750 MG in SODIUM CHLORIDE 0.9% 500 ML 500 ML IVPB SCH (08:07)
[2018-11-19] MEDS: traMADol 50 MG TAB PO SCH (08:10)
[2018-11-19 08:42] LABS: African American GFR (CKD) >90 (>60 ml/min/1.73 sqM); Anion Gap 8 mmol/L; Blood Urea Nitrogen 23 mg/dL (9-20); Calcium 9.2 mg/dL (8.4-10.2); Carbon Dioxide 31 mmol/L (22-30); Chloride 97 mmol/L (98-107); Glucose 130 mg/dL (74-99); Sodium 136 mmol/L (137-145)
[2018-11-19 09:18] LABS: Basophils % (A) 0 %; Eosinophils # (A) 0.1 k/uL (0-0.7); Eosinophils % (A) 1 %; HCT 37.7 % (39.0-53.0); HGB 12.2 gm/dL (13.0-17.5); Lymphocytes # (A) 0.4 k/uL (1.0-4.8); Lymphocytes % (A) 7 %; MCH 29.8 pg (25.0-35.0); MCHC 32.4 g/dL (31.0-37.0); MCV 92.2 fL (80.0-100.0); Monocytes # (A) 0.3 k/uL (0-1.0); Monocytes % (A) 5 %; Neutrophils # (A) 5.4 k/uL (1.3-7.7); Neutrophils % (A) 86 %; Platelet Count 267 k/uL (150-450); RBC 4.08 m/uL (4.30-5.90); RDW 15.7 % (11.5-15.5); WBC 6.3 k/uL (3.8-10.6)
[2018-11-19 11:35] VITALS: PULSE 72
[2018-11-19 11:49] LABS: Glucose,Whole Blood 144 mg/dL (75-99)
--- NOTE | 2018-11-19 12:54 | P.DS ---
Providers Date of admission: 11/14/18 17:24 Expected date of discharge: 11/19/18 Attending physician: Steve García Consults: 11/14/18 19:38 Consult Physician Routine Consulting Provider: Tony Mcclellan Consult Reason/Comments: mets found of throacic bony structures hx of prostate CA Do you want consulting provider notified?: Yes Primary care physician: [facility] Hospital Course: Mr. Jay is a pleasant male pt of Dr. Mcclellan, initially seen in consult 01/14. He was diagnosed with [place] cancer [place] 05[place], PSA in the 26-27 range, staging PET 10/14 negative for metastatic disease. He was treated with "pill" and "shots" (casodex and lupron). Restaging scans 01/14 revealed small PE in the RLL. The pt was admitted to [facility] and seen in consult. [place] PE was an incidental finding and related to cancer. He had been started on coumadin 3 wks prior, for a fib, and continuation was recommended. He started XRT 01/14 at [facility]. He was admitted again for weakness on 03/05/16, CTA again showing the PE. This was felt to represent his old clot. The case was d/w IM, and coumadin was continued. The CTA also showed sub cm lung nodules. He was seen for his 1st OV on 03/10/16, as he is considering transferring his care here but, decided to continue treatment at the [place] at that time. He was seen back on 04/07/18 again, with an objective of transferring care. He stated that his PSA had started to rise in 05/16, increased significantly by late 2017 and he was placed on Xtandi in early 03/19, which he continues on now. He reports having CT and bone scans with bone mets but, no other visceral disease-I do have to verify this). Last seen in office 08/12/18. He continues on oral Xtandi. Completed palliative XRT to T and L spine areas about 3 weeks ago. Patient is currently admitted for one week of progressive bilateral lower extremity weakness, he cannot stand for very long on his own, requires assistance to stand up , feet are feeling somewhat numb at this time, pain is in the low back as well as the back of the head and the base of the skull. Patient denies fevers, chills, nausea, vomiting, no unusual shortness of breath or difficulty in breathing, palpitations or sensations of atrial fibrillation, abdominal pain, distention, stools are loose but not diarrhea, this is stable for him, no black or bloody stools, bleeding, bilateral lower extremity swelling. Patient has no other pain to report. Patient was admitted and treated for acute bilateral pneumonia possibly hospital-acquired in IV Zosyn and vancomycin Patient was recommended MRI of the spine for bilateral lower extremity weakness which was set up to be done as an outpatient on 11/28/2018 Patient remained stable without any further complications and was discharged ellie e in a stable condition Patient Condition at Discharge: Stable Plan - Discharge Summary Discharge Rx Participant: Yes New Discharge Prescriptions: New Amoxicillin/Potassium Clav [Augmentin 875-125 Tablet] 1 tab PO BID 3 Days #6 tab Continue metFORMIN HCL 1,000 mg PO BID Furosemide [Lasix] 80 mg PO BID hydrALAZINE HCL [Apresoline] 25 mg PO BID Losartan Potassium [Cozaar] 50 mg PO DAILY Fluticasone Nasal [place] [Flonase Nasal [place]] 1 spray EA NOSTRIL BID Carvedilol [Coreg] 12.5 mg PO BID Loratadine 10 mg PO DAILY Omeprazole 20 mg PO BID Levothyroxine Sodium [Synthroid] 50 mcg PO DAILY Tamsulosin HCl [Flomax] 0.4 mg PO HS Oxybutynin Chloride 5 mg PO BID Calcium Carbonate/Vitamin D3 [Calcium 500-Vit D3 200 Tablet] 1 tab PO BID Ascorbic Acid [Vitamin C] 500 mg PO DAILY Ferrous Sulfate [Iron (65 MG Elemental)] 325 mg PO DAILY Dofetilide 500 mcg PO BID Cyanocobalamin (Vitamin B-12) [Vitamin B-12] 1,000 mcg PO DAILY Multivitamins, Thera [Multivitamin (formulary)] 1 tab PO DAILY Ranitidine HCl [Zantac] 300 mg PO HS Amitriptyline HCl 10 mg PO HS Meloxicam [Mobic] 15 mg PO DAILY Leuprolide Acetate [Eligard] 22.5 mg SQ Q84D Enzalutamide [Xtandi] 160 mg PO HS Apixaban [Eliquis] 5 mg PO BID #60 tab Ezetimibe 10 mg PO DAILY Furosemide [Lasix] 40 mg PO HS Discharge Medication List Fluticasone Nasal [place] [Flonase Nasal [place]] 1 spray EA NOSTRIL BID 09/03/16 [History] Furosemide [Lasix] 80 mg PO BID 11/02/15 [History] Losartan Potassium [Cozaar] 50 mg PO DAILY 11/02/15 [History] hydrALAZINE HCL [Apresoline] 25 mg PO BID 11/02/15 [History] metFORMIN HCL 1,000 mg PO BID 11/02/15 [History] Carvedilol [Coreg] 12.5 mg PO BID 01/28/16 [History] Loratadine 10 mg PO DAILY 02/10/17 [History] Ascorbic Acid [Vitamin C] 500 mg PO DAILY 08/30/17 [History] Calcium Carbonate/Vitamin D3 [Calcium 500-Vit D3 200 Tablet] 1 tab PO BID 08/30/17 [History] Dofetilide 500 mcg PO BID 08/30/17 [History] Ferrous Sulfate [Iron (65 MG Elemental)] 325 mg PO DAILY 08/30/17 [History] Levothyroxine Sodium [Synthroid] 50 mcg PO DAILY 08/30/17 [History] Omeprazole 20 mg PO BID 08/30/17 [History] Oxybutynin Chloride 5 mg PO BID 08/30/17 [History] Tamsulosin HCl [Flomax] 0.4 mg PO HS 08/30/17 [History] Amitriptyline HCl 10 mg PO HS 09/19/18 [History] Cyanocobalamin (Vitamin B-12) [Vitamin B-12] 1,000 mcg PO DAILY 09/19/18 [History] Enzalutamide [Xtandi] 160 mg PO HS 09/19/18 [History] Leuprolide Acetate [Eligard] 22.5 mg SQ Q84D 09/19/18 [History] Meloxicam [Mobic] 15 mg PO DAILY 09/19/18 [History] Multivitamins, Thera [Multivitamin (formulary)] 1 tab PO DAILY 09/19/18 [History] Ranitidine HCl [Zantac] 300 mg PO HS 09/19/18 [History] Apixaban [Eliquis] 5 mg PO BID #60 tab 09/21/18 [Rx] Ezetimibe 10 mg PO DAILY 11/14/18 [History] Furosemide [Lasix] 40 mg PO HS 11/14/18 [History] Amoxicillin/Potassium Clav [Augmentin 875-125 Tablet] 1 tab PO BID 3 Days #6 tab 11/19/18 [Rx] Follow up Appointment(s)/Referral(s): Tony Mcclellan MD [STAFF PHYSICIAN] - 1 Week (Please call office Wednesday to schedule appointment. *Dr. Mcclellan wants to see patient within the week. ) [facility],Clinic [Primary Care Provider] - 1-2 days (Please call and schedule appointment when office is open) Patient Instructions/Handouts: Weakness (DC), Dyspnea (DC) Activity/Diet/Wound Care/Special Instructions: [place] Open MRI appointment is on November 28, please arrive at 4:00PM. [phone]. ([facility] has approved the MRI) NURSEIndigent for is in chart, please senf to pharmacy at d/c. [facility] will resume at discharge, per Marisela at [facility]. Chemo, Home medication in med room-give to when patient is discharged Discharge Disposition: HOME SELF-CARE
--- NOTE | 2018-11-21 13:15 | CDI ---
Documentation Clarification Form Date: From: Ewelina Lemos Phone: Admit Date: 11/14/2018 5:24:00 PM Patient Name: Bob Jay Visit Number: [id number] Discharge Date: 11/19/2018 12:23:00 PM ATTENTION: The Clinical Documentation Specialists (CDI) and [facility] Coding Staff appreciate your assistance in clarifying documentation. Please respond to the clarification below the line at the bottom and electronically sign. The CDI & [facility] Coding staff will review the response and follow-up if needed. Please note: Queries are made part of the Legal Health Record. If you have any questions, please contact the author of this message via ITS. Dr. Piper Hernandez The diagnosis possible sepsis was documented in the 11/16, 11/17 & 11/18 PNs , but is not consistently noted in subsequent documentation. Patient admitted 11/14. History/Risk Factors: Probable gram negative pneumonia, met bone ca and prostate ca, met encephalopathy, chr diastolic CHF w HTN, AECOPD & acute lower resp infection Clinical Indicators: lactic acid-1.8, WBC 5.5, neutrophils 76/86, T 97.0, P-95 on 11/16, R-20, O2-93, BC neg growth Treatment: IV Rocephin, IV fluids, IV Vanco, IV Zosyn Please clarify if the possible sepsis was: Present/active?treated this admission Treated and resolved this admission as secondary diagnosis Ruled out Other, please specify Clinically unable to determine Sepsis; present; treated this admission MTDD
== END 2018-11-19 12:23 | disposition home health service (06) | DRG 871 ==
LOC: EC 14:27 → 4MS4W 17:24
PROVIDERS: ADMIT Hospitalist; ATTEND Hospitalist
DX: A41.9 Sepsis, unspecified organism (principal); J15.6 Pneumonia due to other Gram-negative bacteria; G93.41 Metabolic encephalopathy; C79.51 Secondary malignant neoplasm of bone; I50.32 Chronic diastolic (congestive) heart failure; J44.0 Chronic obstructive pulmonary disease with (acute) lower respiratory infection; J96.11 Chronic respiratory failure with hypoxia; M80.08XA Age-related osteoporosis with current pathological fracture, vertebra(e), initial encounter for fracture; I48.0 Paroxysmal atrial fibrillation; I11.0 Hypertensive heart disease with heart failure; C61 Malignant neoplasm of prostate; E66.01 Morbid (severe) obesity due to excess calories; D63.8 Anemia in other chronic diseases classified elsewhere; E11.9 Type 2 diabetes mellitus without complications; Y95 Nosocomial condition; K21.9 Gastro-esophageal reflux disease without esophagitis; E78.5 Hyperlipidemia, unspecified; E03.9 Hypothyroidism, unspecified; G47.30 Sleep apnea, unspecified; M17.0 Bilateral primary osteoarthritis of knee; I44.0 Atrioventricular block, first degree; F40.240 Claustrophobia; R91.8 Other nonspecific abnormal finding of lung field; M54.9 Dorsalgia, unspecified; H91.90 Unspecified hearing loss, unspecified ear; Z99.81 Dependence on supplemental oxygen; Z68.39 Body mass index [BMI] 39.0-39.9, adult; Z79.01 Long term (current) use of anticoagulants; Z79.84 Long term (current) use of oral hypoglycemic drugs; Z79.1 Long term (current) use of non-steroidal anti-inflammatories (NSAID); Z79.890 Hormone replacement therapy; Z79.899 Other long term (current) drug therapy; Z71.3 Dietary counseling and surveillance; Z87.39 Personal history of other diseases of the musculoskeletal system and connective tissue; Z86.711 Personal history of pulmonary embolism; Z92.3 Personal history of irradiation; Z87.891 Personal history of nicotine dependence; Z99.89 Dependence on other enabling machines and devices; Z98.890 Other specified postprocedural states; Z87.2 Personal history of diseases of the skin and subcutaneous tissue; Z88.2 Allergy status to sulfonamides; Z88.8 Allergy status to other drugs, medicaments and biological substances; Z80.42 Family history of malignant neoplasm of prostate; Z80.8 Family history of malignant neoplasm of other organs or systems; Z83.3 Family history of diabetes mellitus; Z82.49 Family history of ischemic heart disease and other diseases of the circulatory system; Z83.79 Family history of other diseases of the digestive system; Z81.8 Family history of other mental and behavioral disorders
CPT/HCPCS: 36415; 71046; 71260; 71275; 72129; 72132; 74177; 80048; 80053; 80202; 81001; 83605; 83880; 83883; 84153; 84154; 84165; 84484; 85025; 85379; 85610; 85730; 86334; 87040; 87070; 87086; 87205; 93005; 94640; 94760; 96365; 96375; 99285

== ENCOUNTER → 2019-05-12 | Outpatient (CLI) | payer MEDICARE, OTHER ==
--- NOTE | 2019-05-12 14:34 | US ---
EXAMINATION TYPE: US venous doppler duplex LE LT DATE OF EXAM: 05/12/2019 2:07 PM COMPARISON: US 02/12/2017 CLINICAL HISTORY: L leg, R22.42 Swelling L limb. Patient is currently taking blood thinners. Left leg pain SIDE PERFORMED: Left TECHNIQUE: The lower extremity deep venous system is examined utilizing real time linear array sonog dwayne with graded compression, doppler sonography and color-flow sonography. VESSELS IMAGED: External Iliac Vein (EIV) Common Femoral Vein Deep Femoral Vein Greater Saphenous Vein * Femoral Vein Popliteal Vein Small Saphenous Vein * Proximal Calf Veins (* superficial vessels) Left Leg: Negative for DVT Within the left popliteal fossa, there is a complex area with calcifications and shadowing visualized 5.6 x 2.6 x 4.2 cm (increased in size from 2017. IMPRESSION: No sonographic evidence of deep venous thrombosis within the left lower extremity. Comple x popliteal fossa cystic and solid mass with internal calcifications have increased in size from 2017 . Although this could represent a complex popliteal fossa cyst given the presence of suspected calcif ications further evaluation with MRI of the left knee is recommended.
== END | disposition home or self-care (01) ==
LOC: RADUSWWP 11:52
PROVIDERS: ATTEND Internal Medicine Hematology & Oncology
DX: M71.22 Synovial cyst of popliteal space [Baker], left knee (principal); R93.6 Abnormal findings on diagnostic imaging of limbs

== ENCOUNTER → 2019-09-05 | Outpatient (CLI) | payer OTHER ==
--- NOTE | 2019-09-06 15:57 | CT ---
EXAMINATION TYPE: CT lumbar spine wo con DATE OF EXAM: 09/05/2019 COMPARISON: 11/15/2018 HISTORY: 74-year-old male LOWER BACK PAIN TECHNIQUE: Contiguous axial scanning of the lumbar spine without IV contrast. Coronal and sagittal re constructions performed. CT DLP: 2857.9 mGycm Automated exposure control for dose reduction was used. FINDINGS: Degenerative undulation of the lumbar spine. Severe multilevel dislocation. Degenerative change with disc narrowing and vacuum phenomenon at multiple levels. Hypertrophic facet arthropathy is present throughout as well as Baastrup's disease. Suspect at least moderate spinal canal stenoses at L2-L3 and L3-L4 and mild at L1-L2 and L4-L5. On the left, changes resulting in severe neuroforaminal stenoses at L3-L4 and L5-S1, moderate at L4-L 5. On the right, changes result in moderate neuroforaminal stenoses throughout. Redemonstrated scattered sclerotic foci throughout the visualized skeleton, largest within the L4 ana maria tebral body measuring 1.4 cm. Vertebral body heights are preserved. Overall alignment is maintained. Degenerative changes of the SI joints. IMPRESSION: 1. ADVANCED HYPERTROPHIC FACET ARTHROPATHY. NO MALALIGNMENT OR VERTEBRAL COMPRESSION COLLAPSE. 2. SEVERE MULTILEVEL DISC OR SIMPLY DEGENERATIVE CHANGE. 3. SUSPECT AT LEAST MODERATE SPINAL CANAL STENOSES AT L2-L3 AND L3-L4 AND MILD AT L1-L2 AND L4-L5. 4. VARIABLE NEURAL FORAMINAL STENOSES OUTLINED ABOVE, SEVERE ON THE LEFT AT L3-L4 AND L5-S1. 5. SCATTERED OSTEOBLASTIC METASTASES REDEMONSTRATED.
== END | disposition home or self-care (01) ==
LOC: RADCTMAIN 15:48
PROVIDERS: ATTEND Internal Medicine Hematology & Oncology
DX: M48.061 Spinal stenosis, lumbar region without neurogenic claudication (principal); M48.07 Spinal stenosis, lumbosacral region; M47.816 Spondylosis without myelopathy or radiculopathy, lumbar region; C79.51 Secondary malignant neoplasm of bone
CPT/HCPCS: 72131

== ENCOUNTER → 2019-09-15 | Outpatient (CLI) | payer OTHER ==
--- NOTE | 2019-09-15 17:43 | ECHOF ---
Referral Reason:Z01.818 Pre procedural MEASUREMENTS -------- HEIGHT: 185.4 cm WEIGHT: 137.4 kg BP: RVIDd: 3.9 cm (< 3.3) IVSd: 1.1 cm (0.6 - 1.1) LVIDd: 3.7 cm (3.9 - 5.3) LVPWd: 1.4 cm (0.6 - 1.1) IVSs: 1.9 cm LVIDs: 2.8 cm LVPWs: 2.0 cm Ao Diam: 3.2 cm (2.0 - 3.7) AV Cusp: 2.0 cm (1.5 - 2.6) LA Diam: 3.6 cm (2.7 - 3.8) RAP: 5.00 mmHg RVSP: 11.86 mmHg FINDINGS -------- Sinus rhythm. This was a technically difficult study with suboptimal views. The left ventricular size is normal. There is mild concentric left ventricular hypertrophy. Overa ll left ventricular systolic function is low-normal with, an EF between 50 - 55 %. The right ventricle is mild to moderately enlarged. The left atrial size is normal. The right atrial size is normal. Lumason used The aortic valve was not well visualized. The mitral valve was not well visualized. There is trace mitral regurgitation. The tricuspid valve was not well visualized. Trace tricuspid regurgitation present. Right ventric ular systolic pressure is normal at < 35 mmHg. The pulmonic valve was not well visualized. The aortic root size is normal. IVC Not well visulized. There is a small, generalized pericardial effusion present. CONCLUSIONS -------- 1. This was a technically difficult study with suboptimal views. 2. There is mild concentric left ventricular hypertrophy. 3. Overall left ventricular systolic function is low-normal with, an EF between 50 - 55 %. 4. The right ventricle is mild to moderately enlarged. 5. The left atrial size is normal. 6. Lumason used 7. The aortic valve was not well visualized. 8. There is trace mitral regurgitation. 9. Trace tricuspid regurgitation present. 10. There is a small, generalized pericardial effusion present. ENTERPRISE ARCHITECT: Rowena Balderas RDCS
== END | disposition home or self-care (01) ==
LOC: RADECHMAIN 14:44
PROVIDERS: ATTEND Internal Medicine Hematology & Oncology
DX: Z01.818 Encounter for other preprocedural examination (principal); I07.1 Rheumatic tricuspid insufficiency; I31.3 Pericardial effusion (noninflammatory)
CPT/HCPCS: 93306; Q9950

== ENCOUNTER → 2019-10-25 | Outpatient (CLI) | payer OTHER ==
[2019-10-25 10:35] LABS: African American GFR (CKD) >90 (>60 ml/min/1.73 sqM); Blood Urea Nitrogen 9 mg/dL (9-20); Non-African American GFR(CKD) >90 (>60 ml/min/1.73 sqM)
--- NOTE | 2019-10-25 12:28 | CT ---
EXAMINATION TYPE: CT ChestAbdPelvis w con DATE OF EXAM: 10/25/2019 COMPARISON: 11/16/2018 HISTORY: Prostate cancer, obs for bone mets CT DLP: 3931.1 mGycm CONTRAST: CT scan of the chest, abdomen and pelvis is performed with Oral Contrast and with IV Contrast, patien t injected with 100 mL of Isovue 300. CT Chest: LUNGS: The lungs are clear and free of infiltrate or atelectasis. No pulmonary nodule or mass is det ected. No pleural effusion or CT evidence of interstitial lung disease. MEDIASTINUM: Thoracic aorta is of normal caliber. The heart is not enlarged. No evidence for media stinal mass or adenopathy. HILAR STRUCTURES: No evidence for mass. No hilar adenopathy is appreciated. OTHER: No significant abnormality. CONTRAST CT ABDOMEN AND PELVIS FINDINGS: LIVER/GB: No calcified gallstones. No space occupying hepatic lesion. Biliary tree is of normal ca liber. PANCREAS: No inflammation. No distinct mass. SPLEEN: No splenic enlargement. No lesion seen. ADRENALS: No nodule. No thickening. KIDNEYS/BLADDER: No hydronephrosis. No nephrolithiasis. No disctinct renal mass. BOWEL: Normal appendix. Normal bowel caliber. No inflammation. GENITAL ORGANS: Diminutive prostate gland with internal calcifications. LYMPH NODES: No greater than 1cm abdominal or pelvic lymph nodes are appreciated. AORTA: No significant abnormality. OSSEOUS STRUCTURES: Stable scattered osteoblastic foci of the visualized axial skeleton. No significa nt progression noted. OTHER: No significant additional abnormality is seen. IMPRESSION: 1. Essentially stable osteoblastic metastases.
--- NOTE | 2019-10-25 23:14 | NM ---
EXAMINATION TYPE: NM bone scan whole body DATE OF EXAM: 10/25/2019 COMPARISON: NONE HISTORY: Prostate cancer, bone metastasis Delayed whole-body scanning was performed following the injection of 25.4 mCi Tc 99m MDP. Images wer e acquired 3 hours post injection. FINDINGS: There are some scattered areas of uptake within the calvarium. Some uptake appears to be within the l eft mandible region. There are scattered multiple areas of uptake within ribs. This would include pos terior left 11th 17 and third ribs and posterior right sixth through 10th ribs. Some uptake is within the T1 or T2 region. Couple of punctate posterior right femoral neck hyperintensities may be present . There is uptake within the bilateral knees most likely related to degenerative changes. Some degenera tive changes also likely present within the bilateral ankles. Intense uptake is in the bilateral shoulders. Metastasis is not excluded. X-ray of the bilateral shou lders is recommended At the edge the [id number] within the distal right humerus appears to be increased radiotracer sug gestive for metastasis. IMPRESSION: 1. Multiple areas of axial and appendicular radiotracer uptake suggestive for metastasis.
== END | disposition home or self-care (01) ==
LOC: RADNMMAIN 09:52
PROVIDERS: ATTEND Internal Medicine Hematology & Oncology
DX: Z03.89 Encounter for observation for other suspected diseases and conditions ruled out (principal); C61 Malignant neoplasm of prostate; C79.51 Secondary malignant neoplasm of bone; E11.9 Type 2 diabetes mellitus without complications; Z79.84 Long term (current) use of oral hypoglycemic drugs
CPT/HCPCS: 82565; 84520; 71260; 74177; 36415; 78306; A9503; Q9967